=== PATIENT | female | born 1960 | race Caucasian/White ===

== ENCOUNTER → 2016-07-28 | Outpatient (CLI) | payer OTHER ==
--- NOTE | 2016-07-29 04:03 | REP ---
Clinical: Hypotensive symptoms. Technique: Childs scale and color Doppler evaluation using linear high frequency transducer Findings: Two-dimensional childs scale and color images demonstrate mural thickening to the common carotid arteries with moderate amount of mixed plaque material extending from the distal common carotid arteries through the carotid bulbs and proximal internal/external carotid arteries. Mild luminal narrowing is appreciated with normal laminar flow. Color Doppler interrogation demonstrates normal arterial wave patterns and velocities with mild/moderate spectral broadening. Normal flow direction is appreciated in the bilateral vertebral arteries. RIGHT (cm/s) LEFT (cm/s) ICA peak systolic velocity 91.8 165.3 ICA diastolic velocity 15.5 67.4 ECA peak systolic velocity 100.7 95.1 CCA peak systolic velocity 110.2 149.9 ICA/CCA ratio 0.8 1.1 Impression: No hemodynamically significant areas of narrowing or stenosis appreciated. Based on set standards narrowing falls within the 50-69% range on the left and less than 50% range on the right. Signed by Aj Kwan MD 07/29/2016 03:55 A
== END ==
LOC: M RAD 11:21
PROVIDERS: ATTEND Family Medicine
DX: R42 Dizziness and giddiness (principal)

== ENCOUNTER → 2016-10-06 | Outpatient (CLI) | payer OTHER ==
[~2016-10-06] MED LIST: ALBU17IN; ALBU17IN INH; AMIT100TA; AMIT100TA PO; AMIT50TA; AMIT50TA PO; ASPI1TAB15 PO; ATOR1TAB21; ATOR1TAB21 PO; BACL1TAB9; BACL1TAB9 PO; CRAN400T3 PO; GLUC1CAP9 PO; LORA10TA2; LORA10TA2 PO; LOSA100T36; LOSA100T36 PO; MELA1TAB15 PO; PANT40TA2; PANT40TA2 PO; QUET1TAB7; SERO1TAB3 PO; TIZA4CAP3 PO; TIZANIDINE; TRAM50TA2; TRAM50TA2 PO; TRAZ1TAB14; TRAZ1TAB14 PO; TYLE1TAB5 PO; VITA100066 PO; VITA500T88 PO
--- NOTE | 2016-10-06 11:46 | REP ---
LUMBAR SPINE, FIVE VIEWS: HISTORY: Spondylosis. COMPARISON: 03/11/2012. There is no acute fracture. The L2-3 through L5-S1 intervertebral discs are decreased in height consistent with disc degeneration. Osteophytes are present on L2-5. There is narrowing of the L4-5 and L5-S1 facet joints. There are 3 mm of grade 1 spondylolisthesis of L4 on 5. IMPRESSION: Degenerative change as described above. Signed by Pernell Hopson MD 10/06/2016 11:48 A
== END ==
LOC: M LRY 10:39
PROVIDERS: ATTEND Family Medicine
DX: M47.816 Spondylosis without myelopathy or radiculopathy, lumbar region (principal)

== ENCOUNTER 2016-12-31 16:35 | Inpatient (IN) | payer OTHER ==
[~2016-12-31] VITALS: Ht 167.6 cm; Wt 102.1 kg
[2016-12-31] MEDS ORDERED: ATOR1TAB21 (17:16)
[2016-12-31] MEDS ORDERED: AMIT100TA (17:16)
[2016-12-31] MEDS ORDERED: PANT40TA2 (17:16)
[2016-12-31] MEDS ORDERED: TRAM50TA2 (17:16)
[2016-12-31] MEDS ORDERED: QUET1TAB7 (17:16)
[2016-12-31] MEDS ORDERED: TIZANIDINE (17:16)
[2016-12-31] MEDS ORDERED: AMIT50TA (17:16)
[2016-12-31] MEDS ORDERED: ALBU17IN (17:16)
[2016-12-31] MEDS ORDERED: LOSA100T36 (17:16)
[2016-12-31] MEDS ORDERED: BACL1TAB9 (17:16)
[2016-12-31] MEDS ORDERED: LORA10TA2 (17:16)
[2016-12-31] MEDS ORDERED: TRAZ1TAB14 (17:16)
--- NOTE | 2016-12-31 17:18 | ECGEPIP ---
Stationary ECG Study [facility] - ED Test Date: 2016-12-31 Pat Name: LEWIS HUGHES Department: Room: - Gender: F Film Coater: JDennis : 1960 Requested By: THAO Lilly Order Number: [id number] Reading MD: Amaury Garcia Measurements Intervals Julian Rate: 87 P: 69 WY: 146 QRS: 19 QRSD: 88 T: 31 QT: 336 QTc: 406 Interpretive Statements SINUS RHYTHM PROBABLE INFERIOR MYOCARDIAL INFARCTION, PROBABLY OLD Electronically Signed On 12-31-2016 17:11:03 EDT by Amaury Garcia
--- NOTE | 2016-12-31 17:54 | REP ---
PA and lateral chest: A comparison is 12/07/2013. The lung garrison are clear. The cardiac size is normal The jenniffer, mediastinum, and bony thorax are unremarkable. Impression: Negative PA and lateral chest. There is no interval change. Signed by Ton Washington MD 12/31/2016 05:45 P
[2016-12-31] MEDS ORDERED: LOSARTAN 50 MG TAB PO ONE (18:30)
[2016-12-31 19:10] LABS: BASO % 0.3 % (0.0-1.0); EOS # 0.1 10^3/uL (0.0-0.50); EOS % 0.7 % (0.0-3.0); IMMATURE GRANULOCYTE % 0.2 % (0-0); LYMPH # 1.7 10^3/uL (1.5-4.5); LYMPH % 17.5 % (24.0-44.0); MEAN CORPUSCULAR HEMOGLOBIN 31.7 pg (27.0-33.0); MEAN CORPUSCULAR HGB CONC 33.9 g/dl (32.0-36.5); MEAN CORPUSCULAR VOLUME 93.5 fl (80.0-96.0); MONO # 0.5 10^3/uL (0.0-0.8); NEUTROPHILS # 7.5 10^3/uL (1.8-7.7); NEUTROPHILS % 76.3 % (36.0-66.0); PLATELET COUNT, AUTOMATED 276 10^3/uL (150-450); RED CELL DISTRIBUTION WIDTH 12.2 % (11.5-14.5); WHITE BLOOD COUNT 9.9 10^3/uL (4.0-10.0)
--- NOTE | 2016-12-31 19:20 | REPUSA ---
CLINICAL HISTORY: Headache. TECHNIQUE: Multiple axial CT images were obtained through brain without IV contrast material. COMMENTS: The study shows normal configuration of sella turcica. There are no intra or extra-axial collections. There is no mass effect or midline shift. There is no evidence of hematoma formation. No hydrocephalus is present. The ventricles are symmetrical. No abnormal calcifications are present. No significant focal abnormalities are seen either in the posterior fossa or supratentorial compartme nt. IMPRESSION: No acute intracranial pathology. Thank you for your kind referral of this patient.
[2016-12-31 19:30] LABS: ALBUMIN/GLOBULIN RATIO 1.18 (1.00-1.93); ALKALINE PHOSPHATASE 68 U/L (45-117); ALT/SGPT 36 U/L (12-78); ANION GAP 6 MEQ/L (8-16); AST/SGOT 17 U/L (15-37); BILIRUBIN,DIRECT < 0.1 MG/DL (0.0-0.2); BILIRUBIN,TOTAL 0.2 MG/DL (0.2-1.0); BLOOD UREA NITROGEN 12 MG/DL (7-18); CARBON DIOXIDE LEVEL 33 MEQ/L (21-32); CHLORIDE LEVEL 100 MEQ/L (98-107); CREATININE FOR GFR 0.68 MG/DL (0.55-1.02); GLOMERULAR FILTRATION RATE > 60.0 (>51); GLUCOSE, FASTING 99 MG/DL (70-105); POTASSIUM SERUM 3.9 MEQ/L (3.5-5.1); SODIUM LEVEL 139 MEQ/L (136-145); TOTAL PROTEIN 7.4 GM/DL (6.4-8.2)
[2016-12-31] MEDS ORDERED: ACETAMINOPHEN TAB 650MG DOSE (2X325MG) PO ONE (19:30)
[2016-12-31 19:51] LABS: CALCIUM LEVEL 10.8 MG/DL (8.5-10.1)
[2016-12-31] MEDS ORDERED: TIZA4CAP3 PO (20:09)
[2016-12-31] MEDS ORDERED: PANT40TA2 PO (20:09)
[2016-12-31] MEDS ORDERED: LOSA100T36 PO (20:09)
[2016-12-31] MEDS ORDERED: TYLE1TAB5 PO (20:09)
[2016-12-31] MEDS ORDERED: CRAN400T3 PO (20:09)
[2016-12-31] MEDS ORDERED: VITA100066 PO (20:09)
[2016-12-31] MEDS ORDERED: ALBU17IN INH (20:09)
[2016-12-31] MEDS ORDERED: ASPI1TAB15 PO (20:09)
[2016-12-31] MEDS ORDERED: TRAM50TA2 PO (20:09)
[2016-12-31] MEDS ORDERED: AMIT50TA PO (20:09)
[2016-12-31] MEDS ORDERED: LORA10TA2 PO (20:09)
[2016-12-31] MEDS ORDERED: SERO1TAB3 PO (20:09)
[2016-12-31] MEDS ORDERED: TRAZ1TAB14 PO (20:09)
[2016-12-31] MEDS ORDERED: ATOR1TAB21 PO (20:09)
[2016-12-31] MEDS ORDERED: MELA1TAB15 PO (20:09)
[2016-12-31] MEDS ORDERED: GLUC1CAP9 PO (20:09)
[2016-12-31] MEDS ORDERED: VITA500T88 PO (20:09)
[2016-12-31] MEDS ORDERED: BACL1TAB9 PO (20:09)
[2016-12-31] MEDS ORDERED: AMIT100TA PO (20:09)
[2016-12-31] MEDS ORDERED: LABETALOL HCL 100 MG/20 ML VIAL IV STA (20:29)
[2016-12-31] MEDS ORDERED: tiZANidine 4 MG TAB PO PRN (20:45)
[2016-12-31] MEDS ORDERED: ALBUTEROL 90 MCG/ACT 8GM HFA INHALER INH PRN (20:45)
[2016-12-31] MEDS: LOSARTAN 50 MG TAB PO SCH (21:00)
[2016-12-31] MEDS ORDERED: AMITRIPTYLINE 50 MG TAB PO SCH (21:00)
[2016-12-31 21:39] LABS: IONIZED CALCIUM 4.8 MG/DL (4.5-5.3)
[2016-12-31] MEDS: traZODone 50 MG TAB PO SCH (21:47)
[2016-12-31] MEDS: AMITRIPTYLINE 50 MG TAB PO SCH (21:48)
[2016-12-31] MEDS: QUEtiapine FUMARATE 25 MG TAB PO SCH (21:48)
[2016-12-31] MEDS: SENOKOT S TAB PO SCH (21:48)
[2016-12-31] MEDS: NS 1,000 ML IV SCH (21:48)
[2016-12-31] MEDS: HEPARIN SOD (PORCINE) 5000 UNITS/ML VIAL SC SCH (21:48)
[2016-12-31 21:51] LABS: OSMOLALITY URINE 379 MOSM/KG (500-800)
[2016-12-31] MEDS: BACLOFEN 10 MG TAB PO SCH (21:51)
[2016-12-31 21:53] LABS: METHADONE URINE NEGATIVE (NEGATIVE)
--- NOTE | 2016-12-31 22:06 | HPE ---
DATE OF ADMISSION: 12/31/2016 PRIMARY CARE PROVIDER: Elissa Brunson MD EDGE CUTTER: Юлия Kelley MD CHIEF COMPLAINT: Syncope HISTORY OF PRESENT ILLNESS: This is a 56-year-old female patient with underlying medical history of chronic tension type headache, cervical pain, chronic lower back pain with sciatica, history of smoking, quit smoking 2 years ago, essential hypertension, gastroesophageal reflux disease (GERD) with hiatal hernia, esophagitis, colonic polyps, allergic rhinitis, impaired fasting glucose, nephrolithiasis. 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 and 3 p.m. and was found on the ground by a coworker with some left hawk abrasion, does not remember what happened. Patient was brought to the emergency room. In the emergency room, patient continued to feel lightheaded with only minimal nausea and was found to be hypertensive. Patient also reported recent polyuria and reported history of constipation, also has a history of asthma. Denies any chest pain, pressure, or discomfort. Has been following up with Dr. Kelley for one episode of chest pain a couple of weeks ago. Patient also reported paraesthesia on different extremities. Upon questioning of oral supplementation and whether patient takes calcium, patient reported taking a lot of calcium, up to four tablets per day for the past couple of days. Other than that, patient reported also taking vitamin D. Reported history of multiple breast lesions. Denies any fevers or chills, coughing, abdominal pain. ALLERGIES: IODINE, but not to IV contrast, NONSTEROIDAL ANTI-INFLAMMATORY DRUGS (NSAIDs), PENICILLIN. PAST MEDICAL HISTORY: 1. Asthma. 2. GERD. 3. Esophagitis. 4. Chronic back pain. 5. Chronic neck pain. 6. Tension headache. 7. Hiatal hernia. 8. Colonic polyps. 9. Breast polyps. 10. Nephrolithiasis. PAST SURGICAL HISTORY: 1. Multiple back surgeries. 2. Tonsillectomy. 3. Adenoidectomy. 4. Hysterectomy. 5. Laminectomy. 6. Multiple breast tumor that were benign removal. SOCIAL HISTORY: Quit smoking 2 years ago, but one pack per day smoking for 40+ years. Drinking alcoholic beverages on occasion. Denies illicit drug use. REVIEW OF SYSTEMS: Reported constipation, occasional paresthesia, headache, lightheadedness, nausea, syncopal episode as reported above, reported polyuria. All other review of systems are negative. HOME MEDICATIONS: - Ventolin inhaler every 4 hours as needed - amitriptyline 150 mg by mouth nightly - vitamin C 500 mg by mouth daily - aspirin 81 mg by mouth daily - atorvastatin 20 mg by mouth daily - baclofen 20 mg by mouth twice a day - vitamin D 1000 units by mouth daily - cranberry extract 40 mg by mouth daily - glucosamine one capsule by mouth daily - loratadine 10 mg by mouth daily - losartan 100 mg by mouth nightly - melatonin 10 mg by mouth nightly - Protonix 40 mg by mouth daily - Seroquel 25 mg by mouth nightly - tizanidine 4 mg by mouth three times a day as needed - tramadol 50 mg by mouth four times a day as needed - trazodone 150 mg nightly - acetaminophen extra strength by mouth nightly PHYSICAL EXAMINATION: VITAL SIGNS: Temperature 98.9, pulse 89, respirations 18, blood pressure 180/99, pulse oximetry 95% on room air. Orthostatics negative. GENERAL: Patient obese, alert and oriented times three, in no acute distress. HEENT: Normocephalic, atraumatic. PULMONARY: Bilaterally clear to auscultation. CARDIAC: Regular rate and rhythm, normal S1, S2. ABDOMEN: Soft, nontender. Positive bowel sounds. EXTREMITIES: Left hawk with some abrasion. No edema bilateral lower extremities. NEUROLOGIC: Cranial nerves II-XII grossly intact. Bilateral upper and lower extremity strength 5/5. [id number] intact. EKG sinus rhythm at 87, T-wave inversion V1, QTc 336. CT head within normal limits. Chest x-ray within normal limits. LABORATORY DATA: WBC 9.9, hemoglobin and hematocrit 13.6/40.1, platelets 276. Chemistry: Sodium 139, potassium 3.9, chloride 100, bicarbonate 33, BUN 12, creatinine 0.68, calcium 10.8. Cardiac enzymes negative. TSH within normal limits. Lipase negative. ASSESSMENT AND PLAN: This is a 56-year-old female patient with underlying medical history of hypertension, asthma, chronic tension headache, neck and back pain, hypertension, breast polyps, colonic polyps, nephrolithiasis, admitted with syncope. 1. Syncope, unknown etiology. Telemetry monitoring. Neurologic checks. Orthostatics have been negative. Possible alternative etiology secondary to hypercalcemia. Followup echo. Trend cardiac enzymes. Physical therapy. Continue to monitor. 2. Hypertensive urgency. Labetalol given in the emergency room. Continue losartan, hydralazine, hold for systolic less than 140. Possible hypertension secondary to hypercalcemia. 3. Hypercalcemia, possibly secondary to patient taking a lot of Tums, but will workup alternative etiology. Will follow vitamin D 25-hydroxy and 1,25-dihydroxy, parathyroid hormone (PTH) and PTH related proteins, vitamin A, urine calcium studies. IV fluids. Followup ionized calcium as well. If workup is negative will consider serum protein electrophoresis (SPEP), urine protein electrophoresis (UPEP), and serum free kappa and lambda. Advised patient to stop Tums temporarily. Vitamin D has been on hold. 4. Gastroesophageal reflux disease (GERD). Continue proton pump inhibitor (PPI). 5. Chronic neck and back pain. Continue home medication. 6. Dyslipidemia. Continue statin. 7. Impaired fasting glucose. Will place the patient on consistent carbohydrate diet. Monitor glucose in morning labs. 8. Allergic rhinitis. Continue home medication. 9. Constipation. Bowel regimen as prescribed. 10. Asthma. Continue home medication. 11. Deep venous thrombosis (DVT) prophylaxis. Heparin subcutaneous. DISPOSITION PLANNING: Pending further workup, blood pressure controlled.
[2016-12-31 23:45] VITALS: BP_SYST 105; BP_SYST 119; BP_SYST 98; BP_DIAS 53; BP_DIAS 56; BP_DIAS 72
[2017-01-01 04:00] VITALS: BP 111/57
[2017-01-01] MEDS: **hydrALAZINE HCL** 25 MG TAB PO SCH ×2 (05:39)
[2017-01-01 06:01] LABS: MEAN CORPUSCULAR HEMOGLOBIN 31.3 pg (27.0-33.0); MEAN CORPUSCULAR HGB CONC 32.9 g/dl (32.0-36.5); MEAN CORPUSCULAR VOLUME 95.2 fl (80.0-96.0); RED CELL DISTRIBUTION WIDTH 12.6 % (11.5-14.5); WHITE BLOOD COUNT 6.1 10^3/uL (4.0-10.0)
[2017-01-01 06:28] LABS: ALBUMIN 3.4 GM/DL (3.2-5.2); ALBUMIN/GLOBULIN RATIO 1.13 (1.00-1.93); ALKALINE PHOSPHATASE 61 U/L (45-117); ALT/SGPT 31 U/L (12-78); ANION GAP 4 MEQ/L (8-16); AST/SGOT 14 U/L (15-37); BILIRUBIN,TOTAL 0.3 MG/DL (0.2-1.0); BLOOD UREA NITROGEN 14 MG/DL (7-18); CALCIUM LEVEL 9.4 MG/DL (8.5-10.1); CARBON DIOXIDE LEVEL 34 MEQ/L (21-32); CHLORIDE LEVEL 103 MEQ/L (98-107); CREATININE FOR GFR 0.82 MG/DL (0.55-1.02); GLOMERULAR FILTRATION RATE > 60.0 (>51); GLUCOSE, FASTING 99 MG/DL (70-105); MAGNESIUM LEVEL 1.8 MG/DL (1.8-2.4); POTASSIUM SERUM 4.4 MEQ/L (3.5-5.1); SODIUM LEVEL 141 MEQ/L (136-145); TOTAL PROTEIN 6.4 GM/DL (6.4-8.2)
[2017-01-01 08:00] VITALS: BP_SYST 110; BP_SYST 111; BP_SYST 122; BP_DIAS 64; BP_DIAS 69; BP_DIAS 70
[2017-01-01] MEDS: PANTOPRAZOLE 40MG TAB (PROTONIX) PO SCH (08:04)
[2017-01-01] MEDS: BACLOFEN 10 MG TAB PO SCH ×2 (08:04→21:11)
[2017-01-01] MEDS: ACETAMINOPHEN TAB 650MG DOSE (2X325MG) PO PRN ×2 (08:04→13:19)
[2017-01-01] MEDS: ASPIRIN 81 MG ENTERIC TAB PO SCH (08:04)
[2017-01-01] MEDS: ATORVASTATIN 20 MG TAB PO SCH (08:04)
[2017-01-01] MEDS: LORATADINE 10 MG TAB PO SCH (08:04)
[2017-01-01] MEDS: SENOKOT S TAB PO SCH ×2 (08:04→21:11)
[2017-01-01] MEDS: HEPARIN SOD (PORCINE) 5000 UNITS/ML VIAL SC SCH ×2 (08:05→21:11)
[2017-01-01] MEDS: traMADol 50 MG TAB PO PRN ×2 (09:47→16:40)
[2017-01-01] MEDS: NS 1,000 ML IV SCH ×2 (09:49→22:17)
[2017-01-01 12:00] VITALS: BP 139/75
--- NOTE | 2017-01-01 15:16 | REP ---
RIGHT HIP: Three views. HISTORY: Pain after a fall. FINDINGS: AP and frog-leg views right hip demonstrate osteoarthritic spurring. Femoral head is smooth and rounded. No fracture is seen. There is minimal greater trochanteric spurring. IMPRESSION: Osteoarthritic changes. No fracture seen. Signed by Evans Galloway MD 01/01/2017 05:12 P
[2017-01-01 16:00] VITALS: BP 132/80
--- NOTE | 2017-01-01 16:03 | IPNPDOC ---
Date Seen The patient was seen on 01/01/17. Progress Note Hospitalist Progress Note Subjective: Patient states that she is feeling better and is no longer nauseated or flushed Objective: Physical Exam: Vitals: Vital Sign - Last 24 Hours 12/31/16 12/31/16 12/31/16 12/31/16 17:00 17:03 17:05 17:08 Temp 98.9 Pulse 89 88 Resp 18 B/P (MAP) 180/99 (126) 180/99 (126) 162/97 (118) Pulse Ox 93 93 O2 Delivery Room Air 12/31/16 12/31/16 12/31/16 12/31/16 17:10 17:20 17:23 17:25 Pulse 86 B/P (MAP) 161/99 (119) 155/94 (114) Pulse Ox 90 12/31/16 12/31/16 12/31/16 12/31/16 17:35 17:40 17:45 17:47 Pulse 92 B/P (MAP) 149/92 (111) 169/85 (113) 168/97 (120) 12/31/16 12/31/16 12/31/16 12/31/16 17:48 17:50 17:50 17:52 Pulse 86 95 87 89 B/P (MAP) 190/104 (132) 169/85 (113) 175/109 (131) 168/97 (120) 190/104 (132) Pulse Ox 95 12/31/16 12/31/16 12/31/16 12/31/16 17:55 17:57 18:05 18:20 Pulse 82 82 Resp 18 B/P (MAP) 171/107 (128) 169/108 (128) Pulse Ox 96 95 O2 Delivery Room Air 12/31/16 12/31/16 12/31/16 12/31/16 18:25 18:35 18:40 18:48 Pulse 84 B/P (MAP) 164/94 (117) 167/106 (126) 167/106 Pulse Ox 95 12/31/16 12/31/16 12/31/16 12/31/16 18:50 19:05 19:10 19:20 Pulse 82 82 84 Resp 18 B/P (MAP) 167/108 (127) Pulse Ox 95 98 96 O2 Delivery Room Air 10/11/17 12/31/16 12/31/16 12/31/16 19:25 19:35 19:40 19:50 Pulse 84 86 B/P (MAP) 181/113 (135) 179/118 (138) Pulse Ox 93 94 12/31/16 12/31/16 12/31/16 12/31/16 19:55 20:05 20:10 20:25 Pulse 84 78 86 B/P (MAP) 182/116 (138) 172/118 (136) 158/107 (124) Pulse Ox 95 96 94 12/31/16 12/31/16 12/31/16 12/31/16 20:40 20:55 20:57 21:25 Pulse 82 84 70 B/P (MAP) 175/107 (129) 173/105 (127) 130/87 (101) 137/96 (110) Pulse Ox 92 93 97 12/31/16 12/31/16 12/31/16 12/31/16 21:40 21:55 22:10 22:25 Temp 98.6 Pulse 76 78 78 Resp 16 B/P (MAP) 156/110 (125) 133/94 (107) Pulse Ox 94 91 90 12/31/16 12/31/16 12/31/16 12/31/16 22:40 22:55 23:45 23:45 Temp 97.8 Pulse 80 80 79 79 66 Resp 18 18 B/P (MAP) 116/77 (90) 119/72 (88) 119/72 (88) 105/53 (70) 98/56 (70) Pulse Ox 92 89 92 O2 Delivery Room Air 01/01/17 01/01/17 01/01/17 01/01/17 00:00 03:47 04:00 05:39 Temp 97.9 Pulse 68 Resp 18 B/P (MAP) 113/62 111/57 (75) 99/64 Pulse Ox 93 O2 Delivery Room Air Room Air 01/01/17 01/01/17 01/01/17 01/01/17 08:00 08:00 08:00 09:47 Temp 98.2 Pulse 79 84 87 Resp 18 19 B/P (MAP) 122/70 (87) 110/64 (79) 111/69 (83) Pulse Ox 93 O2 Delivery Room Air Room Air 01/01/17 01/01/17 10:30 12:00 Temp 98.0 Pulse 80 Resp 18 18 B/P (MAP) 139/75 (96) Pulse Ox 91 O2 Delivery Room Air General: Awake, alert, no acute distress HEENT: Normocephalic, atraumatic, extraocular movements intact CV: Regular rate and rhythm Lungs: Clear to auscultation bilaterally Abd: Soft, nontender, nondistended Extremities: No edema Neuro: Alert And oriented 3, normal speech Psych: Normal mood and affect Labs and Imaging: Laboratory Tests 12/31/16 17:08 Red Blood Count 4.29, Mean Corpuscular Volume 93.5, Mean Corpuscular Hemoglobin 31.7, Mean Corpuscular Hemoglobin Concent 33.9, Red Cell Distribution Width 12.2 , Neutrophils (%) (Auto) 76.3 H, Lymphocytes (%) (Auto) 17.5 L, Monocytes (%) ( Auto) 5.0, Eosinophils (%) (Auto) 0.7, Basophils (%) (Auto) 0.3, Neutrophils # ( Auto) 7.5, Lymphocytes # (Auto) 1.7, Monocytes # (Auto) 0.5, Eosinophils # (Auto ) 0.1, Basophils # (Auto) 0.0 01/01/17 05:44 Red Blood Count 3.96 L, Mean Corpuscular Volume 95.2, Mean Corpuscular Hemoglobin 31.3, Mean Corpuscular Hemoglobin Concent 32.9, Red Cell Distribution Width 12.6, Calcium Level 9.4, Phosphorus Level 5.0 H, Aspartate Amino Transf (AST/SGOT) 14 L, Alanine Aminotransferase (ALT/SGPT) 31, Alkaline Phosphatase 61, Total Bilirubin 0.3, Total Protein 6.4, Albumin 3.4 Assessment and Plan: 56-year-old female with asthma, chronic tension-type headache, chronic lower back pain, hypertension, GERD, hiatal hernia, esophagitis, colonic polyps, allergic rhinitis, prediabetes who presented to the emergency department after what appears to be an episode of syncope. 1. Syncope: Patient states that prior to that she felt lightheaded and nauseated , and she reports to me that she had been seeing Dr. Kelley for the last several months for similar symptoms. CT of the head is unremarkable. We will continue to monitor her on telemetry and will follow-up an echocardiogram. She was mildly orthostatic on one check, the remainder of her orthostatic vital signs have been normal. Since the patient has been seeing Dr. Kelley, I will discuss the case with him. Continue hydration. 2. Hypercalcemia: The patient's calcium was mildly elevated upon admission at 10.8. She does report taking large amounts of Tums, which may be contributing. Repeat this morning is 9.4. Her ionized calcium was within normal limits. PTH is also normal. She has several other labs pending, but at this time, I am recommending that she cut down on her Tums intake and follow-up with her primary care physician for further monitoring and workup. 3. Allergic rhinitis: Continue home Claritin. 4. Hypertension: Continue home ARB. BP was very elevated on admission, but now has improved. Continue to monitor. 5. GERD, hiatal hernia, esophagitis: Continue home PPI. The patient has been advised that she should cut back on her Tums usage. 6. Chronic tension-type headaches: Continue home amitriptyline. 7. Chronic low back pain: Continue home tramadol, tizanidine, baclofen. 8. Asthma: Continue home albuterol. DVT prophylaxis: Heparin Dispo: pending remainder of syncope workup VS, I&O, 24H, Fishbone Vital Signs/I&O Vital Signs Date Time Temp Pulse Resp B/P (MAP) Pulse Ox O2 Delivery O2 Flow Rate FiO2 01/01/17 12:00 98.0 80 18 139/75 (96) 91 Room Air I&O- Last 24 Hours up to 6 AM 01/02/17 06:00 Intake Total 0 ml Output Total 300 ml Balance -300 ml Laboratory Data 24H LABS Laboratory Tests 2 12/31/16 17:08: Immature Granulocyte % (Auto) 0.2H, White Blood Count 9.9, Red Blood Count 4.29 , Hemoglobin 13.6, Hematocrit 40.1, Mean Corpuscular Volume 93.5, Mean Corpuscular Hemoglobin 31.7, Mean Corpuscular Hemoglobin Concent 33.9, Red Cell Distribution Width 12.2, Platelet Count 276, Neutrophils (%) (Auto) 76.3H, Lymphocytes (%) (Auto) 17.5L, Monocytes (%) (Auto) 5.0, Eosinophils (%) (Auto) 0.7, Basophils (%) (Auto) 0.3, Neutrophils # (Auto) 7.5, Lymphocytes # (Auto) 1.7, Monocytes # (Auto) 0.5, Eosinophils # (Auto) 0.1, Basophils # (Auto) 0.0, Immature Granulocyte # (Auto) 0.0, Nucleated Red Blood Cells % (auto) 0.0, Anion Gap 6L, Glomerular Filtration Rate > 60.0, Calcium Level 10.8#H, Aspartate Amino Transf (AST/SGOT) 17, Alanine Aminotransferase (ALT/SGPT) 36, Alkaline Phosphatase 68, Total Bilirubin 0.2, Direct Bilirubin < 0.1, Total Creatine Kinase 70, Creatine Kinase MB 1.2, Creatine Kinase MB Relative Index 1.71, Troponin I < 0.02, Total Protein 7.4, Albumin 4.0, Albumin/Globulin Ratio 1.18, Lipase 192, Thyroid Stimulating Hormone (TSH) 1.640 12/31/16 21:19: Urine Appearance CLEAR, Urine Color YELLOW, Urine pH 7.0, Urine Specific [place] 1.009, Urine Protein NEGATIVE, Urine Glucose (UA) NEGATIVE, Urine Ketones NEGATIVE, Urine Urobilinogen 0.2, Urine Bilirubin NEGATIVE, Urine Leukocyte Esterase 1+H, Urine Blood NEGATIVE, Urine Nitrite NEGATIVE, Urine WBC (Auto) 6H, Urine RBC (Auto) 2, Urine Hyaline Casts (Auto) 0, Urine Bacteria ( Auto) NEGATIVE, Urine Squamous Epithelial Cells 1, Urine Amorphous Sediment SMALLH, Urine Mucus (Auto) SMALL, Urine Sperm (Auto) , Urine Random Osmolality 379L, Urine Random Creatinine 37.8, Urine Random Total Protein 6.3, Urine Random Sodium 96, Urine Random Potassium 38.1, Urine Random Chloride 109, Urine Random Calcium 15.2, Urine Amphetamines Screen NEGATIVE, Urine Benzodiazepines Screen NEGATIVE, Urine Opiates Screen NEGATIVE, Urine Methadone Screen NEGATIVE , Urine Barbiturates Screen NEGATIVE, Urine Phencyclidine Screen NEGATIVE, Urine Cocaine Metabolite Screen NEGATIVE, Urine Cannabinoids Screen NEGATIVE 12/31/16 21:26: Total Creatine Kinase 75, Creatine Kinase MB 1.2, Creatine Kinase MB Relative Index 1.60, Troponin I < 0.02, Whole Blood Ionized Calcium 4.8, 25-Hydroxy Vitamin D Total 24.8L, Parathyroid Hormone (Intact) 43.5 01/01/17 05:44: Nucleated Red Blood Cells % (auto) 0.0, Anion Gap 4L, Glomerular Filtration Rate > 60.0, Calcium Level 9.4, Aspartate Amino Transf (AST/SGOT) 14L, Alanine Aminotransferase (ALT/SGPT) 31, Alkaline Phosphatase 61, Total Bilirubin 0.3, Total Protein 6.4, Albumin 3.4, Albumin/Globulin Ratio 1.13, Whole Blood Ionized Calcium 4.8, Blood Urea Nitrogen 14, Creatinine 0.82, Sodium Level 141, Potassium Level 4.4, Chloride Level 103, Carbon Dioxide Level 34H, Phosphorus Level 5.0H, Magnesium Level 1.8 CBC/BMP Laboratory Tests 12/31/16 17:08 Red Blood Count 4.29, Mean Corpuscular Volume 93.5, Mean Corpuscular Hemoglobin 31.7, Mean Corpuscular Hemoglobin Concent 33.9, Red Cell Distribution Width 12.2 , Neutrophils (%) (Auto) 76.3 H, Lymphocytes (%) (Auto) 17.5 L, Monocytes (%) ( Auto) 5.0, Eosinophils (%) (Auto) 0.7, Basophils (%) (Auto) 0.3, Neutrophils # ( Auto) 7.5, Lymphocytes # (Auto) 1.7, Monocytes # (Auto) 0.5, Eosinophils # (Auto ) 0.1, Basophils # (Auto) 0.0 01/01/17 05:44 Red Blood Count 3.96 L, Mean Corpuscular Volume 95.2, Mean Corpuscular Hemoglobin 31.3, Mean Corpuscular Hemoglobin Concent 32.9, Red Cell Distribution Width 12.6, Calcium Level 9.4, Phosphorus Level 5.0 H, Aspartate Amino Transf (AST/SGOT) 14 L, Alanine Aminotransferase (ALT/SGPT) 31, Alkaline Phosphatase 61, Total Bilirubin 0.3, Total Protein 6.4, Albumin 3.4 Microbiology Microbiology 12/31/16 Urine Culture - Final, Complete MELISA LALA Jan 01, 2017 16:03
--- NOTE | 2017-01-01 17:02 | REP ---
Right femur series: Three views. History: Pain after fall. Findings: AP and lateral views of the right mid and distal femur show no evidence of fracture or subluxation. Bones joints and soft tissues are unremarkable. Impression: No fracture noted. Signed by Evans Galloway MD 01/01/2017 05:14 P
[2017-01-01] MEDS ORDERED: NORCO, ANEXSIA 5/325MG TABLET (HYDROcodone/ACETAMINOPHEN) PO ONE (17:45)
[2017-01-01 20:00] VITALS: BP_SYST 119; BP_SYST 120; BP_SYST 124; BP_DIAS 61; BP_DIAS 66; BP_DIAS 74
[2017-01-01] MEDS: AMITRIPTYLINE 50 MG TAB PO SCH (21:11)
[2017-01-01] MEDS: QUEtiapine FUMARATE 25 MG TAB PO SCH (21:11)
[2017-01-01 21:12] VITALS: BP 124/61
[2017-01-01] MEDS: LOSARTAN 50 MG TAB PO SCH (21:12)
[2017-01-01] MEDS: traZODone 50 MG TAB PO SCH (21:12)
--- NOTE | 2017-01-01 22:51 | ECHO ---
DATE OF PROCEDURE: 01/01/2017 REFERRING PHYSICIAN: Agnieszka Morris MD and Almaz Jerry MD INDICATION: Syncope. HEIGHT: 168 cm WEIGHT: 89 kg DIMENSIONS: IVS: 0.9 LV: 4.6 LVPW: 0.9 LA: 2.9 Aorta: 3.2 IVC: 1.6 Mitral E velocity: 65 cm/s Mitral A velocity: 77 cm/s E prime velocity 9.2 cm/s E prime lateral: 12.6 cm/s FINDINGS: The study is of acceptable technical quality. Left ventricle is of normal size and systolic function with estimated left ventricular ejection fraction (LVEF) 60-65%. Right ventricle is also normal size and systolic function. Both atria appear normal. All four cardiac valves were reasonably well seen and appear normal. No pericardial effusion is noted. Inferior vena cava is normal size. Aortic root is normal. Aortic arch and abdominal aorta were poorly seen. Doppler interrogation reveals no aortic stenosis or insufficiency, there is also no mitral stenosis or insufficiency. Mild tricuspid insufficiency seen. Estimated pulmonary artery pressure is within normal limits. Mitral valve is functionally competent. Mitral inflow pattern and tissue Doppler imaging of mitral annulus reveal grade 1 diastolic dysfunction. CONCLUSIONS: 1. Study is of acceptable technical quality. 2. Normal LV size and systolic function, grade 1 diastolic dysfunction. 3. No significant valvular disease. 4. Normal central venous pressure and likely normal pulmonary artery pressure. COMMENT: SBE prophylaxis is not recommended. Study does not provide obvious explanation for syncopal event.
[2017-01-02] VITALS: BP 108/55
[2017-01-02 04:00] VITALS: BP 120/68
[2017-01-02 06:05] LABS: MEAN CORPUSCULAR HEMOGLOBIN 30.9 pg (27.0-33.0); MEAN CORPUSCULAR HGB CONC 31.8 g/dl (32.0-36.5); MEAN CORPUSCULAR VOLUME 97.1 fl (80.0-96.0); RED CELL DISTRIBUTION WIDTH 12.4 % (11.5-14.5); WHITE BLOOD COUNT 5.3 10^3/uL (4.0-10.0)
[2017-01-02 06:17] LABS: ANION GAP 3 MEQ/L (8-16); BLOOD UREA NITROGEN 16 MG/DL (7-18); CARBON DIOXIDE LEVEL 30 MEQ/L (21-32); CHLORIDE LEVEL 109 MEQ/L (98-107); CREATININE FOR GFR 0.57 MG/DL (0.55-1.02); GLOMERULAR FILTRATION RATE > 60.0 (>51); GLUCOSE, FASTING 94 MG/DL (70-105); MAGNESIUM LEVEL 1.8 MG/DL (1.8-2.4); POTASSIUM SERUM 4.1 MEQ/L (3.5-5.1); SODIUM LEVEL 142 MEQ/L (136-145)
[2017-01-02 08:00] VITALS: BP 142/87
[2017-01-02] MEDS: ATORVASTATIN 20 MG TAB PO SCH (09:50)
[2017-01-02] MEDS: HEPARIN SOD (PORCINE) 5000 UNITS/ML VIAL SC SCH (09:50)
[2017-01-02] MEDS: PANTOPRAZOLE 40MG TAB (PROTONIX) PO SCH (09:50)
[2017-01-02] MEDS: BACLOFEN 10 MG TAB PO SCH (09:51)
[2017-01-02] MEDS: SENOKOT S TAB PO SCH (09:51)
[2017-01-02] MEDS: LORATADINE 10 MG TAB PO SCH (09:51)
[2017-01-02] MEDS: ASPIRIN 81 MG ENTERIC TAB PO SCH (09:51)
[2017-01-02] MEDS: traMADol 50 MG TAB PO PRN (09:57)
[2017-01-02 12:00] VITALS: BP 140/84
--- NOTE | 2017-01-02 15:20 | DS.PDOC ---
Discharge Summary General Date of Admission Dec 31, 2016 at 21:03 Date of Discharge 01/02/2017 Discharge Summary DISCHARGE SUMMARY DATE OF ADMISSION: 12/31/2016 DATE OF DISCHARGE: 01/02/2017 PRIMARY CARE PHYSICIAN: Elissa Brunson MD DISCHARGE DIAGNOS(E)S: Syncope HPI & HOSPITAL COURSE: 56-year-old female with asthma, chronic tension-type headache, chronic lower back pain, hypertension, GERD, hiatal hernia, esophagitis, colonic polyps, allergic rhinitis, prediabetes who presented to the emergency department after what appears to be an episode of syncope. 1. Syncope: Patient states that prior to that she felt lightheaded and nauseated , and she reports to me that she had been seeing Dr. Kelley for the last several months for similar symptoms. CT of the head is unremarkable. Telemetry monitoring did not show any arrhythmias and echocardiogram was signifianct only for grade 1 diastolic dysfunction. She does not appear to be orthostatic. Since the patient has been seeing Dr. Kelley, I discussed the case with Dr. Grover, who was shader and toner for Dr. Kelley. He noted that a stress test done as an outpatient was unremarkable, and he recommended that she come to their office upon discharge for a loop recorder. 2. Hypercalcemia: The patient's calcium was mildly elevated upon admission at 10.8. She does report taking large amounts of Tums, which may be contributing. Repeat had normalized and her ionized calcium was within normal limits. PTH is also normal. Vit A, Vit D, and PTHrP are pending and will need to be followed up by PCP, but at this time, I am recommending that she cut down on her Tums intake and follow-up with her primary care physician for further monitoring and workup. 3. Allergic rhinitis: Continue home Claritin. 4. Hypertension: Continue home ARB. BP was very elevated on admission, but now has improved. Continue to monitor. 5. GERD, hiatal hernia, esophagitis: Continue home PPI. The patient has been advised that she should cut back on her Tums usage. 6. Chronic tension-type headaches: Continue home amitriptyline. 7. Chronic low back pain: Continue home tramadol, tizanidine, baclofen. 8. Asthma: Continue home albuterol. 9. Right hip pain: Per patient, this has been an issue for several months but was worse after her syncope. She thinks she may have fallen on that side. Right hip/pelvis, femur films are negative for acute findings and show only OA, for which she was advised to follow with her PCP. She worked with PT, who cleared her to go home. DVT prophylaxis: Heparin PHYSICAL EXAMINATION ON DISCHARGE: VITAL SIGNS: Vital Sign - Last 24 Hours 01/01/17 01/01/17 01/01/17 01/01/17 16:00 16:40 17:58 18:40 Temp 98.4 Pulse 85 Resp 18 18 19 20 B/P (MAP) 132/80 (97) Pulse Ox 92 O2 Delivery Room Air 01/01/17 01/01/17 01/01/17 01/01/17 20:00 20:00 20:00 21:12 Temp 97.7 Pulse 89 91 93 Resp 20 B/P (MAP) 124/61 (82) 124/61 120/66 (84) 119/74 (89) Pulse Ox 93 O2 Delivery Room Air Room Air 01/02/17 01/02/17 01/02/17 01/02/17 00:00 00:00 04:00 08:00 Temp 97.1 96.3 Pulse 57 80 Resp 18 20 B/P (MAP) 108/55 (72) 120/68 (85) Pulse Ox 93 91 O2 Delivery Room Air Room Air Room Air Room Air 01/02/17 01/02/17 01/02/17 01/02/17 08:00 09:57 10:27 12:00 Temp 98.4 98.5 Pulse 79 80 Resp 16 18 20 18 B/P (MAP) 142/87 (105) 140/84 (102) Pulse Ox 90 93 O2 Delivery Room Air Room Air General: Awake, alert, no acute distress HEENT: Normocephalic, atraumatic, extraocular movements intact CV: Regular rate and rhythm Lungs: Clear to auscultation bilaterally Abd: Soft, nontender, nondistended Extremities: No edema Neuro: Alert And oriented 3, normal speech Psych: Normal mood and affect DISPOSITION: Home DISCHARGE INSTRUCTIONS: Upon discharge, go directly to Dr. Dr. Kelley's office for loop recorder. Follow up PCP within one week. Follow up Dr. Kelley in 1-2 weeks. Stop taking Tums. If symptoms return, or if you experience worsening of your symptoms, please call your doctor or return to the emergency department. ITEMS THAT NEED OUTPATIENT FOLLOWUP: Vit A, Vit D, and PTHrP by PCP Loop recorder results by Dr. Kelley Patient was seen and examined by me on the day of discharge, and I spent a total time of greater than 30 minutes on this discharge. Vital Signs/I&Os Vital Signs Date Time Temp Pulse Resp B/P (MAP) Pulse Ox O2 Delivery O2 Flow Rate FiO2 01/02/17 12:00 98.5 80 18 140/84 (102) 93 Room Air I&O- Last 24 Hours up to 6 AM 01/03/17 06:00 Intake Total 840 ml Output Total 1400 ml Balance -560 ml Laboratory Data Labs 24H Laboratory Tests 2 01/02/17 05:36: Nucleated Red Blood Cells % (auto) 0.0, Anion Gap 3L, Glomerular Filtration Rate > 60.0, Blood Urea Nitrogen 16, Creatinine 0.57, Sodium Level 142, Potassium Level 4.1, Chloride Level 109H, Carbon Dioxide Level 30, Calcium Level 8.0L, Magnesium Level 1.8 CBC/BMP Laboratory Tests 01/02/17 05:36 Red Blood Count 3.76 L, Mean Corpuscular Volume 97.1 H, Mean Corpuscular Hemoglobin 30.9, Mean Corpuscular Hemoglobin Concent 31.8 L, Red Cell Distribution Width 12.4, Calcium Level 8.0 L Microbiology Microbiology 12/31/16 Urine Culture - Final, Complete Discharge Medications Scheduled (Glucosamine & Chondroitin 500-400 mg) 1 Cap Cap, 1 CAP PO DAILY, (Reported) (Tylenol Pm Extra Strength 500-25 mg) 1 Tab Tab, 2 TAB PO QHS, (Reported) Amitriptyline HCl (Amitriptyline HCl) 50 Mg Tab, 50 MG PO QHS, (Reported) 150MG TOTAL QHS Amitriptyline HCl (Amitriptyline HCl) 100 Mg Tab, 100 MG PO QHS, (Reported) 150MG TOTAL QHS Ascorbic Acid (Vitamin C) 500 Mg Tab, 500 MG PO DAILY, (Reported) Aspirin (Aspirin) 81 Mg Tab, 81 MG PO DAILY, (Reported) Atorvastatin Calcium (Atorvastatin Calcium) 20 Mg Tab, 20 MG PO DAILY, (Reported ) Baclofen (Baclofen) 20 Mg Tab, 20 MG PO BID, (Reported) Cholecalciferol (Vitamin D) 1,000 Unit Tab, 1,000 UNIT PO DAILY, (Reported) Cranberry (Cranberry) 400 Mg Tab, 400 MG PO DAILY, (Reported) Loratadine (Loratadine) 10 Mg Tab, 10 MG PO DAILY, (Reported) Losartan Potassium (Losartan Potassium) 100 Mg Tab, 100 MG PO QHS, (Reported) Melatonin (Melatonin) 10 Mg Tab, 10 MG PO QHS, (Reported) Pantoprazole Sodium (Pantoprazole Sodium) 40 Mg Tab, 40 MG PO DAILY, (Reported) Quetiapine Fumerate (Seroquel) 25 Mg Tab, 25 MG PO QHS, (Reported) Trazodone HCl (Trazodone HCl) 150 Mg Tab, 150 MG PO QHS, (Reported) Scheduled PRN Albuterol Sulfate (Ventolin Hfa) 200 Puff/8 Gm Aers, 2 PUFF INH Q4H PRN for SHORTNESS OF BREATH, (Reported) Tizanidine Hydrochloride (Tizanidine HCl) 4 Mg Cap, 4 MG PO TID PRN for SPASMS, (Reported) Tramadol HCl (Tramadol HCl) 50 Mg Tab, 50 MG PO QID PRN for PAIN, (Reported) Allergies Coded Allergies: Iodine (Verified Allergy, Unknown, 05/07/15) NSAIDs (Verified Allergy, Unknown, 05/07/15) Penicillins (Verified Allergy, Unknown, 05/07/15) MELISA LALA Jan 02, 2017 15:20
[2017-01-06 00:11] LABS: VITAMIN D 1,25 DIHYDROXY 16.7 pg/mL (19.9-79.3)
[2017-01-07 00:06] LABS: PTH RELATED PEPTIDE < 1.1 pmol/L (.); VITAMIN A, RETINOL LEVEL 61 ug/dL (20-65)
== END 2017-01-02 16:21 | disposition home or self-care (01) | DRG 204 ==
LOC: M ED 16:35 → EDBEDREQSVC 20:35 → EDBEDREQTM 20:35 → M ED INP 21:03 → M PCU 23:40
PROVIDERS: ADMIT Hospitalist; ATTEND Hospitalist
DX: R55 Syncope and collapse (principal); E83.52 Hypercalcemia; I10 Essential (primary) hypertension; K21.9 Gastro-esophageal reflux disease without esophagitis; M54.5 Low back pain; J45.909 Unspecified asthma, uncomplicated; K44.9 Diaphragmatic hernia without obstruction or gangrene; K29.70 Gastritis, unspecified, without bleeding; G44.209 Tension-type headache, unspecified, not intractable; M25.551 Pain in right hip; Z79.899 Other long term (current) drug therapy; Z79.82 Long term (current) use of aspirin; Z88.0 Allergy status to penicillin; Z88.8 Allergy status to other drugs, medicaments and biological substances; Z87.891 Personal history of nicotine dependence; M54.2 Cervicalgia; J30.9 Allergic rhinitis, unspecified; K59.00 Constipation, unspecified; R73.02 Impaired glucose tolerance (oral); I16.0 Hypertensive urgency

== ENCOUNTER → 2016-12-31 | Outpatient (CLI) | payer OTHER ==
[2016-12-31 12:39] LABS: MEAN CORPUSCULAR HEMOGLOBIN 31.6 pg (27.0-33.0); MEAN CORPUSCULAR VOLUME 95.6 fl (80.0-96.0); RED CELL DISTRIBUTION WIDTH 12.3 % (11.5-14.5); WHITE BLOOD COUNT 5.7 10^3/uL (4.0-10.0)
[2016-12-31 13:16] LABS: ANION GAP 5 MEQ/L (8-16); BLOOD UREA NITROGEN 14 MG/DL (7-18); CARBON DIOXIDE LEVEL 33 MEQ/L (21-32); CHLORIDE LEVEL 102 MEQ/L (98-107); CHOLESTEROL LEVEL 168 MG/DL (<200); GLOMERULAR FILTRATION RATE > 60.0 (>51); GLUCOSE, FASTING 85 MG/DL (70-105); POTASSIUM SERUM 4.3 MEQ/L (3.5-5.1); SODIUM LEVEL 140 MEQ/L (136-145); TRIGLYCERIDES LEVEL 108 MG/DL (<150)
== END ==
LOC: M LRY 09:23
PROVIDERS: ATTEND Internal Medicine Cardiovascular Disease
DX: I10 Essential (primary) hypertension (principal); R73.09 Other abnormal glucose

== ENCOUNTER → 2017-03-11 | Day surgery (SDC) | payer OTHER ==
[~2017-03-11] VITALS: Ht 167.6 cm; Wt 99.3 kg
[~2017-03-11] MED LIST changes: +ACETAMINOPHEN TAB 650MG DOSE (2X325MG) PO ONE; +ALBUTEROL 90 MCG/ACT 8GM HFA INHALER INH PRN; +ALBUTEROL SULFATE 2.5 MG/0.5 ML INH NEB SOLN INH ONE; +ALBUTEROL SULFATE 2.5 MG/0.5 ML INH NEB SOLN INH SCH; +CLINDAMYCIN 600 MG in APPROPRIATE DILUENT 1 EA IV ONE; +EPINEPHrine 1MG/ML INJ 30ML MD-VIAL As Ordered ONE; +EPINEPHrine INJ 1 MG/ML 1ML AMP ONE; +EPIP0.3I2 IJ; +GLYCOPYRROLATE INJ 0.2 MG/ML 2 ML VIAL As Ordered ONE; +LIDOCAINE 1% MDV 20ML VIAL As Ordered ONE; +LIDOCAINE 1% MDV 20ML VIAL SQ PRN; +LIDOCAINE 2% INJ 100 MG/5 ML SDV (FOR ANES.) As Ordered ONE; +LR 1,000 ML IV SCH; +METOCLOPRAMIDE INJ 10MG/2ML VIAL (J2765) IV PRN; +MIDAZOLAM INJ 2 MG/2 ML VIAL (J2250) As Ordered ONE; +MIDAZOLAM INJ 2 MG/2 ML VIAL (J2250) IV ONE; +NEOSTIGMINE 10 MG/10 ML VIAL (J2710) As Ordered ONE; +ONDANSETRON 4MG/2ML VIAL (J2405) As Ordered ONE; +ONDANSETRON 4MG/2ML VIAL (J2405) IV PRN; +PHENYLephrine HCL 500 MCG/5 ML (100MCG/ML) SYRINGE (J2370) As Ordered ONE; +PROPOFOL 200 MG/20 ML VIAL As Ordered ONE; +ROCURONIUM BROMIDE 50 MG/5 ML VIAL As Ordered ONE; +ROPIvacaine 0.5% 30 ML INJECTION (J2795 PER 1MG) ONE; +STOO100C PO; +SUCCINYLCHOLINE 100 MG/5 ML SYRINGE (J0330) As Ordered ONE; +dexameTHASONE 10 MG/1 ML VIAL PRES.FREE (J1100) ONE; +fentaNYL 100 MCG/2 ML INJECTION (J3010) As Ordered ONE; +fentaNYL 100 MCG/2 ML INJECTION (J3010) IV ONE; +fentaNYL 100 MCG/2 ML INJECTION (J3010) IV PRN
[2017-03-11 14:43] VITALS: O2SAT 98
[2017-03-11 19:15] VITALS: BP 152/89
--- NOTE | 2017-03-12 07:36 | REP ---
REASON FOR EXAM: Low oxygen saturation. COMPARISON: Multiple, latest 12/31/2016. There is mild elevation of the diaphragmatic surface of the right lung increased slightly from the prior exam. There is an implanted device in the anterior left soft tissues of the chest. This represents a change. The heart is not enlarged. There is minimal right CP angle blunting. No definite acute patchy parenchymal opacities have developed. There is no change in the osseous structures. IMPRESSION: Suspect right lower lobe minimal subsegmental atelectatic changes. This needs to be correlated clinically with appropriate followup. All other findings as described above. Signed by Paul Tolbert DO 03/13/2017 01:52 P
--- NOTE | 2017-03-17 18:10 | RO ---
DATE OF PROCEDURE: 03/11/2017 PREPROCEDURE DIAGNOSES: 1. Right shoulder rotator cuff tear. 2. Right shoulder acromioclavicular (AC) joint arthritis. 3. Right shoulder possible superior labral tear. POSTPROCEDURE DIAGNOSES: 1. Right shoulder full thickness rotator cuff tear. 2. Right shoulder acromioclavicular joint arthritis. 3. Right shoulder labral tear. PROCEDURE: 1. Right shoulder arthroscopic rotator cuff repair. 2. Right shoulder arthroscopic distal clavicle excision. 3. Right shoulder biceps tenotomy and superior labral debridement, as well as debridement of bursal tissue and chondroplasty of the glenoid. SURGEON: Dr. Krishna Ramos WRINGER MACHINE OPERATOR: SHERRIE Mercedes ANESTHESIA: Preoperative nerve block plus general. IV FLUIDS: Lactated Ringer's. ESTIMATED BLOOD LOSS: 25 mL. IMPLANTS: Arthrex 4.75 mm, PEEK SwiveLock anchor times one and 5.5 mm SwiveLock anchor times one. CLOSURE: Nylon. INDICATIONS: Nunu is a 57-year-old female with months of right shoulder pain, which had recently progressed. On exam, she had weakness in her supraspinatus and subscapularis, and tenderness at the AC joint. MRI showed a very high-grade partial thickness tear of the supraspinatus and tendinopathy of the subscapularis, as well as degenerative changes at the AC joint. After failing nonoperative treatment, the patient wished to pursue surgery. We discussed arthroscopic rotator cuff repair versus debridement, distal clavicle excision and all other indicated procedures as dictated by intraoperative findings. Written informed consent obtained. DESCRIPTION OF PROCEDURE: The patient was identified in the preoperative holding area, and the right shoulder signed by myself. She received a preoperative nerve block by anesthesia. She was brought to the operating room and placed supine on a well-padded operating room (OR) table. Exam under anesthesia revealed 170 degrees of passive forward flexion, 80 degrees of external rotation arm at her side. General anesthesia induced without complications. She was then placed into the left side down lateral decubitus position with an axillary roll and all bony prominences well padded with the beanbag. Venodyne boot bilateral lower extremities. Beanbag was deflated, and she was secured to the operating room (OR) table. The right arm was then prepped and draped in the normal sterile fashion with Chloraprep. She received appropriate intravenous (IV) antibiotics within one hour of incision. The right arm was sterilely placed into the Arthrex STaR Sleeve traction device with 10 pounds of traction. Prior to incision, a time-out was performed, which myself and all OR staff confirmed the patient's name, medical record number, date of and the correct side, site and procedure. The shoulder was insufflated with 30 mL of lactated Ringer's and a standard posterior viewing portal made with an #11 blade. 30-degree arthroscope introduced into the joint atraumatically. Diagnostic arthroscopy was carried out revealing an area of grade 2 chondromalacia of the glenoid inferiorly. Overall, the humeral head and glenoid were in excellent condition. There was degenerative tearing of the superior labrum. With the posterior leaver push maneuver, there was clear tearing of the upper one-third border of the subscapularis, which lifted off on the lesser tuberosity. There was actually a full thickness but nonretracted tear in the supraspinatus, approaching the infraspinatus as I was able to place the scope from the joint through the tear into the bursal compartment. The posterior rotator cuff was intact. No loose bodies. The standard anterior working portal was localized with a spinal needle and a purple Arthrex cannula brought into the rotator interval. On probing, the upper border of the subscapularis tendon was under poor tension. I determined this needed a rotator cuff repair, and in order to do this arthroscopically, performed a tenotomy of the long head of the biceps just off the superior labrum. Loose tendon fragments were removed with a shaver and then I debrided the tendon stump back to stable superior labrum. Some tearing of the leading edge of the superior labrum was also debrided with a shaver and a slight chondroplasty to the inferior glenoid. An accessory superolateral portal was localized with a spinal needle to give the appropriate trajectory for passing a suture through the subscapularis. An accessory portal was made and then the Scorpion FastPass was used to pass a limb of FiberTape through the healthy portion of the subscapularis tendon. The shaver was used on the bur setting to gently decorticate the lesser tuberosity to create a bony bleeding surface. Sutures were then retrieved out the anterior portal and loaded through a 4.75 mm PEEK SwiveLock anchor. The appropriate punch was used to create a socket in the lesser tuberosity, just off the articular surface. The SwiveLock anchor was docked, and the sutures tensioned by hand, which nicely reduced the subscapularis to the footprint. The anchor was then inserted by hand with excellent fixation. Eyelet suture was discarded and the excess sutures were trimmed and discarded with the arthroscopic outside cutter hand. On probing of the subscapularis repair, it was found to be secure. The arthroscope was then placed into the subacromial space where I made an accessory lateral portal. I performed a bursectomy with the radiofrequency wand and the shaver. There was a full thickness tear in the supraspinatus, right at the insertion, without any retraction. Cautery was used to remove extensive bursal tissue from the undersurface of the AC joint. There was a prominent spur on the inferior surface of the distal clavicle. I first proceeded with repair of the supraspinatus. The Scorpion was used to pass a FiberTape suture through the far anterior and posterior portions of the tear in a horizontal mattress fashion and retrieved out the anterior portal. An Arthrex FiberLink was then placed between the limbs of FiberTape and medial, creating a rip-stop repair. All three limbs of suture then retrieved out the lateral portal, and the cannula was used to tension the sutures to determine the appropriate place for the lateral anchor. Sutures were loaded through a 5.5 mm PEEK SwiveLock anchor. The shaver had been used to gently debride the leading edge of the torn tendon and to minimally decorticate the greater tuberosity to create a bony bleeding bed. The appropriate punch was used to create a socket in the lateral aspect of the greater tuberosity, the anchor was docked and the sutures were tensioned, which nicely reduced the supraspinatus to the footprint but not over tension. The anchor was malleted and then secured by hand with excellent fixation. Sutures were trimmed and discarded. The shoulder was gently rotated and the cuff moved nicely as a unit with no lift off. Probing confirmed a tight repair. This completed the SpeedFix configuration. I then proceeded with an arthroscopic distal clavicle excision. The cautery was placed through the anterior portal to remove remaining soft tissue at the AC joint. There was minimal space between the distal clavicle and acromion with a large inferior spur. I removed the inferior spur with a bur and then removed approximately 7-8 mm of the distal clavicle with the bur and 1-2 mm of bone from the acromion side. Intermittently, the arthroscope was placed through the anterior portal to give a direct visualization to ensure no bone had been left. I estimate that two widths of the bur could easily be placed through the distal clavicle excision area. Extra care was taken to make sure no posterior superior bone remained. I was able to preserve the posterior and superior AC joint ligaments. The shoulder was irrigated and drained. Incision was closed with #3-0 nylon suture. A bulky sterile bandage applied, and she was placed into an ARC 2 pillow. All counts correct times two. She was awoken from general anesthesia and transferred to the post-anesthesia care unit (PACU) in stable condition.
== END | disposition home or self-care (01) ==
LOC: M SDC 05:44
PROVIDERS: ATTEND Orthopaedic Surgery
DX: M75.121 Complete rotator cuff tear or rupture of right shoulder, not specified as traumatic (principal); M19.011 Primary osteoarthritis, right shoulder; S43.491A Other sprain of right shoulder joint, initial encounter; H40.9 Unspecified glaucoma; I10 Essential (primary) hypertension; J45.909 Unspecified asthma, uncomplicated; K21.9 Gastro-esophageal reflux disease without esophagitis; R55 Syncope and collapse; K57.32 Diverticulitis of large intestine without perforation or abscess without bleeding; K59.00 Constipation, unspecified; R06.02 Shortness of breath; M54.9 Dorsalgia, unspecified; G89.29 Other chronic pain; M81.0 Age-related osteoporosis without current pathological fracture; R51 Headache; J44.9 Chronic obstructive pulmonary disease, unspecified; R06.83 Snoring; G47.30 Sleep apnea, unspecified; Z88.0 Allergy status to penicillin; Z88.6 Allergy status to analgesic agent; Z91.09 Other allergy status, other than to drugs and biological substances; Z91.030 Bee allergy status; Z91.048 Other nonmedicinal substance allergy status; Z79.899 Other long term (current) drug therapy; Z79.82 Long term (current) use of aspirin; Z90.710 Acquired absence of both cervix and uterus; X58.XXXA Exposure to other specified factors, initial encounter; Y92.89 Other specified places as the place of occurrence of the external cause; Y93.89 Activity, other specified; Y99.8 Other external cause status
CPT/HCPCS: 29824; 29827; 29828; 71020; 94640; C1713; J0330; J1100; J2250; J2370; J2405; J2710; J2795; J3010

== ENCOUNTER 2017-05-14 13:00 | Day surgery (SDC) | payer OTHER ==
[~2017-05-14 13:00] MED LIST changes: -ACETAMINOPHEN TAB 650MG DOSE (2X325MG) PO ONE; -ALBU17IN; -ALBU17IN INH; -ALBUTEROL 90 MCG/ACT 8GM HFA INHALER INH PRN; -ALBUTEROL SULFATE 2.5 MG/0.5 ML INH NEB SOLN INH ONE; -ALBUTEROL SULFATE 2.5 MG/0.5 ML INH NEB SOLN INH SCH; -AMIT100TA; -AMIT100TA PO; -AMIT50TA; -AMIT50TA PO; +AMITRIPTYLINE 50 MG TAB PO; -ASPI1TAB15 PO; -ATOR1TAB21; -ATOR1TAB21 PO; -BACL1TAB9; -BACL1TAB9 PO; -CLINDAMYCIN 600 MG in APPROPRIATE DILUENT 1 EA IV ONE; -CRAN400T3 PO; -EPINEPHrine 1MG/ML INJ 30ML MD-VIAL As Ordered ONE; -EPINEPHrine INJ 1 MG/ML 1ML AMP ONE; -EPIP0.3I2 IJ; -GLUC1CAP9 PO; -GLYCOPYRROLATE INJ 0.2 MG/ML 2 ML VIAL As Ordered ONE; -LIDOCAINE 1% MDV 20ML VIAL As Ordered ONE; -LIDOCAINE 1% MDV 20ML VIAL SQ PRN; -LIDOCAINE 2% INJ 100 MG/5 ML SDV (FOR ANES.) As Ordered ONE; -LORA10TA2; -LORA10TA2 PO; -LOSA100T36; -LOSA100T36 PO; -LR 1,000 ML IV SCH; -MELA1TAB15 PO; -METOCLOPRAMIDE INJ 10MG/2ML VIAL (J2765) IV PRN; -MIDAZOLAM INJ 2 MG/2 ML VIAL (J2250) As Ordered ONE; -MIDAZOLAM INJ 2 MG/2 ML VIAL (J2250) IV ONE; -NEOSTIGMINE 10 MG/10 ML VIAL (J2710) As Ordered ONE; -ONDANSETRON 4MG/2ML VIAL (J2405) As Ordered ONE; -ONDANSETRON 4MG/2ML VIAL (J2405) IV PRN; -PANT40TA2; -PANT40TA2 PO; -PHENYLephrine HCL 500 MCG/5 ML (100MCG/ML) SYRINGE (J2370) As Ordered ONE; -PROPOFOL 200 MG/20 ML VIAL As Ordered ONE; -QUET1TAB7; -ROCURONIUM BROMIDE 50 MG/5 ML VIAL As Ordered ONE; -ROPIvacaine 0.5% 30 ML INJECTION (J2795 PER 1MG) ONE; -SERO1TAB3 PO; -STOO100C PO; -SUCCINYLCHOLINE 100 MG/5 ML SYRINGE (J0330) As Ordered ONE; -TIZA4CAP3 PO; -TIZANIDINE; -TRAM50TA2; -TRAM50TA2 PO; -TRAZ1TAB14; -TRAZ1TAB14 PO; -TYLE1TAB5 PO; -VITA100066 PO; -VITA500T88 PO; -dexameTHASONE 10 MG/1 ML VIAL PRES.FREE (J1100) ONE; -fentaNYL 100 MCG/2 ML INJECTION (J3010) As Ordered ONE; -fentaNYL 100 MCG/2 ML INJECTION (J3010) IV ONE; -fentaNYL 100 MCG/2 ML INJECTION (J3010) IV PRN
[2017-05-14] MEDS ORDERED: PROPOFOL 200 MG/20 ML VIAL As Ordered ×12 (14:02→17:41)
[2017-05-14] MEDS ORDERED: LIDOCAINE 2% INJ 100 MG/5 ML SDV (FOR ANES.) As Ordered (14:02)
[2017-05-14] MEDS: LR 1,000 ML IV ×2 (14:05→22:34)
[2017-05-14] MEDS: VANCOMYCIN HCL 1,000 MG, VIAL MATE ADAPTER 1 EACH in D5W 250 ML IV (14:34)
[2017-05-14] MEDS: ALBUTEROL SULFATE 2.5 MG/0.5 ML INH NEB SOLN INH (14:35)
[2017-05-14] MEDS ORDERED: fentaNYL 100 MCG/2 ML INJECTION (J3010) As Ordered (15:01)
[2017-05-14] MEDS ORDERED: MIDAZOLAM INJ 2 MG/2 ML VIAL (J2250) As Ordered (15:02)
[2017-05-14] MEDS: LIDOCAINE 1% SDV INJ 30 ML VIAL As Ordered (15:58)
[2017-05-14] MEDS: ISOVUE-300 61% 50ML VIAL (Q9967) As Ordered (15:59)
[2017-05-14] MEDS ORDERED: BACITRACIN OINT 30GM As Ordered (17:34)
[2017-05-14] MEDS ORDERED: ONDANSETRON 4MG/2ML VIAL (J2405) IV (18:45)
[2017-05-14] MEDS ORDERED: fentaNYL 100 MCG/2 ML INJECTION (J3010) IV (18:45)
[2017-05-14] MEDS: PERCOCET 5MG/325MG TAB PO ×2 (18:52→19:22)
[2017-05-14] MEDS ORDERED: ALBUTEROL 6.7GM INHALER **FOR ANES. CART/OMNICELL ONLY INH (19:15)
[2017-05-14] MEDS ORDERED: SLF 3 ML SYR IV (20:00)
[2017-05-14] MEDS: QUEtiapine FUMARATE 25 MG TAB PO (21:17)
[2017-05-14] MEDS: traZODone 50 MG TAB PO (21:17)
[2017-05-14] MEDS: SLF 3 ML SYR IV (21:18)
[2017-05-14] MEDS: AMITRIPTYLINE 50 MG TAB PO (21:18)
[2017-05-14] MEDS: BACLOFEN 10 MG TAB PO (21:18)
[2017-05-14] MEDS: ATORVASTATIN 20 MG TAB PO (21:18)
[2017-05-14] MEDS: LIDOCAINE 1% SDV 5 ML VIAL SQ (22:34)
[2017-05-14] MEDS: ONDANSETRON 4MG/2ML VIAL (J2405) IV (22:43)
[2017-05-15] MEDS: ACETAMINOPHEN TAB 650MG DOSE (2X325MG) PO ×2 (02:28→08:27)
[2017-05-15] MEDS: oxyCODONE 5MG TAB PO ×2 (03:23→14:44)
[2017-05-15] MEDS: SLF 3 ML SYR IV ×2 (03:24→14:44)
[2017-05-15] MEDS: ALBUTEROL 90 MCG/ACT 8GM HFA INHALER INH (07:13)
[2017-05-15] MEDS: LORATADINE 10 MG TAB PO (08:26)
[2017-05-15] MEDS: ASCORBIC ACID 500 MG TAB PO (08:27)
[2017-05-15] MEDS: BACLOFEN 10 MG TAB PO (08:27)
[2017-05-15] MEDS: PANTOPRAZOLE 40MG TAB (PROTONIX) PO (08:27)
[2017-05-15] MEDS ORDERED: ASCORBIC ACID 500 MG TAB PO (09:00)
[2017-05-15] MEDS ORDERED: VITAMIN D 1,000 INTERNATIONAL UNITS TABLET PO (09:00)
[2017-05-15] MEDS ORDERED: LOSARTAN 50 MG TAB PO (21:00)
[2017-05-16] MEDS ORDERED: ASPIRIN 81 MG ENTERIC TAB PO (09:00)
== END 2017-05-15 18:51 | disposition home or self-care (01) ==
LOC: M SDC 05-15 18:51 → M PCU 19:43
DX: I49.5 Sick sinus syndrome (principal); R55 Syncope and collapse; I10 Essential (primary) hypertension; K21.9 Gastro-esophageal reflux disease without esophagitis; E78.00 Pure hypercholesterolemia, unspecified; M15.0 Primary generalized (osteo)arthritis; E66.09 Other obesity due to excess calories; Z68.34 Body mass index [BMI] 34.0-34.9, adult; K57.32 Diverticulitis of large intestine without perforation or abscess without bleeding; R06.02 Shortness of breath; R51 Headache; T88.59XD Other complications of anesthesia, subsequent encounter; J45.909 Unspecified asthma, uncomplicated; Z88.0 Allergy status to penicillin; Z88.6 Allergy status to analgesic agent; Z91.018 Allergy to other foods; Z91.030 Bee allergy status; Z91.048 Other nonmedicinal substance allergy status; Z79.899 Other long term (current) drug therapy; Z79.82 Long term (current) use of aspirin; Z87.891 Personal history of nicotine dependence
CPT/HCPCS: 33208

== ENCOUNTER → 2017-07-22 | Outpatient (REF) | payer OTHER ==
[2017-07-22 11:38] LABS: ALBUMIN 3.8 GM/DL (3.2-5.2); ALBUMIN/GLOBULIN RATIO 1.23 (1.00-1.93); ALKALINE PHOSPHATASE 62 U/L (45-117); ALT/SGPT 32 U/L (12-78); ANION GAP 4 MEQ/L (8-16); AST/SGOT 14 U/L (7-37); BILIRUBIN,TOTAL 0.3 MG/DL (0.2-1.0); BLOOD UREA NITROGEN 14 MG/DL (7-18); CALCIUM LEVEL 8.7 MG/DL (8.5-10.1); CARBON DIOXIDE LEVEL 33 MEQ/L (21-32); CHLORIDE LEVEL 107 MEQ/L (98-107); CHOLESTEROL LEVEL 155 MG/DL (<200); CHOLESTEROL RISK RATIO 2.348 (<5); CREATININE FOR GFR 0.65 MG/DL (0.55-1.30); GLOMERULAR FILTRATION RATE > 60.0 (>51); GLUCOSE, FASTING 88 MG/DL (70-100); HDL CHOLESTEROL 66 MG/DL (>40); LDL CHOLESTEROL 70.6 MG/DL (<100); NON-HDL-C 89 MG/DL; POTASSIUM SERUM 4.6 MEQ/L (3.5-5.1); SODIUM LEVEL 144 MEQ/L (136-145); TOTAL PROTEIN 6.9 GM/DL (6.4-8.2); TRIGLYCERIDES LEVEL 92 MG/DL (<150)
[2017-07-22 11:41] LABS: ESTIMATED AVERAGE GLUCOSE 120 MG/DL (60-110); HEMOGLOBIN A1c 5.8 %
[2017-07-22 11:46] LABS: HEMATOCRIT 39.6 % (36.0-47.0); HEMOGLOBIN 13.1 g/dl (12.0-15.5); MEAN CORPUSCULAR HEMOGLOBIN 31.9 pg (27.0-33.0); MEAN CORPUSCULAR HGB CONC 33.1 g/dl (32.0-36.5); MEAN CORPUSCULAR VOLUME 96.4 fl (80.0-96.0); PLATELET COUNT, AUTOMATED 238 10^3/uL (150-450); RED BLOOD COUNT 4.11 10^6/uL (4.00-5.40); RED CELL DISTRIBUTION WIDTH 13.1 % (11.5-14.5); WHITE BLOOD COUNT 6.1 10^3/uL (4.0-10.0)
== END ==
LOC: M SFHCLERA 08:38
DX: G47.00 Insomnia, unspecified (principal)

== ENCOUNTER 2017-07-27 09:38 | Day surgery (SDC) | payer OTHER ==
[2017-07-27] MEDS ORDERED: dexameTHASONE 10 MG/1 ML VIAL PRES.FREE (J1100) (09:39)
[2017-07-27] MEDS ORDERED: ROPIvacaine 0.5% 30 ML INJECTION (J2795 PER 1MG) (09:39)
[2017-07-27] MEDS ORDERED: LIDOCAINE 1% MDV 20ML VIAL SQ (09:45)
[2017-07-27] MEDS: LR 1,000 ML IV ×3 (10:28→16:42)
[2017-07-27] MEDS: ALBUTEROL SULFATE 2.5 MG/0.5 ML INH NEB SOLN INH (10:46)
[2017-07-27] MEDS ORDERED: fentaNYL 100 MCG/2 ML INJECTION (J3010) As Ordered ×2 (11:02→11:33)
[2017-07-27] MEDS ORDERED: MIDAZOLAM INJ 2 MG/2 ML VIAL (J2250) As Ordered ×2 (11:02→11:33)
[2017-07-27] MEDS: fentaNYL 100 MCG/2 ML INJECTION (J3010) IV (11:29)
[2017-07-27] MEDS: MIDAZOLAM INJ 2 MG/2 ML VIAL (J2250) IV (11:30)
[2017-07-27] MEDS ORDERED: ROCURONIUM BROMIDE 50 MG/5 ML VIAL As Ordered (11:33)
[2017-07-27] MEDS ORDERED: ONDANSETRON 4MG/2ML VIAL (J2405) As Ordered (11:33)
[2017-07-27] MEDS ORDERED: METOCLOPRAMIDE INJ 10MG/2ML VIAL (J2765) As Ordered (11:33)
[2017-07-27] MEDS ORDERED: PROPOFOL 200 MG/20 ML VIAL As Ordered (11:33)
[2017-07-27] MEDS ORDERED: LIDOCAINE 2% INJ 100 MG/5 ML SDV (FOR ANES.) As Ordered (11:33)
[2017-07-27] MEDS: VANCOMYCIN HCL 1,000 MG, VIAL MATE ADAPTER 1 EACH in D5W 250 ML IV (12:10)
[2017-07-27] MEDS: EPINEPHrine 1MG/ML INJ 30ML MD-VIAL As Ordered (12:48)
[2017-07-27] MEDS: LIDOCAINE 1% SDV INJ 30 ML VIAL As Ordered (12:49)
[2017-07-27] MEDS: ACETAMINOPHEN 500 MG TAB PO ×2 (14:00→22:00)
[2017-07-27] MEDS ORDERED: ONDANSETRON 4MG/2ML VIAL (J2405) IV ×2 (14:45→15:00)
[2017-07-27] MEDS ORDERED: fentaNYL 100 MCG/2 ML INJECTION (J3010) IV (14:45)
[2017-07-27] MEDS ORDERED: PERCOCET 5MG/325MG TAB PO (14:45)
[2017-07-27] MEDS ORDERED: oxyCODONE 5MG TAB PO (15:00)
[2017-07-27] MEDS: MORPHINE 15 MG SA TAB PO (18:34)
[2017-07-27] MEDS: MIRALAX *UNIT DOSE* 17GM PACKET PO (21:59)
[2017-07-27] MEDS: AMITRIPTYLINE 50 MG TAB PO (22:27)
[2017-07-27] MEDS: traZODone 50 MG TAB PO (22:27)
[2017-07-27] MEDS: traZODone 25MG PER 1/2 TABLET PO (22:27)
[2017-07-27] MEDS: QUEtiapine FUMARATE 25 MG TAB PO (22:27)
[2017-07-28] MEDS: ACETAMINOPHEN 500 MG TAB PO (05:46)
[2017-07-28] MEDS: MORPHINE 15 MG SA TAB PO (05:47)
[2017-07-28] MEDS: BACLOFEN 10 MG TAB PO (09:37)
[2017-07-28] MEDS: oxyCODONE 5MG TAB PO (09:39)
== END 2017-07-28 10:13 | disposition home or self-care (01) ==
LOC: M SDC 09:38 → M PED 16:22
DX: M75.121 Complete rotator cuff tear or rupture of right shoulder, not specified as traumatic (principal); M94.211 Chondromalacia, right shoulder; J45.909 Unspecified asthma, uncomplicated; K21.9 Gastro-esophageal reflux disease without esophagitis; I10 Essential (primary) hypertension; R55 Syncope and collapse; Z95.0 Presence of cardiac pacemaker; R06.02 Shortness of breath; R07.9 Chest pain, unspecified; Z79.82 Long term (current) use of aspirin; Z79.51 Long term (current) use of inhaled steroids; Z79.899 Other long term (current) drug therapy; Z87.891 Personal history of nicotine dependence; Z91.030 Bee allergy status
CPT/HCPCS: 29827

== ENCOUNTER → 2017-09-03 | Outpatient (CLI) | payer OTHER ==
[~2017-09-03] MED LIST changes: -AMITRIPTYLINE 50 MG TAB PO; +ISOVUE-370 76% 100ML VIAL (Q9967) As Ordered
== END ==
LOC: M RAD 12:53
DX: I63.09 Cerebral infarction due to thrombosis of other precerebral artery (principal); G45.9 Transient cerebral ischemic attack, unspecified; R20.2 Paresthesia of skin; M54.2 Cervicalgia
CPT/HCPCS: Q9967

== ENCOUNTER → 2017-10-22 | Outpatient (CLI) | payer OTHER ==
[~2017-10-22] MED LIST changes: +CONRAY-43 43% 50ML VIAL (Q9960) As Ordered; -ISOVUE-370 76% 100ML VIAL (Q9967) As Ordered
== END ==
LOC: M RADPRO 08:40
DX: S46.011D Strain of muscle(s) and tendon(s) of the rotator cuff of right shoulder, subsequent encounter (principal); Z95.0 Presence of cardiac pacemaker; M75.91 Shoulder lesion, unspecified, right shoulder; M19.011 Primary osteoarthritis, right shoulder; R93.7 Abnormal findings on diagnostic imaging of other parts of musculoskeletal system
CPT/HCPCS: 23350

== ENCOUNTER → 2017-10-26 | Outpatient (CLI) | payer OTHER | LOC: M RADPRO 08:31 | DX: M75.52 Bursitis of left shoulder (principal); M25.512 Pain in left shoulder; Z95.0 Presence of cardiac pacemaker | CPT/HCPCS: 23350 ==

== ENCOUNTER → 2017-11-02 | Outpatient (REF) | payer OTHER ==
[2017-11-02 15:55] LABS: BASO % 0.7 % (0.0-1.0); EOS # 0.1 10^3/uL (0.0-0.50); EOS % 2.2 % (0.0-3.0); HEMATOCRIT 39.4 % (36.0-47.0); HEMOGLOBIN 13.1 g/dl (12.0-15.5); IMMATURE GRANULOCYTE % 0.2 % (0-3.0); LYMPH # 2.1 10^3/uL (1.5-4.5); LYMPH % 35.4 % (24.0-44.0); MEAN CORPUSCULAR HEMOGLOBIN 31.9 pg (27.0-33.0); MEAN CORPUSCULAR HGB CONC 33.2 g/dl (32.0-36.5); MEAN CORPUSCULAR VOLUME 95.9 fl (80.0-96.0); MONO # 0.4 10^3/uL (0.0-0.8); MONO % 6.7 % (0.0-5.0); NEUTROPHILS # 3.3 10^3/uL (1.8-7.7); NEUTROPHILS % 54.8 % (36.0-66.0); PLATELET COUNT, AUTOMATED 293 10^3/uL (150-450); RED BLOOD COUNT 4.11 10^6/uL (4.00-5.40); RED CELL DISTRIBUTION WIDTH 12.3 % (11.5-14.5)
[2017-11-02 16:23] LABS: ERYTHROCYTE SEDIMENTATION RATE 24 mm/hr (0-30)
[2017-11-02 16:55] LABS: C REACTIVE PROTEIN QUANTITATIV 0.43 MG/DL (0.00-0.30)
== END ==
LOC: M LABDRAW1 13:39
DX: S46.011D Strain of muscle(s) and tendon(s) of the rotator cuff of right shoulder, subsequent encounter (principal); W18.30XD Fall on same level, unspecified, subsequent encounter; Y92.009 Unspecified place in unspecified non-institutional (private) residence as the place of occurrence of the external cause

== ENCOUNTER 2017-12-14 09:42 | Day surgery (SDC) | payer OTHER ==
[2017-12-14] MEDS ORDERED: ROPIvacaine 0.5% 30 ML INJECTION (J2795 PER 1MG) (09:43)
[2017-12-14] MEDS ORDERED: dexameTHASONE 10 MG/1 ML VIAL PRES.FREE (J1100) (09:43)
[2017-12-14] MEDS: LR 1,000 ML IV (10:34)
[2017-12-14] MEDS ORDERED: MIDAZOLAM INJ 2 MG/2 ML VIAL (J2250) As Ordered ×2 (11:20→11:38)
[2017-12-14] MEDS ORDERED: fentaNYL 100 MCG/2 ML INJECTION (J3010) As Ordered ×3 (11:20→15:49)
[2017-12-14] MEDS: VANCOMYCIN HCL 1,000 MG, VIAL MATE ADAPTER 1 EACH in D5W 250 ML IV (11:25)
[2017-12-14] MEDS ORDERED: LIDOCAINE 2% INJ 100 MG/5 ML SDV (FOR ANES.) As Ordered (11:37)
[2017-12-14] MEDS ORDERED: METOCLOPRAMIDE INJ 10MG/2ML VIAL (J2765) As Ordered ×2 (11:37→15:45)
[2017-12-14] MEDS ORDERED: PROPOFOL 200 MG/20 ML VIAL As Ordered (11:37)
[2017-12-14] MEDS ORDERED: ONDANSETRON 4MG/2ML VIAL (J2405) As Ordered (11:37)
[2017-12-14] MEDS: fentaNYL 100 MCG/2 ML INJECTION (J3010) IV (11:38)
[2017-12-14] MEDS: MIDAZOLAM INJ 2 MG/2 ML VIAL (J2250) IV (11:38)
[2017-12-14] MEDS ORDERED: ROCURONIUM BROMIDE 50 MG/5 ML VIAL As Ordered ×2 (12:59→15:53)
[2017-12-14] MEDS ORDERED: EPINEPHrine 1MG/ML INJ 30ML MD-VIAL As Ordered (13:00)
[2017-12-14] MEDS ORDERED: LIDOCAINE 1% SDV INJ 30 ML VIAL As Ordered (13:00)
[2017-12-14] MEDS ORDERED: dexameTHASONE 4 MG/ML 1ML VIAL (J1100) As Ordered (15:45)
[2017-12-14] MEDS ORDERED: NEOSTIGMINE 10 MG/10 ML VIAL (J2710) As Ordered (15:53)
[2017-12-14] MEDS ORDERED: GLYCOPYRROLATE INJ 0.2 MG/ML 2 ML VIAL As Ordered ×2 (15:53)
[2017-12-14] MEDS ORDERED: LR 1,000 ML IV ×2 (17:30)
[2017-12-14] MEDS ORDERED: fentaNYL 100 MCG/2 ML INJECTION (J3010) IV (17:30)
[2017-12-14] MEDS ORDERED: ONDANSETRON 4MG/2ML VIAL (J2405) IV (17:30)
[2017-12-14] MEDS ORDERED: PERCOCET 5MG/325MG TAB PO (17:30)
== END 2017-12-14 18:55 | disposition home or self-care (01) ==
LOC: M SDC 09:42
DX: M75.101 Unspecified rotator cuff tear or rupture of right shoulder, not specified as traumatic (principal); M94.211 Chondromalacia, right shoulder; I10 Essential (primary) hypertension; J45.909 Unspecified asthma, uncomplicated; K21.9 Gastro-esophageal reflux disease without esophagitis; I49.9 Cardiac arrhythmia, unspecified; E78.00 Pure hypercholesterolemia, unspecified; M12.9 Arthropathy, unspecified; M54.9 Dorsalgia, unspecified; M81.0 Age-related osteoporosis without current pathological fracture; R51 Headache; J44.9 Chronic obstructive pulmonary disease, unspecified; Z88.0 Allergy status to penicillin; Z88.6 Allergy status to analgesic agent; Z91.018 Allergy to other foods; Z91.030 Bee allergy status; Z91.048 Other nonmedicinal substance allergy status; Z95.0 Presence of cardiac pacemaker; Z87.891 Personal history of nicotine dependence
CPT/HCPCS: 29827

== ENCOUNTER → 2018-03-08 | Outpatient (CLI) | payer OTHER ==
[~2018-03-08] MED LIST changes: +ALBU17IN; +ALBU17IN INH; +AMIT100TA; +AMIT100TA PO; +AMIT50TA; +AMIT50TA PO; +ASPI1TAB15 PO; +ATOR1TAB21; +ATOR1TAB21 PO; +BACL1TAB9; +BACL1TAB9 PO; +BENA25TA10 PO; +CINN500C9 PO; -CONRAY-43 43% 50ML VIAL (Q9960) As Ordered; +CRAN400T3 PO; +EPIP0.3I2 IJ; +GABA-1171 PO; +GLUC1CAP9 PO; +LIDO4CRE4 EX; +LORA-243; +LORA-243 PO; +LOSA100T50; +LOSA100T50 PO; +MELA1TAB15 PO; +OXYC-517 PO; +PANT40TA3; +PANT40TA3 PO; +PROAAER10 INH; +QUET1TAB7; +SERO1TAB3 PO; +STOO100C PO; +TIZA4CAP PO; +TIZANIDINE; +TRAM50TA2; +TRAM50TA2 PO; +TRAZ1TAB14; +TRAZ1TAB14 PO; +TYLE1TAB5 PO; +TYLE500T78 PO; +VITA100066 PO; +VITA500T88 PO
--- NOTE | 2018-03-09 03:28 | REP ---
Clinical: Right knee mass. Technique: AP, lateral, bilateral oblique and sunrise views of the right knee. Findings: Age-related changes are appreciated. Very subtle chondrocalcinosis suggested. No significant calcified loose body or mass lesion identified. The surrounding soft tissues are unremarkable. No acute fracture dislocation. No obvious effusion. Impression: Age-related changes. Electronically Signed by Aj Kwan MD 03/09/2018 03:19 A
--- NOTE | 2018-03-09 03:29 | REP ---
Clinical: Right knee mass. Technique: Single AP weightbearing view of the right and left knee. Findings: Age-related degenerative changes are identified and essentially symmetric. No obvious fracture, mass lesion or mass effect noted. Impression: Essentially symmetric age-related changes. Electronically Signed by Aj Kwan MD 03/09/2018 03:20 A
== END ==
LOC: M LRY 12:00
PROVIDERS: ATTEND Obstetrics & Gynecology Gynecologic Oncology
DX: M25.861 Other specified joint disorders, right knee (principal)

== ENCOUNTER → 2018-03-30 | Outpatient (CLI) | payer OTHER ==
--- NOTE | 2018-03-30 09:22 | REP ---
Right upper quadrant sonography: History: However quadrant pain Comparison study: No comparison study Findings: Scanning through the right upper quadrant of the abdomen demonstrates a normal sized, thin-walled gallbladder without evidence of stone or polyp. Common bile duct is normal measuring 0.4 cm in greatest diameter. No focal liver lesion is seen. Liver size is normal. No pancreatic abnormality is observed. No right renal abnormality is seen. There is no evidence of ascites. The right kidney measures 13.0 x 5.7 x 4.4 cm. Impression: Negative right upper quadrant sonography. Electronically Signed by Evans Galloway MD 03/30/2018 09:14 A
--- NOTE | 2018-03-30 09:51 | REP ---
Soft-tissue ultrasound: Right popliteal fossa. History: Right knee pain. Evaluate for Tamayo's cyst. Findings: Scanning of the right posterior popliteal fossa is performed. No abnormal fluid collection is seen. No evidence of aneurysm. No vascular abnormality. Impression: Negative soft-tissue ultrasound right posterior popliteal soft tissues. Electronically Signed by Evans Galloway MD 03/30/2018 01:28 P
== END ==
LOC: M RAD 07:27
PROVIDERS: ATTEND Family Medicine
DX: M25.861 Other specified joint disorders, right knee (principal); R10.13 Epigastric pain

== ENCOUNTER → 2018-04-27 | Outpatient (CLI) | payer OTHER | LOC: M RAD 10:53 | PROVIDERS: ATTEND Family Medicine | DX: N63.20 Unspecified lump in the left breast, unspecified quadrant (principal) | CPT/HCPCS: 76642; 77066; G0279 ==

== ENCOUNTER → 2018-07-12 | Outpatient (CLI) | payer OTHER ==
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
== END ==
LOC: M PAIN 14:15
PROVIDERS: ATTEND Anesthesiology
DX: M79.18 Myalgia, other site (principal); M47.812 Spondylosis without myelopathy or radiculopathy, cervical region; R51 Headache; I10 Essential (primary) hypertension; K21.9 Gastro-esophageal reflux disease without esophagitis; J30.9 Allergic rhinitis, unspecified; L43.9 Lichen planus, unspecified; Z79.82 Long term (current) use of aspirin; Z79.899 Other long term (current) drug therapy; Z88.3 Allergy status to other anti-infective agents; Z88.6 Allergy status to analgesic agent; Z88.8 Allergy status to other drugs, medicaments and biological substances; Z95.0 Presence of cardiac pacemaker; Z87.891 Personal history of nicotine dependence

== ENCOUNTER → 2018-07-13 | Outpatient (REF) | payer OTHER ==
[2018-07-13 18:02] LABS: ALT/SGPT 36 U/L (12-78); BILIRUBIN,TOTAL 0.2 MG/DL (0.2-1.0); BLOOD UREA NITROGEN 17 MG/DL (7-18); CALCIUM LEVEL 9.5 MG/DL (8.5-10.1); CARBON DIOXIDE LEVEL 35 MEQ/L (21-32); CHLORIDE LEVEL 101 MEQ/L (98-107); CHOLESTEROL LEVEL 195 MG/DL (<200); CHOLESTEROL RISK RATIO 2.532 (<5); CREATININE FOR GFR 0.86 MG/DL (0.55-1.30); GLOMERULAR FILTRATION RATE > 60.0 (>51); GLUCOSE, FASTING 112 MG/DL (70-100); HDL CHOLESTEROL 77 MG/DL (>40); LDL CHOLESTEROL 88 MG/DL (<100); NON-HDL-C 118 MG/DL; POTASSIUM SERUM 3.9 MEQ/L (3.5-5.1); SODIUM LEVEL 142 MEQ/L (136-145); TOTAL PROTEIN 7.1 GM/DL (6.4-8.2); TRIGLYCERIDES LEVEL 149 MG/DL (<150)
[2018-07-13 18:16] LABS: APPEARANCE, URINE HAZY (CLEAR); BACTERIA, URINE AUTO NEGATIVE (NEGATIVE); BILIRUBIN, URINE AUTO NEGATIVE (NEGATIVE); BLOOD, URINE BLOOD NEGATIVE (NEGATIVE); CALCIUM OXALATE CRYSTALS LARGE; COLOR, URINE AMBER (YELLOW); GLUCOSE, URINE (UA) AUTO NEGATIVE (NEGATIVE); KETONE, URINE AUTO TRACE mg/dL (NEGATIVE); LEUKOCYTE ESTERASE, URINE AUTO TRACE (NEGATIVE); MUCUS, URINE LARGE (NEGATIVE); NITRITE, URINE AUTO NEGATIVE (NEGATIVE); PROTEIN, URINE AUTO NEGATIVE (NEGATIVE); RBC, URINE AUTO 0 /HPF (0-3); SPECIFIC GRAVITY URINE AUTO 1.034 (1.002-1.035); SQUAMOUS EPITHELIAL CELL UR AU 3 /HPF (0-6); TRANSITIONAL EPITHELIAL AUTO <1 /HPF; WBC, URINE AUTO 3 /HPF (0-3)
[2018-07-13 19:02] LABS: HEMOGLOBIN A1c 6.2 %
== END ==
LOC: M SFHCLERA 12:44
PROVIDERS: ATTEND Family Medicine
DX: I10 Essential (primary) hypertension (principal); E66.9 Obesity, unspecified; R10.9 Unspecified abdominal pain

== ENCOUNTER → 2018-07-13 | Outpatient (REF) ==
[2018-07-14 10:26] LABS: HEPATITIS B SURFACE ANTIGEN NEGATIVE (NEGATIVE)
== END ==
LOC: M SFHCLERA 17:24
PROVIDERS: ATTEND Family Medicine
DX: Z77.21 Contact with and (suspected) exposure to potentially hazardous body fluids (principal)

== ENCOUNTER → 2018-07-15 | Outpatient (CLI) | payer OTHER ==
--- NOTE | 2018-07-15 15:52 | REP ---
Urinary tract sonogram: History: Right flank pain Comparison: No comparison study. Findings: Scanning at the level of the urinary bladder shows no abnormality. Renal cortical echogenicity pattern is normal bilaterally and contours are smooth. There is no evidence of hydronephrosis, cyst, mass, or calculus in either kidney. Incidental note is made of a 1.5 cm cyst in the liver. The right kidney measures 13.0 x 5.9 x 5.0 cm. Left renal dimensions are 12.2 x 7.7 x 5.5 cm. Impression: Normal urinary tract sonography. 1.5 cm right lobe liver cyst noted incidentally. Electronically Signed by Evans Galloway MD 07/15/2018 03:44 P
== END ==
LOC: M RAD 13:56
PROVIDERS: ATTEND Family Medicine
DX: K76.89 Other specified diseases of liver (principal)

== ENCOUNTER → 2018-09-20 | Outpatient (CLI) | payer OTHER ==
[~2018-09-20] MED LIST changes: +BUPIVACAINE HCL 0.25% 10 ML VIAL As Ordered ONE; +BUPIVACAINE HCL 0.25% 30 ML VIAL As Ordered ONE; +MM S100C PO; -STOO100C PO; +TRIAMCINOLONE ACETONIDE SUSP 40 MG/ML VIAL (J3301) As Ordered ONE; +diazePAM 5 MG TAB As Ordered ONE; +oxyCODONE 5MG TAB As Ordered ONE
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
== END ==
LOC: M PAIN 10:30
PROVIDERS: ATTEND Anesthesiology
DX: M79.18 Myalgia, other site (principal); G44.209 Tension-type headache, unspecified, not intractable; M54.2 Cervicalgia; I10 Essential (primary) hypertension; K44.9 Diaphragmatic hernia without obstruction or gangrene; K21.9 Gastro-esophageal reflux disease without esophagitis; Z86.010 Personal history of colon polyps; J30.9 Allergic rhinitis, unspecified; Z87.442 Personal history of urinary calculi; Z79.82 Long term (current) use of aspirin; Z79.891 Long term (current) use of opiate analgesic; Z79.899 Other long term (current) drug therapy; Z88.0 Allergy status to penicillin; Z88.6 Allergy status to analgesic agent; Z88.8 Allergy status to other drugs, medicaments and biological substances
CPT/HCPCS: 20552; J3301

== ENCOUNTER → 2018-10-12 | Outpatient (CLI) | payer OTHER ==
[~2018-10-12] MED LIST changes: -BUPIVACAINE HCL 0.25% 10 ML VIAL As Ordered ONE; -BUPIVACAINE HCL 0.25% 30 ML VIAL As Ordered ONE; -TRIAMCINOLONE ACETONIDE SUSP 40 MG/ML VIAL (J3301) As Ordered ONE; -diazePAM 5 MG TAB As Ordered ONE; -oxyCODONE 5MG TAB As Ordered ONE
--- NOTE | 2018-10-14 00:21 | ECWPNPC ---
PATIENT NAME: LEWIS HUGHES : 1960 GENDER: FEMALE VISIT DATE: 10/12/2018 DISCHARGE DATE: 10/12/18 0937 VISIT LOCKED DATE TIME: PHYSICIAN: COY SWEET RESOURCE: COY SWEET REASON FOR APPOINTMENT 1. NF POST PROC HISTORY OF PRESENT ILLNESS HISTORY OF PRESENT ILLNESS: 58 YEAR OLD FEMALE IN FOR TPI FOLLOW UP. SHE ADMITS THE PROCEDURE HELPED WITH THE PAIN IN HER THORACIC AREA BUT NOT WITH THE NECK. SHE CURRENTLY RATES HER PAIN AT A 6/10. SHE DESCRIBES THE PAIN ACHING, BURNING, SORE, AND STABBING. PAIN THE PATIENT DESCRIBES THE PAIN... FALL RISK SCREENING: SCREENING :NO FALLS REPORTED IN THE LAST YEAR CURRENT MEDICATIONS TAKING [id number] COMPLEX TABLET 1 TAB(S) ORALLY DAILY TAKING VITAMIN C 500 MG TABLET CHEWABLE 1 TABLET ORALLY ONCE A DAY TAKING ALBUTEROL SULFATE HFA 108 (90 BASE) MCG/ACT AEROSOL SOLUTION 1-2 PUFFS NEEDED INHALATION EVERY 4 HRS TAKING CRANBERRY 405 MG CAPSULE 1 CAP ORALLY DAILY TAKING MELATONIN 10 MG TABLET 1 TABLET UNDER THE TONGUE AND ALLOW TO DISSOLVE AT BEDTIME NEEDED WITH FOOD ORALLY BEFORE BEDTIME TAKING TYLENOL PM EXTRA STRENGTH 500-25 MG TABLET 1 TABLET AT BEDTIME NEEDED ORALLY ONCE A DAY TAKING VITAMIN D3 1000 UNIT CAPSULE 1 CAPSULE ORALLY ONCE A DAY TAKING CINNAMON 500 MG CAPSULE 4 CAP ORALLY DAILY TAKING TIZANIDINE HCL 4 MG TABLET 1 TABLET NEEDED EVERY 8 HRS ORALLY 90 DAY(S) ORALLY THREE TIMES DAILY TAKING ASPIRIN 1 TAB ORAL TAKING PANTOPRAZOLE SODIUM 40 MG TABLET DELAYED RELEASE 1 TABLET ORALLY ONCE A DAY TAKING ATORVASTATIN CALCIUM 20 MG TABLET 1 TABLET ORALLY ONCE A DAY TAKING LORATADINE 10 MG TABLET 1 TABLET ONCE A DAY/PRN ORALLY 90 DAY(S) ORALLY DAILY TAKING BACLOFEN 20 MG TABLET 1 TABLET WITH FOOD OR MILK BID PRN ORALLY TAKING SEROQUEL 25 MG TABLET 1 TABLET ONCE A DAY ORALLY 30 DAY(S) TAKING LIDOCAINE VISCOUS 2 % SOLUTION 15 ML TO AFFECTED AREA NEEDED MOUTH/THROAT, SWISH AND SPIT EVERY 3 HRS TAKING AMITRIPTYLINE HCL 50 MG TABLET 1 TABLET ONCE A DAY IN AM ORALLY 30 DAY(S) TAKING AMITRIPTYLINE HCL 100 MG TABLET 1 TABLET AT BEDTIME ONCE A DAY ORALLY 30 DAY(S) TAKING TRAMADOL HCL 50 MG TABLET 1 TAB ORALLY EVERY 6 HOURS NEEDED/MMD#4 TAKING LOSARTAN POTASSIUM 25 MG TABLET 1 TABLET ORALLY ONCE A DAY TAKING PANTOPRAZOLE SODIUM 40 TABLET DELAYED RELEASE 1 TABLET ORALLY ONCE A DAY TAKING CLOBETASOL PROPIONATE 0.05 % OINTMENT 1 APPLICATION TO AFFECTED AREA OF HANDS AND FEET EXTERNALLY TWICE A DAY TO AREAS ON BODY WITH RASH (NOT FOR FACE, GROIN, ARMPITS) TAKING TRAZODONE HCL 150 TABLET TAKE 1 TABLET BY MOUTH EVERY DAY NOT-TAKING EPIPEN 2-DARREN 0.3 MG/0.3ML SOLUTION AUTO-INJECTOR IM INJECTION DIRECTED INJECTION PRN NOT-TAKING ATORVASTATIN CALCIUM 20 TABLET 1 TABLET ORALLY ONCE A DAY NOT-TAKING BACLOFEN 20 TABLET 1 TABLET WITH FOOD OR MILK BID PRN ORALLY NOT-TAKING LOSARTAN POTASSIUM 25 TABLET 1 TABLET ORALLY ONCE A DAY NOT-TAKING SEROQUEL 25 TABLET 1 TABLET ONCE A DAY ORALLY 30 DAY(S) NOT-TAKING TRIAMCINOLONE ACETONIDE 0.1 % CREAM 1 APPLICATION TO AFFECTED AREA EXTERNALLY TWICE A DAY NOT-TAKING PREDNISONE 10 MG TABLET 4 TAB X 7 DAYS THEN 3 TABS X 7 DAYS THEN 2 TAB TIMES 7 DAYS THEN 1 TAB X 7 DAYS THEN 0.5 TAB X 7 DAYS THEN OFF ORALLY DIRECTED NOT-TAKING PREDNISONE 10 MG TABLET 4TAB X 3D, 3TAB X 3D, 2TAB X 3D, 1TAB X 3D ORALLY ONCE A DAY NOT-TAKING GABAPENTIN 100 MG CAPSULE 1 TAB ORALLY BID NOT-TAKING CHOLECALCIFEROL 20279 UNIT CAPSULE 1 CAPSULE ORALLY ONCE A WEEK NOT-TAKING VENTOLIN HFA 108 (90 BASE) MCG/ACT AEROSOL SOLUTION 2 PUFFS NEEDED INHALATION EVERY 4 HRS NOT-TAKING DEXAMETHASONE 0.5 MG/5ML SOLUTION 5 ML ORALLY TWICE A DAY BY SWISH AND SPIT, ALLOW TO SIT IN MOUTH AT LEAST 5 MINUTES PRIOR TO SPIT OUT MEDICATION LIST REVIEWED AND RECONCILED WITH THE PATIENT PAST MEDICAL HISTORY CHRONIC TENSION-TYPE HEADACHE, 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 WITHOUT SCIATICA HISTORY OF TOBACCO ABUSE ESSENTIAL (PRIMARY) HYPERTENSION HIATAL HERNIA WITH GERD WITHOUT ESOPHAGITIS COLON POLYPS OTHER ALLERGIC RHINITIS HISTORY OF NEPHROLITHIASIS LIKEN PLEXUS ALLERGIES IODINE: HIVES,SOB - ALLERGY NSAIDS: ANAPHYLAXIS - ALLERGY LISINOPRIL: COUGH - SIDE EFFECTS HYBICLENS: HIVES - SIDE EFFECTS PENICILLIN (FOR ALLERGIES USE ONLY): ANAPHYLAXIS - ALLERGY SURGICAL HISTORY BACK 1989 BACK 1999 SINUS 2009 ENDOSCOPE & COLONOSCOPY FOR COLON POLYPS AND HIATAL HERNIA LOOP PLACED - CARDIO 01/2017 ROTATOR CUFF REPAIR RIGHT 07/27/2017 PACEMAKER 04/2017 RIGHT SHOULDER REPAIR 12/14/17 FAMILY HISTORY FATHER: ALIVE, DIAGNOSED WITH DIABETES, HEART DISEASE, PSYCHIATRIC CONDITIONS MOTHER: , HYPERTENSION, STROKE PATERNAL GRAND FATHER: , HEART DISEASE PATERNAL GRAND MOTHER: ALIVE, HEART DISEASE MATERNAL GRAND FATHER: , CANCER MATERNAL GRAND MOTHER: , DIABETES 6 SISTER(S) - HEALTHY. 1 SON(S) , 1 DAUGHTER(S) - HEALTHY. 2 SISTERS PASSED FROM HEART ATTACKS, ALL HAVE HAD HEART ATTACKS, 2 SISTERS HAVE DMDENIES FAMILY HX OF PANCREATIC CANCER OR MELANOMA. SOCIAL HISTORY GENERAL: TOBACCO USE ARE YOU A:FORMER SMOKER HOW LONG HAS IT BEEN SINCE YOU LAST SMOKED?1-5 YEARS HIV / HEP-C SCREENING HIV TEST OFFERED TO PATIENT:YES DATE OFFERED:03/04/2018 TEST ACCEPTED:NO HEP-C TEST OFFERED TO PATIENT:YES DATE OFFERED:03/04/2018 REASON:PATIENT DECLINED TEST ACCEPTED:NO REASON:PATIENT DECLINED BROCHURE PROVIDED TO PATIENTYES OTHERS AT HOME: OTHER NON-RELATIVE. HOUSING: OWNS HOME. EDUCATION LEVEL OF EDUCATION:COLLEGE DIET: REGULAR. LANGUAGE LANGUAGES SPOKEN:YI DOMESTIC VIOLENCE DO YOU FEEL SAFE IN YOUR ENVIRONMENT?YES BMI CARE GOAL FOLLOW-UP ABOVE NORMAL BMI FOLLOW-UPDIETARY MANAGEMENT EDUCATION, GUIDANCE, AND COUNSELING RECREATIONAL DRUG USE DRUG USE?NO EXERCISE: NO REGULAR EXERCISE. LEARNING BARRIERS / SPECIAL NEEDS CHANGE FROM LAST VISIT?NO BARRIERS TO LEARNING?NO HEARING IMPAIRED?NO VISION IMPAIRED?YES COGNITIVELY IMPAIRED?NO :CORRECTIVE LENSES CONTACTS READINESS TO LEARN?YES LEARNING PREFERENCES?NO LEARNING CAPABILITIES PRESENT?YES EMOTIONAL BARRIERS?NO SPECIAL DEVICES?NO FACILITIES FLIGHT CHECK PILOT NEEDED?NO PAIN CLINIC PFS, CLERGY, PUBLIC HEALTH REFERRALS HAS THE PATIENT BEEN EDUCATED REGARDING HIS/HER PLAN OF CARE?YES HAS THE PATIENT BEEN EDUCATED REGARDING PAIN, THE RISK FOR PAIN, THE IMPORTANCE OF EFFECTIVE PAIN MANAGEMENT, AND THE PAIN ASSESSMENT PROCESS?YES LATEX QUESTIONNAIRE LATEX ALLERGY : HAVE YOU EVER DEVELOPED ANY TYPE OF REACTION AFTER HANDLING LATEX PRODUCTS SUCH RUBBER GLOVES, CONDOMS, DIAPHRAGMS, BALLOONS, SOCKS, OR UNDERWEAR?NO LATEX ALLERGY : HAVE YOU EVER DEVELOPED ANY TYPE OF REACTION DURING OR AFTER DENTAL APPOINTMENT, VAGINAL/RECTAL EXAMINATION, SURGICAL PROCEDURE, OR ANY OTHER EXPOSURE?NO DATE ASKED : 07/13/2018 LATEX RISK : HAVE YOU EVER HAD ANY DIFFICULTY BREATHING OR HIVES AFTER EATING OR HANDLING ANY FRUITS, OR VEGETABLES; SUCH KIWI, BANANAS, STONE FRUITS, OR CHESTNUTSNO LATEX RISK : DO YOU HAVE A PREVIOUS PERSONAL HISTORY OF MORE THAN NINE SURGERIES, SPINA BIFIDA, OR REPEATED CATHERIZATIONS? YES - PLEASE INDICATE : > 9 SURGERIES LATEX RISK : ARE YOU FREQUENTLY EXPOSED TO LATEX PRODUCTS IN YOUR OCCUPATION?NO CAFFEINE 1-2/DAY. ADVANCE DIRECTIVE ADVANCE DIRECTIVE DISCUSSED WITH PATIENT:YES DECLINED ANABAPTIST [id number] SYNAGOGUE MARITAL STATUS: .. 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 SEXUAL HX HAD SEX IN THE LAST 12 MONTHS (VAGINAL, ORAL, OR ANAL)?NO HAVE YOU EVER HAD AN STD?NO HOSPITALIZATION/MAJOR DIAGNOSTIC PROCEDURE [facility] - [facility] 2011 [facility] [place] [facility] [place] 12/2016 REVIEW OF SYSTEMS REVIEWED BY: PROVIDER: MARY SWEET GRAIN THRESHER-C . CONSTITUTIONAL: ANY CHANGE IN YOUR MEDICAL CONDITION? NO . CHILLS NO . FEVER NO . INFECTION: DO YOU HAVE NEW INFECTIONS? NO . DO YOU HAVE HISTORY OF MRSA? NO . MUSCULOSKELETAL: ANY NEW PATTERNS OF PAIN OR NUMBNESS? NO . GASTROENTEROLOGY: ANY NEW CHANGE IN BOWEL CONTROL? NO . GENITOURINARY: ANY NEW CHANGE IN BLADDER CONTROL? NO . IS THERE A CHANCE YOU COULD BE ? NO . HEMATOLOGY/LYMPH: DO YOU TAKE ANY BLOOD THINNERS? (FOR EXAMPLE- COUMADIN, PLAVIX, AGGRENOX, PLATEL, PRADAXA, OR XARELTO) NO . WHEN WAS YOUR LAST DOSE? DATE: TIME: . NEUROLOGY: HAVE YOU FALLEN IN THE PAST 12 MONTHS? NO . ANY NEW EXTREMITY NUMBNESS OR WEAKNESS? NO . CARDIOLOGY: DO YOU HAVE A PACEMAKER OR DEFIBRILLATOR? YES, PACEMAKER . RESPIRATORY: HAVE YOU BEEN SICK IN THE PAST WEEK? NO . FEVER NO . FLU LIKE SYMPTOMS? NO . COUGH NO . INTEGUMENTARY: DO YOU HAVE ANY RASHES OR OPEN SORES? NO . ALLERGIC/IMMUNO: ARE YOU ALLERGIC TO IV DYE? NO . ANY NEW ALLERGIES? NO . PSYCHIATRIC: DO YOU HAVE THOUGHTS OF HURTING YOURSELF OR SOMEONE ELSE? NO . ARE YOU ABUSED, NEGLECTED, OR IN AN UNSAFE ENVIRONMENT? NO . ENDOCRINOLOGY: ARE YOU DIABETIC? NO . OTHER: DO YOU NEED ANY PRESCRIPTIONS? YES, TRAMADOL . IF YES, PLEASE LIST: ____ . ANY NEW PROBLEMS WITH YOUR MEDICATIONS? NO . WHEN DID YOU LAST EAT? ____ . WHEN DID YOU LAST DRINK? ____ . WHAT DID YOU LAST DRINK? ____ . NAME OF PERSON DRIVING YOU HOME? ____ . DO YOU HAVE ANY OTHER QUESTIONS OR CONCERNS NO . VITAL SIGNS WT 226.4 LBS, HT 66 IN, BMI 36.54 INDEX, BP 141/84 MM HG, HR 83 /MIN, RR 18 /MIN, TEMP 97.0 F, OXYGEN SAT % 97%, NA INITIALS SC 09:05, REVIEWED BY: JULIANA. EXAMINATION GENERAL EXAMINATION: GENERALNO ACUTE DISTRESS, WELL NOURISHED AND HYDRATED. PSYCHAPPROPRIATE MOOD AND AFFECT . NECK:POINT TENDER BILATERAL TRAPEZIUS, SURROUNDING SKIN SHOWS NO ERYTHEMA, ECCHYMOSIS, INCREASED WARMTH, AND/OR SKIN ERUPTIONS. . LUNGS:CLEAR TO AUSCULTATION BILATERALLY, NO WHEEZES, RHONCHI, RALES. HEART:NO MURMURS, REGULAR RATE AND RHYTHM. ASSESSMENTS MYALGIA, OTHER SITE - M79.18 (PRIMARY) TREATMENT MYALGIA, OTHER SITE NOTES: BILATERAL TRAPEZIUS TPI . CLINICAL NOTES: 58 YEAR OLD FEMALE IN FOR POST TPI FOLLOW UP. GIVEN PRESENTING SYMPTOMS AND RESULTS OF PHYSICAL EXAMINATION RECOMMENDED TPI OF THE TRAPEZIUS BILATERALLY. PATIENT HAS EXPRESSED UNDERSTANDING OF AND WAS IN AGREEMENT WITH TX PLAN. GIVEN TIME TO ASK QUESTIONS AND EXPRESS CONCERNS. . PROCEDURE CODES FA211 ESTABILISHED PATIENT [facility] FACILITY CHARGE DISPOSITION & COMMUNICATION FOLLOW UP POST PROCEDURE (REASON: BILATERAL TRAPEZIUS TPI ) ELECTRONICALLY SIGNED BY MELANIE COOPER ON 10/13/2018 AT 12:45 PM EDT DISCLAIMER : THIS IS A VISIT SUMMARY EXTRACTED FROM THE [employer] CHART. IT IS NOT A COPY OF THE [employer] PROGRESS NOTE. KIRAN
== END ==
LOC: M PAIN 09:00
PROVIDERS: ATTEND Family Medicine
DX: M79.18 Myalgia, other site (principal); M54.2 Cervicalgia; I10 Essential (primary) hypertension; K44.9 Diaphragmatic hernia without obstruction or gangrene; K21.0 Gastro-esophageal reflux disease with esophagitis; J30.9 Allergic rhinitis, unspecified; L43.9 Lichen planus, unspecified; G44.209 Tension-type headache, unspecified, not intractable; Z87.442 Personal history of urinary calculi; Z87.891 Personal history of nicotine dependence; Z79.82 Long term (current) use of aspirin; Z79.891 Long term (current) use of opiate analgesic; Z79.899 Other long term (current) drug therapy; Z86.010 Personal history of colon polyps; Z88.0 Allergy status to penicillin; Z88.6 Allergy status to analgesic agent; Z88.8 Allergy status to other drugs, medicaments and biological substances

== ENCOUNTER → 2018-12-01 | Outpatient (CLI) | payer OTHER ==
[~2018-12-01] MED LIST changes: +BUPIVACAINE HCL 0.25% 10 ML VIAL As Ordered ONE; +BUPIVACAINE HCL 0.25% 30 ML VIAL As Ordered ONE; +TRIAMCINOLONE ACETONIDE SUSP 40 MG/ML VIAL (J3301) As Ordered ONE; +diazePAM 5 MG TAB As Ordered ONE; +oxyCODONE 5MG TAB As Ordered ONE
--- NOTE | 2018-12-11 01:24 | ECWPNPC ---
PATIENT NAME: LEWIS HUGHES : 1960 GENDER: FEMALE VISIT DATE: 12/01/2018 DISCHARGE DATE: 12/01/18 1051 VISIT LOCKED DATE TIME: PHYSICIAN: JAYME VALLES MD RESOURCE: JAYME VALLES MD REASON FOR APPOINTMENT 1. LEFT SHOULDER AND LEFT THORACIC TPI HISTORY OF PRESENT ILLNESS HISTORY OF PRESENT ILLNESS: PAIN THE PATIENT DESCRIBES THE PAIN... FALL RISK SCREENING: SCREENING :NO FALLS REPORTED IN THE LAST YEAR CURRENT MEDICATIONS TAKING ALBUTEROL SULFATE HFA 108 (90 BASE) MCG/ACT AEROSOL SOLUTION 1-2 PUFFS NEEDED INHALATION EVERY 4 HRS TAKING MELATONIN 10 MG TABLET 1 TABLET UNDER THE TONGUE AND ALLOW TO DISSOLVE AT BEDTIME NEEDED WITH FOOD ORALLY BEFORE BEDTIME TAKING TYLENOL PM EXTRA STRENGTH 500-25 MG TABLET 1 TABLET AT BEDTIME NEEDED ORALLY ONCE A DAY TAKING VITAMIN D3 1000 UNIT CAPSULE 1 CAPSULE ORALLY ONCE A DAY TAKING TIZANIDINE HCL 4 MG TABLET 1 TABLET ORALLY TWICE A DAY TAKING ATORVASTATIN CALCIUM 20 MG TABLET 1 TABLET ORALLY ONCE A DAY TAKING LIDOCAINE VISCOUS 2 % SOLUTION 15 ML TO AFFECTED AREA NEEDED MOUTH/THROAT, SWISH AND SPIT EVERY 3 HRS TAKING PANTOPRAZOLE SODIUM 40 TABLET DELAYED RELEASE 1 TABLET ORALLY ONCE A DAY TAKING CLOBETASOL PROPIONATE 0.05 % OINTMENT 1 APPLICATION TO AFFECTED AREA OF HANDS AND FEET EXTERNALLY TWICE A DAY TO AREAS ON BODY WITH RASH (NOT FOR FACE, GROIN, ARMPITS) TAKING LORATADINE 10 TABLET 1 TABLET ONCE A DAY/PRN ORALLY 90 DAY(S) ORALLY DAILY TAKING LOSARTAN POTASSIUM 50 MG TABLET 1 TABLET ORALLY ONCE A DAY TAKING TRAZODONE HCL 150 MG TABLET 1 TABLET AT BEDTIME ORALLY ONCE A DAY TAKING AMITRIPTYLINE HCL 50 TABLET 1 TABLET ONCE A DAY IN AM ORALLY 30 DAY(S) TAKING ASPIRIN 81 81 MG TABLET DELAYED RELEASE 1 TABLET ORALLY TWICE A DAY TAKING GLUCOSAMINE _ TABLET 1 TABLET ORALLY ONCE A DAY, NOTES: OTC NOT-TAKING TRAMADOL HCL 50 MG TABLET 1 TAB ORALLY EVERY 6 HOURS NEEDED/MMD#4 UNKNOWN ASPIRIN 1 TAB ORAL TWICE A DAY UNKNOWN PANTOPRAZOLE SODIUM 40 MG TABLET DELAYED RELEASE 1 TABLET ORALLY ONCE A DAY, NOTES: DUPLICATE UNKNOWN LORATADINE 10 MG TABLET 1 TABLET ONCE A DAY/PRN ORALLY 90 DAY(S) ORALLY DAILY, NOTES: DUPLICATE UNKNOWN AMITRIPTYLINE HCL 50 MG TABLET 1 TABLET ONCE A DAY IN AM ORALLY 30 DAY(S) , NOTES: DUPLICATE UNKNOWN AMITRIPTYLINE HCL 100 MG TABLET 1 TABLET AT BEDTIME ONCE A DAY ORALLY 30 DAY(S) , NOTES: DUPLICATE UNKNOWN AMITRIPTYLINE HCL 100 TABLET 1 TABLET AT BEDTIME ONCE A DAY ORALLY 30 DAY(S) , NOTES: DUPLICATE UNKNOWN EPIPEN 2-DARREN 0.3 MG/0.3ML SOLUTION AUTO-INJECTOR IM INJECTION DIRECTED INJECTION PRN MEDICATION LIST REVIEWED AND RECONCILED WITH THE PATIENT PAST MEDICAL HISTORY CHRONIC TENSION-TYPE HEADACHE, 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 WITHOUT SCIATICA HISTORY OF TOBACCO ABUSE ESSENTIAL (PRIMARY) HYPERTENSION HIATAL HERNIA WITH GERD WITHOUT ESOPHAGITIS COLON POLYPS OTHER ALLERGIC RHINITIS HISTORY OF NEPHROLITHIASIS LIKEN PLEXUS ALLERGIES IODINE: HIVES,SOB NSAIDS: ANAPHYLAXIS - ALLERGY LISINOPRIL: COUGH - SIDE EFFECTS HYBICLENS: HIVES - SIDE EFFECTS PENICILLIN (FOR ALLERGIES USE ONLY): ANAPHYLAXIS - ALLERGY SURGICAL HISTORY BACK 1989 BACK 1999 SINUS 2009 ENDOSCOPE & COLONOSCOPY FOR COLON POLYPS AND HIATAL HERNIA LOOP PLACED - CARDIO 01/2017 ROTATOR CUFF REPAIR RIGHT 07/27/2017 PACEMAKER 04/2017 RIGHT SHOULDER REPAIR 12/14/17 FAMILY HISTORY FATHER: ALIVE, DIAGNOSED WITH DIABETES, UNSPECIFIED HEART DISEASE, UNSPECIFIED NONPSYCHOTIC MENTAL DISORDER FOLLOWING ORGANIC BRAIN DAMAGE MOTHER: , HYPERTENSION, UNSPECIFIED CEREBRAL ARTERY OCCLUSION WITH CEREBRAL INFARCTION PATERNAL GRAND FATHER: , UNSPECIFIED HEART DISEASE PATERNAL GRAND MOTHER: ALIVE, UNSPECIFIED HEART DISEASE MATERNAL GRAND FATHER: , OTHER MALIGNANT NEOPLASM OF UNSPECIFIED SITE MATERNAL GRAND MOTHER: , DIABETES 6 SISTER(S) - HEALTHY. 1 SON(S) , 1 DAUGHTER(S) - HEALTHY. 2 SISTERS PASSED FROM HEART ATTACKS, ALL HAVE HAD HEART ATTACKS, 2 SISTERS HAVE DMDENIES FAMILY HX OF PANCREATIC CANCER OR MELANOMA. SOCIAL HISTORY GENERAL: TOBACCO USE ARE YOU A:FORMER SMOKER HOW LONG HAS IT BEEN SINCE YOU LAST SMOKED?1-5 YEARS HIV / HEP-C SCREENING HIV TEST OFFERED TO PATIENT:YES DATE OFFERED:03/04/2018 TEST ACCEPTED:NO HEP-C TEST OFFERED TO PATIENT:YES DATE OFFERED:03/04/2018 REASON:PATIENT DECLINED TEST ACCEPTED:NO REASON:PATIENT DECLINED BROCHURE PROVIDED TO PATIENTYES OTHERS AT HOME: OTHER NON-RELATIVE. HOUSING: OWNS HOME. EDUCATION LEVEL OF EDUCATION:COLLEGE DIET: REGULAR. LANGUAGE LANGUAGES SPOKEN:TURKISH DOMESTIC VIOLENCE DO YOU FEEL SAFE IN YOUR ENVIRONMENT?YES BMI CARE GOAL FOLLOW-UP ABOVE NORMAL BMI FOLLOW-UPDIETARY MANAGEMENT EDUCATION, GUIDANCE, AND COUNSELING RECREATIONAL DRUG USE DRUG USE?NO EXERCISE: NO REGULAR EXERCISE. LEARNING BARRIERS / SPECIAL NEEDS CHANGE FROM LAST VISIT?NO BARRIERS TO LEARNING?NO HEARING IMPAIRED?NO VISION IMPAIRED?YES COGNITIVELY IMPAIRED?NO :CORRECTIVE LENSES CONTACTS READINESS TO LEARN?YES LEARNING PREFERENCES?NO LEARNING CAPABILITIES PRESENT?YES EMOTIONAL BARRIERS?NO SPECIAL DEVICES?NO SUPERIOR COURT JUSTICE NEEDED?NO PAIN CLINIC PFS, CLERGY, PUBLIC HEALTH REFERRALS HAS THE PATIENT BEEN EDUCATED REGARDING HIS/HER PLAN OF CARE?YES HAS THE PATIENT BEEN EDUCATED REGARDING PAIN, THE RISK FOR PAIN, THE IMPORTANCE OF EFFECTIVE PAIN MANAGEMENT, AND THE PAIN ASSESSMENT PROCESS?YES LATEX QUESTIONNAIRE LATEX ALLERGY : HAVE YOU EVER DEVELOPED ANY TYPE OF REACTION AFTER HANDLING LATEX PRODUCTS SUCH RUBBER GLOVES, CONDOMS, DIAPHRAGMS, BALLOONS, SOCKS, OR UNDERWEAR?NO LATEX ALLERGY : HAVE YOU EVER DEVELOPED ANY TYPE OF REACTION DURING OR AFTER DENTAL APPOINTMENT, VAGINAL/RECTAL EXAMINATION, SURGICAL PROCEDURE, OR ANY OTHER EXPOSURE?NO DATE ASKED : 07/13/2018 LATEX RISK : HAVE YOU EVER HAD ANY DIFFICULTY BREATHING OR HIVES AFTER EATING OR HANDLING ANY FRUITS, OR VEGETABLES; SUCH KIWI, BANANAS, STONE FRUITS, OR CHESTNUTSNO LATEX RISK : DO YOU HAVE A PREVIOUS PERSONAL HISTORY OF MORE THAN NINE SURGERIES, SPINA BIFIDA, OR REPEATED CATHERIZATIONS? YES - PLEASE INDICATE : > 9 SURGERIES LATEX RISK : ARE YOU FREQUENTLY EXPOSED TO LATEX PRODUCTS IN YOUR OCCUPATION?NO CAFFEINE 1-2/DAY. ADVANCE DIRECTIVE ADVANCE DIRECTIVE DISCUSSED WITH PATIENT:YES DECLINED RELIGIOUS [id number] FAITH MARITAL STATUS: .. 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 SEXUAL HX HAD SEX IN THE LAST 12 MONTHS (VAGINAL, ORAL, OR ANAL)?NO HAVE YOU EVER HAD AN STD?NO HOSPITALIZATION/MAJOR DIAGNOSTIC PROCEDURE [facility] - [facility] 2012 [facility] - [place] 12/2016 REVIEW OF SYSTEMS REVIEWED BY: PROVIDER: . CONSTITUTIONAL: ANY CHANGE IN YOUR MEDICAL CONDITION? NO . CHILLS NO . FEVER NO . INFECTION: DO YOU HAVE NEW INFECTIONS? NO . DO YOU HAVE HISTORY OF MRSA? NO . MUSCULOSKELETAL: ANY NEW PATTERNS OF PAIN OR NUMBNESS? NO . GASTROENTEROLOGY: ANY NEW CHANGE IN BOWEL CONTROL? NO . GENITOURINARY: ANY NEW CHANGE IN BLADDER CONTROL? NO . IS THERE A CHANCE YOU COULD BE ? NO . HEMATOLOGY/LYMPH: DO YOU TAKE ANY BLOOD THINNERS? (FOR EXAMPLE- COUMADIN, PLAVIX, AGGRENOX, PLATEL, PRADAXA, OR XARELTO) NO . WHEN WAS YOUR LAST DOSE? DATE: TIME: . NEUROLOGY: HAVE YOU FALLEN IN THE PAST 12 MONTHS? NO . ANY NEW EXTREMITY NUMBNESS OR WEAKNESS? NO . CARDIOLOGY: DO YOU HAVE A PACEMAKER OR DEFIBRILLATOR? YES PACEMAKER . RESPIRATORY: HAVE YOU BEEN SICK IN THE PAST WEEK? NO . FEVER NO . FLU LIKE SYMPTOMS? NO . COUGH NO . INTEGUMENTARY: DO YOU HAVE ANY RASHES OR OPEN SORES? NOT CURRENTLY . ALLERGIC/IMMUNO: ARE YOU ALLERGIC TO IV DYE? NO . ANY NEW ALLERGIES? NO . PSYCHIATRIC: DO YOU HAVE THOUGHTS OF HURTING YOURSELF OR SOMEONE ELSE? NO . ARE YOU ABUSED, NEGLECTED, OR IN AN UNSAFE ENVIRONMENT? NO . ENDOCRINOLOGY: ARE YOU DIABETIC? NO . OTHER: DO YOU NEED ANY PRESCRIPTIONS? NO . IF YES, PLEASE LIST: ____ . ANY NEW PROBLEMS WITH YOUR MEDICATIONS? NO . WHEN DID YOU LAST EAT? ____LAST NIGHT 5 PM . WHEN DID YOU LAST DRINK? ____ . WHAT DID YOU LAST DRINK? ____10 PM LAST NIGHT WATER . NAME OF PERSON DRIVING YOU HOME? ____PROMISEANA M DAINEL . DO YOU HAVE ANY OTHER QUESTIONS OR CONCERNS NO . VITAL SIGNS WT 221.8 LBS, HT 66 IN, BMI 35.80 INDEX, BP 130/87 MM HG, HR 84 /MIN, RR 18 /MIN, TEMP 98.3 F, OXYGEN SAT % 98%, NA INITIALS SC 09:41, REVIEWED BY: KG. ASSESSMENTS MYALGIA, OTHER SITE - M79.18 (PRIMARY) PROCEDURES PN TRIGGER POINT INJECTION WITH STEROIDS PRE PROCEDURE DIAGNOSIS 1. MYALGIA 2. PAIN AT LEFT SHOULDER AREA AND LEFT THORACIC AREA POST PROCEDURE DIAGNOSIS 1. MYALGIA 2. PAIN AT LEFT SHOULDER AREA AND LEFT THORACIC AREA PROCEDURE TRIGGER POINT INJECTION AT LEFT SHOULDER AREA AND LEFT THORACIC AREA SURGEON DR. JAYME VALLES FIREMAN NONE ANESTHESIA LOCAL PRE PROCEDURE NOTE THE PATIENT HAS A HISTORY OF CHRONIC PAIN AT THE LEFT SHOULDER AND LEFT THORACIC AREA. I EVALUATED THE PATIENT AND REVIEWED THE CHART. THERE IS EVIDENCE OF BANDS OF TISSUE WITH RESTRICTION OF MOVEMENT AND PRESENCE OF TRIGGER POINT AT THE AFFECTED AREA. I WENT OVER THE RISKS, ALTERNATIVES, AND BENEFITS ASSOCIATED WITH THIS PROCEDURE. THE PATIENT WOULD LIKE TO PROCEED AND GIVE CONSENT TO PERFORMED THE PROCEDURE. THE PATIENT DENIES UNEXPLAINABLE WEIGHT LOSS, FEVER, CHILLS, OR NEW CHANGES IN URINARY OR BOWEL CONTROL DESCRIPTION OF PROCEDURE THE PATIENT WAS BROUGHT TO THE PROCEDURE ROOM AND PLACED IN THE SITTING, POSITION. THE AREA WAS CLEANED WITH ALCOHOL. THE PROCEDURE WAS DONE USING ASEPTIC STERILE TECHNIQUE. I CHECKED LATERALITY AND THE LEVEL WHERE THE PROCEDURE WAS GOING TO BE PERFORMED WITH THE PATIENT AND THE SUPPORTING STAFF AT THE MOMENT OF THE TIME OUT IN THE PROCEDURE ROOM. USING A 25-GAUGE NEEDLE, TRIGGER POINTS WERE INJECTED AT THE LEFT SHOULDER AND LEFT THORACIC AREA WITH A TOTAL OF 40 ML OF BUPIVACAINE 0.25% AND KENALOG 40 MG. THERE WAS NO EVIDENCE OF BLOOD, PARESTHESIA OR CEREBROSPINAL FLUID DURING THE PROCEDURE. THE PATIENT WAS SENT TO THE RECOVERY ROOM. THE PATIENT WAS MOVING THE EXTREMITIES AND DOING WELL. THERE WAS NO COMPLICATION DURING THE PROCEDURE POST PROCEDURE NOTE THE PATIENT WILL BE SEEN IN A FOLLOW UP IN THE NEXT FEW WEEKS. INSTRUCTIONS WERE GIVEN, QUESTIONS WERE ANSWERED, AND THE PATIENT EXPRESSED UNDERSTANDING AND AGREES WITH THE PLAN. I, SHANTEL IRBY, DOCUMENTED THE ABOVE INFORMATION ACTING A SCRIBE FOR DR. VALLES. I HAVE REVIEWED THE ABOVE DOCUMENT, WRITTEN BY SHANTEL WILSON AND I VERIFY THAT IT IS ACCURATE. PROCEDURE CODES 77777 INJ TRIGGER POINT / [facility] [place] DISPOSITION & COMMUNICATION FOLLOW UP 3 WEEKS ELECTRONICALLY SIGNED BY JAYME VALLES MD, MD ON 12/10/2018 AT 11:57 AM EDT DISCLAIMER : THIS IS A VISIT SUMMARY EXTRACTED FROM THE [employer] CHART. IT IS NOT A COPY OF THE [employer] PROGRESS NOTE. [facility]
== END ==
LOC: M PAIN 09:45
PROVIDERS: ATTEND Anesthesiology
DX: M79.18 Myalgia, other site (principal); M54.2 Cervicalgia; I10 Essential (primary) hypertension; K44.9 Diaphragmatic hernia without obstruction or gangrene; K21.9 Gastro-esophageal reflux disease without esophagitis; J30.9 Allergic rhinitis, unspecified; Z86.010 Personal history of colon polyps; Z87.442 Personal history of urinary calculi; L28.0 Lichen simplex chronicus; Z87.891 Personal history of nicotine dependence; Z79.82 Long term (current) use of aspirin; Z79.899 Other long term (current) drug therapy; G44.209 Tension-type headache, unspecified, not intractable; Z95.0 Presence of cardiac pacemaker; Z88.0 Allergy status to penicillin; Z88.6 Allergy status to analgesic agent; Z88.8 Allergy status to other drugs, medicaments and biological substances
CPT/HCPCS: 20552; J3301

== ENCOUNTER → 2018-12-14 | Outpatient (CLI) | payer OTHER ==
[~2018-12-14] MED LIST changes: -BUPIVACAINE HCL 0.25% 10 ML VIAL As Ordered ONE; -BUPIVACAINE HCL 0.25% 30 ML VIAL As Ordered ONE; -TRIAMCINOLONE ACETONIDE SUSP 40 MG/ML VIAL (J3301) As Ordered ONE; -diazePAM 5 MG TAB As Ordered ONE; -oxyCODONE 5MG TAB As Ordered ONE
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
== END ==
LOC: M PAIN 09:15
PROVIDERS: ATTEND Family Medicine
DX: M79.18 Myalgia, other site (principal); I10 Essential (primary) hypertension; K21.9 Gastro-esophageal reflux disease without esophagitis; Z95.0 Presence of cardiac pacemaker; Z87.891 Personal history of nicotine dependence; Z88.0 Allergy status to penicillin; Z88.3 Allergy status to other anti-infective agents; Z88.6 Allergy status to analgesic agent; Z88.8 Allergy status to other drugs, medicaments and biological substances; Z79.82 Long term (current) use of aspirin; Z79.899 Other long term (current) drug therapy

== ENCOUNTER → 2019-01-03 | Outpatient (REF) | payer OTHER ==
[2019-01-03 21:13] LABS: AMPHETAMINES URINE REFLEX NEGATIVE (NEGATIVE); BARBITURATES URINE REFLEX NEGATIVE (NEGATIVE); BENZODIAZEPINES URINE REFLEX NEGATIVE (NEGATIVE); CANNABINOIDS URINE REFLEX NEGATIVE (NEGATIVE); COCAINE METABOLITE URINE REFLE NEGATIVE (NEGATIVE); METHADONE URINE REFLEX NEGATIVE (NEGATIVE); OPIATES URINE REFLEX NEGATIVE (NEGATIVE); PHENCYCLIDINE URINE REFLEX NEGATIVE (NEGATIVE)
== END ==
LOC: M SFHCLERA 16:08
PROVIDERS: ATTEND Family Medicine
DX: G89.4 Chronic pain syndrome (principal)

== ENCOUNTER → 2019-01-17 | Outpatient (CLI) | payer OTHER ==
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
== END ==
LOC: M PAIN 10:30
PROVIDERS: ATTEND Family Medicine
DX: M47.812 Spondylosis without myelopathy or radiculopathy, cervical region (principal); G44.229 Chronic tension-type headache, not intractable; M54.5 Low back pain; I10 Essential (primary) hypertension; K44.9 Diaphragmatic hernia without obstruction or gangrene; J30.9 Allergic rhinitis, unspecified; Z87.891 Personal history of nicotine dependence; L43.9 Lichen planus, unspecified; Z87.442 Personal history of urinary calculi; Z86.010 Personal history of colon polyps; Z79.82 Long term (current) use of aspirin; Z79.899 Other long term (current) drug therapy; Z88.0 Allergy status to penicillin; Z88.6 Allergy status to analgesic agent; Z88.8 Allergy status to other drugs, medicaments and biological substances

== ENCOUNTER → 2019-01-18 | Outpatient (REF) | payer OTHER, MEDICAID ==
[2019-01-18 14:12] LABS: HEMATOCRIT 40.1 % (36.0-47.0); HEMOGLOBIN 12.7 g/dl (12.0-15.5); MEAN CORPUSCULAR HEMOGLOBIN 31.2 pg (27.0-33.0); MEAN CORPUSCULAR HGB CONC 31.7 g/dl (32.0-36.5); MEAN CORPUSCULAR VOLUME 98.5 fl (80.0-96.0); PLATELET COUNT, AUTOMATED 273 10^3/uL (150-450); RED BLOOD COUNT 4.07 10^6/uL (4.00-5.40); WHITE BLOOD COUNT 6.2 10^3/uL (4.0-10.0)
[2019-01-18 14:15] LABS: ALBUMIN 3.6 GM/DL (3.2-5.2); ALT/SGPT 30 U/L (12-78); BILIRUBIN,TOTAL 0.4 MG/DL (0.2-1.0); BLOOD UREA NITROGEN 11 MG/DL (7-18); CARBON DIOXIDE LEVEL 31 MEQ/L (21-32); CHLORIDE LEVEL 104 MEQ/L (98-107); GLOMERULAR FILTRATION RATE > 60.0 (>51); GLUCOSE, FASTING 86 MG/DL (70-100); POTASSIUM SERUM 4.4 MEQ/L (3.5-5.1); SODIUM LEVEL 140 MEQ/L (136-145); TOTAL PROTEIN 6.9 GM/DL (6.4-8.2); TRIGLYCERIDES LEVEL 93 MG/DL (<150)
== END ==
LOC: M LABDRAWP 10:28
PROVIDERS: ATTEND Dermatology
DX: L43.9 Lichen planus, unspecified (principal)

== ENCOUNTER → 2019-02-10 | Outpatient (CLI) | payer OTHER, MEDICAID ==
[~2019-02-10] MED LIST changes: +BUPIVACAINE HCL 0.25% 30 ML VIAL As Ordered ONE; +ISOVUE-M 300 61% 15ML VIAL (Q9967) As Ordered ONE; +LIDOCAINE 1% SDV INJ 30 ML VIAL As Ordered ONE; +TRIAMCINOLONE ACETONIDE SUSP 40 MG/ML VIAL (J3301) As Ordered ONE; +diazePAM 5 MG TAB As Ordered ONE; +diphenhydrAMINE 25 MG CAP As Ordered ONE; +diphenhydrAMINE INJ 50MG/ML VIAL (J1200) As Ordered ONE; +oxyCODONE 5MG TAB As Ordered ONE
--- NOTE | 2019-02-10 12:08 | REP ---
Two spot fluoroscopic images: 02/10/2019. Indication: Operative/procedural assistance. Findings: Two spot fluoroscopic images of the cervical thoracic spine were obtained for operative/procedural guidance. Please see operative/procedural report for details. Impression: Fluoroscopy provided for operative/procedural assistance. 8 seconds of fluoroscopy time was utilized. Electronically Signed by Alex Burrows DO 02/10/2019 12:00 P
--- NOTE | 2019-02-10 12:56 | REP ---
CHEST, TWO VIEWS: COMPARISON: 05/15/2017. There is no evidence of pneumothorax or acute infiltrate. Heart is normal in size. There is mild tortuosity of the thoracic aorta. The mediastinal silhouette is unchanged. There is mild elevation of the right hemidiaphragm unchanged. Left dual lead pacemaker is again noted. IMPRESSION: No evidence of pneumothorax or acute infiltrate. Electronically Signed by Ton Childs MD 02/10/2019 01:10 P
--- NOTE | 2019-03-02 03:35 | ECWPNPC ---
PATIENT NAME: LEWIS HUGHES : 1960 GENDER: FEMALE VISIT DATE: 02/10/2019 DISCHARGE DATE: 02/10/19 1227 VISIT LOCKED DATE TIME: PHYSICIAN: JAYME VALLES MD RESOURCE: JAYME VALLES MD REASON FOR APPOINTMENT 1. LEFT CERVICAL FACET C6-C7, C7-T1 HISTORY OF PRESENT ILLNESS HISTORY OF PRESENT ILLNESS: PAIN THE PATIENT DESCRIBES THE PAIN... FALL RISK SCREENING: SCREENING :NO FALLS REPORTED IN THE LAST YEAR CURRENT MEDICATIONS TAKING CLOBETASOL PROPIONATE 0.05 % OINTMENT 1 APPLICATION TO AFFECTED AREA OF HANDS AND FEET EXTERNALLY TWICE A DAY TO AREAS ON BODY WITH RASH (NOT FOR FACE, GROIN, ARMPITS), NOTES: 02/09/19 TAKING DEXAMETHASONE 0.5 MG/5ML SOLUTION 5 ML ORALLY TWICE A DAY SWISH AND SPIT, NOTES: 2 WEEKS AGO TAKING ALBUTEROL SULFATE HFA 108 (90 BASE) MCG/ACT AEROSOL SOLUTION 1-2 PUFFS NEEDED INHALATION EVERY 4 HRS, NOTES: NONE RECENT TAKING MELATONIN 10 MG TABLET 1 TABLET UNDER THE TONGUE AND ALLOW TO DISSOLVE AT BEDTIME NEEDED WITH FOOD ORALLY BEFORE BEDTIME, NOTES: 02/09/19 TAKING TYLENOL PM EXTRA STRENGTH 500-25 MG TABLET 1 TABLET AT BEDTIME NEEDED ORALLY ONCE A DAY, NOTES: 02/09/19 TAKING VITAMIN D3 1000 UNIT CAPSULE 1 CAPSULE ORALLY ONCE A DAY, NOTES: 02/10/19 0800 TAKING LIDOCAINE VISCOUS 2 % SOLUTION 15 ML TO AFFECTED AREA NEEDED MOUTH/THROAT, SWISH AND SPIT EVERY 3 HRS, NOTES: NONE RECENT TAKING LORATADINE 10 TABLET 1 TABLET ONCE A DAY/PRN ORALLY 90 DAY(S) ORALLY DAILY, NOTES: 02/10/19 08 TAKING ASPIRIN 81 81 MG TABLET DELAYED RELEASE 1 TABLET ORALLY TWICE A DAY, NOTES: 02/10/19 08 TAKING GLUCOSAMINE _ TABLET 1 TABLET ORALLY ONCE A DAY, NOTES: 02/10/19 0800 TAKING AMITRIPTYLINE HCL 50 TABLET 1 TABLET ONCE A DAY IN AM ORALLY 30 DAY(S) , NOTES: 02/09/19 TAKING TIZANIDINE HCL 4 MG TABLET 1 TABLET ORALLY TWICE A DAY, NOTES: 02/09/19 TAKING ATORVASTATIN CALCIUM 20 MG TABLET 1 TABLET ORALLY ONCE A DAY, NOTES: 02/10/19 0800 TAKING TRAMADOL HCL 50 MG TABLET 1 TAB ORALLY EVERY 6 HOURS NEEDED/MMD#4, NOTES: 02/09/19 TAKING BACLOFEN 10 MG TABLET 1 TABLET WITH FOOD OR MILK ORALLY BID, NOTES: 02/10/19 0800 TAKING EPIPEN 2-DARREN 0.3 MG/0.3ML SOLUTION AUTO-INJECTOR IM INJECTION DIRECTED INJECTION PRN, NOTES: NONE RECENT TAKING TRAZODONE HCL 150 MG TABLET 1 TABLET AT BEDTIME ORALLY ONCE A DAY, NOTES: 02/09/19 TAKING METFORMIN HCL ER 500 MG TABLET EXTENDED RELEASE 24 HOUR 1 TABLET WITH EVENING MEAL ORALLY ONCE A DAY, NOTES: 02/09/19 TAKING LOSARTAN POTASSIUM 50 MG TABLET 1 TABLET ORALLY ONCE A DAY, NOTES: 02/09/19 NOT-TAKING LORATADINE 10 MG TABLET 1 TABLET ONCE A DAY/PRN ORALLY 90 DAY(S) ORALLY DAILY, NOTES: DUPLICATE NOT-TAKING PREDNISONE 20 MG TABLET 1 TABLET ORALLY THEE TIMES A DAY FOR A WEEK, THEN TWICE A DAY FOR 1 WEEK, AND THEN ONCE A DAY FOR 1 WEEK NOT-TAKING LOSARTAN POTASSIUM 25 TABLET 1 TABLET ORALLY ONCE A DAY NOT-TAKING PANTOPRAZOLE SODIUM 40 TABLET DELAYED RELEASE 1 TABLET ORALLY ONCE A DAY NOT-TAKING ASPIRIN 1 TAB ORAL TWICE A DAY NOT-TAKING PANTOPRAZOLE SODIUM 40 MG TABLET DELAYED RELEASE 1 TABLET ORALLY ONCE A DAY, NOTES: DUPLICATE NOT-TAKING AMITRIPTYLINE HCL 50 MG TABLET 1 TABLET ONCE A DAY IN AM ORALLY 30 DAY(S) , NOTES: DUPLICATE NOT-TAKING AMITRIPTYLINE HCL 100 MG TABLET 1 TABLET AT BEDTIME ONCE A DAY ORALLY 30 DAY(S) , NOTES: DUPLICATE NOT-TAKING AMITRIPTYLINE HCL 100 TABLET 1 TABLET AT BEDTIME ONCE A DAY ORALLY 30 DAY(S) , NOTES: DUPLICATE MEDICATION LIST REVIEWED AND RECONCILED WITH THE PATIENT PAST MEDICAL HISTORY CHRONIC TENSION-TYPE HEADACHE, 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 WITHOUT SCIATICA HISTORY OF TOBACCO ABUSE ESSENTIAL (PRIMARY) HYPERTENSION HIATAL HERNIA WITH GERD WITHOUT ESOPHAGITIS COLON POLYPS OTHER ALLERGIC RHINITIS HISTORY OF NEPHROLITHIASIS LIKEN PLEXUS ALLERGIES IODINE: HIVES,SOB NSAIDS: ANAPHYLAXIS - ALLERGY LISINOPRIL: COUGH - SIDE EFFECTS HYBICLENS: HIVES - SIDE EFFECTS PENICILLIN (FOR ALLERGIES USE ONLY): ANAPHYLAXIS - ALLERGY SURGICAL HISTORY BACK 1989 BACK 1999 SINUS 2009 ENDOSCOPE & COLONOSCOPY FOR COLON POLYPS AND HIATAL HERNIA LOOP PLACED - CARDIO 01/2017 ROTATOR CUFF REPAIR RIGHT 07/27/2017 PACEMAKER 04/2017 RIGHT SHOULDER REPAIR 12/14/17 FAMILY HISTORY FATHER: ALIVE, DIAGNOSED WITH DIABETES, UNSPECIFIED HEART DISEASE, UNSPECIFIED NONPSYCHOTIC MENTAL DISORDER FOLLOWING ORGANIC BRAIN DAMAGE MOTHER: , HYPERTENSION, UNSPECIFIED CEREBRAL ARTERY OCCLUSION WITH CEREBRAL INFARCTION PATERNAL GRAND FATHER: , UNSPECIFIED HEART DISEASE PATERNAL GRAND MOTHER: ALIVE, UNSPECIFIED HEART DISEASE MATERNAL GRAND FATHER: , OTHER MALIGNANT NEOPLASM OF UNSPECIFIED SITE MATERNAL GRAND MOTHER: , DIABETES 6 SISTER(S) - HEALTHY. 1 SON(S) , 1 DAUGHTER(S) - HEALTHY. 2 SISTERS PASSED FROM HEART ATTACKS, ALL HAVE HAD HEART ATTACKS, 2 SISTERS HAVE DMDENIES FAMILY HX OF PANCREATIC CANCER OR MELANOMA. SOCIAL HISTORY GENERAL: TOBACCO USE ARE YOU A:FORMER SMOKER HOW LONG HAS IT BEEN SINCE YOU LAST SMOKED?1-5 YEARS HIV / HEP-C SCREENING HIV TEST OFFERED TO PATIENT:YES DATE OFFERED:03/04/2018 TEST ACCEPTED:NO HEP-C TEST OFFERED TO PATIENT:YES DATE OFFERED:03/04/2018 REASON:PATIENT DECLINED TEST ACCEPTED:NO REASON:PATIENT DECLINED BROCHURE PROVIDED TO PATIENTYES OTHERS AT HOME: OTHER NON-RELATIVE. HOUSING: OWNS HOME. EDUCATION LEVEL OF EDUCATION:COLLEGE DIET: REGULAR. LANGUAGE LANGUAGES SPOKEN:AMHARIC DOMESTIC VIOLENCE DO YOU FEEL SAFE IN YOUR ENVIRONMENT?YES BMI CARE GOAL FOLLOW-UP ABOVE NORMAL BMI FOLLOW-UPDIETARY MANAGEMENT EDUCATION, GUIDANCE, AND COUNSELING RECREATIONAL DRUG USE DRUG USE?NO EXERCISE: NO REGULAR EXERCISE. LEARNING BARRIERS / SPECIAL NEEDS CHANGE FROM LAST VISIT?NO 01/03/19 BARRIERS TO LEARNING?NO HEARING IMPAIRED?NO VISION IMPAIRED?YES COGNITIVELY IMPAIRED?NO :CORRECTIVE LENSES CONTACTS READINESS TO LEARN?YES LEARNING PREFERENCES?NO LEARNING CAPABILITIES PRESENT?YES EMOTIONAL BARRIERS?NO SPECIAL DEVICES?NO TREE GIRDLER NEEDED?NO PAIN CLINIC PFS, CLERGY, PUBLIC HEALTH REFERRALS WAS THE PROVIDER NOTIFIED OF ANY PERTINENT INFO?YES HAS THE PATIENT BEEN EDUCATED REGARDING HIS/HER PLAN OF CARE?YES HAS THE PATIENT BEEN EDUCATED REGARDING PAIN, THE RISK FOR PAIN, THE IMPORTANCE OF EFFECTIVE PAIN MANAGEMENT, AND THE PAIN ASSESSMENT PROCESS?YES LATEX QUESTIONNAIRE LATEX ALLERGY : HAVE YOU EVER DEVELOPED ANY TYPE OF REACTION AFTER HANDLING LATEX PRODUCTS SUCH RUBBER GLOVES, CONDOMS, DIAPHRAGMS, BALLOONS, SOCKS, OR UNDERWEAR?NO LATEX ALLERGY : HAVE YOU EVER DEVELOPED ANY TYPE OF REACTION DURING OR AFTER DENTAL APPOINTMENT, VAGINAL/RECTAL EXAMINATION, SURGICAL PROCEDURE, OR ANY OTHER EXPOSURE?NO DATE ASKED : 01/03/2019 LATEX RISK : HAVE YOU EVER HAD ANY DIFFICULTY BREATHING OR HIVES AFTER EATING OR HANDLING ANY FRUITS, OR VEGETABLES; SUCH KIWI, BANANAS, STONE FRUITS, OR CHESTNUTSNO LATEX RISK : DO YOU HAVE A PREVIOUS PERSONAL HISTORY OF MORE THAN NINE SURGERIES, SPINA BIFIDA, OR REPEATED CATHERIZATIONS? YES - PLEASE INDICATE : > 9 SURGERIES LATEX RISK : ARE YOU FREQUENTLY EXPOSED TO LATEX PRODUCTS IN YOUR OCCUPATION?NO CAFFEINE 1-2/DAY. ADVANCE DIRECTIVE ADVANCE DIRECTIVE DISCUSSED WITH PATIENT:YES DECLINED INFORMATION OR ASSISTANCE AT THIS TIME 02/10/19 [facility] [id number] TAOISM MARITAL STATUS: .. 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 SEXUAL HX HAD SEX IN THE LAST 12 MONTHS (VAGINAL, ORAL, OR ANAL)?NO HAVE YOU EVER HAD AN STD?NO REVIEWED WITH PATIENT 02/10/19 1030 LEESA RN. HOSPITALIZATION/MAJOR DIAGNOSTIC PROCEDURE [facility] 2011 [facility] [place] 12/2016 REVIEW OF SYSTEMS REVIEWED BY: PROVIDER: . CONSTITUTIONAL: ANY CHANGE IN YOUR MEDICAL CONDITION? YES, PT HAD A CORTISONE INJECTION IN RIGHT SHOULDER YESTERDAY. . CHILLS NO . FEVER NO . INFECTION: DO YOU HAVE NEW INFECTIONS? NO . DO YOU HAVE HISTORY OF MRSA? NO . MUSCULOSKELETAL: ANY NEW PATTERNS OF PAIN OR NUMBNESS? NO . GASTROENTEROLOGY: ANY NEW CHANGE IN BOWEL CONTROL? NO . GENITOURINARY: ANY NEW CHANGE IN BLADDER CONTROL? NO . IS THERE A CHANCE YOU COULD BE ? NO . HEMATOLOGY/LYMPH: DO YOU TAKE ANY BLOOD THINNERS? (FOR EXAMPLE- COUMADIN, PLAVIX, AGGRENOX, PLATEL, PRADAXA, OR XARELTO) NO . WHEN WAS YOUR LAST DOSE? DATE: TIME: . NEUROLOGY: HAVE YOU FALLEN IN THE PAST 12 MONTHS? NO . ANY NEW EXTREMITY NUMBNESS OR WEAKNESS? NO . CARDIOLOGY: DO YOU HAVE A PACEMAKER OR DEFIBRILLATOR? YES, PACEMAKER . RESPIRATORY: HAVE YOU BEEN SICK IN THE PAST WEEK? NO . FEVER NO . FLU LIKE SYMPTOMS? NO . COUGH NO . INTEGUMENTARY: DO YOU HAVE ANY RASHES OR OPEN SORES? YES, PT IS DIAGNOSED WITH LIKEN PLEXUS . ALLERGIC/IMMUNO: ARE YOU ALLERGIC TO IV DYE? PT STATES SHE IS ALLERGIC TO IV DYE AND SOMETIMES GETS SEVERE HIVES . ANY NEW ALLERGIES? NO . PSYCHIATRIC: DO YOU HAVE THOUGHTS OF HURTING YOURSELF OR SOMEONE ELSE? NO . ARE YOU ABUSED, NEGLECTED, OR IN AN UNSAFE ENVIRONMENT? NO . OTHER: DO YOU NEED ANY PRESCRIPTIONS? NO . IF YES, PLEASE LIST: ____ . ANY NEW PROBLEMS WITH YOUR MEDICATIONS? NO . WHEN DID YOU LAST EAT? 02/09/19 1800 . WHEN DID YOU LAST DRINK? 02/10/19 0800 . WHAT DID YOU LAST DRINK? WATER . NAME OF PERSON DRIVING YOU HOME? COY TRUONG . DO YOU HAVE ANY OTHER QUESTIONS OR CONCERNS NO . VITAL SIGNS WT 220.4 LBS, HT 66 IN, BMI 35.57 INDEX, BP 132/88 MM HG, HR 94 /MIN, RR 18 /MIN, TEMP 97.7 F, OXYGEN SAT % 95%, NA INITIALS AW 1002, REVIEWED BY: BV. ASSESSMENTS SPONDYLOSIS OF CERVICAL REGION WITHOUT MYELOPATHY OR RADICULOPATHY - M47.812 (PRIMARY) SPONDYLOSIS WITHOUT MYELOPATHY OR RADICULOPATHY, CERVICOTHORACIC REGION - M47.813 TREATMENT SPONDYLOSIS OF CERVICAL REGION WITHOUT MYELOPATHY OR RADICULOPATHY SMC FACET BLOCK (PAIN)[id number] PROCEDURES PN CERVICAL FACET BLOCK LOW BILATERAL CERVICAL PRE PROCEDURE DIAGNOSIS CERVICAL SPONDYLOSIS, CERVICOTHORACIC SPONDYLOSIS POST PROCEDURE DIAGNOSIS CERVICAL SPONDYLOSIS, CERVICOTHORACIC SPONDYLOSIS PROCEDURE LEFT C6-C7 AND LEFT C7-T1 CERVICAL FACET BLOCK SURGEON DR. JAYME VALLES ROUGH ROUNDER NONE ANESTHESIA LOCAL PRE PROCEDURE NOTE THE PATIENT HAS HISTORY OF CHRONIC CERVICAL PAIN. I EVALUATED THE PATIENT AND REVIEWED THE CHART. I WENT OVER THE RISKS, ALTERNATIVES, AND BENEFITS ASSOCIATED WITH THIS PROCEDURE. THE PATIENT WOULD LIKE TO PROCEED AND GIVES CONSENT TO PERFORM THE PROCEDURE. THE PATIENT DENIES UNEXPLAINABLE WEIGHT LOSS, FEVER, CHILLS, OR NEW CHANGES IN URINARY OR BOWEL CONTROL. DESCRIPTION OF PROCEDURE THE PATIENT WAS BROUGHT TO THE PROCEDURE ROOM AND PLACED IN THE PRONE POSITION. THE CERVICOTHORACIC AREA WAS CLEANED WITH CHLORAPREP SOLUTION AND DRAPED ASEPTICALLY. THE PROCEDURE WAS DONE UNDER STERILE CONDITIONS. I CHECKED LATERALITY AND THE LEVEL WHERE THE PROCEDURE WAS GOING TO BE PERFORMED WITH THE PATIENT AND THE SUPPORTING STAFF AT THE MOMENT OF THE TIME OUT IN THE PROCEDURE ROOM. UNDER FLUOROSCOPIC GUIDANCE, TARGET POINT WAS SELECTED AT THE LEFT C6-C7 AND LEFT C7-T1 CERVICAL FACET JOINTS. TARGET POINTS WERE SELECTED AFTER LATERAL ROTATION AND TILT OF THE MAGNIFIER OF THE C-ARM. LIDOCAINE 0.5% WAS USED TO NUMB THE SKIN AND THE SUBCUTANEOUS TISSUE BELOW IT. SPINAL NEEDLES, 22-GAUGE, WERE ADVANCED UNDER FLUOROSCOPIC GUIDANCE AND FOLLOWING PATIENT FEEDBACK UNTIL THE TARGETS WERE TOUCHED. THE POSITION OF THE NEEDLES WAS VERIFIED WITH AP AND LATERAL VIEWS. AFTER PROPER POSITION OF THE NEEDLES WAS ACHIEVED, ISOVUE M DYE 30, 0.1 ML WAS INJECTED SHOWING SPREAD OF THE DYE. THEN A SOLUTION OF 0.9 ML OF BUPIVACAINE 0.125% AND KENALOG 10 MG WAS INJECTED AT EACH SITE. THERE WAS NO EVIDENCE OF BLOOD, PARESTHESIA OR CEREBROSPINAL FLUID DURING THE PROCEDURE. THE PATIENT WAS SENT TO THE RECOVERY ROOM. THE PATIENT WAS MOVING THE EXTREMITIES AND DOING WELL. THERE WAS NO COMPLICATION DURING THE PROCEDURE. FLUOROSCOPY TIME WAS 8 SECONDS POST PROCEDURE NOTE THE PATIENT WILL BE SEEN IN A FOLLOW UP IN THE NEXT FEW WEEKS. I AM LOOKING FOR LONG LASTING PAIN RELIEF FOR THE PATIENT WITH THIS PROCEDURE. INSTRUCTIONS WERE GIVEN, QUESTIONS WERE ANSWERED, AND THE PATIENT EXPRESSED UNDERSTANDING AND AGREES WITH THE PLAN. I, THANH SMITH, DOCUMENTED THE ABOVE INFORMATION ACTING A SCRIBE FOR DR. VALLES. I HAVE REVIEWED THE ABOVE DOCUMENT, WRITTEN BY THANH SMITH SCRIBLucille AND I VERIFY THAT IT IS ACCURATE. PROCEDURE CODES 49895 INJ PARAVERT F JNT C/T 1 LEV, [place]: [place] [id number] INJ PARAVERT F JNT C/T 2 LEV, MODIFIERS: LT 6045F RADXPS IN END [id number] PXD DISPOSITION & COMMUNICATION FOLLOW UP 3 WEEKS ELECTRONICALLY SIGNED BY JAYME VALLES MD, MD ON 03/01/2019 AT 04:45 PM EST DISCLAIMER : THIS IS A VISIT SUMMARY EXTRACTED FROM THE [employer] CHART. IT IS NOT A COPY OF THE [employer] PROGRESS NOTE. MTDD
== END ==
LOC: M PAIN 10:00
PROVIDERS: ATTEND Anesthesiology
DX: M47.812 Spondylosis without myelopathy or radiculopathy, cervical region (principal); M47.813 Spondylosis without myelopathy or radiculopathy, cervicothoracic region; I10 Essential (primary) hypertension; Z95.0 Presence of cardiac pacemaker; Z87.891 Personal history of nicotine dependence; Z88.0 Allergy status to penicillin; Z88.3 Allergy status to other anti-infective agents; Z88.6 Allergy status to analgesic agent; Z88.8 Allergy status to other drugs, medicaments and biological substances; Z79.82 Long term (current) use of aspirin; Z79.899 Other long term (current) drug therapy
CPT/HCPCS: 64490; 64491; 71046; J3301; Q9967

== ENCOUNTER → 2019-03-29 | Outpatient (CLI) | payer OTHER, MEDICAID ==
[~2019-03-29] MED LIST changes: -BUPIVACAINE HCL 0.25% 30 ML VIAL As Ordered ONE; -ISOVUE-M 300 61% 15ML VIAL (Q9967) As Ordered ONE; -LIDOCAINE 1% SDV INJ 30 ML VIAL As Ordered ONE; -TRIAMCINOLONE ACETONIDE SUSP 40 MG/ML VIAL (J3301) As Ordered ONE; -diazePAM 5 MG TAB As Ordered ONE; -diphenhydrAMINE 25 MG CAP As Ordered ONE; -diphenhydrAMINE INJ 50MG/ML VIAL (J1200) As Ordered ONE; -oxyCODONE 5MG TAB As Ordered ONE
--- NOTE | 2019-03-31 01:39 | ECWPNPC ---
PATIENT NAME: LEWIS HUGHES : 1960 GENDER: FEMALE VISIT DATE: 03/29/2019 DISCHARGE DATE: 03/29/19 1331 VISIT LOCKED DATE TIME: PHYSICIAN: COY SWEET RESOURCE: COY SWEET REASON FOR APPOINTMENT 1. POST BILAT CERVICAL FACET HISTORY OF PRESENT ILLNESS HISTORY OF PRESENT ILLNESS: PAIN THE PATIENT DESCRIBES THE PAIN... 59-YEAR-OLD FEMALE IN FOR POST CERVICAL FACET BLOCK FOLLOW-UP. SHE FEELS THE PROCEDURE HELPED ALTHOUGH DID NOT HELP MUCH PREVIOUS PROCEDURES THE DOCTOR HAD TO USE HALF OF THE USUAL DOSE OF STEROID PATIENT WAS ON PREDNISONE DURING PRIOR PROCEDURE. SHE RATES HER PAIN CURRENTLY AT 5-6 OUT OF 10 AND DESCRIBES IT ACHING, BURNING, AND SORE. SHE RATES HER PAIN PREPROCEDURE AT A 6 OUT OF 10 AND POSTPROCEDURE AT A 4 OUT OF 10 FURTHER STATING THAT THIS LASTED FOR APPROXIMATELY 3 WEEKS. FALL RISK SCREENING: SCREENING :NO FALLS REPORTED IN THE LAST YEAR CURRENT MEDICATIONS TAKING CLOBETASOL PROPIONATE 0.05 % OINTMENT 1 APPLICATION TO AFFECTED AREA OF HANDS AND FEET EXTERNALLY TWICE A DAY TO AREAS ON BODY WITH RASH (NOT FOR FACE, GROIN, ARMPITS) TAKING DEXAMETHASONE 0.5 MG/5ML SOLUTION 5 ML ORALLY TWICE A DAY SWISH AND SPIT TAKING ALBUTEROL SULFATE HFA 108 (90 BASE) MCG/ACT AEROSOL SOLUTION 1-2 PUFFS NEEDED INHALATION EVERY 4 HRS TAKING MELATONIN 10 MG TABLET 1 TABLET UNDER THE TONGUE AND ALLOW TO DISSOLVE AT BEDTIME NEEDED WITH FOOD ORALLY BEFORE BEDTIME TAKING TYLENOL PM EXTRA STRENGTH 500-25 MG TABLET 1 TABLET AT BEDTIME NEEDED ORALLY ONCE A DAY TAKING VITAMIN D3 1000 UNIT CAPSULE 1 CAPSULE ORALLY ONCE A DAY TAKING LIDOCAINE VISCOUS 2 % SOLUTION 15 ML TO AFFECTED AREA NEEDED MOUTH/THROAT, SWISH AND SPIT EVERY 3 HRS TAKING LORATADINE 10 TABLET 1 TABLET ONCE A DAY/PRN ORALLY 90 DAY(S) ORALLY DAILY TAKING ASPIRIN 81 81 MG TABLET DELAYED RELEASE 1 TABLET ORALLY TWICE A DAY TAKING GLUCOSAMINE _ TABLET 1 TABLET ORALLY ONCE A DAY TAKING AMITRIPTYLINE HCL 50 TABLET 1 TABLET ONCE A DAY IN AM ORALLY 30 DAY(S) TAKING TIZANIDINE HCL 4 MG TABLET 1 TABLET ORALLY TWICE A DAY TAKING ATORVASTATIN CALCIUM 20 MG TABLET 1 TABLET ORALLY ONCE A DAY TAKING BACLOFEN 10 MG TABLET 1 TABLET WITH FOOD OR MILK ORALLY BID TAKING EPIPEN 2-DARREN 0.3 MG/0.3ML SOLUTION AUTO-INJECTOR IM INJECTION DIRECTED INJECTION PRN TAKING TRAZODONE HCL 150 MG TABLET 1 TABLET AT BEDTIME ORALLY ONCE A DAY TAKING METFORMIN HCL ER 500 MG TABLET EXTENDED RELEASE 24 HOUR 1 TABLET WITH EVENING MEAL ORALLY ONCE A DAY TAKING LOSARTAN POTASSIUM 50 MG TABLET 1 TABLET ORALLY ONCE A DAY TAKING TRAMADOL HCL 50 MG TABLET 1 TAB ORALLY EVERY 6 HOURS NEEDED/MMD#4 NOT-TAKING LORATADINE 10 MG TABLET 1 TABLET ONCE A DAY/PRN ORALLY 90 DAY(S) ORALLY DAILY, NOTES: DUPLICATE NOT-TAKING PREDNISONE 20 MG TABLET 1 TABLET ORALLY THEE TIMES A DAY FOR A WEEK, THEN TWICE A DAY FOR 1 WEEK, AND THEN ONCE A DAY FOR 1 WEEK NOT-TAKING LOSARTAN POTASSIUM 25 TABLET 1 TABLET ORALLY ONCE A DAY NOT-TAKING PANTOPRAZOLE SODIUM 40 TABLET DELAYED RELEASE 1 TABLET ORALLY ONCE A DAY NOT-TAKING ASPIRIN 1 TAB ORAL TWICE A DAY NOT-TAKING PANTOPRAZOLE SODIUM 40 MG TABLET DELAYED RELEASE 1 TABLET ORALLY ONCE A DAY, NOTES: DUPLICATE NOT-TAKING AMITRIPTYLINE HCL 100 MG TABLET 1 TABLET AT BEDTIME ONCE A DAY ORALLY 30 DAY(S) , NOTES: DUPLICATE NOT-TAKING AMITRIPTYLINE HCL 100 TABLET 1 TABLET AT BEDTIME ONCE A DAY ORALLY 30 DAY(S) , NOTES: DUPLICATE DISCONTINUED AMITRIPTYLINE HCL 50 MG TABLET TAKE 1 TABLET BY MOUTH EVERY MORNING MEDICATION LIST REVIEWED AND RECONCILED WITH THE PATIENT PAST MEDICAL HISTORY CHRONIC TENSION-TYPE HEADACHE, 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 WITHOUT SCIATICA HISTORY OF TOBACCO ABUSE ESSENTIAL (PRIMARY) HYPERTENSION HIATAL HERNIA WITH GERD WITHOUT ESOPHAGITIS COLON POLYPS OTHER ALLERGIC RHINITIS HISTORY OF NEPHROLITHIASIS LIKEN PLEXUS ALLERGIES IODINE: HIVES,SOB NSAIDS: ANAPHYLAXIS - ALLERGY LISINOPRIL: COUGH - SIDE EFFECTS HYBICLENS: HIVES - SIDE EFFECTS PENICILLIN (FOR ALLERGIES USE ONLY): ANAPHYLAXIS - ALLERGY SURGICAL HISTORY BACK 1989 BACK 1999 SINUS 2009 ENDOSCOPE & COLONOSCOPY FOR COLON POLYPS AND HIATAL HERNIA LOOP PLACED - CARDIO 01/2017 ROTATOR CUFF REPAIR RIGHT 07/27/2017 PACEMAKER 04/2017 RIGHT SHOULDER REPAIR 12/14/17 FAMILY HISTORY FATHER: ALIVE, DIAGNOSED WITH DIABETES, UNSPECIFIED HEART DISEASE, UNSPECIFIED NONPSYCHOTIC MENTAL DISORDER FOLLOWING ORGANIC BRAIN DAMAGE MOTHER: , HYPERTENSION, UNSPECIFIED CEREBRAL ARTERY OCCLUSION WITH CEREBRAL INFARCTION PATERNAL GRAND FATHER: , UNSPECIFIED HEART DISEASE PATERNAL GRAND MOTHER: ALIVE, UNSPECIFIED HEART DISEASE MATERNAL GRAND FATHER: , OTHER MALIGNANT NEOPLASM OF UNSPECIFIED SITE MATERNAL GRAND MOTHER: , DIABETES 6 SISTER(S) - HEALTHY. 1 SON(S) , 1 DAUGHTER(S) - HEALTHY. 2 SISTERS PASSED FROM HEART ATTACKS, ALL HAVE HAD HEART ATTACKS, 2 SISTERS HAVE DMDENIES FAMILY HX OF PANCREATIC CANCER OR MELANOMA. SOCIAL HISTORY GENERAL: TOBACCO USE ARE YOU A:FORMER SMOKER HOW LONG HAS IT BEEN SINCE YOU LAST SMOKED?1-5 YEARS HIV / HEP-C SCREENING HIV TEST OFFERED TO PATIENT:YES DATE OFFERED:03/04/2018 TEST ACCEPTED:NO HEP-C TEST OFFERED TO PATIENT:YES DATE OFFERED:03/04/2018 REASON:PATIENT DECLINED TEST ACCEPTED:NO REASON:PATIENT DECLINED BROCHURE PROVIDED TO PATIENTYES OTHERS AT HOME: OTHER NON-RELATIVE. HOUSING: OWNS HOME. EDUCATION LEVEL OF EDUCATION:COLLEGE DIET: REGULAR. LANGUAGE LANGUAGES SPOKEN:NIGERIEN DOMESTIC VIOLENCE DO YOU FEEL SAFE IN YOUR ENVIRONMENT?YES BMI CARE GOAL FOLLOW-UP ABOVE NORMAL BMI FOLLOW-UPDIETARY MANAGEMENT EDUCATION, GUIDANCE, AND COUNSELING RECREATIONAL DRUG USE DRUG USE?NO EXERCISE: NO REGULAR EXERCISE. LEARNING BARRIERS / SPECIAL NEEDS CHANGE FROM LAST VISIT?NO 01/03/19 BARRIERS TO LEARNING?NO HEARING IMPAIRED?NO VISION IMPAIRED?YES COGNITIVELY IMPAIRED?NO :CORRECTIVE LENSES CONTACTS READINESS TO LEARN?YES LEARNING PREFERENCES?NO LEARNING CAPABILITIES PRESENT?YES EMOTIONAL BARRIERS?NO SPECIAL DEVICES?NO CLOTH PRINTING INSPECTOR NEEDED?NO PAIN CLINIC PFS, CLERGY, PUBLIC HEALTH REFERRALS WAS THE PROVIDER NOTIFIED OF ANY PERTINENT INFO?YES HAS THE PATIENT BEEN EDUCATED REGARDING HIS/HER PLAN OF CARE?YES HAS THE PATIENT BEEN EDUCATED REGARDING PAIN, THE RISK FOR PAIN, THE IMPORTANCE OF EFFECTIVE PAIN MANAGEMENT, AND THE PAIN ASSESSMENT PROCESS?YES LATEX QUESTIONNAIRE LATEX ALLERGY : HAVE YOU EVER DEVELOPED ANY TYPE OF REACTION AFTER HANDLING LATEX PRODUCTS SUCH RUBBER GLOVES, CONDOMS, DIAPHRAGMS, BALLOONS, SOCKS, OR UNDERWEAR?NO LATEX ALLERGY : HAVE YOU EVER DEVELOPED ANY TYPE OF REACTION DURING OR AFTER DENTAL APPOINTMENT, VAGINAL/RECTAL EXAMINATION, SURGICAL PROCEDURE, OR ANY OTHER EXPOSURE?NO DATE ASKED : 01/03/2019 LATEX RISK : HAVE YOU EVER HAD ANY DIFFICULTY BREATHING OR HIVES AFTER EATING OR HANDLING ANY FRUITS, OR VEGETABLES; SUCH KIWI, BANANAS, STONE FRUITS, OR CHESTNUTSNO LATEX RISK : DO YOU HAVE A PREVIOUS PERSONAL HISTORY OF MORE THAN NINE SURGERIES, SPINA BIFIDA, OR REPEATED CATHERIZATIONS? YES - PLEASE INDICATE : > 9 SURGERIES LATEX RISK : ARE YOU FREQUENTLY EXPOSED TO LATEX PRODUCTS IN YOUR OCCUPATION?NO CAFFEINE 1-2/DAY. ADVANCE DIRECTIVE ADVANCE DIRECTIVE DISCUSSED WITH PATIENT:YES DECLINED INFORMATION OR ASSISTANCE AT THIS TIME HINDUISM [id number] BAPTIST MARITAL STATUS: .. 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 SEXUAL HX HAD SEX IN THE LAST 12 MONTHS (VAGINAL, ORAL, OR ANAL)?NO HAVE YOU EVER HAD AN STD?NO REVIEWED WITH PATIENT 02/10/19 1030 RAYO LANDERS. HOSPITALIZATION/MAJOR DIAGNOSTIC PROCEDURE [facility] [place] 12/2016 REVIEW OF SYSTEMS REVIEWED BY: PROVIDER: MARY NAVARRO-C . CONSTITUTIONAL: ANY CHANGE IN YOUR MEDICAL CONDITION? NO . CHILLS NO . FEVER NO . INFECTION: DO YOU HAVE NEW INFECTIONS? NO . DO YOU HAVE HISTORY OF MRSA? NO . MUSCULOSKELETAL: ANY NEW PATTERNS OF PAIN OR NUMBNESS? YES, BILAT ARM NUMBNESS AND BILAT LEG PAIN . GASTROENTEROLOGY: ANY NEW CHANGE IN BOWEL CONTROL? NO . GENITOURINARY: ANY NEW CHANGE IN BLADDER CONTROL? NO . IS THERE A CHANCE YOU COULD BE ? NO . HEMATOLOGY/LYMPH: DO YOU TAKE ANY BLOOD THINNERS? (FOR EXAMPLE- COUMADIN, PLAVIX, AGGRENOX, PLATEL, PRADAXA, OR XARELTO) NO . WHEN WAS YOUR LAST DOSE? DATE: TIME: . NEUROLOGY: HAVE YOU FALLEN IN THE PAST 12 MONTHS? NO . ANY NEW EXTREMITY NUMBNESS OR WEAKNESS? YES, BILAT ARM NUMBNESS . CARDIOLOGY: DO YOU HAVE A PACEMAKER OR DEFIBRILLATOR? YES . RESPIRATORY: HAVE YOU BEEN SICK IN THE PAST WEEK? NO . FEVER NO . FLU LIKE SYMPTOMS? NO . COUGH NO . INTEGUMENTARY: DO YOU HAVE ANY RASHES OR OPEN SORES? NO . ALLERGIC/IMMUNO: ARE YOU ALLERGIC TO IV DYE? YES . ANY NEW ALLERGIES? NO . PSYCHIATRIC: DO YOU HAVE THOUGHTS OF HURTING YOURSELF OR SOMEONE ELSE? NO . ARE YOU ABUSED, NEGLECTED, OR IN AN UNSAFE ENVIRONMENT? NO . ENDOCRINOLOGY: ARE YOU DIABETIC? PRE-DIABETIC . OTHER: DO YOU NEED ANY PRESCRIPTIONS? NO . IF YES, PLEASE LIST: ____ . ANY NEW PROBLEMS WITH YOUR MEDICATIONS? NO . WHEN DID YOU LAST EAT? ____ . WHEN DID YOU LAST DRINK? ____ . WHAT DID YOU LAST DRINK? ____ . NAME OF PERSON DRIVING YOU HOME? ____ . DO YOU HAVE ANY OTHER QUESTIONS OR CONCERNS NO . VITAL SIGNS WT 217 LBS, HT 66 IN, BMI 35.02 INDEX, BP 126/95 MM HG, HR 91 /MIN, RR 16 /MIN, TEMP 97.0 F, OXYGEN SAT % 98, REVIEWED BY: JULIANA. EXAMINATION GENERAL EXAMINATION: GENERALNO ACUTE DISTRESS, WELL NOURISHED AND HYDRATED. PSYCHAPPROPRIATE MOOD AND AFFECT . NECK:POINT TENDER ALONG CERVICAL SPINE, SURROUNDING SKIN SHOWS NO ERYTHEMA, ECCHYMOSIS, INCREASED WARMTH, AND/OR SKIN ERUPTIONS NOTED. PATIENT DOES ENDORSE INCREASED PAIN WITH LIFTING ARMS AGAINST RESISTANCE . LUNGS:CLEAR TO AUSCULTATION BILATERALLY, NO WHEEZES, RHONCHI, RALES. HEART:NO MURMURS, REGULAR RATE AND RHYTHM. ASSESSMENTS SPONDYLOSIS OF CERVICAL REGION WITHOUT MYELOPATHY OR RADICULOPATHY - M47.812 (PRIMARY) TREATMENT SPONDYLOSIS OF CERVICAL REGION WITHOUT MYELOPATHY OR RADICULOPATHY NOTES: LEFT CERVICAL FACET BLOCK C6-C7 C7-T1. CLINICAL NOTES: 59-YEAR-OLD FEMALE IN FOR POST CERVICAL FACET BLOCK FOLLOW-UP. GIVEN PRESENTING SYMPTOMS AND RESULTS OF PHYSICAL EXAMINATION RECOMMENDED REPEAT CERVICAL FACET BLOCK WITH POSTPROCEDURAL FOLLOW-UP. PATIENT HAS EXPRESSED UNDERSTANDING OF AND WAS IN AGREEMENT WITH TREATMENT PLAN. GIVEN TIME TO ASK QUESTIONS AND EXPRESS CONCERNS. PROCEDURE CODES FA211 ESTABILISHED PATIENT [facility] CHARGE DISPOSITION & COMMUNICATION FOLLOW UP POSTPROCEDURE (REASON: LEFT CERVICAL FACET BLOCK C6-C7 C7-T1) ELECTRONICALLY SIGNED BY MELANIE COOPER ON 03/30/2019 AT 08:21 AM EST DISCLAIMER : THIS IS A VISIT SUMMARY EXTRACTED FROM THE [employer] CHART. IT IS NOT A COPY OF THE [employer] PROGRESS NOTE. KIRAN
== END ==
LOC: M PAIN 13:00
PROVIDERS: ATTEND Family Medicine
DX: M47.812 Spondylosis without myelopathy or radiculopathy, cervical region (principal); Z79.82 Long term (current) use of aspirin; Z79.84 Long term (current) use of oral hypoglycemic drugs; Z79.891 Long term (current) use of opiate analgesic; Z79.899 Other long term (current) drug therapy; Z87.891 Personal history of nicotine dependence; Z88.0 Allergy status to penicillin; Z88.4 Allergy status to anesthetic agent; Z88.8 Allergy status to other drugs, medicaments and biological substances

== ENCOUNTER → 2019-04-06 | Outpatient (REF) | payer MEDICAID, OTHER ==
[2019-04-06 17:51] LABS: BLOOD UREA NITROGEN 12 MG/DL (7-18); CALCIUM LEVEL 9.3 MG/DL (8.5-10.1); CARBON DIOXIDE LEVEL 28 MEQ/L (21-32); CHLORIDE LEVEL 104 MEQ/L (98-107); CREATININE FOR GFR 0.77 MG/DL (0.55-1.30); GLOMERULAR FILTRATION RATE > 60.0 (>51); GLUCOSE, FASTING 98 MG/DL (70-100); POTASSIUM SERUM 4.3 MEQ/L (3.5-5.1); SODIUM LEVEL 140 MEQ/L (136-145)
== END ==
LOC: M SFHCLERA 14:32
PROVIDERS: ATTEND Family Medicine
DX: R30.0 Dysuria (principal); R73.02 Impaired glucose tolerance (oral)

== ENCOUNTER → 2019-04-26 | Outpatient (CLI) | payer MEDICAID ==
[~2019-04-26] MED LIST changes: +BUPIVACAINE HCL 0.25% 30 ML VIAL As Ordered ONE; +ISOVUE-M 300 61% 15ML VIAL (Q9967) As Ordered ONE; +LIDOCAINE 1% SDV INJ 30 ML VIAL As Ordered ONE; +TRIAMCINOLONE ACETONIDE SUSP 40 MG/ML VIAL (J3301) As Ordered ONE; +diazePAM 5 MG TAB As Ordered ONE; +diphenhydrAMINE 25 MG CAP As Ordered ONE; +oxyCODONE 5MG TAB As Ordered ONE
--- NOTE | 2019-05-06 04:10 | ECWPNPC ---
PATIENT NAME: LEWIS HUGHES : 1960 GENDER: FEMALE VISIT DATE: 04/26/2019 DISCHARGE DATE: 04/26/19 1609 VISIT LOCKED DATE TIME: PHYSICIAN: JAYME VALLES MD RESOURCE: JAYME VALLES MD REASON FOR APPOINTMENT 1. TPI HISTORY OF PRESENT ILLNESS HISTORY OF PRESENT ILLNESS: PAIN THE PATIENT DESCRIBES THE PAIN... 59 YEAR OLD FEMALE PATIENT WITH A HISTORY OF CHRONIC LEFT NECK AND SHOULDER PAIN. THE PATIENT DESCRIBES THE PAIN ACHING, TENDER, SHARP, STABBING, AND DAILY WITH A PAIN SCORE OF 6-9/10 DEPENDING ON PHYSICAL ACTIVITY. THE PATIENT SAYS HER PAIN IS AFFECTING HER ABILITY TO PERFORM HER DAILY ACTIVITIES SUCH MOVING HER NECK, USING HER SHOULDER, AND LIFTING OBJECTS. FALL RISK SCREENING: SCREENING :NO FALLS REPORTED IN THE LAST YEAR CURRENT MEDICATIONS TAKING CLOBETASOL PROPIONATE 0.05 % OINTMENT 1 APPLICATION TO AFFECTED AREA OF HANDS AND FEET EXTERNALLY TWICE A DAY TO AREAS ON BODY WITH RASH (NOT FOR FACE, GROIN, ARMPITS), NOTES: 2/3 TAKING DEXAMETHASONE 0.5 MG/5ML SOLUTION 5 ML ORALLY TWICE A DAY SWISH AND SPIT, NOTES: NEEDED NONE RECENT TAKING ALBUTEROL SULFATE HFA 108 (90 BASE) MCG/ACT AEROSOL SOLUTION 1-2 PUFFS NEEDED INHALATION EVERY 4 HRS, NOTES: NONE RECENT TAKING MELATONIN 10 MG TABLET 1 TABLET UNDER THE TONGUE AND ALLOW TO DISSOLVE AT BEDTIME NEEDED WITH FOOD ORALLY BEFORE BEDTIME, NOTES: 23/PM TAKING TYLENOL PM EXTRA STRENGTH 500-25 MG TABLET 1 TABLET AT BEDTIME NEEDED ORALLY ONCE A DAY, NOTES: 04/25 PM TAKING VITAMIN D3 1000 UNIT CAPSULE 1 CAPSULE ORALLY ONCE A DAY, NOTES: 2/3 TAKING LIDOCAINE VISCOUS 2 % SOLUTION 15 ML TO AFFECTED AREA NEEDED MOUTH/THROAT, SWISH AND SPIT EVERY 3 HRS, NOTES: NONE RECENT TAKING LORATADINE 10 TABLET 1 TABLET ONCE A DAY/PRN ORALLY 90 DAY(S) ORALLY DAILY, NOTES: 04/26 0800 TAKING ASPIRIN 81 81 MG TABLET DELAYED RELEASE 1 TABLET ORALLY TWICE A DAY, NOTES: 04/26 08 TAKING GLUCOSAMINE _ TABLET 1 TABLET ORALLY ONCE A DAY, NOTES: 04/26 08 TAKING AMITRIPTYLINE HCL 50 TABLET 1 TABLET ONCE A DAY IN AM ORALLY 30 DAY(S) , NOTES: 2 PM TAKING TIZANIDINE HCL 4 MG TABLET 1 TABLET ORALLY TWICE A DAY, NOTES: 04/26 0800 TAKING ATORVASTATIN CALCIUM 20 MG TABLET 1 TABLET ORALLY ONCE A DAY, NOTES: 2 PM TAKING BACLOFEN 10 MG TABLET 1 TABLET WITH FOOD OR MILK ORALLY BEFORE BEDTIME, NOTES: 2 PM TAKING EPIPEN 2-DARREN 0.3 MG/0.3ML SOLUTION AUTO-INJECTOR IM INJECTION DIRECTED INJECTION PRN, NOTES: NONE RECENT TAKING TRAZODONE HCL 150 MG TABLET 1 TABLET AT BEDTIME ORALLY ONCE A DAY, NOTES: 2 PM TAKING METFORMIN HCL ER 500 MG TABLET EXTENDED RELEASE 24 HOUR 1 TABLET WITH EVENING MEAL ORALLY ONCE A DAY, NOTES: 04/25 PM TAKING LOSARTAN POTASSIUM 50 MG TABLET 1 TABLET ORALLY ONCE A DAY, NOTES: 04/25 PM TAKING TRAMADOL HCL 50 MG TABLET 1 TAB ORALLY EVERY 6 HOURS NEEDED/MMD#4, NOTES: 04/25 PM TAKING HALOBETASOL PROPIONATE 0.05 % OINTMENT 1 APPLICATION EXTERNALLY BID TO AREAS ON BODY WITH RASH INCLUDING HANDS AND FEET (NOT FOR FACE, GROIN, ARMPITS) NOT-TAKING LORATADINE 10 MG TABLET 1 TABLET ONCE A DAY/PRN ORALLY 90 DAY(S) ORALLY DAILY, NOTES: DUPLICATE NOT-TAKING PREDNISONE 20 MG TABLET 1 TABLET ORALLY THEE TIMES A DAY FOR A WEEK, THEN TWICE A DAY FOR 1 WEEK, AND THEN ONCE A DAY FOR 1 WEEK NOT-TAKING LOSARTAN POTASSIUM 25 TABLET 1 TABLET ORALLY ONCE A DAY NOT-TAKING PANTOPRAZOLE SODIUM 40 TABLET DELAYED RELEASE 1 TABLET ORALLY ONCE A DAY NOT-TAKING ASPIRIN 1 TAB ORAL TWICE A DAY NOT-TAKING PANTOPRAZOLE SODIUM 40 MG TABLET DELAYED RELEASE 1 TABLET ORALLY ONCE A DAY, NOTES: DUPLICATE NOT-TAKING AMITRIPTYLINE HCL 100 MG TABLET 1 TABLET AT BEDTIME ONCE A DAY ORALLY 30 DAY(S) , NOTES: DUPLICATE NOT-TAKING AMITRIPTYLINE HCL 100 TABLET 1 TABLET AT BEDTIME ONCE A DAY ORALLY 30 DAY(S) , NOTES: DUPLICATE MEDICATION LIST REVIEWED AND RECONCILED WITH THE PATIENT PAST MEDICAL HISTORY CHRONIC TENSION-TYPE HEADACHE, 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 WITHOUT SCIATICA HISTORY OF TOBACCO ABUSE ESSENTIAL (PRIMARY) HYPERTENSION HIATAL HERNIA WITH GERD WITHOUT ESOPHAGITIS COLON POLYPS OTHER ALLERGIC RHINITIS HISTORY OF NEPHROLITHIASIS LIKEN PLEXUS ALLERGIES IODINE: HIVES,SOB NSAIDS: ANAPHYLAXIS - ALLERGY LISINOPRIL: COUGH - SIDE EFFECTS HYBICLENS: HIVES - SIDE EFFECTS PENICILLIN (FOR ALLERGIES USE ONLY): ANAPHYLAXIS - ALLERGY SURGICAL HISTORY BACK 1989 BACK 1999 SINUS 2009 ENDOSCOPE & COLONOSCOPY FOR COLON POLYPS AND HIATAL HERNIA LOOP PLACED - CARDIO 01/2017 ROTATOR CUFF REPAIR RIGHT 07/27/2017 PACEMAKER 04/2017 RIGHT SHOULDER REPAIR 12/14/17 FAMILY HISTORY FATHER: ALIVE, DIAGNOSED WITH DIABETES, UNSPECIFIED HEART DISEASE, UNSPECIFIED NONPSYCHOTIC MENTAL DISORDER FOLLOWING ORGANIC BRAIN DAMAGE MOTHER: , HYPERTENSION, UNSPECIFIED CEREBRAL ARTERY OCCLUSION WITH CEREBRAL INFARCTION PATERNAL GRAND FATHER: , UNSPECIFIED HEART DISEASE PATERNAL GRAND MOTHER: ALIVE, UNSPECIFIED HEART DISEASE MATERNAL GRAND FATHER: , OTHER MALIGNANT NEOPLASM OF UNSPECIFIED SITE MATERNAL GRAND MOTHER: , DIABETES 6 SISTER(S) - HEALTHY. 1 SON(S) , 1 DAUGHTER(S) - HEALTHY. 2 SISTERS PASSED FROM HEART ATTACKS, ALL HAVE HAD HEART ATTACKS, 2 SISTERS HAVE DMDENIES FAMILY HX OF PANCREATIC CANCER OR MELANOMA. SOCIAL HISTORY GENERAL: TOBACCO USE ARE YOU A:FORMER SMOKER HOW LONG HAS IT BEEN SINCE YOU LAST SMOKED?1-5 YEARS HIV / HEP-C SCREENING HIV TEST OFFERED TO PATIENT:YES DATE OFFERED:03/04/2018 TEST ACCEPTED:NO HEP-C TEST OFFERED TO PATIENT:YES DATE OFFERED:03/04/2018 REASON:PATIENT DECLINED TEST ACCEPTED:NO REASON:PATIENT DECLINED BROCHURE PROVIDED TO PATIENTYES OTHERS AT HOME: OTHER NON-RELATIVE. HOUSING: OWNS HOME. EDUCATION LEVEL OF EDUCATION:COLLEGE DIET: REGULAR. LANGUAGE LANGUAGES SPOKEN:TANZANIAN DOMESTIC VIOLENCE DO YOU FEEL SAFE IN YOUR ENVIRONMENT?YES BMI CARE GOAL FOLLOW-UP ABOVE NORMAL BMI FOLLOW-UPDIETARY MANAGEMENT EDUCATION, GUIDANCE, AND COUNSELING RECREATIONAL DRUG USE DRUG USE?NO EXERCISE: NO REGULAR EXERCISE. LEARNING BARRIERS / SPECIAL NEEDS CHANGE FROM LAST VISIT?NO 01/03/19 BARRIERS TO LEARNING?NO HEARING IMPAIRED?NO VISION IMPAIRED?YES COGNITIVELY IMPAIRED?NO :CORRECTIVE LENSES CONTACTS READINESS TO LEARN?YES LEARNING PREFERENCES?NO LEARNING CAPABILITIES PRESENT?YES EMOTIONAL BARRIERS?NO SPECIAL DEVICES?NO SUPERVISOR FERTILIZER NEEDED?NO PAIN CLINIC PFS, CLERGY, PUBLIC HEALTH REFERRALS WAS THE PROVIDER NOTIFIED OF ANY PERTINENT INFO?YES HAS THE PATIENT BEEN EDUCATED REGARDING HIS/HER PLAN OF CARE?YES HAS THE PATIENT BEEN EDUCATED REGARDING PAIN, THE RISK FOR PAIN, THE IMPORTANCE OF EFFECTIVE PAIN MANAGEMENT, AND THE PAIN ASSESSMENT PROCESS?YES LATEX QUESTIONNAIRE LATEX ALLERGY : HAVE YOU EVER DEVELOPED ANY TYPE OF REACTION AFTER HANDLING LATEX PRODUCTS SUCH RUBBER GLOVES, CONDOMS, DIAPHRAGMS, BALLOONS, SOCKS, OR UNDERWEAR?NO LATEX ALLERGY : HAVE YOU EVER DEVELOPED ANY TYPE OF REACTION DURING OR AFTER DENTAL APPOINTMENT, VAGINAL/RECTAL EXAMINATION, SURGICAL PROCEDURE, OR ANY OTHER EXPOSURE?NO DATE ASKED : 01/03/2019 LATEX RISK : HAVE YOU EVER HAD ANY DIFFICULTY BREATHING OR HIVES AFTER EATING OR HANDLING ANY FRUITS, OR VEGETABLES; SUCH KIWI, BANANAS, STONE FRUITS, OR CHESTNUTSNO LATEX RISK : DO YOU HAVE A PREVIOUS PERSONAL HISTORY OF MORE THAN NINE SURGERIES, SPINA BIFIDA, OR REPEATED CATHERIZATIONS? YES - PLEASE INDICATE : > 9 SURGERIES LATEX RISK : ARE YOU FREQUENTLY EXPOSED TO LATEX PRODUCTS IN YOUR OCCUPATION?NO CAFFEINE 1-2/DAY. 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 SEXUAL HX HAD SEX IN THE LAST 12 MONTHS (VAGINAL, ORAL, OR ANAL)?NO HAVE YOU EVER HAD AN STD?NO REVIEWED WITH PATIENT 02/10/19 1030 LEESA RN. HOSPITALIZATION/MAJOR DIAGNOSTIC PROCEDURE [facility] [place] 12/2016 REVIEW OF SYSTEMS REVIEWED BY: PROVIDER: JAYME VALLES MD . CONSTITUTIONAL: ANY CHANGE IN YOUR MEDICAL CONDITION? NO . CHILLS NO . FEVER NO . INFECTION: DO YOU HAVE NEW INFECTIONS? NO . DO YOU HAVE HISTORY OF MRSA? NO . MUSCULOSKELETAL: ANY NEW PATTERNS OF PAIN OR NUMBNESS? INCREASING PAIN OVER THE PAST COUPLE WEEKS . GASTROENTEROLOGY: ANY NEW CHANGE IN BOWEL CONTROL? YES, PT STATES SHE HAS ISSUES WITH CONSTIPATION. STATES SHE IS SCHEDULED TO SEE PRIMARY DOCTOR REGARDING THIS. . GENITOURINARY: ANY NEW CHANGE IN BLADDER CONTROL? NO . IS THERE A CHANCE YOU COULD BE ? NO . HEMATOLOGY/LYMPH: DO YOU TAKE ANY BLOOD THINNERS? (FOR EXAMPLE- COUMADIN, PLAVIX, AGGRENOX, PLATEL, PRADAXA, OR XARELTO) NO . WHEN WAS YOUR LAST DOSE? DATE: TIME: . NEUROLOGY: HAVE YOU FALLEN IN THE PAST 12 MONTHS? NO . ANY NEW EXTREMITY NUMBNESS OR WEAKNESS? INCREASING NUMBNESS AND WEAKNESS OVER THE PAST COUPLE WEEKS . CARDIOLOGY: DO YOU HAVE A PACEMAKER OR DEFIBRILLATOR? YES, PACEMAKER . RESPIRATORY: HAVE YOU BEEN SICK IN THE PAST WEEK? NO . FEVER NO . FLU LIKE SYMPTOMS? NO . COUGH NO . INTEGUMENTARY: DO YOU HAVE ANY RASHES OR OPEN SORES? NO . ALLERGIC/IMMUNO: ARE YOU ALLERGIC TO IV DYE? NO . ANY NEW ALLERGIES? NO . PSYCHIATRIC: DO YOU HAVE THOUGHTS OF HURTING YOURSELF OR SOMEONE ELSE? NO . ARE YOU ABUSED, NEGLECTED, OR IN AN UNSAFE ENVIRONMENT? NO . ENDOCRINOLOGY: ARE YOU DIABETIC? BORDERLINE, ON METFORMIN, DOES NOT CHECK FINGERSTICK BLOOD GLUCOSE . OTHER: DO YOU NEED ANY PRESCRIPTIONS? NO . IF YES, PLEASE LIST: ____ . ANY NEW PROBLEMS WITH YOUR MEDICATIONS? NO . WHEN DID YOU LAST EAT? 04/25/19 1600 . WHEN DID YOU LAST DRINK? 04/26/19 0800 . WHAT DID YOU LAST DRINK? WATER . NAME OF PERSON DRIVING YOU HOME? COY-BOYFRIEND . DO YOU HAVE ANY OTHER QUESTIONS OR CONCERNS NO . VITAL SIGNS WT 216.0 LBS, HT 66 IN, BMI 34.86 INDEX, BP 135/85 MM HG, HR 87 /MIN, RR 18 /MIN, TEMP 96.6 F, OXYGEN SAT % 98%, NA INITIALS AW 1159, REVIEWED BY: BV. EXAMINATION GENERAL EXAMINATION: PATIENT IS ALERT O X 3 AND COOPERATIVE. TENDERNESS OVER THE LEFT NECK AND LEFT SHOULDER AREAS. PRESENCE OF BANDS OF TISSUE AND TRIGGER POINTS WITH RESTRICTION OF MOVEMENT OF THE LEFT NECK AND LEFT SHOULDER AREAS. ASSESSMENTS MYALGIA, OTHER SITE - M79.18 (PRIMARY) CERVICALGIA - M54.2 TREATMENT MYALGIA, OTHER SITE CLINICAL NOTES: WE DISCUSSED SEVERAL ISSUES WITH MS. HUGHES'S PAIN MANAGEMENT CASE. DUE TO THE TRIGGER POINTS, BANDS OF TISSUE, AND RESTRICTION OF MOVEMENT, I WOULD LIKE TO MOVE FORWARD WITH A LEFT NECK AND LEFT SHOULDER TRIGGER POINT INJECTION AT THIS TIME. WE DISCUSSED THE BENEFITS, RISKS, AND ALTERNATIVES OF THE INJECTION AND THE PATIENT WOULD LIKE TO PROCEED. I AM LOOKING FOR LONG LASTING PAIN RELIEF FROM THIS INJECTION FOR THE PATIENT. THE PATIENT WILL FOLLOW UP IN SEVERAL WEEKS TO SEE HOW THE INJECTIONS ARE HELPING WITH HER PAIN. INSTRUCTIONS WERE GIVEN, QUESTIONS WERE ANSWERED, PATIENT REPORTS UNDERSTANDING AND AGREES WITH THE PLAN. I, THANH SMITH, DOCUMENTED THE ABOVE INFORMATION ACTING A SCRIBE FOR DR. VALLES. I HAVE REVIEWED THE ABOVE DOCUMENT, WRITTEN BY THANH WILSON AND I VERIFY THAT IT IS ACCURATE. . PROCEDURES PN TRIGGER POINT INJECTION WITH STEROIDS PRE PROCEDURE DIAGNOSIS 1. MYALGIA 2. PAIN AT LEFT NECK AREA AND LEFT SHOULDER AREA. POST PROCEDURE DIAGNOSIS 1. MYALGIA 2. PAIN AT LEFT NECK AREA AND LEFT SHOULDER AREA. PROCEDURE TRIGGER POINT INJECTION AT LEFT NECK AREA AND LEFT SHOULDER AREA. SURGEON DR. JAYME VALLES BANDSAW OPERATOR NONE ANESTHESIA LOCAL PRE PROCEDURE NOTE THE PATIENT HAS A HISTORY OF CHRONIC PAIN AT THE LEFT NECK AREA AND LEFT SHOULDER AREA. I EVALUATED THE PATIENT AND REVIEWED THE CHART. THERE IS EVIDENCE OF BANDS OF TISSUE WITH RESTRICTION OF MOVEMENT AND PRESENCE OF TRIGGER POINT AT THE AFFECTED AREA. I WENT OVER THE RISKS, ALTERNATIVES, AND BENEFITS ASSOCIATED WITH THIS PROCEDURE. THE PATIENT WOULD LIKE TO PROCEED AND GIVES CONSENT TO PERFORM THE PROCEDURE. THE PATIENT DENIES UNEXPLAINABLE WEIGHT LOSS, FEVER, CHILLS, OR NEW CHANGES IN URINARY OR BOWEL CONTROL DESCRIPTION OF PROCEDURE THE PATIENT WAS BROUGHT TO THE PROCEDURE ROOM AND PLACED IN THE SITTING POSITION. THE AREA WAS CLEANED WITH ALCOHOL. THE PROCEDURE WAS DONE USING ASEPTIC STERILE TECHNIQUE. I CHECKED LATERALITY AND THE LEVEL WHERE THE PROCEDURE WAS GOING TO BE PERFORMED WITH THE PATIENT AND THE SUPPORTING STAFF AT THE MOMENT OF THE TIME OUT IN THE PROCEDURE ROOM. USING A 25-GAUGE NEEDLE, TRIGGER POINTS WERE INJECTED AT THE LEFT NECK AREA AND LEFT SHOULDER AREA WITH A TOTAL OF 40 ML OF BUPIVACAINE 0.25% AND KENALOG 40 MG. THERE WAS NO EVIDENCE OF BLOOD, PARESTHESIA OR CEREBROSPINAL FLUID DURING THE PROCEDURE. THE PATIENT WAS SENT TO THE RECOVERY ROOM. THE PATIENT WAS MOVING THE EXTREMITIES AND DOING WELL. THERE WAS NO COMPLICATION DURING THE PROCEDURE POST PROCEDURE NOTE THE PATIENT WILL BE SEEN IN A FOLLOW UP IN THE NEXT FEW WEEKS. I AM LOOKING FOR LONG LASTING PAIN RELIEF WITH THIS INJECTION. INSTRUCTIONS WERE GIVEN, QUESTIONS WERE ANSWERED, AND THE PATIENT EXPRESSED UNDERSTANDING AND AGREES WITH THE PLAN. I, THANH SMITH, DOCUMENTED THE ABOVE INFORMATION ACTING A SCRIBE FOR DR. VALLES. I HAVE REVIEWED THE ABOVE DOCUMENT, WRITTEN BY THANH WILSON AND I VERIFY THAT IT IS ACCURATE. PROCEDURE CODES 21227 INJ TRIGGER POINT / MUSCL DISPOSITION & COMMUNICATION FOLLOW UP 3 WEEKS ELECTRONICALLY SIGNED BY JAYME VALLES MD, MD ON 05/05/2019 AT 12:07 PM EST DISCLAIMER : THIS IS A VISIT SUMMARY EXTRACTED FROM THE [employer] CHART. IT IS NOT A COPY OF THE [employer] PROGRESS NOTE. KIRAN
== END ==
LOC: M PAIN 11:45
PROVIDERS: ATTEND Anesthesiology
DX: M79.18 Myalgia, other site (principal); M54.2 Cervicalgia; I10 Essential (primary) hypertension; Z87.891 Personal history of nicotine dependence; Z88.0 Allergy status to penicillin; Z88.3 Allergy status to other anti-infective agents; Z88.6 Allergy status to analgesic agent; Z88.8 Allergy status to other drugs, medicaments and biological substances; Z95.0 Presence of cardiac pacemaker; Z79.82 Long term (current) use of aspirin; Z79.84 Long term (current) use of oral hypoglycemic drugs; Z79.899 Other long term (current) drug therapy
CPT/HCPCS: 20552; J3301; Q9967

== ENCOUNTER → 2019-05-24 | Outpatient (CLI) | payer MEDICARE, MEDICAID ==
[~2019-05-24] MED LIST changes: -BUPIVACAINE HCL 0.25% 30 ML VIAL As Ordered ONE; -ISOVUE-M 300 61% 15ML VIAL (Q9967) As Ordered ONE; -LIDOCAINE 1% SDV INJ 30 ML VIAL As Ordered ONE; -TRIAMCINOLONE ACETONIDE SUSP 40 MG/ML VIAL (J3301) As Ordered ONE; -diazePAM 5 MG TAB As Ordered ONE; -diphenhydrAMINE 25 MG CAP As Ordered ONE; -oxyCODONE 5MG TAB As Ordered ONE
--- NOTE | 2019-05-26 02:44 | ECWPNPC ---
PATIENT NAME: LEWIS HUGHES : 1960 GENDER: FEMALE VISIT DATE: 05/24/2019 DISCHARGE DATE: 05/24/19 0950 VISIT LOCKED DATE TIME: PHYSICIAN: COY SWEET RESOURCE: COY SWEET REASON FOR APPOINTMENT 1. FOLLOW UP TPI HISTORY OF PRESENT ILLNESS HISTORY OF PRESENT ILLNESS: PAIN THE PATIENT DESCRIBES THE PAIN... 59-YEAR-OLD FEMALE IN FOR POST TPI FOLLOW-UP. SHE FEELS THE PROCEDURE WAS INEFFECTIVE. SHE RATES HER PAIN CURRENTLY AT A 5 OUT OF 10 AND DESCRIBES IT ACHING, BURNING, AND NUMBNESS. SHE DOES ADMIT TO RADICULAR SYMPTOMS DOWN HER LEFT ARM. FALL RISK SCREENING: SCREENING :NO FALLS REPORTED IN THE LAST YEAR CURRENT MEDICATIONS TAKING DEXAMETHASONE 0.5 MG/5ML SOLUTION 5 ML ORALLY TWICE A DAY SWISH AND SPIT TAKING ALBUTEROL SULFATE HFA 108 (90 BASE) MCG/ACT AEROSOL SOLUTION 1-2 PUFFS NEEDED INHALATION EVERY 4 HRS TAKING MELATONIN 10 MG TABLET 1 TABLET UNDER THE TONGUE AND ALLOW TO DISSOLVE AT BEDTIME NEEDED WITH FOOD ORALLY BEFORE BEDTIME TAKING TYLENOL PM EXTRA STRENGTH 500-25 MG TABLET 1 TABLET AT BEDTIME NEEDED ORALLY ONCE A DAY TAKING VITAMIN D3 1000 UNIT CAPSULE 1 CAPSULE ORALLY ONCE A DAY TAKING LIDOCAINE VISCOUS 2 % SOLUTION 15 ML TO AFFECTED AREA NEEDED MOUTH/THROAT, SWISH AND SPIT EVERY 3 HRS TAKING LORATADINE 10 TABLET 1 TABLET ONCE A DAY/PRN ORALLY 90 DAY(S) ORALLY DAILY TAKING ASPIRIN 81 81 MG TABLET DELAYED RELEASE 1 TABLET ORALLY TWICE A DAY TAKING GLUCOSAMINE _ TABLET 1 TABLET ORALLY ONCE A DAY TAKING AMITRIPTYLINE HCL 50 TABLET 1 TABLET AT BEDTIME TAKING TIZANIDINE HCL 4 MG TABLET 1 TABLET ORALLY TWICE A DAY TAKING ATORVASTATIN CALCIUM 20 MG TABLET 1 TABLET ORALLY ONCE A DAY TAKING BACLOFEN 10 MG TABLET 1 TABLET WITH FOOD OR MILK ORALLY BEFORE BEDTIME TAKING EPIPEN 2-DARREN 0.3 MG/0.3ML SOLUTION AUTO-INJECTOR IM INJECTION DIRECTED INJECTION PRN TAKING TRAZODONE HCL 150 MG TABLET 1 TABLET AT BEDTIME ORALLY ONCE A DAY TAKING METFORMIN HCL ER 500 MG TABLET EXTENDED RELEASE 24 HOUR 1 TABLET WITH EVENING MEAL ORALLY ONCE A DAY TAKING LOSARTAN POTASSIUM 50 MG TABLET 1 TABLET ORALLY ONCE A DAY TAKING TRAMADOL HCL 50 MG TABLET 1 TAB ORALLY EVERY 6 HOURS NEEDED/MMD#4 TAKING HALOBETASOL PROPIONATE 0.05 % OINTMENT 1 APPLICATION EXTERNALLY BID TO AREAS ON BODY WITH RASH INCLUDING HANDS AND FEET (NOT FOR FACE, GROIN, ARMPITS) NOT-TAKING CLOBETASOL PROPIONATE 0.05 % OINTMENT 1 APPLICATION TO AFFECTED AREA OF HANDS AND FEET EXTERNALLY TWICE A DAY TO AREAS ON BODY WITH RASH (NOT FOR FACE, GROIN, ARMPITS) NOT-TAKING LORATADINE 10 MG TABLET 1 TABLET ONCE A DAY/PRN ORALLY 90 DAY(S) ORALLY DAILY, NOTES: DUPLICATE NOT-TAKING PREDNISONE 20 MG TABLET 1 TABLET ORALLY THEE TIMES A DAY FOR A WEEK, THEN TWICE A DAY FOR 1 WEEK, AND THEN ONCE A DAY FOR 1 WEEK NOT-TAKING LOSARTAN POTASSIUM 25 TABLET 1 TABLET ORALLY ONCE A DAY NOT-TAKING PANTOPRAZOLE SODIUM 40 TABLET DELAYED RELEASE 1 TABLET ORALLY ONCE A DAY NOT-TAKING ASPIRIN 1 TAB ORAL TWICE A DAY NOT-TAKING PANTOPRAZOLE SODIUM 40 MG TABLET DELAYED RELEASE 1 TABLET ORALLY ONCE A DAY, NOTES: DUPLICATE NOT-TAKING AMITRIPTYLINE HCL 100 MG TABLET 1 TABLET AT BEDTIME ONCE A DAY ORALLY 30 DAY(S) , NOTES: DUPLICATE NOT-TAKING AMITRIPTYLINE HCL 100 TABLET 1 TABLET AT BEDTIME ONCE A DAY ORALLY 30 DAY(S) , NOTES: DUPLICATE MEDICATION LIST REVIEWED AND RECONCILED WITH THE PATIENT PAST MEDICAL HISTORY CHRONIC TENSION-TYPE HEADACHE, 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 WITHOUT SCIATICA HISTORY OF TOBACCO ABUSE ESSENTIAL (PRIMARY) HYPERTENSION HIATAL HERNIA WITH GERD WITHOUT ESOPHAGITIS COLON POLYPS OTHER ALLERGIC RHINITIS HISTORY OF NEPHROLITHIASIS LIKEN PLEXUS PREDIABETES ALLERGIES IODINE: HIVES,SOB NSAIDS: ANAPHYLAXIS - ALLERGY LISINOPRIL: COUGH - SIDE EFFECTS HYBICLENS: HIVES - SIDE EFFECTS PENICILLIN (FOR ALLERGIES USE ONLY): ANAPHYLAXIS - ALLERGY SURGICAL HISTORY BACK 1989 BACK 1999 SINUS 2009 ENDOSCOPE & COLONOSCOPY FOR COLON POLYPS AND HIATAL HERNIA LOOP PLACED - CARDIO 01/2017 ROTATOR CUFF REPAIR RIGHT 07/27/2017 PACEMAKER 04/2017 RIGHT SHOULDER REPAIR 12/14/17 FAMILY HISTORY FATHER: ALIVE, DIAGNOSED WITH DIABETES, UNSPECIFIED HEART DISEASE, UNSPECIFIED NONPSYCHOTIC MENTAL DISORDER FOLLOWING ORGANIC BRAIN DAMAGE MOTHER: , UNSPECIFIED CEREBRAL ARTERY OCCLUSION WITH CEREBRAL INFARCTION, HYPERTENSION PATERNAL GRAND FATHER: , UNSPECIFIED HEART DISEASE PATERNAL GRAND MOTHER: ALIVE, UNSPECIFIED HEART DISEASE MATERNAL GRAND FATHER: , OTHER MALIGNANT NEOPLASM OF UNSPECIFIED SITE MATERNAL GRAND MOTHER: , DIABETES 6 SISTER(S) - HEALTHY. 1 SON(S) , 1 DAUGHTER(S) - HEALTHY. 2 SISTERS PASSED FROM HEART ATTACKS, ALL HAVE HAD HEART ATTACKS, 2 SISTERS HAVE DMDENIES FAMILY HX OF PANCREATIC CANCER OR MELANOMA. SOCIAL HISTORY GENERAL: TOBACCO USE ARE YOU A:FORMER SMOKER HOW LONG HAS IT BEEN SINCE YOU LAST SMOKED?1-5 YEARS HIV / HEP-C SCREENING HIV TEST OFFERED TO PATIENT:YES DATE OFFERED:03/04/2018 TEST ACCEPTED:NO HEP-C TEST OFFERED TO PATIENT:YES DATE OFFERED:03/04/2018 REASON:PATIENT DECLINED TEST ACCEPTED:NO REASON:PATIENT DECLINED BROCHURE PROVIDED TO PATIENTYES OTHERS AT HOME: OTHER NON-RELATIVE. HOUSING: OWNS HOME. EDUCATION LEVEL OF EDUCATION:COLLEGE DIET: REGULAR. LANGUAGE LANGUAGES SPOKEN:[place] DOMESTIC VIOLENCE DO YOU FEEL SAFE IN YOUR ENVIRONMENT?YES BMI CARE GOAL FOLLOW-UP ABOVE NORMAL BMI FOLLOW-UPDIETARY MANAGEMENT EDUCATION, GUIDANCE, AND COUNSELING RECREATIONAL DRUG USE DRUG USE?NO EXERCISE: NO REGULAR EXERCISE. LEARNING BARRIERS / SPECIAL NEEDS CHANGE FROM LAST VISIT?NO 01/03/19 BARRIERS TO LEARNING?NO HEARING IMPAIRED?NO VISION IMPAIRED?YES COGNITIVELY IMPAIRED?NO :CORRECTIVE LENSES CONTACTS READINESS TO LEARN?YES LEARNING PREFERENCES?NO LEARNING CAPABILITIES PRESENT?YES EMOTIONAL BARRIERS?NO SPECIAL DEVICES?NO SQUARING SHEAR OPERATOR NEEDED?NO PAIN CLINIC PFS, CLERGY, PUBLIC HEALTH REFERRALS WAS THE PROVIDER NOTIFIED OF ANY PERTINENT INFO?YES HAS THE PATIENT BEEN EDUCATED REGARDING HIS/HER PLAN OF CARE?YES HAS THE PATIENT BEEN EDUCATED REGARDING PAIN, THE RISK FOR PAIN, THE IMPORTANCE OF EFFECTIVE PAIN MANAGEMENT, AND THE PAIN ASSESSMENT PROCESS?YES LATEX QUESTIONNAIRE LATEX ALLERGY : HAVE YOU EVER DEVELOPED ANY TYPE OF REACTION AFTER HANDLING LATEX PRODUCTS SUCH RUBBER GLOVES, CONDOMS, DIAPHRAGMS, BALLOONS, SOCKS, OR UNDERWEAR?NO LATEX ALLERGY : HAVE YOU EVER DEVELOPED ANY TYPE OF REACTION DURING OR AFTER DENTAL APPOINTMENT, VAGINAL/RECTAL EXAMINATION, SURGICAL PROCEDURE, OR ANY OTHER EXPOSURE?NO DATE ASKED : 01/03/2019 LATEX RISK : HAVE YOU EVER HAD ANY DIFFICULTY BREATHING OR HIVES AFTER EATING OR HANDLING ANY FRUITS, OR VEGETABLES; SUCH KIWI, BANANAS, STONE FRUITS, OR CHESTNUTSNO LATEX RISK : DO YOU HAVE A PREVIOUS PERSONAL HISTORY OF MORE THAN NINE SURGERIES, SPINA BIFIDA, OR REPEATED CATHERIZATIONS? YES - PLEASE INDICATE : > 9 SURGERIES LATEX RISK : ARE YOU FREQUENTLY EXPOSED TO LATEX PRODUCTS IN YOUR OCCUPATION?NO CAFFEINE 1-2/DAY. ADVANCE DIRECTIVE ADVANCE DIRECTIVE DISCUSSED WITH PATIENT:YES DECLINED INFORMATION OR ASSISTANCE AT THIS TIME 04/26/19 LEESA ALEVISM [id number] [facility] STATUS: .. 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 SEXUAL HX HAD SEX IN THE LAST 12 MONTHS (VAGINAL, ORAL, OR ANAL)?NO HAVE YOU EVER HAD AN STD?NO REVIEWED WITH PATIENT 02/10/19 1030 RAYO LANDERS. HOSPITALIZATION/MAJOR DIAGNOSTIC PROCEDURE [facility] 2011 [facility] [place] 12/2016 REVIEW OF SYSTEMS REVIEWED BY: PROVIDER: MARY VIDAL . CONSTITUTIONAL: ANY CHANGE IN YOUR MEDICAL CONDITION? YES - PREDIABETIC . CHILLS NO . FEVER NO . INFECTION: DO YOU HAVE NEW INFECTIONS? NO . DO YOU HAVE HISTORY OF MRSA? NO . MUSCULOSKELETAL: ANY NEW PATTERNS OF PAIN OR NUMBNESS? YES . GASTROENTEROLOGY: ANY NEW CHANGE IN BOWEL CONTROL? NO . GENITOURINARY: ANY NEW CHANGE IN BLADDER CONTROL? NO . IS THERE A CHANCE YOU COULD BE ? NO . HEMATOLOGY/LYMPH: DO YOU TAKE ANY BLOOD THINNERS? (FOR EXAMPLE- COUMADIN, PLAVIX, AGGRENOX, PLATEL, PRADAXA, OR XARELTO) NO . WHEN WAS YOUR LAST DOSE? DATE: TIME: . NEUROLOGY: HAVE YOU FALLEN IN THE PAST 12 MONTHS? NO . ANY NEW EXTREMITY NUMBNESS OR WEAKNESS? YES . CARDIOLOGY: DO YOU HAVE A PACEMAKER OR DEFIBRILLATOR? YES . RESPIRATORY: HAVE YOU BEEN SICK IN THE PAST WEEK? NO . FEVER NO . FLU LIKE SYMPTOMS? NO . COUGH NO . INTEGUMENTARY: DO YOU HAVE ANY RASHES OR OPEN SORES? YES . ALLERGIC/IMMUNO: ARE YOU ALLERGIC TO IV DYE? YES . ANY NEW ALLERGIES? YES . PSYCHIATRIC: DO YOU HAVE THOUGHTS OF HURTING YOURSELF OR SOMEONE ELSE? NO . ARE YOU ABUSED, NEGLECTED, OR IN AN UNSAFE ENVIRONMENT? NO . ENDOCRINOLOGY: ARE YOU DIABETIC? NO . OTHER: DO YOU NEED ANY PRESCRIPTIONS? NO . IF YES, PLEASE LIST: ____ . ANY NEW PROBLEMS WITH YOUR MEDICATIONS? NO . WHEN DID YOU LAST EAT? ____ . WHEN DID YOU LAST DRINK? ____ . WHAT DID YOU LAST DRINK? ____ . NAME OF PERSON DRIVING YOU HOME? ____ . DO YOU HAVE ANY OTHER QUESTIONS OR CONCERNS NO . VITAL SIGNS WT 215.6 LBS, HT 66 IN, BMI 34.79 INDEX, BP 123/83 MM HG, HR 85 /MIN, RR 16 /MIN, TEMP 98 F, OXYGEN SAT % 99, REVIEWED BY: FORREST. EXAMINATION GENERAL EXAMINATION: GENERALNO ACUTE DISTRESS, WELL NOURISHED AND HYDRATED. PSYCHAPPROPRIATE MOOD AND AFFECT . NECK:POINT TENDER ALONG CERVICAL SPINE, SURROUNDING SKIN SHOWS NO ERYTHEMA, ECCHYMOSIS, INCREASED WARMTH, AND/OR SKIN ERUPTIONS NOTED. PATIENT DOES ENDORSE INCREASED PAIN WHEN ASKED TO LIFT ARMS AGAINST RESISTANCE. . LUNGS:CLEAR TO AUSCULTATION BILATERALLY, NO WHEEZES, RHONCHI, RALES. HEART:NO MURMURS, REGULAR RATE AND RHYTHM. 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 CLINICAL NOTES: 59-YEAR-OLD FEMALE IN FOR POST TPI FOLLOW-UP. GIVEN PRESENTING SYMPTOMS AND RESULTS OF PHYSICAL EXAMINATION RECOMMENDED NINA C5-C6 C6-C7 WITH POST PROCEDURAL FOLLOW-UP. PATIENT HAS EXPRESSED UNDERSTANDING OF AND WAS IN AGREEMENT WITH TREATMENT PLAN. GIVEN TIME TO ASK QUESTIONS AND EXPRESS CONCERNS. PREVENTIVE MEDICINE PAIN CLINIC TEACHING: PROCEDURE TEACHING PRE PROCEDURE INSTRUCTIONS REVIEWED WITH PT. VERBALIZED UNDERSTANDING.. PROCEDURE CODES FA211 ESTABILISHED PATIENT [facility] CHARGE DISPOSITION & COMMUNICATION FOLLOW UP POSTPROCEDURE (REASON: NINA C5-C6 C6-C7) ELECTRONICALLY SIGNED BY MELANIE COOPER ON 05/25/2019 AT 01:43 PM EST DISCLAIMER : THIS IS A VISIT SUMMARY EXTRACTED FROM THE [employer] CHART. IT IS NOT A COPY OF THE [facility] PROGRESS NOTE. KIRAN
== END ==
LOC: M PAIN 08:45
PROVIDERS: ATTEND Family Medicine
DX: M50.10 Cervical disc disorder with radiculopathy, unspecified cervical region (principal); G44.229 Chronic tension-type headache, not intractable; M54.5 Low back pain; I10 Essential (primary) hypertension; K44.9 Diaphragmatic hernia without obstruction or gangrene; K21.9 Gastro-esophageal reflux disease without esophagitis; J30.9 Allergic rhinitis, unspecified; R73.03 Prediabetes; Z86.010 Personal history of colon polyps; Z87.891 Personal history of nicotine dependence; Z79.82 Long term (current) use of aspirin; Z79.84 Long term (current) use of oral hypoglycemic drugs; Z79.891 Long term (current) use of opiate analgesic; Z79.899 Other long term (current) drug therapy; Z88.6 Allergy status to analgesic agent; Z88.0 Allergy status to penicillin; Z88.8 Allergy status to other drugs, medicaments and biological substances

== ENCOUNTER 2019-07-11 15:50 | Emergency (ER) | payer MEDICAID, MEDICARE, OTHER ==
[~2019-07-11] VITALS: Ht 167.6 cm; Wt 94.9 kg
[2019-07-11] MEDS ORDERED: MOXI0.5S (16:06)
[2019-07-11] MEDS ORDERED: NS 1,000 ML IV ONE (16:45)
[2019-07-11] MEDS ORDERED: PANTOPRAZOLE 40MG VIAL (C9113 PER 1) IV ONE (16:45)
[2019-07-11 17:13] LABS: BASO % 0.5 % (0.0-1.0); EOS # 0.1 10^3/uL (0.0-0.5); EOS % 0.8 % (0.0-3.0); HEMATOCRIT 39.5 % (36.0-47.0); LYMPH # 1.9 10^3/uL (1.5-5.0); LYMPH % 22.9 % (24.0-44.0); MEAN CORPUSCULAR HGB CONC 32.9 g/dl (32.0-36.5); MONO # 0.5 10^3/uL (0.0-0.8); NEUTROPHILS # 5.8 10^3/uL (1.5-8.5); NEUTROPHILS % 69.6 % (36.0-66.0); PLATELET COUNT, AUTOMATED 272 10^3/uL (150-450); WHITE BLOOD COUNT 8.4 10^3/uL (4.0-10.0)
[2019-07-11 17:25] LABS: INR 1.01
[2019-07-11 17:26] LABS: PARTIAL THROMBOPLASTIN TIME 27.6 SECONDS (25.0-38.4)
[2019-07-11 17:34] LABS: ALBUMIN 3.8 GM/DL (3.2-5.2); ALT/SGPT 32 U/L (12-78); BILIRUBIN,DIRECT < 0.1 MG/DL (0.0-0.2); BILIRUBIN,TOTAL 0.2 MG/DL (0.2-1.0); LIPASE 151 U/L (73-393); TOTAL PROTEIN 7.3 GM/DL (6.4-8.2)
[2019-07-11] MEDS ORDERED: ISOVUE-370 76% 100ML VIAL As Ordered ONE (18:02)
--- NOTE | 2019-07-11 18:29 | REPVR ---
PROCEDURE INFORMATION: Exam: CT Abdomen And Pelvis With Contrast Exam date and time: 07/11/2019 6:16 PM Age: 59 years old Clinical indication: Abdominal pain; Additional info: Left abd pain, black stool-- HX diverticulitis TECHNIQUE: Imaging protocol: Computed tomography of the abdomen and pelvis with intravenous contrast. Axial, coronal and sagittal reformatted images were created and reviewed. Radiation optimization: All CT scans at this facility use at least one of these dose optimization techniques: automated exposure control; mA and/or kV adjustment per patient size (includes targeted exams where dose is matched to clinical indication); or iterative reconstruction. Contrast material: ISO 370; Contrast volume: 100 ml; Contrast route: IV; COMPARISON: CR Hip,AP,LAT to include Pelvis 01/01/2017 2:15 PM FINDINGS: Lungs: Mild linear stranding and groundglass at the lung bases, likely due to atelectasis and/or scarring. Heart: Cardiac pacer wires partially visualized. Mediastinum: Small to moderate hiatal hernia. Liver: 1.1 cm simple cyst in the right hepatic lobe. Gallbladder and bile ducts: No radiodense gallstones. No biliary ductal dilatation. Pancreas: Unremarkable. Spleen: Unremarkable. Adrenals: 1.3 x 0.8 cm low-density right adrenal nodule, likely a benign adenoma (no follow-up is indicated based on the imaging findings).. Kidneys and ureters: No mass. No radiodense calculi. No hydronephrosis. Stomach and bowel: Focal area of mild wall thickening and subtle associated pericolonic stranding in the sigmoid colon in a region containing multiple diverticula. No obstruction. No pneumatosis. Appendix: Normal. Intraperitoneal space: No free fluid. No organized fluid collection. No free air. Vasculature: Mild atherosclerotic disease. No aneurysm. Lymph nodes: No pathologically enlarged lymph nodes. Bladder: Unremarkable. Reproductive: Status post hysterectomy. Bones/joints: No acute osseous abnormality. Osteopenia. Mild degenerative changes. Soft tissues: Small, fat containing umbilical hernia. IMPRESSION: 1. Findings concerning for acute sigmoid diverticulitis, as described above. No abscess, obstruction or free air. Follow-up to resolution is recommended. 2. Additional findings, as above. Electronically signed by: Jose Dumont On 07/11/2019 18:29:09 PM
[2019-07-11] MEDS ORDERED: ONDA4TAB6 PO (18:39)
[2019-07-11] MEDS ORDERED: FLAG500T PO (18:39)
[2019-07-11] MEDS ORDERED: CIPR-249 PO (18:39)
[2019-07-11 18:41] VITALS: BP 166/96
--- NOTE | 2019-07-13 09:44 | ED PDOC ---
Post-Departure Follow-Up please review formal report of ct abd/p and radiology recommendations. no pcp li sted. please obtain pcp name and relay report to pt and fax report to pcp. if no pcp refer to [facility] for [facility] and fax report there. Ashok Pelayo MD Jul 13, 2019 09:44
== END 2019-07-11 18:51 | disposition home or self-care (01) ==
LOC: M ED 15:50
DX: K57.32 Diverticulitis of large intestine without perforation or abscess without bleeding (principal); K76.89 Other specified diseases of liver; Z88.0 Allergy status to penicillin; Z88.6 Allergy status to analgesic agent; Z91.041 Radiographic dye allergy status; Z91.030 Bee allergy status; Z79.899 Other long term (current) drug therapy; Z79.51 Long term (current) use of inhaled steroids
CPT/HCPCS: 74177; 80047; 80076; 81001; 83605; 83690; 85025; 85610; 85730; 86850; 86900; 86901; 87086; 96361; 96374; 99284; C9113; Q9967

== ENCOUNTER → 2019-07-25 | Outpatient (CLI) | payer OTHER ==
[~2019-07-25] MED LIST changes: +CIPR-249 PO; +FLAG500T PO; +MOXI0.5S; +ONDA4TAB6 PO
== END ==
LOC: M LABSMTC 11:24
PROVIDERS: ATTEND Anesthesiology
DX: Z11.59 Encounter for screening for other viral diseases (principal)

== ENCOUNTER → 2019-07-28 | Outpatient (CLI) | payer OTHER, MEDICARE ==
[~2019-07-28] MED LIST changes: +ISOVUE-M 300 61% 15ML VIAL As Ordered ONE; +LIDOCAINE 1% SDV 30ML VIAL As Ordered ONE; +dexameTHASONE 10MG/1ML VIAL PRES.FREE (J1100 PER 1MG) As Ordered ONE; +diazePAM 5 MG TAB As Ordered ONE; +diphenhydrAMINE 25MG CAP As Ordered ONE; +oxyCODONE 5MG TAB As Ordered ONE
--- NOTE | 2019-07-28 15:58 | REP ---
C-ARM VIEWS CERVICAL SPINE: CLINICAL HISTORY: Pain. Two C-arm views of the cervical spine performed during injection by Dr. De Luna. A needle is seen at the cervicothoracic junction. 15 seconds of fluoroscopy time utilized. Electronically Signed by Ton Childs MD 07/28/2019 04:20 P
--- NOTE | 2019-07-30 02:09 | ECWPNPC ---
PATIENT NAME: LEWIS HUGHES : 1960 GENDER: FEMALE VISIT DATE: 07/28/2019 DISCHARGE DATE: 07/28/19 1522 VISIT LOCKED DATE TIME: PHYSICIAN: JAYME VALLES MD RESOURCE: JAYME VALLES MD REASON FOR APPOINTMENT 1. NINA C7-T1 HISTORY OF PRESENT ILLNESS HISTORY OF PRESENT ILLNESS: PAIN THE PATIENT DESCRIBES THE PAIN... FALL RISK SCREENING: SCREENING :NO FALLS REPORTED IN THE LAST YEAR CURRENT MEDICATIONS TAKING DEXAMETHASONE 0.5 MG/5ML SOLUTION 5 ML ORALLY SWISH AND SPIT TWICE A DAY NEEDED, NOTES: NONE LATELY TAKING MELATONIN 10 MG TABLET 1 TABLET UNDER THE TONGUE AND ALLOW TO DISSOLVE AT BEDTIME NEEDED WITH FOOD ORALLY BEFORE BEDTIME, NOTES: 07/27/19 TAKING TYLENOL PM EXTRA STRENGTH 500-25 MG TABLET 1 TABLET AT BEDTIME NEEDED ORALLY ONCE A DAY, NOTES: 07/27/19 TAKING VITAMIN D3 1000 UNIT CAPSULE 1 CAPSULE ORALLY ONCE A DAY, NOTES: 07/28/19 AM TAKING LIDOCAINE VISCOUS 2 % SOLUTION 15 ML TO AFFECTED AREA NEEDED MOUTH/THROAT, SWISH AND SPIT EVERY 3 HRS, NOTES: NONE LATELY TAKING LORATADINE 10 TABLET 1 TABLET ONCE A DAY/PRN ORALLY 90 DAY(S) ORALLY DAILY, NOTES: 07/28/19 AM TAKING ASPIRIN 81 81 MG TABLET DELAYED RELEASE 1 TABLET ORALLY TWICE A DAY, NOTES: 07/28/19 AM TAKING AMITRIPTYLINE HCL 50 TABLET 1 TABLET AT BEDTIME , NOTES: 07/27/19 TAKING TIZANIDINE HCL 4 MG TABLET 1 TABLET ORALLY TWICE A DAY, NOTES: 07/28/19 AM TAKING ATORVASTATIN CALCIUM 20 MG TABLET 1 TABLET ORALLY ONCE A DAY, NOTES: 07/27/19 TAKING EPIPEN 2-DARREN 0.3 MG/0.3ML SOLUTION AUTO-INJECTOR IM INJECTION DIRECTED INJECTION PRN, NOTES: NONE LATELY TAKING TRAZODONE HCL 150 MG TABLET 1 TABLET AT BEDTIME ORALLY ONCE A DAY, NOTES: 07/27/19 TAKING METFORMIN HCL ER 500 MG TABLET EXTENDED RELEASE 24 HOUR 1 TABLET WITH EVENING MEAL ORALLY ONCE A DAY, NOTES: 07/27/19 TAKING LOSARTAN POTASSIUM 50 MG TABLET 1 TABLET ORALLY ONCE A DAY, NOTES: 07/28/19 AM TAKING HALOBETASOL PROPIONATE 0.05 % OINTMENT 1 APPLICATION EXTERNALLY BID TO AREAS ON BODY WITH RASH INCLUDING HANDS AND FEET (NOT FOR FACE, GROIN, ARMPITS), NOTES: 07/26/19 TAKING BACLOFEN 10 MG TABLET 1 TABLET WITH FOOD OR MILK ORALLY BEFORE BEDTIME, NOTES: 07/27/19 TAKING PANTOPRAZOLE SODIUM 40 TABLET DELAYED RELEASE 1 TABLET ORALLY ONCE A DAY, NOTES: 07/28/19 AM TAKING TRAMADOL HCL 50 MG TABLET 1 TAB ORALLY EVERY 6 HOURS NEEDED/MMD#4, NOTES: 07/24/19 TAKING ALBUTEROL SULFATE HFA 108 (90 BASE) MCG/ACT AEROSOL SOLUTION 1-2 PUFFS NEEDED INHALATION EVERY 4 HRS, NOTES: NONE LATELY NOT-TAKING GLUCOSAMINE _ TABLET 1 TABLET ORALLY ONCE A DAY NOT-TAKING PREDNISONE 20 MG TABLET 1 TABLET ORALLY THEE TIMES A DAY FOR A WEEK, THEN TWICE A DAY FOR 1 WEEK, AND THEN ONCE A DAY FOR 1 WEEK MEDICATION LIST REVIEWED AND RECONCILED WITH THE PATIENT PAST MEDICAL HISTORY CHRONIC TENSION-TYPE HEADACHE, 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 WITHOUT SCIATICA HISTORY OF TOBACCO ABUSE ESSENTIAL (PRIMARY) HYPERTENSION HIATAL HERNIA WITH GERD WITHOUT ESOPHAGITIS COLON POLYPS OTHER ALLERGIC RHINITIS HISTORY OF NEPHROLITHIASIS LIKEN PLEXUS PREDIABETES DDD OSTEOARTHRITIS ALLERGIES IODINE: HIVES,SOB NSAIDS: ANAPHYLAXIS - ALLERGY LISINOPRIL: COUGH - SIDE EFFECTS HYBICLENS: HIVES - SIDE EFFECTS PENICILLIN (FOR ALLERGIES USE ONLY): ANAPHYLAXIS - ALLERGY SURGICAL HISTORY BACK 1989 BACK 1999 SINUS 2009 ENDOSCOPE & COLONOSCOPY FOR COLON POLYPS AND HIATAL HERNIA LOOP PLACED - CARDIO-REMOVED WHEN PACEMAKER INSERTED 01/2017 ROTATOR CUFF REPAIR RIGHT X 3 02/2017,07/27/2017/12/14/17 PACEMAKER 04/2017 TOTAL HYSTERCTOMY 1990 BILATERAL BREAST REDUCTIONS TONSILLECTOMY APPENDECTOMY CYSTECTOMIES FOR BREASTS MULTIPLE TIME FAMILY HISTORY FATHER: ALIVE, DIAGNOSED WITH DIABETES, UNSPECIFIED HEART DISEASE, UNSPECIFIED NONPSYCHOTIC MENTAL DISORDER FOLLOWING ORGANIC BRAIN DAMAGE MOTHER: , HYPERTENSION, UNSPECIFIED CEREBRAL ARTERY OCCLUSION WITH CEREBRAL INFARCTION PATERNAL GRAND FATHER: , UNSPECIFIED HEART DISEASE PATERNAL GRAND MOTHER: ALIVE, UNSPECIFIED HEART DISEASE MATERNAL GRAND FATHER: , OTHER MALIGNANT NEOPLASM OF UNSPECIFIED SITE MATERNAL GRAND MOTHER: , DIABETES 6 SISTER(S) - HEALTHY. 1 SON(S) , 1 DAUGHTER(S) - HEALTHY. 2 SISTERS PASSED FROM HEART ATTACKS, ALL HAVE HAD HEART ATTACKS, 2 SISTERS HAVE DMDENIES FAMILY HX OF PANCREATIC CANCER OR MELANOMA. SOCIAL HISTORY GENERAL: TOBACCO USE ARE YOU A:FORMER SMOKER HOW LONG HAS IT BEEN SINCE YOU LAST SMOKED?1-5 YEARS LATEX QUESTIONNAIRE LATEX ALLERGY : HAVE YOU EVER DEVELOPED ANY TYPE OF REACTION AFTER HANDLING LATEX PRODUCTS SUCH RUBBER GLOVES, CONDOMS, DIAPHRAGMS, BALLOONS, SOCKS, OR UNDERWEAR?NO HAS PROBLEMS WITH ADHESIVES ON TAPE LATEX ALLERGY : HAVE YOU EVER DEVELOPED ANY TYPE OF REACTION DURING OR AFTER DENTAL APPOINTMENT, VAGINAL/RECTAL EXAMINATION, SURGICAL PROCEDURE, OR ANY OTHER EXPOSURE?NO LATEX RISK : HAVE YOU EVER HAD ANY DIFFICULTY BREATHING OR HIVES AFTER EATING OR HANDLING ANY FRUITS, OR VEGETABLES; SUCH KIWI, BANANAS, STONE FRUITS, OR CHESTNUTSNO LATEX RISK : DO YOU HAVE A PREVIOUS PERSONAL HISTORY OF MORE THAN NINE SURGERIES, SPINA BIFIDA, OR REPEATED CATHERIZATIONS? YES - PLEASE INDICATE : > 9 SURGERIES LATEX RISK : ARE YOU FREQUENTLY EXPOSED TO LATEX PRODUCTS IN YOUR OCCUPATION?NO DATE ASKED : 07/27/2019 BMI CARE GOAL FOLLOW-UP ABOVE NORMAL BMI FOLLOW-UPDIETARY MANAGEMENT EDUCATION, GUIDANCE, AND COUNSELING ALCOHOL SCREENING DID YOU HAVE A DRINK CONTAINING ALCOHOL IN THE PAST YEAR?YES HOW OFTEN DID YOU HAVE SIX OR MORE DRINKS ON ONE OCCASION IN THE PAST YEAR?NEVER (0 POINTS) HOW MANY DRINKS DID YOU HAVE ON A TYPICAL DAY WHEN YOU WERE DRINKING IN THE PAST YEAR?1 OR 2 (0 POINTS) HOW OFTEN DID YOU HAVE A DRINK CONTAINING ALCOHOL IN THE PAST YEAR?NEVER (0 POINTS) POINTS0 INTERPRETATIONNEGATIVE RECREATIONAL DRUG USE DRUG USE?NO CAFFEINE 1-2/DAY. SEXUAL HX HAD SEX IN THE LAST 12 MONTHS (VAGINAL, ORAL, OR ANAL)?NO HAVE YOU EVER HAD AN STD?NO HIV / HEP-C SCREENING HIV TEST OFFERED TO PATIENT:YES DATE OFFERED:03/04/2018 TEST ACCEPTED:NO HEP-C TEST OFFERED TO PATIENT:YES DATE OFFERED:03/04/2018 REASON:PATIENT DECLINED TEST ACCEPTED:NO REASON:PATIENT DECLINED BROCHURE PROVIDED TO PATIENTYES SHINTO [id number] ZOROASTRIANISM LANGUAGE LANGUAGES SPOKEN:CZECH EDUCATION LEVEL OF EDUCATION:COLLEGE LEARNING BARRIERS / SPECIAL NEEDS CHANGE FROM LAST VISIT?NO BARRIERS TO LEARNING?NO HEARING IMPAIRED?NO VISION IMPAIRED?YES :CORRECTIVE LENSES CONTACTS COGNITIVELY IMPAIRED?NO READINESS TO LEARN?YES LEARNING PREFERENCES?NO LEARNING CAPABILITIES PRESENT?YES EMOTIONAL BARRIERS?NO SPECIAL DEVICES?NO BELT MAKER NEEDED?NO DOMESTIC VIOLENCE DO YOU FEEL SAFE IN YOUR ENVIRONMENT?YES 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 EXERCISE: NO REGULAR EXERCISE. MARITAL STATUS: .. OTHERS AT HOME: OTHER NON-RELATIVE. NEW PATIENT PAIN DIARY TODAY'S VISIT 07/27/2019 PATIENT DESCRIBES PAIN :ACHING, BURNING, IT COMES AND GOES, SHARP, TENDER, THROBBING, SORE, SHOOTING LEFT ARM NUMB FROM 0-10, WHAT LEVEL IS YOUR PAIN TODAY?6 PRECIPITATING FACTORS WEATHER,ACTIVITY ALLEVIATING FACTORS ICE, HEAT, MEDS, REST IMPACT ON FUNCTION LIMITS HER ON WHAT SHE IS ABLE TO DO PAIN CLINIC PFS, CLERGY, PUBLIC HEALTH REFERRALS HAS THE PATIENT BEEN EDUCATED REGARDING HIS/HER PLAN OF CARE?YES HAS THE PATIENT BEEN EDUCATED REGARDING PAIN, THE RISK FOR PAIN, THE IMPORTANCE OF EFFECTIVE PAIN MANAGEMENT, AND THE PAIN ASSESSMENT PROCESS?YES HOUSING: OWNS HOME. ADVANCE DIRECTIVE ADVANCE DIRECTIVE DISCUSSED WITH PATIENT:YES 07/27/2019 PT DOES NOT HAVE ANY ADVANCED DIRECTIVES ANS SHE DELCINES INFORMATION ON HCP AT THIS TIME HOSPITALIZATION/MAJOR DIAGNOSTIC PROCEDURE [facility] - [facility] 2011 [facility] [place] 12/2016 SURGERIES REVIEW OF SYSTEMS REVIEWED BY: PROVIDER: JAYME VALLES MD . CONSTITUTIONAL: ANY CHANGE IN YOUR MEDICAL CONDITION? NO . CHILLS NO . FEVER NO . INFECTION: DO YOU HAVE NEW INFECTIONS? NO . DO YOU HAVE HISTORY OF MRSA? NO . MUSCULOSKELETAL: ANY NEW PATTERNS OF PAIN OR NUMBNESS? YES, NUMBNESS LEFT ARMS INTERMITTENTLY FOR 2+ MONTHS . GASTROENTEROLOGY: ANY NEW CHANGE IN BOWEL CONTROL? NO . GENITOURINARY: ANY NEW CHANGE IN BLADDER CONTROL? NO . IS THERE A CHANCE YOU COULD BE ? NO . HEMATOLOGY/LYMPH: DO YOU TAKE ANY BLOOD THINNERS? (FOR EXAMPLE- COUMADIN, PLAVIX, AGGRENOX, PLATEL, PRADAXA, OR XARELTO) NO . WHEN WAS YOUR LAST DOSE? DATE: TIME: . NEUROLOGY: HAVE YOU FALLEN IN THE PAST 12 MONTHS? NO . ANY NEW EXTREMITY NUMBNESS OR WEAKNESS? YES LEFT ARM NUMBNESS . CARDIOLOGY: DO YOU HAVE A PACEMAKER OR DEFIBRILLATOR? YES. PACEMAKER . RESPIRATORY: HAVE YOU BEEN SICK IN THE PAST WEEK? NO . FEVER NO . FLU LIKE SYMPTOMS? NO . COUGH NO . INTEGUMENTARY: DO YOU HAVE ANY RASHES OR OPEN SORES? NO . ALLERGIC/IMMUNO: ARE YOU ALLERGIC TO IV DYE? NO TOPICAL IODINE . ANY NEW ALLERGIES? NO . PSYCHIATRIC: DO YOU HAVE THOUGHTS OF HURTING YOURSELF OR SOMEONE ELSE? NO . ARE YOU ABUSED, NEGLECTED, OR IN AN UNSAFE ENVIRONMENT? NO . ENDOCRINOLOGY: ARE YOU DIABETIC? PRE-DIABETIC . OTHER: DO YOU NEED ANY PRESCRIPTIONS? NO . IF YES, PLEASE LIST: ____ . ANY NEW PROBLEMS WITH YOUR MEDICATIONS? NO . WHEN DID YOU LAST EAT? 07/27/19 1730 . WHEN DID YOU LAST DRINK? BLACK COFFEE . WHAT DID YOU LAST DRINK? 07/28/19 0815 . NAME OF PERSON DRIVING YOU HOME? COY TRUONG . DO YOU HAVE ANY OTHER QUESTIONS OR CONCERNS NO PT HAS NOT HAD ANY VACCINES IN THE PAST 30 DAYS . VITAL SIGNS WT 201.8 LBS, HT 66 IN, BMI 32.57 INDEX, BP 123/71 MM HG, HR 96 /MIN, RR 17 /MIN, TEMP 98.3 F, OXYGEN SAT % 95%, SAFE IN ENV? (Y/N) Y, NA INITIALS SC 13:00, REVIEWED BY: EM. ASSESSMENTS CERVICAL DISC DISORDER WITH RADICULOPATHY, UNSPECIFIED CERVICAL REGION - M50.10 (PRIMARY) TREATMENT CERVICAL DISC DISORDER WITH RADICULOPATHY, UNSPECIFIED CERVICAL REGION [facility] FLUORO GUIDE SPINE INJECTION (PAIN)[id number] PROCEDURES PN CERVICAL EPIDURAL PRE PROCEDURE DIAGNOSIS CERVICAL DISC DISORDER WITH RADICULOPATHY POST PROCEDURE DIAGNOSIS CERVICAL DISC DISORDER WITH RADICULOPATHY PROCEDURE CERVICAL EPIDURAL STEROID INJECTION UNDER FLUOROSCOPIC GUIDANCE SURGEON DR. JAYME VALLES CRANE HOOKER NONE ANESTHESIA LOCAL PRE PROCEDURE NOTE THE PATIENT HAS A HISTORY OF CHRONIC CERVICAL PAIN. I EVALUATED THE PATIENT AND REVIEWED THE CHART. I WENT OVER THE RISKS, ALTERNATIVES, AND BENEFITS ASSOCIATED WITH THIS PROCEDURE. I DISCUSSED WITH THE PATIENT THAT THE USE OF STEROIDS MAY CONTRIBUTE TO IMMUNOSUPPRESSION OF HER BODY AGAINST INFECTIONS SUCH THE VALENZUELA VIRUS, COVID-19. SHE IS AWARE OF THE POTENTIAL COMPLICATIONS ASSOCIATED WITH AN INFECTION OF THIS VIRUS INCLUDING . THE PATIENT WOULD LIKE TO PROCEED AND GIVE CONSENT TO PERFORMED THE PROCEDURE. THE PATIENT DENIES UNEXPLAINABLE WEIGHT LOSS, FEVER, CHILLS, OR NEW CHANGES IN URINARY OR BOWEL CONTROL. THE PATIENT IS COVID-19 NEGATIVE DESCRIPTION OF PROCEDURE THE PATIENT WAS BROUGHT TO THE PROCEDURE ROOM AND PLACED IN THE PRONE POSITION. THE CERVICOTHORACIC AREA WAS CLEANED WITH CHLORAPREP SOLUTION AND DRAPED ASEPTICALLY. THE PROCEDURE WAS DONE UNDER STERILE CONDITIONS. I CHECKED LATERALITY AND THE LEVEL WHERE THE PROCEDURE WAS GOING TO BE PERFORMED WITH THE PATIENT AND THE SUPPORTING STAFF AT THE MOMENT OF THE TIME OUT IN THE PROCEDURE ROOM. UNDER FLUOROSCOPIC GUIDANCE, THE TARGET WAS SELECTED AT THE INTERLAMINAR LEVEL OF C7-T1. LIDOCAINE WAS USED TO NUMB THE SKIN AND THE SUBCUTANEOUS TISSUE BELOW IT. EPIDURAL TUOHY NEEDLE, 17-GAUGE, WAS ADVANCED UNDER FLUOROSCOPIC GUIDANCE AND FOLLOWING PATIENT FEEDBACK UNTIL THE EPIDURAL SPACE WAS REACHED 7 CM DEEP INTO THE SKIN BY THE LOSS OF RESISTANCE TECHNIQUE. ISOVUE M DYE 30%, 0.25 ML, WAS INJECTED SHOWING ADEQUATE SPREAD OF THE DYE. THEN, A SOLUTION OF 3 ML OF NORMAL SALINE WITH DEXAMETHASONE 10 MG WAS INJECTED SLOWLY FOLLOWING PATIENT FEEDBACK. THERE WAS NO EVIDENCE OF BLOOD, PARESTHESIA OR CEREBROSPINAL FLUID DURING THE PROCEDURE. THE PATIENT WAS SENT TO THE RECOVERY ROOM. THE PATIENT WAS MOVING THE EXTREMITIES AND DOING WELL. THERE WAS NO COMPLICATION DURING THE PROCEDURE. FLUOROSCOPY TIME WAS 15 SECONDS POST PROCEDURE NOTE THE PATIENT WILL BE SEEN IN A FOLLOW UP IN THE NEXT FEW WEEKS. I AM LOOKING FOR LONG LASTING PAIN RELIEF FOR THE PATIENT WITH THIS INJECTION. INSTRUCTIONS WERE GIVEN, QUESTIONS WERE ANSWERED, AND THE PATIENT EXPRESSED UNDERSTANDING AND AGREES WITH THE PLAN. I INSTRUCTED THE PATIENT TO STAY HOME, IF POSSIBLE, FOR A WEEK DUE TO COVID-19. I, LEON LOCKETT, DOCUMENTED THE ABOVE INFORMATION ACTING A SCRIBE FOR DR. VALLES. I HAVE REVIEWED THE ABOVE DOCUMENT, WRITTEN BY LEON LOCKETT, SCRIBE, AND I VERIFY THAT IT IS ACCURATE PROCEDURE CODES 6045F RADXPS IN END [id number] PXD [id number] CERVICAL/THORACIC W/ IMAGING DISPOSITION & COMMUNICATION FOLLOW UP F/UP WITH [employer] ROLLER PERSON (REASON: POST-PROCEDURE F/UP-NECK PAIN) ELECTRONICALLY SIGNED BY JAYME VALLES MD, MD ON 07/29/2019 AT 09:10 AM EDT DISCLAIMER : THIS IS A VISIT SUMMARY EXTRACTED FROM THE [employer] CHART. IT IS NOT A COPY OF THE [employer] PROGRESS NOTE. KIRAN
== END ==
LOC: M PAIN 13:15
PROVIDERS: ATTEND Anesthesiology
DX: M50.10 Cervical disc disorder with radiculopathy, unspecified cervical region (principal); I10 Essential (primary) hypertension; K21.9 Gastro-esophageal reflux disease without esophagitis; R73.03 Prediabetes; Z95.0 Presence of cardiac pacemaker; Z87.891 Personal history of nicotine dependence; Z88.0 Allergy status to penicillin; Z88.3 Allergy status to other anti-infective agents; Z88.6 Allergy status to analgesic agent; Z88.8 Allergy status to other drugs, medicaments and biological substances; Z79.82 Long term (current) use of aspirin; Z79.84 Long term (current) use of oral hypoglycemic drugs; Z79.899 Other long term (current) drug therapy
CPT/HCPCS: 62321; J1100; Q9967

== ENCOUNTER → 2019-08-12 | Outpatient (CLI) | payer OTHER, MEDICARE ==
[~2019-08-12] MED LIST changes: -ISOVUE-M 300 61% 15ML VIAL As Ordered ONE; -LIDOCAINE 1% SDV 30ML VIAL As Ordered ONE; -dexameTHASONE 10MG/1ML VIAL PRES.FREE (J1100 PER 1MG) As Ordered ONE; -diazePAM 5 MG TAB As Ordered ONE; -diphenhydrAMINE 25MG CAP As Ordered ONE; -oxyCODONE 5MG TAB As Ordered ONE
--- NOTE | 2019-08-19 02:25 | ECWPNPC ---
PATIENT NAME: LEWIS HUGHES : 1960 GENDER: FEMALE VISIT DATE: 08/12/2019 DISCHARGE DATE: 08/12/19 1318 VISIT LOCKED DATE TIME: PHYSICIAN: COY SWEET RESOURCE: COY SWEET REASON FOR APPOINTMENT 1. POST PROC PAT DONE HISTORY OF PRESENT ILLNESS HISTORY OF PRESENT ILLNESS: PAIN THE PATIENT DESCRIBES THE PAINAFTER THE PROCEDURE PRE-PROCEDURE PAIN-6-7/10, POST-PROCEDURE PAIN-2 TO 3/10 SEVERITY - PAIN SCORE OF2/10, 3/10 LOCATIONSNECK QUALITY DULL PAIN DURATIONCONTINUOUS, CONSTANT, ALL DAY PAIN IS INCREASED BY:ACTIVITIES PAIN IS DECREASED BY:USE OF PAIN MEDICATIONS BIOFREEZE, HEAT/ICE 59-YEAR-OLD FEMALE IN FOR POST NINA FOLLOW-UP. PATIENT FEELS THE PROCEDURE WAS EFFECTIVE OVERALL RATING HER PAIN PREPROCEDURE AT A 6-7 OUT OF 10 AND POSTPROCEDURE AT A 2-3 OUT OF 10. SHE FURTHER STATES THE PROCEDURE CONTINUES TO HELP HER TODAY. FALL RISK SCREENING: SCREENING :NO FALLS REPORTED IN THE LAST YEAR CURRENT MEDICATIONS TAKING DEXAMETHASONE 0.5 MG/5ML SOLUTION 5 ML ORALLY SWISH AND SPIT TWICE A DAY NEEDED TAKING MELATONIN 10 MG TABLET 1 TABLET UNDER THE TONGUE AND ALLOW TO DISSOLVE AT BEDTIME NEEDED WITH FOOD ORALLY BEFORE BEDTIME TAKING TYLENOL PM EXTRA STRENGTH 500-25 MG TABLET 1 TABLET AT BEDTIME NEEDED ORALLY ONCE A DAY TAKING VITAMIN D3 1000 UNIT CAPSULE 1 CAPSULE ORALLY ONCE A DAY TAKING LIDOCAINE VISCOUS 2 % SOLUTION 15 ML TO AFFECTED AREA NEEDED MOUTH/THROAT, SWISH AND SPIT EVERY 3 HRS TAKING LORATADINE 10 TABLET 1 TABLET ONCE A DAY/PRN ORALLY 90 DAY(S) ORALLY DAILY TAKING ASPIRIN 81 81 MG TABLET DELAYED RELEASE 1 TABLET ORALLY TWICE A DAY TAKING AMITRIPTYLINE HCL 50 TABLET 1 TABLET AT BEDTIME TAKING TIZANIDINE HCL 4 MG TABLET 1 TABLET ORALLY TWICE A DAY TAKING ATORVASTATIN CALCIUM 20 MG TABLET 1 TABLET ORALLY ONCE A DAY TAKING EPIPEN 2-DARREN 0.3 MG/0.3ML SOLUTION AUTO-INJECTOR IM INJECTION DIRECTED INJECTION PRN TAKING TRAZODONE HCL 150 MG TABLET 1 TABLET AT BEDTIME ORALLY ONCE A DAY, NOTES: 07/27/19 TAKING METFORMIN HCL ER 500 MG TABLET EXTENDED RELEASE 24 HOUR 1 TABLET WITH EVENING MEAL ORALLY ONCE A DAY TAKING LOSARTAN POTASSIUM 50 MG TABLET 1 TABLET ORALLY ONCE A DAY TAKING HALOBETASOL PROPIONATE 0.05 % OINTMENT 1 APPLICATION EXTERNALLY BID TO AREAS ON BODY WITH RASH INCLUDING HANDS AND FEET (NOT FOR FACE, GROIN, ARMPITS) TAKING BACLOFEN 10 MG TABLET 1 TABLET WITH FOOD OR MILK ORALLY BEFORE BEDTIME TAKING PANTOPRAZOLE SODIUM 40 TABLET DELAYED RELEASE 1 TABLET ORALLY ONCE A DAY TAKING TRAMADOL HCL 50 MG TABLET 1 TAB ORALLY EVERY 6 HOURS NEEDED/MMD#4 TAKING METRONIDAZOLE 500 MG TABLET 1 TABLET ORALLY THREE TIMES A DAY TAKING CIPROFLOXACIN HCL 500 MG TABLET 1 TABLET ORALLY EVERY 12 HRS TAKING FLUTICASONE PROPIONATE 50 MCG/ACT SUSPENSION 1 SPRAY IN EACH NOSTRIL NASALLY ONCE A DAY TAKING ALBUTEROL SULFATE HFA 108 (90 BASE) MCG/ACT AEROSOL SOLUTION 1-2 PUFFS NEEDED INHALATION EVERY 4 HRS NOT-TAKING GLUCOSAMINE _ TABLET 1 TABLET ORALLY ONCE A DAY NOT-TAKING PREDNISONE 20 MG TABLET 1 TABLET ORALLY THEE TIMES A DAY FOR A WEEK, THEN TWICE A DAY FOR 1 WEEK, AND THEN ONCE A DAY FOR 1 WEEK MEDICATION LIST REVIEWED AND RECONCILED WITH THE PATIENT PAST MEDICAL HISTORY CHRONIC TENSION-TYPE HEADACHE, 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 WITHOUT SCIATICA HISTORY OF TOBACCO ABUSE ESSENTIAL (PRIMARY) HYPERTENSION HIATAL HERNIA WITH GERD WITHOUT ESOPHAGITIS COLON POLYPS OTHER ALLERGIC RHINITIS HISTORY OF NEPHROLITHIASIS LIKEN PLEXUS PREDIABETES DDD OSTEOARTHRITIS DIVERTICULITIS ALLERGIES IODINE: HIVES,SOB NSAIDS: ANAPHYLAXIS - ALLERGY LISINOPRIL: COUGH - SIDE EFFECTS HYBICLENS: HIVES - SIDE EFFECTS PENICILLIN (FOR ALLERGIES USE ONLY): ANAPHYLAXIS - ALLERGY SURGICAL HISTORY BACK 1989 BACK 1999 SINUS 2009 ENDOSCOPE & COLONOSCOPY FOR COLON POLYPS AND HIATAL HERNIA LOOP PLACED - CARDIO-REMOVED WHEN PACEMAKER INSERTED 01/2017 ROTATOR CUFF REPAIR RIGHT X 3 02/2017,07/27/2017/12/14/17 PACEMAKER 04/2017 TOTAL HYSTERCTOMY 1990 BILATERAL BREAST REDUCTIONS TONSILLECTOMY APPENDECTOMY CYSTECTOMIES FOR BREASTS MULTIPLE TIME FAMILY HISTORY FATHER: ALIVE, DIAGNOSED WITH DIABETES, UNSPECIFIED HEART DISEASE, UNSPECIFIED NONPSYCHOTIC MENTAL DISORDER FOLLOWING ORGANIC BRAIN DAMAGE MOTHER: , HYPERTENSION, UNSPECIFIED CEREBRAL ARTERY OCCLUSION WITH CEREBRAL INFARCTION PATERNAL GRAND FATHER: , UNSPECIFIED HEART DISEASE PATERNAL GRAND MOTHER: ALIVE, UNSPECIFIED HEART DISEASE MATERNAL GRAND FATHER: , OTHER MALIGNANT NEOPLASM OF UNSPECIFIED SITE MATERNAL GRAND MOTHER: , DIABETES 6 SISTER(S) - HEALTHY. 1 SON(S) , 1 DAUGHTER(S) - HEALTHY. 2 SISTERS PASSED FROM HEART ATTACKS, ALL HAVE HAD HEART ATTACKS, 2 SISTERS HAVE DMDENIES FAMILY HX OF PANCREATIC CANCER OR MELANOMA. SOCIAL HISTORY GENERAL: TOBACCO USE ARE YOU A:FORMER SMOKER HOW LONG HAS IT BEEN SINCE YOU LAST SMOKED?1-5 YEARS LATEX QUESTIONNAIRE LATEX ALLERGY : HAVE YOU EVER DEVELOPED ANY TYPE OF REACTION AFTER HANDLING LATEX PRODUCTS SUCH RUBBER GLOVES, CONDOMS, DIAPHRAGMS, BALLOONS, SOCKS, OR UNDERWEAR?NO HAS PROBLEMS WITH ADHESIVES ON TAPE LATEX ALLERGY : HAVE YOU EVER DEVELOPED ANY TYPE OF REACTION DURING OR AFTER DENTAL APPOINTMENT, VAGINAL/RECTAL EXAMINATION, SURGICAL PROCEDURE, OR ANY OTHER EXPOSURE?NO LATEX RISK : HAVE YOU EVER HAD ANY DIFFICULTY BREATHING OR HIVES AFTER EATING OR HANDLING ANY FRUITS, OR VEGETABLES; SUCH KIWI, BANANAS, STONE FRUITS, OR CHESTNUTSNO LATEX RISK : DO YOU HAVE A PREVIOUS PERSONAL HISTORY OF MORE THAN NINE SURGERIES, SPINA BIFIDA, OR REPEATED CATHERIZATIONS? YES - PLEASE INDICATE : > 9 SURGERIES LATEX RISK : ARE YOU FREQUENTLY EXPOSED TO LATEX PRODUCTS IN YOUR OCCUPATION?NO DATE ASKED : 08/11/2019 BMI CARE GOAL FOLLOW-UP ABOVE NORMAL BMI FOLLOW-UPDIETARY MANAGEMENT EDUCATION, GUIDANCE, AND COUNSELING ALCOHOL SCREENING DID YOU HAVE A DRINK CONTAINING ALCOHOL IN THE PAST YEAR?YES HOW OFTEN DID YOU HAVE SIX OR MORE DRINKS ON ONE OCCASION IN THE PAST YEAR?NEVER (0 POINTS) HOW MANY DRINKS DID YOU HAVE ON A TYPICAL DAY WHEN YOU WERE DRINKING IN THE PAST YEAR?1 OR 2 (0 POINTS) HOW OFTEN DID YOU HAVE A DRINK CONTAINING ALCOHOL IN THE PAST YEAR?NEVER (0 POINTS) POINTS0 INTERPRETATIONNEGATIVE RECREATIONAL DRUG USE DRUG USE?NO CAFFEINE 1-2/DAY. SEXUAL HX HAD SEX IN THE LAST 12 MONTHS (VAGINAL, ORAL, OR ANAL)?NO HAVE YOU EVER HAD AN STD?NO HIV / HEP-C SCREENING HIV TEST OFFERED TO PATIENT:YES DATE OFFERED:03/04/2018 TEST ACCEPTED:NO HEP-C TEST OFFERED TO PATIENT:YES DATE OFFERED:03/04/2018 REASON:PATIENT DECLINED TEST ACCEPTED:NO REASON:PATIENT DECLINED BROCHURE PROVIDED TO PATIENTYES JEW [id number] SPIRITISM LANGUAGE LANGUAGES SPOKEN:TAIWANESE EDUCATION LEVEL OF EDUCATION:COLLEGE LEARNING BARRIERS / SPECIAL NEEDS CHANGE FROM LAST VISIT?NO BARRIERS TO LEARNING?NO HEARING IMPAIRED?NO VISION IMPAIRED?YES COGNITIVELY IMPAIRED?NO :CORRECTIVE LENSES CONTACTS READINESS TO LEARN?YES LEARNING PREFERENCES?NO LEARNING CAPABILITIES PRESENT?YES EMOTIONAL BARRIERS?NO SPECIAL DEVICES?NO PROFESSOR OF SPORT MANAGEMENT NEEDED?NO DOMESTIC VIOLENCE DO YOU FEEL SAFE IN YOUR ENVIRONMENT?YES 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 EXERCISE: NO REGULAR EXERCISE. MARITAL STATUS: .. OTHERS AT HOME: OTHER NON-RELATIVE. NEW PATIENT PAIN DIARY TODAY'S VISIT 08/11/2019 PATIENT DESCRIBES PAIN :ACHING, BURNING, IT COMES AND GOES, SHARP, TENDER, THROBBING, SORE, SHOOTING LEFT ARM NUMB FROM 0-10, WHAT LEVEL IS YOUR PAIN TODAY?4 PRECIPITATING FACTORS WEATHER,ACTIVITY ALLEVIATING FACTORS ICE, HEAT, MEDS, REST IMPACT ON FUNCTION LIMITS HER ON WHAT SHE IS ABLE TO DO PAIN CLINIC PFS, CLERGY, PUBLIC HEALTH REFERRALS HAS THE PATIENT BEEN EDUCATED REGARDING HIS/HER PLAN OF CARE?YES HAS THE PATIENT BEEN EDUCATED REGARDING PAIN, THE RISK FOR PAIN, THE IMPORTANCE OF EFFECTIVE PAIN MANAGEMENT, AND THE PAIN ASSESSMENT PROCESS?YES HOUSING: OWNS HOME. ADVANCE DIRECTIVE ADVANCE DIRECTIVE DISCUSSED WITH PATIENT:YES PT DOES NOT HAVE ANY ADVANCED DIRECTIVES ANS SHE DELCINES INFORMATION ON HCP AT THIS TIME HOSPITALIZATION/MAJOR DIAGNOSTIC PROCEDURE [facility] - [facility] 2012 [facility] [place] 12/2016 SURGERIES REVIEW OF SYSTEMS REVIEWED BY: PROVIDER: MARY NAVARRO-Samantha . CONSTITUTIONAL: ANY CHANGE IN YOUR MEDICAL CONDITION? PT STATES THAT SHE IS EXPERIENCING A FLARE FROM DIVERTICULITIS, JUST FINISHED TWO TEN DAY COURSES OF ANTIBIOTICS . CHILLS NO . FEVER NO . INFECTION: DO YOU HAVE NEW INFECTIONS? NO . DO YOU HAVE HISTORY OF MRSA? NO . MUSCULOSKELETAL: ANY NEW PATTERNS OF PAIN OR NUMBNESS? NO . GASTROENTEROLOGY: ANY NEW CHANGE IN BOWEL CONTROL? NO . GENITOURINARY: ANY NEW CHANGE IN BLADDER CONTROL? NO . IS THERE A CHANCE YOU COULD BE ? NO . HEMATOLOGY/LYMPH: DO YOU TAKE ANY BLOOD THINNERS? (FOR EXAMPLE- COUMADIN, PLAVIX, AGGRENOX, PLATEL, PRADAXA, OR XARELTO) NO . WHEN WAS YOUR LAST DOSE? DATE: TIME: . NEUROLOGY: HAVE YOU FALLEN IN THE PAST 12 MONTHS? NO . ANY NEW EXTREMITY NUMBNESS OR WEAKNESS? NO . CARDIOLOGY: DO YOU HAVE A PACEMAKER OR DEFIBRILLATOR? PACEMAKER . RESPIRATORY: HAVE YOU BEEN SICK IN THE PAST WEEK? NO . FEVER NO . FLU LIKE SYMPTOMS? NO . COUGH NO . INTEGUMENTARY: DO YOU HAVE ANY RASHES OR OPEN SORES? PT STATES THAT SHE EXPERIENCING RESIDUAL RASH LIKENPLANUS, PT STATES THAT IT IS A SKIN CONDITION THAT CAUSES HEAT RASH . ALLERGIC/IMMUNO: ARE YOU ALLERGIC TO IV DYE? NO . ANY NEW ALLERGIES? NO . PSYCHIATRIC: DO YOU HAVE THOUGHTS OF HURTING YOURSELF OR SOMEONE ELSE? NO . ARE YOU ABUSED, NEGLECTED, OR IN AN UNSAFE ENVIRONMENT? NO . ENDOCRINOLOGY: ARE YOU DIABETIC? NO . OTHER: DO YOU NEED ANY PRESCRIPTIONS? NO . IF YES, PLEASE LIST: ____ . ANY NEW PROBLEMS WITH YOUR MEDICATIONS? NO . WHEN DID YOU LAST EAT? ____ . WHEN DID YOU LAST DRINK? ____ . WHAT DID YOU LAST DRINK? ____ . NAME OF PERSON DRIVING YOU HOME? ____ . DO YOU HAVE ANY OTHER QUESTIONS OR CONCERNS PT STATES THAT SHE HAD A GOOD RESULT FROM CERVICAL FACET INJECTION, STILL EXPERIENCING PAIN RELIEF . VITAL SIGNS WT 211.2 LBS, HT 66 IN, BMI 34.08 INDEX, BP 126/77 MM HG, HR 84 /MIN, RR 18 /MIN, TEMP 97.6 F, OXYGEN SAT % 94%, SAFE IN ENV? 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 EXAMINATION GENERAL EXAMINATION: GENERALNO ACUTE DISTRESS, WELL NOURISHED AND HYDRATED. PSYCHAPPROPRIATE MOOD AND AFFECT . LUNGS:CLEAR TO AUSCULTATION BILATERALLY, NO WHEEZES, RHONCHI, RALES. HEART:NO MURMURS, REGULAR RATE AND RHYTHM. ASSESSMENTS CERVICAL RADICULOPATHY DUE TO INTERVERTEBRAL DISC DISORDER - M50.10 (PRIMARY) TREATMENT CERVICAL RADICULOPATHY DUE TO INTERVERTEBRAL DISC DISORDER CLINICAL NOTES: 59-YEAR-OLD FEMALE IN FOR POST [facility] FOLLOW-UP. GIVEN PRESENTING SYMPTOMS RECOMMEND FOLLOW-UP IN 2 MONTHS. PATIENT HAS EXPRESSED UNDERSTANDING OF AND WAS IN AGREEMENT WITH TREATMENT PLAN. GIVEN TIME TO ASK QUESTIONS AND EXPRESS CONCERNS. PROCEDURE CODES FA211 ESTABILISHED PATIENT [facility] FACILITY CHARGE DISPOSITION & COMMUNICATION FOLLOW UP 2 MONTHS (REASON: NECK PAIN) ELECTRONICALLY SIGNED BY MELANIE COOPER ON 08/18/2019 AT 10:48 AM EDT DISCLAIMER : THIS IS A VISIT SUMMARY EXTRACTED FROM THE [employer] CHART. IT IS NOT A COPY OF THE [employer] PROGRESS NOTE. JOOD
== END ==
LOC: M PAIN 13:00
PROVIDERS: ATTEND Family Medicine
DX: M50.10 Cervical disc disorder with radiculopathy, unspecified cervical region (principal)

== ENCOUNTER → 2019-11-08 | Outpatient (POV) | payer MEDICARE, OTHER ==
[~2019-11-08] MED LIST changes: +ASPI-546 PO; -ASPI1TAB15 PO; +ISOVUE-M 300 61% 15ML VIAL As Ordered ONE; +LIDOCAINE 1% SDV 30ML VIAL As Ordered ONE; +PANT40TA29; +PANT40TA29 PO; -PANT40TA3; -PANT40TA3 PO; +diazePAM 5 MG TAB As Ordered ONE; +diphenhydrAMINE 25MG CAP As Ordered ONE; +methylPREDNISolone SUSP 40MG/ML 1ML VIAL (DEPO MEDROL) As Ordered ONE; +oxyCODONE 5MG TAB As Ordered ONE
== END ==
LOC: M PAIN 11:30
PROVIDERS: ATTEND Anesthesiology
DX: M50.10 Cervical disc disorder with radiculopathy, unspecified cervical region (principal)
CPT/HCPCS: J1030; Q9967

== ENCOUNTER → 2019-11-08 | Outpatient (POV) | payer MEDICARE, OTHER ==
[~2019-11-08] MED LIST changes: -ISOVUE-M 300 61% 15ML VIAL As Ordered ONE; +ISOVUE-M 300 61% 15ML VIAL ONE; -LIDOCAINE 1% SDV 30ML VIAL As Ordered ONE; +LIDOCAINE 1% SDV 30ML VIAL ONE; -diazePAM 5 MG TAB As Ordered ONE; +diazePAM 5 MG TAB ONE; -diphenhydrAMINE 25MG CAP As Ordered ONE; +diphenhydrAMINE 25MG CAP ONE; -methylPREDNISolone SUSP 40MG/ML 1ML VIAL (DEPO MEDROL) As Ordered ONE; +methylPREDNISolone SUSP 40MG/ML 1ML VIAL (DEPO MEDROL) ONE; -oxyCODONE 5MG TAB As Ordered ONE
--- NOTE | 2019-12-16 10:31 | REP ---
CERVICOTHORACIC SPINE: LIMITED STUDY TWO-VIEWS HISTORY: Injection procedure for pain. 13 seconds of fluoroscopy time is reported. FINDINGS: A sequence of two last image hold fluoroscopically obtained spot radiographs of the cervicothoracic junction document needle position and contrast injection associated with injection procedure. MTDD
== END ==
LOC: M PAIN 10:00
PROVIDERS: ATTEND Anesthesiology
DX: M50.10 Cervical disc disorder with radiculopathy, unspecified cervical region (principal)
CPT/HCPCS: 77002; J1030; Q9967

== ENCOUNTER → 2019-11-23 | Outpatient (CLI) | payer MEDICARE, OTHER ==
[~2019-11-23] MED LIST changes: -ISOVUE-M 300 61% 15ML VIAL ONE; -LIDOCAINE 1% SDV 30ML VIAL ONE; -diazePAM 5 MG TAB ONE; -diphenhydrAMINE 25MG CAP ONE; -methylPREDNISolone SUSP 40MG/ML 1ML VIAL (DEPO MEDROL) ONE
== END ==
LOC: M PAIN 11:10
PROVIDERS: ATTEND Family Medicine
DX: M51.17 Intervertebral disc disorders with radiculopathy, lumbosacral region (principal)

== ENCOUNTER → 2019-12-23 | Outpatient (CLI) | payer MEDICARE, OTHER ==
--- NOTE | 2019-12-26 09:31 | ECWPNPC ---
PATIENT NAME: LEWIS HUGHES : 1960 GENDER: FEMALE VISIT DATE: 12/23/2019 DISCHARGE DATE: 12/23/19 1157 VISIT LOCKED DATE TIME: PHYSICIAN: COY SWEET PHYSICIAN PAGER NO: ACTIVE RESOURCE: COY SWEET REASON FOR APPOINTMENT 1. POST NINA HISTORY OF PRESENT ILLNESS DEPRESSION SCREENING: PHQ-2 (2015 EDITION) LITTLE INTEREST OR PLEASURE IN DOING THINGS?NOT AT ALL FEELING DOWN, DEPRESSED, OR HOPELESS?NOT AT ALL TOTAL SCORE0 59-YEAR-OLD FEMALE IN FOR POST NINA FOLLOW-UP. SHE FEELS THE PROCEDURE WAS SUCCESSFUL OVERALL RATING HER PAIN PREPROCEDURE AT A 3-4 OUT OF 10 AND POSTPROCEDURE AT A 3-4 OUT OF 10. WHEN ASKED PATIENT STATES THAT SHE FEELS THE PROCEDURE SUCCESSFUL BECAUSE IT PREVENT HER PAIN FROM SPIKING. GENERAL: -. FALL RISK SCREENING: SCREENING :NO FALLS REPORTED IN THE LAST YEAR PAIN SCREENING: PATIENT HAS A COMPLAINT OF ACUTE OR CHRONIC PAIN :YES LOCATION OF PAIN:NECK, UPPER BACK INTENSITY OF PAIN (SCALE OF 1 TO 10):5 WHAT DOES YOUR PAIN FEEL LIKE:BURNING, CONTINOUS DURATION:CONTINOUS, AWAKENS FROM SLEEP PAIN IS INCREASED BY:ACTIVITIES PAIN IS DECREASED BY:USE OF PAIN MEDICATIONS, OTHERS HEAT HELPS TO REDUCE PAIN. NURSING NOTE: -. PAIN CENTER INTAKE QUESTIONS: DO YOU HAVE A HISTORY OF MRSA? :NO DO YOU TAKE A BLOOD THINNERS? :NO DO YOU HAVE ANY BLEEDING DISORDERS? :NO ANY NEW NUMBNESS OR WEAKNESS IN YOUR LEGS OR ARMS? :YES TINGLING IN LEFT HAND ANY PACEMAKER,DEFIBRILLATOR, OR DORSAL COLUMN STIMULATOR? :YES PACEMAKER DO YOU HAVE ANY RASHES OR OPEN SORES? :NO ARE YOU ALLERGIC TO IV DYE? :NO ARE YOU DIABETIC? :NO ANY NEW PROBLEMS WITH YOUR MEDICATIONS? :NO HAVE YOU RECEIVED A VACCINE IN THE PAST 30 DAYS? :YES PT STATES SHE HAD A FLU SHOT LAST THURSDAY. DO YOU PLAN TO RECEIVE A VACCINE IN THE NEXT 21 DAYS? :NO DO YOU NEED ANY PRESCRIPTION? :NO DO YOU TAKE ANY IMMUNOSUPPRESSIVE MEDICATIONS? :NO IS THERE A CHANCE YOU COULD BE ? :NO ARE YOU BREAST FEEDING? :NO CURRENT MEDICATIONS TAKING DEXAMETHASONE 0.5 MG/5ML SOLUTION 5 ML ORALLY SWISH AND SPIT TWICE A DAY NEEDED TAKING MELATONIN 10 MG TABLET 1 TABLET UNDER THE TONGUE AND ALLOW TO DISSOLVE AT BEDTIME NEEDED WITH FOOD ORALLY BEFORE BEDTIME TAKING TYLENOL PM EXTRA STRENGTH 500-25 MG TABLET 1 TABLET AT BEDTIME NEEDED ORALLY ONCE A DAY TAKING VITAMIN D3 1000 UNIT CAPSULE 1 CAPSULE ORALLY ONCE A DAY TAKING LIDOCAINE VISCOUS 2 % SOLUTION 15 ML TO AFFECTED AREA NEEDED MOUTH/THROAT, SWISH AND SPIT EVERY 3 HRS TAKING ASPIRIN 81 81 MG TABLET DELAYED RELEASE 1 TABLET ORALLY TWICE A DAY TAKING TIZANIDINE HCL 4 MG TABLET 1 TABLET ORALLY TWICE A DAY TAKING ATORVASTATIN CALCIUM 20 MG TABLET 1 TABLET ORALLY ONCE A DAY TAKING EPIPEN 2-DARREN 0.3 MG/0.3ML SOLUTION AUTO-INJECTOR IM INJECTION DIRECTED INJECTION PRN TAKING TRAZODONE HCL 150 MG TABLET 1 TABLET AT BEDTIME ORALLY ONCE A DAY, NOTES: 07/27/19 TAKING METFORMIN HCL ER 500 MG TABLET EXTENDED RELEASE 24 HOUR 1 TABLET WITH EVENING MEAL ORALLY ONCE A DAY TAKING LOSARTAN POTASSIUM 50 MG TABLET 1 TABLET ORALLY ONCE A DAY TAKING PANTOPRAZOLE SODIUM 40 TABLET DELAYED RELEASE 1 TABLET ORALLY ONCE A DAY TAKING AMITRIPTYLINE HCL 50 TABLET 1 TAB ORALLY DAILY TAKING ALBUTEROL SULFATE HFA 108 (90 BASE) MCG/ACT AEROSOL SOLUTION 1-2 PUFFS NEEDED INHALATION EVERY 4 HRS TAKING FLUTICASONE PROPIONATE 50 MCG/ACT SUSPENSION 1 SPRAY IN EACH NOSTRIL NASALLY ONCE A DAY TAKING AZELASTINE HCL 137 MCG/SPRAY SOLUTION 1 PUFF IN EACH NOSTRIL NASALLY TWICE A DAY TAKING TRAMADOL HCL 50 MG TABLET 1 TAB ORALLY EVERY 6 HOURS NEEDED/MMD#4 TAKING BACLOFEN 10 MG TABLET 1 TABLET WITH FOOD OR MILK ORALLY BEFORE BEDTIME TAKING LORATADINE 10 TABLET 1 TABLET ONCE A DAY/PRN ORALLY 90 DAY(S) ORALLY DAILY TAKING HALOBETASOL PROPIONATE 0.05 % OINTMENT 1 APPLICATION EXTERNALLY BID TO AREAS ON BODY WITH RASH INCLUDING HANDS AND FEET (NOT FOR FACE, GROIN, ARMPITS) TAKING GLUCOSAMINE _ TABLET 1 TABLET ORALLY ONCE A DAY NOT-TAKING METRONIDAZOLE 500 MG TABLET 1 TABLET ORALLY THREE TIMES A DAY NOT-TAKING CIPROFLOXACIN HCL 500 MG TABLET 1 TABLET ORALLY EVERY 12 HRS NOT-TAKING PREDNISONE 20 MG TABLET 1 TABLET ORALLY THEE TIMES A DAY FOR A WEEK, THEN TWICE A DAY FOR 1 WEEK, AND THEN ONCE A DAY FOR 1 WEEK MEDICATION LIST REVIEWED AND RECONCILED WITH THE PATIENT PAST MEDICAL HISTORY CHRONIC TENSION-TYPE HEADACHE, 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 WITHOUT SCIATICA HISTORY OF TOBACCO ABUSE ESSENTIAL (PRIMARY) HYPERTENSION HIATAL HERNIA WITH GERD WITHOUT ESOPHAGITIS COLON POLYPS OTHER ALLERGIC RHINITIS HISTORY OF NEPHROLITHIASIS LIKEN PLEXUS PREDIABETES DDD OSTEOARTHRITIS DIVERTICULITIS PREDIABETES ALLERGIES IODINE: HIVES,SOB NSAIDS: ANAPHYLAXIS - ALLERGY LISINOPRIL: COUGH - SIDE EFFECTS HYBICLENS: HIVES - SIDE EFFECTS PENICILLIN (FOR ALLERGIES USE ONLY): ANAPHYLAXIS - ALLERGY SURGICAL HISTORY BACK 1989 BACK 1999 SINUS 2009 ENDOSCOPE & COLONOSCOPY FOR COLON POLYPS AND HIATAL HERNIA LOOP PLACED - CARDIO-REMOVED WHEN PACEMAKER INSERTED 01/2017 ROTATOR CUFF REPAIR RIGHT X 3 02/2017,07/27/2017/12/14/17 PACEMAKER 04/2017 TOTAL HYSTERCTOMY 1990 BILATERAL BREAST REDUCTIONS TONSILLECTOMY APPENDECTOMY CYSTECTOMIES FOR BREASTS MULTIPLE TIME FAMILY HISTORY FATHER: ALIVE, DIAGNOSED WITH UNSPECIFIED HEART DISEASE, DIABETES, UNSPECIFIED NONPSYCHOTIC MENTAL DISORDER FOLLOWING ORGANIC BRAIN DAMAGE MOTHER: , HYPERTENSION, UNSPECIFIED CEREBRAL ARTERY OCCLUSION WITH CEREBRAL INFARCTION PATERNAL GRAND FATHER: , UNSPECIFIED HEART DISEASE PATERNAL GRAND MOTHER: ALIVE, UNSPECIFIED HEART DISEASE MATERNAL GRAND FATHER: , OTHER MALIGNANT NEOPLASM OF UNSPECIFIED SITE MATERNAL GRAND MOTHER: , DIABETES 6 SISTER(S) - HEALTHY. 1 SON(S) , 1 DAUGHTER(S) - HEALTHY. 2 SISTERS PASSED FROM HEART ATTACKS, ALL HAVE HAD HEART ATTACKS, 2 SISTERS HAVE DMDENIES FAMILY HX OF PANCREATIC CANCER OR MELANOMA. SOCIAL HISTORY GENERAL: TOBACCO USE ARE YOU A:FORMER SMOKER HOW LONG HAS IT BEEN SINCE YOU LAST SMOKED?1-5 YEARS LATEX QUESTIONNAIRE LATEX ALLERGY : HAVE YOU EVER DEVELOPED ANY TYPE OF REACTION AFTER HANDLING LATEX PRODUCTS SUCH RUBBER GLOVES, CONDOMS, DIAPHRAGMS, BALLOONS, SOCKS, OR UNDERWEAR?NO HAS PROBLEMS WITH ADHESIVES ON TAPE LATEX ALLERGY : HAVE YOU EVER DEVELOPED ANY TYPE OF REACTION DURING OR AFTER DENTAL APPOINTMENT, VAGINAL/RECTAL EXAMINATION, SURGICAL PROCEDURE, OR ANY OTHER EXPOSURE?NO LATEX RISK : HAVE YOU EVER HAD ANY DIFFICULTY BREATHING OR HIVES AFTER EATING OR HANDLING ANY FRUITS, OR VEGETABLES; SUCH KIWI, BANANAS, STONE FRUITS, OR CHESTNUTSNO LATEX RISK : DO YOU HAVE A PREVIOUS PERSONAL HISTORY OF MORE THAN NINE SURGERIES, SPINA BIFIDA, OR REPEATED CATHERIZATIONS? YES - PLEASE INDICATE : > 9 SURGERIES LATEX RISK : ARE YOU FREQUENTLY EXPOSED TO LATEX PRODUCTS IN YOUR OCCUPATION?NO DATE ASKED : 12/23/2019 BMI CARE GOAL FOLLOW-UP ABOVE NORMAL BMI FOLLOW-UPDIETARY MANAGEMENT EDUCATION, GUIDANCE, AND COUNSELING ALCOHOL SCREENING DID YOU HAVE A DRINK CONTAINING ALCOHOL IN THE PAST YEAR?YES HOW OFTEN DID YOU HAVE SIX OR MORE DRINKS ON ONE OCCASION IN THE PAST YEAR?NEVER (0 POINTS) HOW MANY DRINKS DID YOU HAVE ON A TYPICAL DAY WHEN YOU WERE DRINKING IN THE PAST YEAR?1 OR 2 (0 POINTS) HOW OFTEN DID YOU HAVE A DRINK CONTAINING ALCOHOL IN THE PAST YEAR?NEVER (0 POINTS) POINTS0 INTERPRETATIONNEGATIVE RECREATIONAL DRUG USE DRUG USE?NO CAFFEINE 1-2/DAY. SEXUAL HX HAD SEX IN THE LAST 12 MONTHS (VAGINAL, ORAL, OR ANAL)?NO HAVE YOU EVER HAD AN STD?NO HIV / HEP-C SCREENING HIV TEST OFFERED TO PATIENT:YES DATE OFFERED:03/04/2018 TEST ACCEPTED:NO HEP-C TEST OFFERED TO PATIENT:YES DATE OFFERED:03/04/2018 REASON:PATIENT DECLINED TEST ACCEPTED:NO REASON:PATIENT DECLINED BROCHURE PROVIDED TO PATIENTYES [employer] [id number] DRUZE LANGUAGE LANGUAGES SPOKEN:CROATIAN EDUCATION LEVEL OF EDUCATION:COLLEGE LEARNING BARRIERS / SPECIAL NEEDS CHANGE FROM LAST VISIT?NO BARRIERS TO LEARNING?NO HEARING IMPAIRED?NO VISION IMPAIRED?YES COGNITIVELY IMPAIRED?NO :CORRECTIVE LENSES CONTACTS READINESS TO LEARN?YES LEARNING PREFERENCES?NO LEARNING CAPABILITIES PRESENT?YES EMOTIONAL BARRIERS?NO SPECIAL DEVICES?NO ELECTRONIC COMMERCE SPECIALIST NEEDED?NO DOMESTIC VIOLENCE DO YOU FEEL SAFE IN YOUR ENVIRONMENT?YES 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 EXERCISE: NO REGULAR EXERCISE. MARITAL STATUS: .. OTHERS AT HOME: OTHER NON-RELATIVE. NEW PATIENT PAIN DIARY TODAY'S VISIT 08/11/2019 PATIENT DESCRIBES PAIN :ACHING, BURNING, IT COMES AND GOES, SHARP, TENDER, THROBBING, SORE, SHOOTING LEFT ARM NUMB FROM 0-10, WHAT LEVEL IS YOUR PAIN TODAY?4 PRECIPITATING FACTORS WEATHER,ACTIVITY ALLEVIATING FACTORS ICE, HEAT, MEDS, REST IMPACT ON FUNCTION LIMITS HER ON WHAT SHE IS ABLE TO DO PAIN CLINIC PFS, CLERGY, PUBLIC HEALTH REFERRALS HAS THE PATIENT BEEN EDUCATED REGARDING HIS/HER PLAN OF CARE?YES HAS THE PATIENT BEEN EDUCATED REGARDING PAIN, THE RISK FOR PAIN, THE IMPORTANCE OF EFFECTIVE PAIN MANAGEMENT, AND THE PAIN ASSESSMENT PROCESS?YES HOUSING: OWNS HOME. ADVANCE DIRECTIVE ADVANCE DIRECTIVE DISCUSSED WITH PATIENT:YES PT DOES NOT HAVE ANY ADVANCED DIRECTIVES ANS SHE DELCINES INFORMATION ON HCP AT THIS TIME HOSPITALIZATION/MAJOR DIAGNOSTIC PROCEDURE [facility] 2012 [facility] 12/2016 SURGERIES REVIEW OF SYSTEMS CONSTITUTIONAL: ANY RECENT FEVER NO . CHILLS NO . WEIGHT CHANGE OF UNKNOWN REASONS NO . GASTROENTEROLOGY: NEW UNEXPLAINABLE CHANGES IN BOWEL CONTROL NO . CONSTIPATION NO . GENITOURINARY: ANY NEW CHANGE IN BLADDER CONTROL? NO . NEUROLOGY: NEW ONSET DIZZINESS OR NEUROLOGICAL CHANGES NOT MENTIONED NO . NEW NUMBNESS OR PAIN PATTERNS NOT MENTIONED AND PERTINENT TO TODAY'S VISIT NO . CARDIOLOGY: NEW CHEST PRESSURE NO . NEW CHEST PAIN NO . RESPIRATORY: UNEXPLAINABLE COUGH NO . NEW SHORTNESS OF BREATH NO . VITAL SIGNS WT 213.0 LBS, HT 66 IN, BMI 34.38 INDEX, BP 132/84 MM HG, HR 108 /MIN, RR 18 /MIN, TEMP 97.2 F, OXYGEN SAT % 96%, NA INITIALS AW 1110, REVIEWED BY: SAM NORIEGA CMA. EXAMINATION GENERAL EXAMINATION: GENERALNO ACUTE DISTRESS, WELL NOURISHED AND HYDRATED. PSYCHAPPROPRIATE MOOD AND AFFECT . NECK:POINT TENDER ALONG CERVICAL SPINE, SURROUNDING SKIN SHOWS NO ERYTHEMA, ECCHYMOSIS, INCREASED WARMTH, AND/OR SKIN ERUPTIONS NOTED. POSITIVE SPURLING'S TEST . LUNGS:CLEAR TO AUSCULTATION BILATERALLY, NO WHEEZES, RHONCHI, RALES. HEART:NO MURMURS, REGULAR RATE AND RHYTHM. ASSESSMENTS CERVICAL DISC DISORDER WITH RADICULOPATHY, UNSPECIFIED CERVICAL REGION - M50.10 (PRIMARY) TREATMENT CERVICAL DISC DISORDER WITH RADICULOPATHY, UNSPECIFIED CERVICAL REGION NOTES: NINA C7-T1. CLINICAL NOTES: 59-YEAR-OLD FEMALE IN FOR POST NINA FOLLOW-UP. GIVEN PRESENTING SYMPTOMS AND RESULTS OF PHYSICAL EXAMINATION RECOMMENDED NINA C7-T1 WITH POST PROCEDURAL FOLLOW-UP. PATIENT HAS EXPRESSED UNDERSTANDING OF AND WAS IN AGREEMENT WITH TREATMENT PLAN. GIVEN TIME TO ASK QUESTIONS AND EXPRESS CONCERNS. PREVENTIVE MEDICINE PAIN CLINIC TEACHING: THE PATIENT HAS BEEN EDUCATED REGARDING PAIN, THE RISK FOR PAIN, THE IMPORTANCE OF EFFECTIVE PAIN MANAGEMENT, AND THE PAIN ASSESSMENT PROCESS. : PRE- PROCEDURE INSTRUCTIONS AND TEACHING ON A CERVICAL EPIDURAL STEROID INJECTION ON C7-T1 WAS GIVEN TO THE PATIENT. THE PATIENT ACKNOWLEDGES UNDERSTANDING FOR HER PLAN OF CARE - SAM NORIEGA CMA PROCEDURE CODES FA211 ESTABILISHED PATIENT [facility] CHARGE DISPOSITION & COMMUNICATION FOLLOW UP POSTPROCEDURE (REASON: NINA C7-T1) ELECTRONICALLY SIGNED BY MELANIE COOPER ON 12/26/2019 AT 09:13 AM EDT DISCLAIMER : THIS IS A VISIT SUMMARY EXTRACTED FROM THE [employer] CHART. IT IS NOT A COPY OF THE [employer] PROGRESS NOTE. KIRAN
== END ==
LOC: M PAIN 11:00
PROVIDERS: ATTEND Family Medicine
DX: M50.10 Cervical disc disorder with radiculopathy, unspecified cervical region (principal); I10 Essential (primary) hypertension; K21.9 Gastro-esophageal reflux disease without esophagitis; R73.03 Prediabetes; Z95.0 Presence of cardiac pacemaker; Z87.891 Personal history of nicotine dependence; Z88.0 Allergy status to penicillin; Z88.3 Allergy status to other anti-infective agents; Z88.6 Allergy status to analgesic agent; Z88.8 Allergy status to other drugs, medicaments and biological substances; Z79.82 Long term (current) use of aspirin; Z79.84 Long term (current) use of oral hypoglycemic drugs; Z79.899 Other long term (current) drug therapy

== ENCOUNTER → 2019-12-29 | Outpatient (CLI) | payer MEDICARE, OTHER ==
[2019-12-29 11:59] LABS: HEMATOCRIT 37.7 % (36.0-47.0); HEMOGLOBIN 12.6 g/dl (12.0-15.5); MEAN CORPUSCULAR HEMOGLOBIN 31.7 pg (27.0-33.0); MEAN CORPUSCULAR HGB CONC 33.4 g/dl (32.0-36.5); MEAN CORPUSCULAR VOLUME 94.7 fl (80.0-96.0); PLATELET COUNT, AUTOMATED 246 10^3/uL (150-450); RED BLOOD COUNT 3.98 10^6/uL (4.00-5.40); WHITE BLOOD COUNT 3.9 10^3/uL (4.0-10.0)
[2019-12-29 12:22] LABS: ALBUMIN 3.6 GM/DL (3.2-5.2); ALT/SGPT 57 U/L (12-78); BILIRUBIN,TOTAL 0.3 MG/DL (0.2-1.0); BLOOD UREA NITROGEN 10 MG/DL (7-18); CALCIUM LEVEL 8.8 MG/DL (8.5-10.1); CARBON DIOXIDE LEVEL 29 MEQ/L (21-32); CHLORIDE LEVEL 107 MEQ/L (98-107); CHOLESTEROL LEVEL 155 MG/DL (<200); CHOLESTEROL RISK RATIO 1.937 (<5); CREATININE FOR GFR 0.68 MG/DL (0.55-1.30); GLOMERULAR FILTRATION RATE > 60.0 (>51); GLUCOSE, FASTING 90 MG/DL (70-100); HDL CHOLESTEROL 80 MG/DL (>40); LDL CHOLESTEROL 60 MG/DL (<100); NON-HDL-C 75 MG/DL; POTASSIUM SERUM 4.3 MEQ/L (3.5-5.1); SODIUM LEVEL 140 MEQ/L (136-145); TOTAL PROTEIN 6.7 GM/DL (6.4-8.2); TRIGLYCERIDES LEVEL 76 MG/DL (<150)
[2019-12-29 13:00] LABS: HEMOGLOBIN A1c 5.5 %
== END ==
LOC: M LAB 10:46
PROVIDERS: ATTEND Physician Assistant
DX: E78.2 Mixed hyperlipidemia (principal); I10 Essential (primary) hypertension; R06.02 Shortness of breath; Z79.899 Other long term (current) drug therapy

== ENCOUNTER → 2020-01-04 | Outpatient (CLI) | payer MEDICARE, OTHER | LOC: M LABSMTC 10:58 | PROVIDERS: ATTEND Anesthesiology | DX: Z11.59 Encounter for screening for other viral diseases (principal) | CPT/HCPCS: C9803; U0003 ==

== ENCOUNTER → 2020-01-09 | Outpatient (CLI) | payer MEDICARE, OTHER ==
[~2020-01-09] MED LIST changes: +ISOVUE-M 300 61% 15ML VIAL As Ordered ONE; +LIDOCAINE 1% SDV 30ML VIAL As Ordered ONE; +diazePAM 5 MG TAB As Ordered ONE; +diphenhydrAMINE 25MG CAP As Ordered ONE; +methylPREDNISolone SUSP 40MG/ML 1ML VIAL (DEPO MEDROL) As Ordered ONE; +oxyCODONE 5MG TAB As Ordered ONE
--- NOTE | 2020-01-09 11:42 | REP ---
INDICATION: CERVICAL EPIDURAL. COMPARISON: None. TECHNIQUE: Intraoperative fluoroscopic imaging using portable C-arm technique. FINDINGS: Epidural catheter and contrast overlies the lower cervical spine. Total fluoroscopic time 8.5 seconds. IMPRESSION: Epidural catheter overlying the lower cervical spine <Electronically signed by Aj Kwan > 01/09/20 0020
--- NOTE | 2020-01-16 16:19 | ECWPNPC ---
PATIENT NAME: LEWIS HUGHES : 1960 GENDER: FEMALE VISIT DATE: 01/09/2020 DISCHARGE DATE: 01/09/20 1147 VISIT LOCKED DATE TIME: PHYSICIAN: JAYME VALLES MD PHYSICIAN PAGER NO: ACTIVE RESOURCE: JAYME VALLES MD REASON FOR APPOINTMENT 1. NINA C7-T1 2. COVID BOOKED 01/03 @ 11:00 HISTORY OF PRESENT ILLNESS PAIN CENTER INTAKE QUESTIONS: DO YOU HAVE A HISTORY OF MRSA? :NO DO YOU TAKE A BLOOD THINNERS? :NO DO YOU HAVE ANY BLEEDING DISORDERS? :NO ANY NEW NUMBNESS OR WEAKNESS IN YOUR LEGS OR ARMS? :NO ANY PACEMAKER,DEFIBRILLATOR, OR DORSAL COLUMN STIMULATOR? :YES PACEMAKER DO YOU HAVE ANY RASHES OR OPEN SORES? :NO ARE YOU ALLERGIC TO IV DYE? :NO ARE YOU DIABETIC? :NO ANY NEW PROBLEMS WITH YOUR MEDICATIONS? :NO HAVE YOU RECEIVED A VACCINE IN THE PAST 30 DAYS? :YES LAST WEEK OF IF SO WHAT VACCINE AND WHEN? FLU [facility] DO YOU PLAN TO RECEIVE A VACCINE IN THE NEXT 21 DAYS? :NO DO YOU TAKE ANY IMMUNOSUPPRESSIVE MEDICATIONS? :NO ANY HISTORY OF SEIZURES? :NO ANY HISTORY OF CARDIAC ISSUES OR EVENTS? :YES PACEMAKER DUE TO SICK SINUS SYNDROME DO YOU HAVE SLEEP APNEA? :NO ANY RECENT HEAD INJURY? :NO DO YOU HAVE ANY NEW INFECTIONS? :NO IS THERE A CHANCE YOU COULD BE ? :NO ARE YOU BREAST FEEDING? :NO WHEN DID YOU LAST EAT? : -[id number] WHEN DID YOU LAST DRINK? : 0600 01-09-20 WHAT DID YOU LAST DRINK? : -WATER NAME OF PERSON DRIVING YOU HOME? : NICOLE (SISTER) DO YOU HAVE ANY OTHER QUESTIONS OR CONCERNS? : - GENERAL: -. FALL RISK SCREENING: SCREENING :NO FALLS REPORTED IN THE LAST YEAR PAIN SCREENING: PATIENT HAS A COMPLAINT OF ACUTE OR CHRONIC PAIN :YES LOCATION OF PAIN: NECK, UPPER BACK, RIGHT LEG INTENSITY OF PAIN (SCALE OF 1 TO 10):7 WHAT DOES YOUR PAIN FEEL LIKE:BURNING, STABBING, THROBBING DURATION:CONTINOUS, INTERMITTENT, AWAKENS FROM SLEEP PAIN IS INCREASED BY:ACTIVITIES, PROLONGED STANDING PLAN/GOALS/TREATMENT/INTERVENTION/FOLLOW UP:SEE PLAN NURSING NOTE: -. CURRENT MEDICATIONS TAKING MELATONIN 10 MG TABLET 1 TABLET UNDER THE TONGUE AND ALLOW TO DISSOLVE AT BEDTIME NEEDED WITH FOOD ORALLY BEFORE BEDTIME, NOTES: 01-08-202099 TAKING TYLENOL PM EXTRA STRENGTH 500-25 MG TABLET 1 TABLET AT BEDTIME NEEDED ORALLY ONCE A DAY, NOTES: 01-08-202099 TAKING VITAMIN D3 1000 UNIT CAPSULE 1 CAPSULE ORALLY ONCE A DAY, NOTES: 01-09-20699 TAKING LIDOCAINE VISCOUS 2 % SOLUTION 15 ML TO AFFECTED AREA NEEDED MOUTH/THROAT, SWISH AND SPIT EVERY 3 HRS, NOTES: NEEDED TAKING ASPIRIN 81 81 MG TABLET DELAYED RELEASE 1 TABLET ORALLY TWICE A DAY, NOTES: 01-08-20799 TAKING TIZANIDINE HCL 4 MG TABLET 1 TABLET ORALLY TWICE A DAY, NOTES: 01-08-20 TAKING ATORVASTATIN CALCIUM 20 MG TABLET 1 TABLET ORALLY ONCE A DAY, NOTES: 01-08-202099 TAKING EPIPEN 2-DARREN 0.3 MG/0.3ML SOLUTION AUTO-INJECTOR IM INJECTION DIRECTED INJECTION PRN TAKING LOSARTAN POTASSIUM 50 MG TABLET 1 TABLET ORALLY ONCE A DAY, NOTES: 01-08-20899 TAKING AMITRIPTYLINE HCL 50 TABLET 1 TAB ORALLY DAILY, NOTES: 01-08-20899 TAKING FLUTICASONE PROPIONATE 50 MCG/ACT SUSPENSION 1 SPRAY IN EACH NOSTRIL NASALLY ONCE A DAY, NOTES: 01-08-20899 TAKING AZELASTINE HCL 137 MCG/SPRAY SOLUTION 1 PUFF IN EACH NOSTRIL NASALLY TWICE A DAY, NOTES: 01-08-20799 TAKING TRAMADOL HCL 50 MG TABLET 1 TAB ORALLY EVERY 6 HOURS NEEDED/MMD#4, NOTES: 01-08-202099 TAKING BACLOFEN 10 MG TABLET 1 TABLET WITH FOOD OR MILK ORALLY BEFORE BEDTIME, NOTES: 01-08-201799 TAKING LORATADINE 10 TABLET 1 TABLET ONCE A DAY/PRN ORALLY 90 DAY(S) ORALLY DAILY, NOTES: 01-08-20899 TAKING HALOBETASOL PROPIONATE 0.05 % OINTMENT 1 APPLICATION EXTERNALLY BID TO AREAS ON BODY WITH RASH INCLUDING HANDS AND FEET (NOT FOR FACE, GROIN, ARMPITS), NOTES: NOT LATELY TAKING PANTOPRAZOLE SODIUM 40 TABLET DELAYED RELEASE 1 TABLET ORALLY ONCE A DAY, NOTES: 01-08-20899 TAKING ALBUTEROL SULFATE HFA 108 (90 BASE) MCG/ACT AEROSOL SOLUTION 1-2 PUFFS NEEDED INHALATION EVERY 4 HRS, NOTES: 01-06-20899 TAKING METFORMIN HCL ER 500 MG TABLET EXTENDED RELEASE 24 HOUR 1 TABLET WITH EVENING MEAL ORALLY ONCE A DAY, NOTES: 01-08-20 0900 TAKING TRAZODONE HCL 150 MG TABLET 1 TABLET AT BEDTIME ORALLY ONCE A DAY, NOTES: 01-08-20 2100 NOT-TAKING DEXAMETHASONE 0.5 MG/5ML SOLUTION 5 ML ORALLY SWISH AND SPIT TWICE A DAY NEEDED NOT-TAKING GLUCOSAMINE _ TABLET 1 TABLET ORALLY ONCE A DAY NOT-TAKING METRONIDAZOLE 500 MG TABLET 1 TABLET ORALLY THREE TIMES A DAY NOT-TAKING CIPROFLOXACIN HCL 500 MG TABLET 1 TABLET ORALLY EVERY 12 HRS NOT-TAKING PREDNISONE 20 MG TABLET 1 TABLET ORALLY THEE TIMES A DAY FOR A WEEK, THEN TWICE A DAY FOR 1 WEEK, AND THEN ONCE A DAY FOR 1 WEEK MEDICATION LIST REVIEWED AND RECONCILED WITH THE PATIENT PAST MEDICAL HISTORY CHRONIC TENSION-TYPE HEADACHE, 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 WITHOUT SCIATICA HISTORY OF TOBACCO ABUSE ESSENTIAL (PRIMARY) HYPERTENSION HIATAL HERNIA WITH GERD WITHOUT ESOPHAGITIS COLON POLYPS OTHER ALLERGIC RHINITIS HISTORY OF NEPHROLITHIASIS LIKEN PLEXUS PREDIABETES DDD OSTEOARTHRITIS DIVERTICULITIS PREDIABETES ALLERGIES IODINE: HIVES,SOB NSAIDS: ANAPHYLAXIS - ALLERGY LISINOPRIL: COUGH - SIDE EFFECTS HYBICLENS: HIVES - SIDE EFFECTS PENICILLIN (FOR ALLERGIES USE ONLY): ANAPHYLAXIS - ALLERGY SURGICAL HISTORY BACK 1989 BACK 1999 SINUS 2009 ENDOSCOPE & COLONOSCOPY FOR COLON POLYPS AND HIATAL HERNIA LOOP PLACED - CARDIO-REMOVED WHEN PACEMAKER INSERTED 01/2017 ROTATOR CUFF REPAIR RIGHT X 3 02/2017,07/27/2017/12/14/17 PACEMAKER 04/2017 TOTAL HYSTERCTOMY 1990 BILATERAL BREAST REDUCTIONS TONSILLECTOMY APPENDECTOMY CYSTECTOMIES FOR BREASTS MULTIPLE TIME FAMILY HISTORY FATHER: ALIVE, DIAGNOSED WITH DIABETES, UNSPECIFIED NONPSYCHOTIC MENTAL DISORDER FOLLOWING ORGANIC BRAIN DAMAGE, UNSPECIFIED HEART DISEASE MOTHER: , HYPERTENSION, UNSPECIFIED CEREBRAL ARTERY OCCLUSION WITH CEREBRAL INFARCTION PATERNAL GRAND FATHER: , UNSPECIFIED HEART DISEASE PATERNAL GRAND MOTHER: ALIVE, UNSPECIFIED HEART DISEASE MATERNAL GRAND FATHER: , OTHER MALIGNANT NEOPLASM OF UNSPECIFIED SITE MATERNAL GRAND MOTHER: , DIABETES 6 SISTER(S) - HEALTHY. 1 SON(S) , 1 DAUGHTER(S) - HEALTHY. 2 SISTERS PASSED FROM HEART ATTACKS, ALL HAVE HAD HEART ATTACKS, 2 SISTERS HAVE DMDENIES FAMILY HX OF PANCREATIC CANCER OR MELANOMA. SOCIAL HISTORY GENERAL: TOBACCO USE ARE YOU A:FORMER SMOKER HOW LONG HAS IT BEEN SINCE YOU LAST SMOKED?1-5 YEARS LATEX QUESTIONNAIRE LATEX ALLERGY : HAVE YOU EVER DEVELOPED ANY TYPE OF REACTION AFTER HANDLING LATEX PRODUCTS SUCH RUBBER GLOVES, CONDOMS, DIAPHRAGMS, BALLOONS, SOCKS, OR UNDERWEAR?NO HAS PROBLEMS WITH ADHESIVES ON TAPE LATEX ALLERGY : HAVE YOU EVER DEVELOPED ANY TYPE OF REACTION DURING OR AFTER DENTAL APPOINTMENT, VAGINAL/RECTAL EXAMINATION, SURGICAL PROCEDURE, OR ANY OTHER EXPOSURE?NO DATE ASKED : 12/23/2019 LATEX RISK : HAVE YOU EVER HAD ANY DIFFICULTY BREATHING OR HIVES AFTER EATING OR HANDLING ANY FRUITS, OR VEGETABLES; SUCH KIWI, BANANAS, STONE FRUITS, OR CHESTNUTSNO LATEX RISK : DO YOU HAVE A PREVIOUS PERSONAL HISTORY OF MORE THAN NINE SURGERIES, SPINA BIFIDA, OR REPEATED CATHERIZATIONS? YES - PLEASE INDICATE : > 9 SURGERIES LATEX RISK : ARE YOU FREQUENTLY EXPOSED TO LATEX PRODUCTS IN YOUR OCCUPATION?NO BMI CARE GOAL FOLLOW-UP ABOVE NORMAL BMI FOLLOW-UPDIETARY MANAGEMENT EDUCATION, GUIDANCE, AND COUNSELING ALCOHOL SCREENING DID YOU HAVE A DRINK CONTAINING ALCOHOL IN THE PAST YEAR?YES HOW OFTEN DID YOU HAVE SIX OR MORE DRINKS ON ONE OCCASION IN THE PAST YEAR?NEVER (0 POINTS) HOW MANY DRINKS DID YOU HAVE ON A TYPICAL DAY WHEN YOU WERE DRINKING IN THE PAST YEAR?1 OR 2 (0 POINTS) HOW OFTEN DID YOU HAVE A DRINK CONTAINING ALCOHOL IN THE PAST YEAR?NEVER (0 POINTS) POINTS0 INTERPRETATIONNEGATIVE RECREATIONAL DRUG USE DRUG USE?NO CAFFEINE 1-2/DAY. SEXUAL HX HAD SEX IN THE LAST 12 MONTHS (VAGINAL, ORAL, OR ANAL)?NO HAVE YOU EVER HAD AN STD?NO HIV / HEP-C SCREENING HIV TEST OFFERED TO PATIENT:YES DATE OFFERED:03/04/2018 TEST ACCEPTED:NO HEP-C TEST OFFERED TO PATIENT:YES DATE OFFERED:03/04/2018 REASON:PATIENT DECLINED TEST ACCEPTED:NO REASON:PATIENT DECLINED BROCHURE PROVIDED TO PATIENTYES JAIN [id number] EPISCOPALIAN LANGUAGE LANGUAGES SPOKEN:ICELANDIC EDUCATION LEVEL OF EDUCATION:COLLEGE LEARNING BARRIERS / SPECIAL NEEDS CHANGE FROM LAST VISIT?NO BARRIERS TO LEARNING?NO HEARING IMPAIRED?NO VISION IMPAIRED?YES COGNITIVELY IMPAIRED?NO :CORRECTIVE LENSES CONTACTS READINESS TO LEARN?YES LEARNING PREFERENCES?NO LEARNING CAPABILITIES PRESENT?YES EMOTIONAL BARRIERS?NO SPECIAL DEVICES?NO 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 EXERCISE: NO REGULAR EXERCISE. MARITAL STATUS: .. OTHERS AT HOME: OTHER NON-RELATIVE. NEW PATIENT PAIN DIARY TODAY'S VISIT 08/11/2019, PATIENT DESCRIBES PAIN : ACHING, BURNING, IT COMES AND GOES, SHARP, TENDER, THROBBING, SORE, SHOOTING LEFT ARM NUMB, FROM 0-10, WHAT LEVEL IS YOUR PAIN TODAY? 4, PRECIPITATING FACTORS WEATHER,ACTIVITY, ALLEVIATING FACTORS ICE, HEAT, MEDS, REST, IMPACT ON FUNCTION LIMITS HER ON WHAT SHE IS ABLE TO DO. PAIN CLINIC PFS, CLERGY, PUBLIC HEALTH REFERRALS HAS THE PATIENT BEEN EDUCATED REGARDING HIS/HER PLAN OF CARE?YES HAS THE PATIENT BEEN EDUCATED REGARDING PAIN, THE RISK FOR PAIN, THE IMPORTANCE OF EFFECTIVE PAIN MANAGEMENT, AND THE PAIN ASSESSMENT PROCESS?YES HOUSING: OWNS HOME. ADVANCE DIRECTIVE ADVANCE DIRECTIVE DISCUSSED WITH PATIENT:YES PT DOES NOT HAVE ANY ADVANCED DIRECTIVES ANS SHE DELCINES INFORMATION ON HCP AT THIS TIME HOSPITALIZATION/MAJOR DIAGNOSTIC PROCEDURE [facility] 2011 [facility] 12/2016 SURGERIES VITAL SIGNS WT 215.8 LBS, HT 66 IN, BMI 34.83 INDEX, BP 131/83 MM HG, HR 92 /MIN, RR 18 /MIN, TEMP 98.2 F, OXYGEN SAT % 92%, SAFE IN ENV? (Y/N) Y, NA INITIALS SC 09:34, REVIEWED BY: KG. EXAMINATION GENERAL EXAMINATION: THE PATIENT IS ALERT, ORIENTED TIMES THREE AND COOPERATIVE. HEART SHOWS REGULAR RHYTHM, NO MURMURS AND NO GALLOPS. LUNGS ARE CLEAR TO AUSCULTATION. ASSESSMENTS CERVICAL DISC DISORDER WITH RADICULOPATHY, UNSPECIFIED CERVICAL REGION - M50.10 (PRIMARY) TREATMENT CERVICAL DISC DISORDER WITH RADICULOPATHY, UNSPECIFIED CERVICAL REGION [facility] FLUORO GUIDE SPINE INJECTION (PAIN)[id number] MEDICATION: BENADRYL TAB 25MG ORALLY (DIPHENHYDRAMINE)[id number] 01/09/2020 10:29:59 AM > VERIFIED. BETH LINDO 01/09/2020 10:33:13 AM > GIVEN LOT #[id number] MEDICATION: VALIUM TAB 5MG ORALLY (DIAZEPAM)SUZY FRYE 01/09/2020 10:30:17 AM > VERIFIED. BETH LINDO 01/09/2020 10:33:50 AM > GIVEN LOT [id number] EXP 05/2020 MEDICATION: OXYCODONE HCL TAB 5MG ORALLY SUZY FRYE 01/09/2020 10:30:34 AM > VERIFIED. BETH LINDO 01/09/2020 10:34:42 AM > GIVEN LOT #[id number] SALINE BETH AVILA 01/09/2020 11:49:48 AM > DONE PER ORDER OTHERS CLINICAL NOTES: PAT COMPLETED 01/06/20 1430. PROCEDURES PAIN NURSING RECORD PRE-PROCEDURE IV SITE RIGHT ANTECUBITAL, IV STARTED # 22, IV STARTED BY: Vazquez LINDO RN, IV ATTEMPTS 2 N VIRIDIANA CADE, PRE-PROCEDURE ORAL MEDICATIONS 25 MG BENADRYL 5 MG VALIUM AND 5MG OXYCODONE GIVEN PROCEDURE IN ROOM 1105, PHYSICIAN IN ROOM 1115, START 1118, FINISH 1124, PHYSICIAN OUT OF ROOM 1126, OUT OF ROOM 1132, STEROID DEXAMETHASONE, O2 RA, ECG OTHER PACED, PATIENT SHIELDED YES, SAFETY STRAP YES, PREP CHLOROPREP ALYCE CADE, IV INFUSED N/A, DRESSING TEGADERM PLACED BY DR VALLES LOC: 1. ALERT, ORIENTED, BETH LINDO 01/09/2020 1105 AM > RESP: 1. REGULAR, NO DYSPNEA, BETH LINDO 01/09/2020 11:05 COLOR: 1. PINKGUICHO KAREN 01/09/2020 11:05 SKIN: 1. WARM, DRY, BETH LINDO 12/26/19 POSITION: 1. PRONEGUICHO KAREN 01/09/2020 11:05 VITALS: 1105... 128/89 80 9% 18 1120 126/65 81 94% 18 1123 154/92 83 95% PT EXPERIENCING INCREASED PAIN DISCHARGE: POST PAIN 4, DRESSING SITE DRY AND INTACT, IV DISCONTINUED, SITE CLEAR, CATHETER INTACT, GAIT STEADY, TEACHING COMPLETED, PATIENT ACKNOWLEDGES UNDERSTANDING YES, PATIENT DISCHARGED AT 1144 PN CERVICAL EPIDURAL PRE PROCEDURE DIAGNOSIS CERVICAL DISC DISORDER WITH RADICULOPATHY POST PROCEDURE DIAGNOSIS CERVICAL DISC DISORDER WITH RADICULOPATHY PROCEDURE CERVICAL EPIDURAL STEROID INJECTION UNDER FLUOROSCOPIC GUIDANCE SURGEON DR. JAYME VALLES AUTOMOBILE DAMAGE APPRAISER NONE ANESTHESIA LOCAL PRE PROCEDURE NOTE THE PATIENT HAS A HISTORY OF CHRONIC CERVICAL PAIN. I EVALUATED THE PATIENT AND REVIEWED THE CHART. I WENT OVER THE RISKS, ALTERNATIVES, AND BENEFITS ASSOCIATED WITH THIS PROCEDURE. I DISCUSSED THAT THE USE OF STEROIDS MAY CONTRIBUTE TO IMMUNOSUPPRESSION OF THE PATIENT'S BODY AGAINST INFECTIONS SUCH COVID-19. THE PATIENT IS AWARE OF THE POTENTIAL COMPLICATIONS ASSOCIATED WITH THIS VIRUS, INCLUDING, BUT NOT LIMITED TO, . THE PATIENT WOULD LIKE TO PROCEED AND GIVE CONSENT TO PERFORMED THE PROCEDURE. THE PATIENT DENIES UNEXPLAINABLE WEIGHT LOSS, FEVER, CHILLS, OR NEW CHANGES IN URINARY OR BOWEL CONTROL. THE PATIENT IS COVID-19 NEGATIVE DESCRIPTION OF PROCEDURE THE PATIENT WAS BROUGHT TO THE PROCEDURE ROOM AND PLACED IN THE PRONE POSITION. THE CERVICOTHORACIC AREA WAS CLEANED WITH CHLORAPREP SOLUTION AND DRAPED ASEPTICALLY. THE PATIENT IS ALLERGIC TO BETADINE. THE PROCEDURE WAS DONE UNDER STERILE CONDITIONS. A TIMEOUT WAS PERFORMED WHERE LATERALITY AND THE SITE OF THE PROCEDURE WERE CHECKED AND CONFIRMED WITH EVERYONE IN THE ROOM. UNDER FLUOROSCOPIC GUIDANCE, THE TARGET WAS SELECTED AT THE INTERLAMINAR LEVEL OF C7-T1. I CONFIRMED AGAIN WITH EVERYONE IN THE ROOM THE LATERALITY OF THE TARGET AT 1119. LIDOCAINE WAS USED TO NUMB THE SKIN AND THE SUBCUTANEOUS TISSUE BELOW IT. EPIDURAL TUOHY NEEDLE, 17-GAUGE, WAS ADVANCED UNDER FLUOROSCOPIC GUIDANCE AND FOLLOWING PATIENT FEEDBACK UNTIL THE EPIDURAL SPACE WAS REACHED 6 CM DEEP INTO THE SKIN BY THE LOSS OF RESISTANCE TECHNIQUE. ISOVUE-M DYE 30%, 0.25 ML, WAS INJECTED SHOWING ADEQUATE SPREAD OF THE DYE. THEN, A SOLUTION OF 3 ML OF NORMAL SALINE WITH DEPO-MEDROL 80 MG WAS INJECTED SLOWLY FOLLOWING PATIENT FEEDBACK. THE MEDICATIONS WERE VERIFIED WITH THE NURSE. THERE WAS NO EVIDENCE OF BLOOD, PARESTHESIA OR CEREBROSPINAL FLUID DURING THE PROCEDURE. ESTIMATED BLOOD LOSS WAS LESS THAN 5 ML. THE PATIENT WAS SENT TO THE RECOVERY ROOM. THE PATIENT WAS MOVING THE EXTREMITIES AND DOING WELL. THERE WERE NO COMPLICATIONS DURING THE PROCEDURE. FLUOROSCOPY TIME WAS 8 SECONDS POST PROCEDURE NOTE THE PATIENT WILL BE SEEN IN A FOLLOW UP IN THE NEXT FEW WEEKS. I AM LOOKING FOR LONG LASTING RELIEF FOR THE PATIENT WITH THIS INTERVENTION. INSTRUCTIONS WERE GIVEN, QUESTIONS WERE ANSWERED, AND THE PATIENT EXPRESSED UNDERSTANDING AND AGREES WITH THE PLAN. I, LEON LOCKETT, DOCUMENTED THE ABOVE INFORMATION ACTING A SCRIBE FOR DR. VALLES. I HAVE REVIEWED THE ABOVE DOCUMENT, WRITTEN BY LEON LOCKETT, PHOTOGRAPHY MANAGER, AND I VERIFY THAT IT IS ACCURATE PROCEDURE CODES 45853 CERVICAL/THORACIC W/ IMAGING DISPOSITION & COMMUNICATION FOLLOW UP FOLLOW UP WITH NAPPER FIXER (REASON: POST NINA) ELECTRONICALLY SIGNED BY JAYME VALLES MD, MD ON 01/16/2020 AT 01:13 PM EDT DISCLAIMER : THIS IS A VISIT SUMMARY EXTRACTED FROM THE [employer] CHART. IT IS NOT A COPY OF THE [employer] PROGRESS NOTE. KIRAN
== END ==
LOC: M PAIN 09:30
PROVIDERS: ATTEND Anesthesiology
DX: M50.10 Cervical disc disorder with radiculopathy, unspecified cervical region (principal); G44.229 Chronic tension-type headache, not intractable; M54.5 Low back pain; I10 Essential (primary) hypertension; K44.9 Diaphragmatic hernia without obstruction or gangrene; K21.9 Gastro-esophageal reflux disease without esophagitis; R73.03 Prediabetes; J30.9 Allergic rhinitis, unspecified; Z87.891 Personal history of nicotine dependence; Z79.82 Long term (current) use of aspirin; Z79.891 Long term (current) use of opiate analgesic; Z79.899 Other long term (current) drug therapy; Z88.6 Allergy status to analgesic agent; Z88.0 Allergy status to penicillin; Z88.8 Allergy status to other drugs, medicaments and biological substances
CPT/HCPCS: 62321; J1030; Q9967

== ENCOUNTER → 2020-01-30 | Outpatient (CLI) | payer MEDICARE, OTHER ==
[~2020-01-30] MED LIST changes: -ISOVUE-M 300 61% 15ML VIAL As Ordered ONE; -LIDOCAINE 1% SDV 30ML VIAL As Ordered ONE; -diazePAM 5 MG TAB As Ordered ONE; -diphenhydrAMINE 25MG CAP As Ordered ONE; -methylPREDNISolone SUSP 40MG/ML 1ML VIAL (DEPO MEDROL) As Ordered ONE; -oxyCODONE 5MG TAB As Ordered ONE
--- NOTE | 2020-02-01 02:34 | ECWPNPC ---
PATIENT NAME: LWEIS HUGHES : 1960 GENDER: FEMALE VISIT DATE: 01/30/2020 DISCHARGE DATE: 01/30/20 1039 VISIT LOCKED DATE TIME: PHYSICIAN: COY SWEET PHYSICIAN PAGER NO: ACTIVE RESOURCE: COY SWEET REASON FOR APPOINTMENT 1. POST NINA HISTORY OF PRESENT ILLNESS GENERAL: 60-YEAR-OLD FEMALE IN FOR POST NINA FOLLOW-UP. SHE RATES HER PAIN PREPROCEDURE AT A 4-5 OUT OF 10 AND POSTPROCEDURE AT A 3-4 OUT OF 10. SHE RATES HER PAIN CURRENTLY AT A 3 OUT OF 10 AND DESCRIBES IT ACHING AND NAGGING. FALL RISK SCREENING: SCREENING :NO FALLS REPORTED IN THE LAST YEAR PAIN SCREENING: PATIENT HAS A COMPLAINT OF ACUTE OR CHRONIC PAIN :YES LOCATION OF PAIN:NECK, OTHER: LEFT ARM INTENSITY OF PAIN (SCALE OF 1 TO 10):3 WHAT DOES YOUR PAIN FEEL LIKE:ACHING, OTHER NAGGING ACHE DURATION:CONTINOUS, AWAKENS FROM SLEEP WORSE IN THE EVENING PAIN IS INCREASED BY:ACTIVITIES PAIN IS DECREASED BY:USE OF PAIN MEDICATIONS, OTHERS HEAT, ICE NURSING NOTE: - -. PAIN CENTER INTAKE QUESTIONS: DO YOU HAVE A HISTORY OF MRSA? :NO DO YOU TAKE A BLOOD THINNERS? :NO DO YOU HAVE ANY BLEEDING DISORDERS? :NO ANY NEW NUMBNESS OR WEAKNESS IN YOUR LEGS OR ARMS? :NO ANY PACEMAKER,DEFIBRILLATOR, OR DORSAL COLUMN STIMULATOR? :YES PACER DO YOU HAVE ANY RASHES OR OPEN SORES? :NO ARE YOU ALLERGIC TO IV DYE? :NO ARE YOU DIABETIC? :NO ANY NEW PROBLEMS WITH YOUR MEDICATIONS? :NO HAVE YOU RECEIVED A VACCINE IN THE PAST 30 DAYS? :NO DO YOU PLAN TO RECEIVE A VACCINE IN THE NEXT 21 DAYS? :NO DO YOU NEED ANY PRESCRIPTION? :NO DO YOU TAKE ANY IMMUNOSUPPRESSIVE MEDICATIONS? :NO ANY HISTORY OF SEIZURES? :NO ANY HISTORY OF CARDIAC ISSUES OR EVENTS? :YES PACEMAKER DUE TO SICK SINUS SYNDROME DO YOU HAVE SLEEP APNEA? :NO ANY RECENT HEAD INJURY? :NO DO YOU HAVE ANY NEW INFECTIONS? :NO IS THERE A CHANCE YOU COULD BE ? :NO ARE YOU BREAST FEEDING? :NO DO YOU HAVE ANY OTHER QUESTIONS OR CONCERNS? : - CURRENT MEDICATIONS TAKING MELATONIN 10 MG TABLET 1 TABLET UNDER THE TONGUE AND ALLOW TO DISSOLVE AT BEDTIME NEEDED WITH FOOD ORALLY BEFORE BEDTIME TAKING TYLENOL PM EXTRA STRENGTH 500-25 MG TABLET 1 TABLET AT BEDTIME NEEDED ORALLY ONCE A DAY TAKING VITAMIN D3 1000 UNIT CAPSULE 1 CAPSULE ORALLY ONCE A DAY TAKING LIDOCAINE VISCOUS 2 % SOLUTION 15 ML TO AFFECTED AREA NEEDED MOUTH/THROAT, SWISH AND SPIT EVERY 3 HRS, NOTES: NEEDED TAKING ASPIRIN 81 81 MG TABLET DELAYED RELEASE 1 TABLET ORALLY TWICE A DAY TAKING TIZANIDINE HCL 4 MG TABLET 1 TABLET ORALLY TWICE A DAY TAKING ATORVASTATIN CALCIUM 20 MG TABLET 1 TABLET ORALLY ONCE A DAY TAKING EPIPEN 2-DARREN 0.3 MG/0.3ML SOLUTION AUTO-INJECTOR IM INJECTION DIRECTED INJECTION PRN TAKING LOSARTAN POTASSIUM 50 MG TABLET 1 TABLET ORALLY ONCE A DAY TAKING AMITRIPTYLINE HCL 50 TABLET 1 TAB ORALLY DAILY TAKING AZELASTINE HCL 137 MCG/SPRAY SOLUTION 1 PUFF IN EACH NOSTRIL NASALLY TWICE A DAY TAKING TRAMADOL HCL 50 MG TABLET 1 TAB ORALLY EVERY 6 HOURS NEEDED/MMD#4 TAKING LORATADINE 10 TABLET 1 TABLET ONCE A DAY/PRN ORALLY 90 DAY(S) ORALLY DAILY TAKING HALOBETASOL PROPIONATE 0.05 % OINTMENT 1 APPLICATION EXTERNALLY BID TO AREAS ON BODY WITH RASH INCLUDING HANDS AND FEET (NOT FOR FACE, GROIN, ARMPITS) TAKING PANTOPRAZOLE SODIUM 40 TABLET DELAYED RELEASE 1 TABLET ORALLY ONCE A DAY TAKING ALBUTEROL SULFATE HFA 108 (90 BASE) MCG/ACT AEROSOL SOLUTION 1-2 PUFFS NEEDED INHALATION EVERY 4 HRS TAKING METFORMIN HCL ER 500 MG TABLET EXTENDED RELEASE 24 HOUR 1 TABLET WITH EVENING MEAL ORALLY ONCE A DAY TAKING TRAZODONE HCL 150 MG TABLET 1 TABLET AT BEDTIME ORALLY ONCE A DAY TAKING BACLOFEN 10 MG TABLET 1 TABLET WITH FOOD OR MILK ORALLY BEFORE BEDTIME TAKING FLUTICASONE PROPIONATE 50 MCG/ACT SUSPENSION 1 SPRAY IN EACH NOSTRIL NASALLY ONCE A DAY NOT-TAKING DEXAMETHASONE 0.5 MG/5ML SOLUTION 5 ML ORALLY SWISH AND SPIT TWICE A DAY NEEDED NOT-TAKING GLUCOSAMINE _ TABLET 1 TABLET ORALLY ONCE A DAY NOT-TAKING METRONIDAZOLE 500 MG TABLET 1 TABLET ORALLY THREE TIMES A DAY NOT-TAKING CIPROFLOXACIN HCL 500 MG TABLET 1 TABLET ORALLY EVERY 12 HRS NOT-TAKING PREDNISONE 20 MG TABLET 1 TABLET ORALLY THEE TIMES A DAY FOR A WEEK, THEN TWICE A DAY FOR 1 WEEK, AND THEN ONCE A DAY FOR 1 WEEK MEDICATION LIST REVIEWED AND RECONCILED WITH THE PATIENT PAST MEDICAL HISTORY CHRONIC TENSION-TYPE HEADACHE, 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 WITHOUT SCIATICA HISTORY OF TOBACCO ABUSE ESSENTIAL (PRIMARY) HYPERTENSION HIATAL HERNIA WITH GERD WITHOUT ESOPHAGITIS COLON POLYPS OTHER ALLERGIC RHINITIS HISTORY OF NEPHROLITHIASIS LIKEN PLEXUS PREDIABETES DDD OSTEOARTHRITIS DIVERTICULITIS PREDIABETES ALLERGIES IODINE: HIVES,SOB NSAIDS: ANAPHYLAXIS - ALLERGY LISINOPRIL: COUGH - SIDE EFFECTS HYBICLENS: HIVES - SIDE EFFECTS PENICILLIN (FOR ALLERGIES USE ONLY): ANAPHYLAXIS - ALLERGY SURGICAL HISTORY BACK 1989 BACK 1999 SINUS 2009 ENDOSCOPE & COLONOSCOPY FOR COLON POLYPS AND HIATAL HERNIA LOOP PLACED - CARDIO-REMOVED WHEN PACEMAKER INSERTED 01/2017 ROTATOR CUFF REPAIR RIGHT X 3 02/2017,07/27/2017/12/14/17 PACEMAKER 04/2017 TOTAL HYSTERCTOMY 1990 BILATERAL BREAST REDUCTIONS TONSILLECTOMY APPENDECTOMY CYSTECTOMIES FOR BREASTS MULTIPLE TIME FAMILY HISTORY FATHER: ALIVE, DIAGNOSED WITH UNSPECIFIED HEART DISEASE, DIABETES, UNSPECIFIED NONPSYCHOTIC MENTAL DISORDER FOLLOWING ORGANIC BRAIN DAMAGE MOTHER: , HYPERTENSION, UNSPECIFIED CEREBRAL ARTERY OCCLUSION WITH CEREBRAL INFARCTION PATERNAL GRAND FATHER: , UNSPECIFIED HEART DISEASE PATERNAL GRAND MOTHER: ALIVE, UNSPECIFIED HEART DISEASE MATERNAL GRAND FATHER: , OTHER MALIGNANT NEOPLASM OF UNSPECIFIED SITE MATERNAL GRAND MOTHER: , DIABETES 6 SISTER(S) - HEALTHY. 1 SON(S) , 1 DAUGHTER(S) - HEALTHY. 2 SISTERS PASSED FROM HEART ATTACKS, ALL HAVE HAD HEART ATTACKS, 2 SISTERS HAVE DMDENIES FAMILY HX OF PANCREATIC CANCER OR MELANOMA. SOCIAL HISTORY GENERAL: TOBACCO USE ARE YOU A:FORMER SMOKER HOW LONG HAS IT BEEN SINCE YOU LAST SMOKED?1-5 YEARS LATEX QUESTIONNAIRE LATEX ALLERGY : HAVE YOU EVER DEVELOPED ANY TYPE OF REACTION AFTER HANDLING LATEX PRODUCTS SUCH RUBBER GLOVES, CONDOMS, DIAPHRAGMS, BALLOONS, SOCKS, OR UNDERWEAR?NO HAS PROBLEMS WITH ADHESIVES ON TAPE LATEX ALLERGY : HAVE YOU EVER DEVELOPED ANY TYPE OF REACTION DURING OR AFTER DENTAL APPOINTMENT, VAGINAL/RECTAL EXAMINATION, SURGICAL PROCEDURE, OR ANY OTHER EXPOSURE?NO LATEX RISK : HAVE YOU EVER HAD ANY DIFFICULTY BREATHING OR HIVES AFTER EATING OR HANDLING ANY FRUITS, OR VEGETABLES; SUCH KIWI, BANANAS, STONE FRUITS, OR CHESTNUTSNO LATEX RISK : DO YOU HAVE A PREVIOUS PERSONAL HISTORY OF MORE THAN NINE SURGERIES, SPINA BIFIDA, OR REPEATED CATHERIZATIONS? YES - PLEASE INDICATE : > 9 SURGERIES LATEX RISK : ARE YOU FREQUENTLY EXPOSED TO LATEX PRODUCTS IN YOUR OCCUPATION?NO DATE ASKED : 12/23/2019 BMI CARE GOAL FOLLOW-UP ABOVE NORMAL BMI FOLLOW-UPDIETARY MANAGEMENT EDUCATION, GUIDANCE, AND COUNSELING ALCOHOL SCREENING DID YOU HAVE A DRINK CONTAINING ALCOHOL IN THE PAST YEAR?YES HOW OFTEN DID YOU HAVE SIX OR MORE DRINKS ON ONE OCCASION IN THE PAST YEAR?NEVER (0 POINTS) HOW MANY DRINKS DID YOU HAVE ON A TYPICAL DAY WHEN YOU WERE DRINKING IN THE PAST YEAR?1 OR 2 (0 POINTS) HOW OFTEN DID YOU HAVE A DRINK CONTAINING ALCOHOL IN THE PAST YEAR?NEVER (0 POINTS) POINTS0 INTERPRETATIONNEGATIVE RECREATIONAL DRUG USE DRUG USE?NO CAFFEINE 1-2/DAY. SEXUAL HX HAD SEX IN THE LAST 12 MONTHS (VAGINAL, ORAL, OR ANAL)?NO HAVE YOU EVER HAD AN STD?NO HIV / HEP-C SCREENING HIV TEST OFFERED TO PATIENT:YES DATE OFFERED:03/04/2018 TEST ACCEPTED:NO HEP-C TEST OFFERED TO PATIENT:YES DATE OFFERED:03/04/2018 REASON:PATIENT DECLINED TEST ACCEPTED:NO REASON:PATIENT DECLINED BROCHURE PROVIDED TO PATIENTYES EPISCOPALIAN [id number] BUDDHIST LANGUAGE LANGUAGES SPOKEN:TAMAZIGHT EDUCATION LEVEL OF EDUCATION:COLLEGE LEARNING BARRIERS / SPECIAL NEEDS CHANGE FROM LAST VISIT?NO BARRIERS TO LEARNING?NO HEARING IMPAIRED?NO VISION IMPAIRED?YES :CORRECTIVE LENSES CONTACTS COGNITIVELY IMPAIRED?NO READINESS TO LEARN?YES LEARNING PREFERENCES?NO LEARNING CAPABILITIES PRESENT?YES EMOTIONAL BARRIERS?NO SPECIAL DEVICES?NO UTILITY ARBORIST NEEDED?NO DOMESTIC VIOLENCE DO YOU FEEL SAFE IN YOUR ENVIRONMENT?YES 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 EXERCISE: NO REGULAR EXERCISE. MARITAL STATUS: .. OTHERS AT HOME: OTHER NON-RELATIVE. PAIN CLINIC PFS, CLERGY, PUBLIC HEALTH REFERRALS HAS THE PATIENT BEEN EDUCATED REGARDING HIS/HER PLAN OF CARE?YES HAS THE PATIENT BEEN EDUCATED REGARDING PAIN, THE RISK FOR PAIN, THE IMPORTANCE OF EFFECTIVE PAIN MANAGEMENT, AND THE PAIN ASSESSMENT PROCESS?YES HOUSING: OWNS HOME. ADVANCE DIRECTIVE ADVANCE DIRECTIVE DISCUSSED WITH PATIENT:YES PT DOES NOT HAVE ANY ADVANCED DIRECTIVES ANS SHE DELCINES INFORMATION ON HCP AT THIS TIME HOSPITALIZATION/MAJOR DIAGNOSTIC PROCEDURE [facility] 2012 [facility] 12/2016 SURGERIES REVIEW OF SYSTEMS CONSTITUTIONAL: ANY RECENT FEVER NO . CHILLS NO . WEIGHT CHANGE OF UNKNOWN REASONS NO . GASTROENTEROLOGY: NEW UNEXPLAINABLE CHANGES IN BOWEL CONTROL NO . CONSTIPATION NO . GENITOURINARY: ANY NEW CHANGE IN BLADDER CONTROL? NO . NEUROLOGY: NEW ONSET DIZZINESS OR NEUROLOGICAL CHANGES NOT MENTIONED NO . NEW NUMBNESS OR PAIN PATTERNS NOT MENTIONED AND PERTINENT TO TODAY'S VISIT NO . CARDIOLOGY: NEW CHEST PRESSURE NO . NEW CHEST PAIN NO . RESPIRATORY: UNEXPLAINABLE COUGH NO . NEW SHORTNESS OF BREATH NO . VITAL SIGNS WT 216.8 LBS, HT 66 IN, BMI 34.99 INDEX, BP 128/84 MM HG, HR 93 /MIN, RR 18 /MIN, TEMP 96.3 F, OXYGEN SAT % 95%, SAFE IN ENV? (Y/N) Y, NA INITIALS SC 10:10, REVIEWED BY: JSJ. EVELYN RN. EXAMINATION GENERAL EXAMINATION: GENERALNO ACUTE DISTRESS, WELL NOURISHED AND HYDRATED. PSYCHAPPROPRIATE MOOD AND AFFECT . NECK:POINT TENDERNESS ALONG CERVICAL SPINE, SURROUNDING SKIN SHOWS NO ERYTHEMA, ECCHYMOSIS, INCREASED WARMTH, AND/OR SKIN ERUPTIONS NOTED. PATIENT DOES ENDORSE INCREASED PAIN WITH FACET LOADING. . LUNGS:CLEAR TO AUSCULTATION BILATERALLY, NO WHEEZES, RHONCHI, RALES. HEART:NO MURMURS, REGULAR RATE AND RHYTHM. ASSESSMENTS OTHER CHRONIC PAIN - G89.29 (PRIMARY) SPONDYLOSIS OF CERVICAL REGION WITHOUT MYELOPATHY OR RADICULOPATHY - M47.812 TREATMENT OTHER CHRONIC PAIN PAIN PROCEDURE LOGDATE OF QDVKGMMKL35/19/2020PROCEDURE:CERVICAL EPIDURAL STEROID INJECTIONAMOUNT OF PRE SEDATEOXYCODONE 5 MG, VALIUM 5 MG, BENADRYL 25 MGRESULT:PRE 4-07/30 POST 3-06/30 NOTES: -YEAR-OLD FEMALE IN FOR POST NINA FOLLOW-UP. GIVEN PRESENTING SYMPTOMS AND RESULTS OF PHYSICAL EXAMINATION RECOMMENDED CERVICAL FACET BLOCK LEFT SIDE C5-C6 C6-C7 WITH POST PROCEDURAL FOLLOW-UP. PATIENT HAS EXPRESSED UNDERSTANDING OF AND WAS IN AGREEMENT WITH TREATMENT PLAN. GIVEN TIME TO ASK QUESTIONS AND EXPRESS CONCERNS. 1036 PATIENT GIVEN INFORMATION ON CERVICAL FACET BLOCK PROCEDURE. REVIEWED PRE-PROCEDURE INSTRUCTIONS WITH PATIENT. PATIENT VERBALIZED AN UNDERSTANDING. Ada RIVAS RN. CLINICAL NOTES: CERVICAL FACET BLOCK C5-C6 C6-C7 LEFT SIDE. PROCEDURE CODES FA211 ESTABILISHED PATIENT [facility] CHARGE DISPOSITION & COMMUNICATION FOLLOW UP POSTPROCEDURE (REASON: LEFT CERVICAL FACET BLOCK C5-C6 C6-C7) ELECTRONICALLY SIGNED BY MELANIE COOPER ON 01/31/2020 AT 08:43 AM EST DISCLAIMER : THIS IS A VISIT SUMMARY EXTRACTED FROM THE [employer] CHART. IT IS NOT A COPY OF THE [employer] PROGRESS NOTE. MTDD
== END ==
LOC: M PAIN 10:00
PROVIDERS: ATTEND Family Medicine
DX: G89.29 Other chronic pain (principal); M47.812 Spondylosis without myelopathy or radiculopathy, cervical region; G44.229 Chronic tension-type headache, not intractable; I10 Essential (primary) hypertension; K44.9 Diaphragmatic hernia without obstruction or gangrene; K21.9 Gastro-esophageal reflux disease without esophagitis; R73.03 Prediabetes; Z87.891 Personal history of nicotine dependence; Z79.82 Long term (current) use of aspirin; Z79.891 Long term (current) use of opiate analgesic; Z79.899 Other long term (current) drug therapy; Z88.6 Allergy status to analgesic agent; Z88.0 Allergy status to penicillin; Z88.8 Allergy status to other drugs, medicaments and biological substances

== ENCOUNTER → 2020-02-10 | Outpatient (CLI) | payer MEDICARE, OTHER | LOC: M LABSMTC 12:59 | PROVIDERS: ATTEND Anesthesiology | DX: Z20.828 Contact with and (suspected) exposure to other viral communicable diseases (principal) ==

== ENCOUNTER → 2020-02-15 | Outpatient (CLI) | payer MEDICARE, OTHER | LOC: M LABSMTC 11:28 | PROVIDERS: ATTEND Anesthesiology | DX: Z20.828 Contact with and (suspected) exposure to other viral communicable diseases (principal) ==

== ENCOUNTER → 2020-02-21 | Outpatient (CLI) | payer MEDICARE, OTHER ==
[~2020-02-21] MED LIST changes: +BUPIVACAINE HCL 0.25% 30ML VIAL As Ordered ONE; +ISOVUE-M 300 61% 15ML VIAL As Ordered ONE; +LIDOCAINE 1% SDV 30ML VIAL As Ordered ONE; +METF-838; +TRIAMCINOLONE ACETONIDE SUSP 40 MG/ML VIAL (J3301) As Ordered ONE; +diazePAM 5MG TABLET As Ordered ONE; +diphenhydrAMINE 25MG CAP As Ordered ONE; +oxyCODONE 5MG TAB As Ordered ONE
--- NOTE | 2020-02-21 10:44 | REP ---
INDICATION: LEFT SIDED CERVICAL FACET BLOCK THERAPEUTIC C5/C6; C6/C7. COMPARISON: None. TECHNIQUE: Two views. 17.2 seconds of fluoroscopy time is reported. FINDINGS: The sequence of 2 last image hold fluoroscopically obtained spot radiographs of the cervical spine document various needle positions and contrast injections associated with injection procedure. IMPRESSION: Procedural imaging. <Electronically signed by Juan Alberto Galloway > 02/21/20 [id number]
--- NOTE | 2020-02-29 04:54 | ECWPNPC ---
PATIENT NAME: LEWIS HUGHES : 1960 GENDER: FEMALE VISIT DATE: 02/21/2020 DISCHARGE DATE: 02/21/20 1039 VISIT LOCKED DATE TIME: PHYSICIAN: JAYME VALLES MD PHYSICIAN PAGER NO: ACTIVE RESOURCE: JAYME VALLES MD REASON FOR APPOINTMENT 1. LEFT CERVICAL FACET BLOCK C5-C6 C6-C7 THERAPEUTIC HISTORY OF PRESENT ILLNESS GENERAL: -. FALL RISK SCREENING: SCREENING :NO FALLS REPORTED IN THE LAST YEAR PAIN SCREENING: PATIENT HAS A COMPLAINT OF ACUTE OR CHRONIC PAIN :YES LOCATION OF PAIN:NECK, OTHER: LEFT ARM INTENSITY OF PAIN (SCALE OF 1 TO 10):5 WHAT DOES YOUR PAIN FEEL LIKE:ACHING, BURNING, CONTINOUS, THROBBING ALSO NOTES DISCOMFORT THRU THORACIC AREA DESCRIBED ICY DURATION:CONTINOUS PAIN IS INCREASED BY:ACTIVITIES PAIN IS DECREASED BY:USE OF PAIN MEDICATIONS, OTHERS HEAT PLAN/GOALS/TREATMENT/INTERVENTION/FOLLOW UP:SEE PLAN NURSING NOTE: -. PAIN CENTER INTAKE QUESTIONS: DO YOU HAVE A HISTORY OF MRSA? :NO DO YOU TAKE A BLOOD THINNERS? :NO DO YOU HAVE ANY BLEEDING DISORDERS? :NO ANY NEW NUMBNESS OR WEAKNESS IN YOUR LEGS OR ARMS? :NO ANY PACEMAKER,DEFIBRILLATOR, OR DORSAL COLUMN STIMULATOR? :YES PACER DO YOU HAVE ANY RASHES OR OPEN SORES? :YES LICHEN PLAYNUS AREAS-HX X 1 YEAR. ARE YOU ALLERGIC TO IV DYE? :YES PATIENT NOTES HISTORY OF IODINE ALLERGY WITH CHEST TIGHTENING/HIVES YEARS AGO. HAS BEEN PREMEDICATED WITH BENADRYL/RESPIRATORY TREATMENT WITHOUT REACTION. PATIENT STATES NO HISTORY OF REACTION AT PAIN MANAGEMENT WITH PROCEDURES. ARE YOU DIABETIC? :NO ANY NEW PROBLEMS WITH YOUR MEDICATIONS? :NO HAVE YOU RECEIVED A VACCINE IN THE PAST 30 DAYS? :NO DO YOU PLAN TO RECEIVE A VACCINE IN THE NEXT 21 DAYS? :NO DO YOU TAKE ANY IMMUNOSUPPRESSIVE MEDICATIONS? :NO ANY HISTORY OF SEIZURES? :NO ANY HISTORY OF CARDIAC ISSUES OR EVENTS? :YES HISTORY OF PACER FOR SICK SINUS SYNDROME. DO YOU HAVE SLEEP APNEA? :NO ANY RECENT HEAD INJURY? :NO DO YOU HAVE ANY NEW INFECTIONS? :NO IS THERE A CHANCE YOU COULD BE ? :NO ARE YOU BREAST FEEDING? :NO WHEN DID YOU LAST EAT? : 02/20/201629 WHEN DID YOU LAST DRINK? : 11/30/20 1630 WHAT DID YOU LAST DRINK? : WATER NAME OF PERSON DRIVING YOU HOME? : -KENTRELL DO YOU HAVE ANY OTHER QUESTIONS OR CONCERNS? : NO CURRENT MEDICATIONS TAKING DEXAMETHASONE 0.5 MG/5ML SOLUTION 5 ML ORALLY SWISH AND SPIT TWICE A DAY NEEDED, NOTES: 02/20/20 AM FOR CHEST TAKING MELATONIN 10 MG TABLET 1 TABLET UNDER THE TONGUE AND ALLOW TO DISSOLVE AT BEDTIME NEEDED WITH FOOD ORALLY BEFORE BEDTIME, NOTES: 02/20/201829 TAKING TYLENOL PM EXTRA STRENGTH 500-25 MG TABLET 1 TABLET AT BEDTIME NEEDED ORALLY ONCE A DAY, NOTES: 02/20/202329 TAKING VITAMIN D3 1000 UNIT CAPSULE 1 CAPSULE ORALLY ONCE A DAY, NOTES: 02/20/20899 TAKING LIDOCAINE VISCOUS 2 % SOLUTION 15 ML TO AFFECTED AREA NEEDED MOUTH/THROAT, SWISH AND SPIT EVERY 3 HRS, NOTES: NEEDED TAKING ASPIRIN 81 81 MG TABLET DELAYED RELEASE 1 TABLET ORALLY TWICE A DAY, NOTES: 02/20/201829 TAKING TIZANIDINE HCL 4 MG TABLET 1 TABLET ORALLY TWICE A DAY, NOTES: 02/20/201829 TAKING ATORVASTATIN CALCIUM 20 MG TABLET 1 TABLET ORALLY ONCE A DAY, NOTES: 02/20/201829 TAKING EPIPEN 2-DARREN 0.3 MG/0.3ML SOLUTION AUTO-INJECTOR IM INJECTION DIRECTED INJECTION PRN, NOTES: NOT RECENTLY TAKING LOSARTAN POTASSIUM 50 MG TABLET 1 TABLET ORALLY ONCE A DAY, NOTES: 02/20/201829 TAKING AMITRIPTYLINE HCL 50 TABLET 1 TAB ORALLY DAILY, NOTES: 02/20/201829 TAKING AZELASTINE HCL 137 MCG/SPRAY SOLUTION 1 PUFF IN EACH NOSTRIL NASALLY TWICE A DAY, NOTES: 02/20/201829 TAKING TRAMADOL HCL 50 MG TABLET 1 TAB ORALLY EVERY 6 HOURS NEEDED/MMD#4, NOTES: 02/19/20 TAKING LORATADINE 10 TABLET 1 TABLET ONCE A DAY/PRN ORALLY 90 DAY(S) ORALLY DAILY, NOTES: 02/20/20899 TAKING HALOBETASOL PROPIONATE 0.05 % OINTMENT 1 APPLICATION EXTERNALLY BID PRN TO AREAS ON BODY WITH RASH INCLUDING HANDS AND FEET (NOT FOR FACE, GROIN, ARMPITS), NOTES: NOT RECENTLY TAKING PANTOPRAZOLE SODIUM 40 TABLET DELAYED RELEASE 1 TABLET ORALLY ONCE A DAY, NOTES: 02/20/20899 TAKING ALBUTEROL SULFATE HFA 108 (90 BASE) MCG/ACT AEROSOL SOLUTION 1-2 PUFFS NEEDED INHALATION EVERY 4 HRS, NOTES: 02/19/20 TAKING METFORMIN HCL ER 500 MG TABLET EXTENDED RELEASE 24 HOUR 1 TABLET WITH EVENING MEAL ORALLY ONCE A DAY, NOTES: 02/20/20 1630 TAKING TRAZODONE HCL 150 MG TABLET 1 TABLET AT BEDTIME ORALLY ONCE A DAY, NOTES: 02/20/20 183 TAKING BACLOFEN 10 MG TABLET 1 TABLET WITH FOOD OR MILK ORALLY BEFORE BEDTIME, NOTES: 02/20/201829 TAKING FLUTICASONE PROPIONATE 50 MCG/ACT SUSPENSION 1 SPRAY IN EACH NOSTRIL NASALLY ONCE A DAY, NOTES: 02/20/20 1200 NOT-TAKING GLUCOSAMINE _ TABLET 1 TABLET ORALLY ONCE A DAY NOT-TAKING METRONIDAZOLE 500 MG TABLET 1 TABLET ORALLY THREE TIMES A DAY NOT-TAKING CIPROFLOXACIN HCL 500 MG TABLET 1 TABLET ORALLY EVERY 12 HRS NOT-TAKING PREDNISONE 20 MG TABLET 1 TABLET ORALLY THEE TIMES A DAY FOR A WEEK, THEN TWICE A DAY FOR 1 WEEK, AND THEN ONCE A DAY FOR 1 WEEK MEDICATION LIST REVIEWED AND RECONCILED WITH THE PATIENT PAST MEDICAL HISTORY CHRONIC TENSION-TYPE HEADACHE, 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 WITHOUT SCIATICA HISTORY OF TOBACCO ABUSE ESSENTIAL (PRIMARY) HYPERTENSION HIATAL HERNIA WITH GERD WITHOUT ESOPHAGITIS COLON POLYPS OTHER ALLERGIC RHINITIS HISTORY OF NEPHROLITHIASIS LIKEN PLEXUS PREDIABETES DDD OSTEOARTHRITIS DIVERTICULITIS PREDIABETES ALLERGIES IODINE: HIVES,SOB NSAIDS: ANAPHYLAXIS - ALLERGY LISINOPRIL: COUGH - SIDE EFFECTS HYBICLENS: HIVES - SIDE EFFECTS PENICILLIN (FOR ALLERGIES USE ONLY): ANAPHYLAXIS - ALLERGY SURGICAL HISTORY BACK 1989 BACK 1999 SINUS 2009 ENDOSCOPE & COLONOSCOPY FOR COLON POLYPS AND HIATAL HERNIA LOOP PLACED - CARDIO-REMOVED WHEN PACEMAKER INSERTED 01/2017 ROTATOR CUFF REPAIR RIGHT X 3 02/2017,07/27/2017/12/14/17 PACEMAKER 04/2017 TOTAL HYSTERCTOMY 1990 BILATERAL BREAST REDUCTIONS TONSILLECTOMY APPENDECTOMY CYSTECTOMIES FOR BREASTS MULTIPLE TIME FAMILY HISTORY FATHER: ALIVE, DIAGNOSED WITH UNSPECIFIED HEART DISEASE, DIABETES, UNSPECIFIED NONPSYCHOTIC MENTAL DISORDER FOLLOWING ORGANIC BRAIN DAMAGE MOTHER: , HYPERTENSION, UNSPECIFIED CEREBRAL ARTERY OCCLUSION WITH CEREBRAL INFARCTION PATERNAL GRAND FATHER: , UNSPECIFIED HEART DISEASE PATERNAL GRAND MOTHER: ALIVE, UNSPECIFIED HEART DISEASE MATERNAL GRAND FATHER: , OTHER MALIGNANT NEOPLASM OF UNSPECIFIED SITE MATERNAL GRAND MOTHER: , DIABETES 6 SISTER(S) - HEALTHY. 1 SON(S) , 1 DAUGHTER(S) - HEALTHY. 2 SISTERS PASSED FROM HEART ATTACKS, ALL HAVE HAD HEART ATTACKS, 2 SISTERS HAVE DMDENIES FAMILY HX OF PANCREATIC CANCER OR MELANOMA. SOCIAL HISTORY GENERAL: TOBACCO USE ARE YOU A:FORMER SMOKER HOW LONG HAS IT BEEN SINCE YOU LAST SMOKED?1-5 YEARS LATEX QUESTIONNAIRE LATEX ALLERGY : HAVE YOU EVER DEVELOPED ANY TYPE OF REACTION AFTER HANDLING LATEX PRODUCTS SUCH RUBBER GLOVES, CONDOMS, DIAPHRAGMS, BALLOONS, SOCKS, OR UNDERWEAR?NO HAS PROBLEMS WITH ADHESIVES ON TAPE LATEX ALLERGY : HAVE YOU EVER DEVELOPED ANY TYPE OF REACTION DURING OR AFTER DENTAL APPOINTMENT, VAGINAL/RECTAL EXAMINATION, SURGICAL PROCEDURE, OR ANY OTHER EXPOSURE?NO LATEX RISK : HAVE YOU EVER HAD ANY DIFFICULTY BREATHING OR HIVES AFTER EATING OR HANDLING ANY FRUITS, OR VEGETABLES; SUCH KIWI, BANANAS, STONE FRUITS, OR CHESTNUTSNO LATEX RISK : DO YOU HAVE A PREVIOUS PERSONAL HISTORY OF MORE THAN NINE SURGERIES, SPINA BIFIDA, OR REPEATED CATHERIZATIONS? YES - PLEASE INDICATE : > 9 SURGERIES LATEX RISK : ARE YOU FREQUENTLY EXPOSED TO LATEX PRODUCTS IN YOUR OCCUPATION?NO DATE ASKED : 02/20/2020 BMI CARE GOAL FOLLOW-UP ABOVE NORMAL BMI FOLLOW-UPDIETARY MANAGEMENT EDUCATION, GUIDANCE, AND COUNSELING ALCOHOL SCREENING DID YOU HAVE A DRINK CONTAINING ALCOHOL IN THE PAST YEAR?YES HOW OFTEN DID YOU HAVE SIX OR MORE DRINKS ON ONE OCCASION IN THE PAST YEAR?NEVER (0 POINTS) HOW MANY DRINKS DID YOU HAVE ON A TYPICAL DAY WHEN YOU WERE DRINKING IN THE PAST YEAR?1 OR 2 (0 POINTS) HOW OFTEN DID YOU HAVE A DRINK CONTAINING ALCOHOL IN THE PAST YEAR?NEVER (0 POINTS) POINTS0 INTERPRETATIONNEGATIVE RECREATIONAL DRUG USE DRUG USE?NO CAFFEINE 1-2/DAY. SEXUAL HX HAD SEX IN THE LAST 12 MONTHS (VAGINAL, ORAL, OR ANAL)?NO HAVE YOU EVER HAD AN STD?NO HIV / HEP-C SCREENING HIV TEST OFFERED TO PATIENT:YES DATE OFFERED:03/04/2018 TEST ACCEPTED:NO HEP-C TEST OFFERED TO PATIENT:YES DATE OFFERED:03/04/2018 REASON:PATIENT DECLINED TEST ACCEPTED:NO REASON:PATIENT DECLINED BROCHURE PROVIDED TO PATIENTYES EVANGELICAL [id number] FAITH LANGUAGE LANGUAGES SPOKEN:CAMEROONIAN EDUCATION LEVEL OF EDUCATION:COLLEGE LEARNING BARRIERS / SPECIAL NEEDS CHANGE FROM LAST VISIT?NO BARRIERS TO LEARNING?NO HEARING IMPAIRED?NO VISION IMPAIRED?YES :CORRECTIVE LENSES CONTACTS COGNITIVELY IMPAIRED?NO READINESS TO LEARN?YES LEARNING PREFERENCES?NO LEARNING CAPABILITIES PRESENT?YES EMOTIONAL BARRIERS?NO SPECIAL DEVICES?NO CONSTRUCTION ENGINEERING MANAGER NEEDED?NO DOMESTIC VIOLENCE DO YOU FEEL SAFE IN YOUR ENVIRONMENT?YES 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 EXERCISE: NO REGULAR EXERCISE. MARITAL STATUS: .. OTHERS AT HOME: OTHER NON-RELATIVE. PAIN CLINIC PFS, CLERGY, PUBLIC HEALTH REFERRALS HAS THE PATIENT BEEN EDUCATED REGARDING HIS/HER PLAN OF CARE?YES HAS THE PATIENT BEEN EDUCATED REGARDING PAIN, THE RISK FOR PAIN, THE IMPORTANCE OF EFFECTIVE PAIN MANAGEMENT, AND THE PAIN ASSESSMENT PROCESS?YES HOUSING: OWNS HOME. ADVANCE DIRECTIVE ADVANCE DIRECTIVE DISCUSSED WITH PATIENT:YES PT DOES NOT HAVE ANY ADVANCED DIRECTIVES ANS SHE DELCINES INFORMATION ON HCP AT THIS TIME HOSPITALIZATION/MAJOR DIAGNOSTIC PROCEDURE [facility] 12/2016 SURGERIES VITAL SIGNS WT 213.6 LBS, HT 66 IN, BMI 34.47 INDEX, BP 124/84 MM HG, HR 89 /MIN, RR 18 /MIN, TEMP 97.8 F, OXYGEN SAT % 94%, SAFE IN ENV? (Y/N) YES, NA INITIALS SC 08:51, REVIEWED BY: MT, LMP: HYSTERECTOMYSUZY FRYE RESEARCH ASSOCIATE QUALITY CONTROL QC. EXAMINATION GENERAL EXAMINATION: THE PATIENT IS ALERT, ORIENTED TIMES THREE AND COOPERATIVE. HEART SHOWS REGULAR RHYTHM, NO MURMURS AND NO GALLOPS. LUNGS ARE CLEAR TO AUSCULTATION. ASSESSMENTS SPONDYLOSIS OF CERVICAL REGION WITHOUT MYELOPATHY OR RADICULOPATHY - M47.812 (PRIMARY), RISK: (NULL) TREATMENT SPONDYLOSIS OF CERVICAL REGION WITHOUT MYELOPATHY OR RADICULOPATHY [facility] FACET BLOCK (PAIN)[id number] MEDICATION: BENADRYL TAB 25MG ORALLY (DIPHENHYDRAMINE)SUZY FRYE 02/21/2020 9:28:13 AM > LOT# [id number] EXP: 03/2022. BRADY SEN RN 02/21/2020 9:35:01 AM > VERIFIED. SUZY FRYE 02/21/2020 9:40:52 AM > ADMINISTERED. SALINE SUZY KEANE 02/21/2020 9:42:19 AM > SEE PROCEDURE SECTION, OBTAINED PER P ORDER. MEDICATION: VALIUM TAB 10MG ORALLY (DIAZEPAM)SUZY FRYE 02/21/2020 9:28:43 AM > LOT # [id number] EXP: 10/10. BRADY SEN RN 02/21/2020 9:34:35 AM > VERIFIED. SUZY FRYE 02/21/2020 9:41:22 AM > ADMINISTERED. MEDICATION: OXYCODONE HCL TAB 10MG ORALLYSUZY FRYE 02/21/2020 9:29:18 AM > LOT # [id number] EXP: 04/2021. BRADY SEN RN 02/21/2020 9:34:10 AM > VERIFIED. SUZY FRYE 02/21/2020 9:41:40 AM > ADMINISTERED. PROCEDURES PAIN NURSING RECORD PRE-PROCEDURE IV SITE RIGHT ANTECUBITAL, IV STARTED # 22, IV STARTED BY: Julia SEN RN, IV ATTEMPTS 2 FIRST SITE NO REDNESS, SWELLING, COVERED WITH DSD., PRE-PROCEDURE ORAL MEDICATIONS YES PER MD ORDERS. PROCEDURE IN ROOM 0950, PHYSICIAN IN ROOM 1001, START 1007, FINISH 1010, PHYSICIAN OUT OF ROOM 1011, OUT OF ROOM 1018, STEROID KENALOG UNIFOCAL PVCS NOTED DURING PROCEDURE., O2 RA, ECG NORMAL SINUS, PATIENT SHIELDED YES, SAFETY STRAP YES, PREP CHLOROPREP Julia SEN RN, IV INFUSED N/A, DRESSING TEGADERM DR. VALLES LOC: SUZY FRYE 02/21/2020 09:50:39 AM > 1. ALERT, ORIENTED RESP: SUZY FRYE 02/21/2020 09:50:39 AM > 1. REGULAR, NO DYSPNEA COLOR: SUZY FRYE 02/21/2020 09:50:39 AM > 1. PINK SKIN: SUZY FRYE 02/21/2020 09:50:39 AM > 1. WARM, DRY POSITION: SUZY FRYE 02/21/2020 09:50:39 AM > 1. PRONE VITALS: SUZY FRYE 02/21/2020 09:55:05 AM > 146/93, 79, 94% RA, 18. SUZY FRYE 02/21/2020 10:11:17 AM > 140/92, 83, 94% RA, 18. SUZY FRYE 02/21/2020 10:20:14 AM > POST PROCEDURE 159/84, 82, 94% RA, 18. NOTES STERILE TRAY PREPARED BY Julia SEN RN DISCHARGE: POST PAIN 04/01, DRESSING SITE DRY AND INTACT, IV DISCONTINUED, SITE CLEAR, CATHETER INTACT, GAIT STEADY, TEACHING COMPLETED, PATIENT ACKNOWLEDGES UNDERSTANDING YES, PATIENT DISCHARGED AT 1030 PN CERVICAL FACET BLOCK LOW BILATERAL CERVICAL PRE PROCEDURE DIAGNOSIS CERVICAL SPONDYLOSIS POST PROCEDURE DIAGNOSIS CERVICAL SPONDYLOSIS PROCEDURE LEFT C5-C6 AND LEFT C6-C7 THERAPEUTIC CERVICAL FACET BLOCK SURGEON DR. JAYME VALLES MATH AND SCIENCE INSTRUCTOR NONE ANESTHESIA LOCAL PRE PROCEDURE NOTE THE PATIENT HAS HISTORY OF CHRONIC CERVICAL PAIN. I EVALUATED THE PATIENT AND REVIEWED THE CHART. I WENT OVER THE RISKS, ALTERNATIVES, AND BENEFITS ASSOCIATED WITH THIS PROCEDURE. I DISCUSSED THAT THE USE OF STEROIDS MAY CONTRIBUTE TO IMMUNOSUPPRESSION OF THE PATIENT'S BODY AGAINST INFECTIONS SUCH COVID-19. THE PATIENT IS AWARE OF THE POTENTIAL COMPLICATIONS ASSOCIATED WITH THIS VIRUS, INCLUDING, BUT NOT LIMITED TO, . THE PATIENT WOULD LIKE TO PROCEED AND GIVE CONSENT TO PERFORMED THE PROCEDURE. THE PATIENT DENIES UNEXPLAINABLE WEIGHT LOSS, FEVER, CHILLS, OR NEW CHANGES IN URINARY OR BOWEL CONTROL. THE PATIENT IS COVID-19 NEGATIVE DESCRIPTION OF PROCEDURE THE PATIENT WAS BROUGHT TO THE PROCEDURE ROOM AND PLACED IN THE PRONE POSITION. THE CERVICOTHORACIC AREA WAS CLEANED WITH CHLORAPREP SOLUTION AND DRAPED ASEPTICALLY. THE PROCEDURE WAS DONE UNDER STERILE CONDITIONS. A TIMEOUT WAS PERFORMED WHERE LATERALITY AND THE SITE OF THE PROCEDURE WERE CHECKED AND CONFIRMED WITH EVERYONE IN THE ROOM. UNDER FLUOROSCOPIC GUIDANCE, TARGET POINT WAS SELECTED AT THE LEFT C5-C6 AND LEFT C6-C7 CERVICAL FACET JOINT. TARGET POINTS WERE SELECTED AFTER LATERAL ROTATION AND TILT OF THE MAGNIFIER OF THE C-ARM. I CONFIRMED AGAIN WITH EVERYONE IN THE ROOM THE SITE AND LATERALITY OF THE TARGET AT 1005. LIDOCAINE 0.5% WAS USED TO NUMB THE SKIN AND THE SUBCUTANEOUS TISSUE BELOW IT. SPINAL NEEDLES, 22-GAUGE, WERE ADVANCED UNDER FLUOROSCOPIC GUIDANCE AND FOLLOWING PATIENT FEEDBACK UNTIL THE TARGETS WERE TOUCHED. THE POSITION OF THE NEEDLES WAS VERIFIED WITH AP AND LATERAL VIEWS. AFTER PROPER POSITION OF THE NEEDLES WAS ACHIEVED, ISOVUE-M DYE 30%, 0.1 ML, WAS INJECTED SHOWING SPREAD OF THE DYE. KENALOG 20 MG WAS INJECTED AT EACH SITE. THEN A SOLUTION OF 6 ML OF BUPIVACAINE 0.125% WAS USED TO FLUSH EACH SITE. THE MEDICATIONS WERE VERIFIED WITH THE NURSE. THERE WAS NO EVIDENCE OF BLOOD, PARESTHESIA OR CEREBROSPINAL FLUID DURING THE PROCEDURE. THE PATIENT WAS SENT TO THE RECOVERY ROOM. THE PATIENT WAS MOVING THE EXTREMITIES AND DOING WELL. THERE WERE NO COMPLICATIONS DURING THE PROCEDURE. ESTIMATED BLOOD LOSS WAS LESS THAN 5 ML. FLUOROSCOPY TIME WAS 17 SECONDS. POST PROCEDURE NOTE DEPEND ON THE RESULT, CONSIDER DOING DIAGNOSTIC FACET BLOCKS TO CONSIDER RADIOFREQUENCY. THE PATIENT WILL BE SEEN IN A FOLLOW UP IN THE NEXT FEW WEEKS. I AM LOOKING FOR LONG LASTING RELIEF FOR THE PATIENT WITH THIS INTERVENTION. INSTRUCTIONS WERE GIVEN, QUESTIONS WERE ANSWERED, AND THE PATIENT EXPRESSED UNDERSTANDING AND AGREES WITH THE PLAN. I, LEON LOCKETT, DOCUMENTED THE ABOVE INFORMATION ACTING A SCRIBE FOR DR. VALLES. I HAVE REVIEWED THE ABOVE DOCUMENT, WRITTEN BY LEON LOCKETT, LATIN DANCE INSTRUCTOR, AND I VERIFY THAT IT IS ACCURATE PROCEDURE CODES 10299 INJ PARAVERT F JNT C/T 1 LEV, [place]IFI[place]: [place] [address] INJ PARAVERT F JNT C/T 2 LEV, MODIFIERS: LT DISPOSITION & COMMUNICATION FOLLOW UP FOLLOW UP WITH TOWER EQUIPMENT INSTALLER (REASON: POST LEFT CERVICAL FACET BLOCK C5-C6, C6-C7) ELECTRONICALLY SIGNED BY JAYME VALLES MD, MD ON 02/28/2020 AT 12:09 PM EST DISCLAIMER : THIS IS A VISIT SUMMARY EXTRACTED FROM THE [employer] CHART. IT IS NOT A COPY OF THE [employer] PROGRESS NOTE. MTDD
== END ==
LOC: M PAIN 08:30
PROVIDERS: ATTEND Anesthesiology
DX: M47.812 Spondylosis without myelopathy or radiculopathy, cervical region (principal); G44.229 Chronic tension-type headache, not intractable; K44.9 Diaphragmatic hernia without obstruction or gangrene; K21.9 Gastro-esophageal reflux disease without esophagitis; R73.03 Prediabetes; Z87.891 Personal history of nicotine dependence; Z79.82 Long term (current) use of aspirin; Z79.84 Long term (current) use of oral hypoglycemic drugs; Z79.899 Other long term (current) drug therapy; Z88.0 Allergy status to penicillin; Z88.6 Allergy status to analgesic agent; Z88.8 Allergy status to other drugs, medicaments and biological substances
CPT/HCPCS: 64490; 64491; J3301; Q9967

== ENCOUNTER → 2020-02-23 | Outpatient (CLI) | payer MEDICARE, OTHER ==
[~2020-02-23] MED LIST changes: -BUPIVACAINE HCL 0.25% 30ML VIAL As Ordered ONE; -ISOVUE-M 300 61% 15ML VIAL As Ordered ONE; -LIDOCAINE 1% SDV 30ML VIAL As Ordered ONE; -TRIAMCINOLONE ACETONIDE SUSP 40 MG/ML VIAL (J3301) As Ordered ONE; -diazePAM 5MG TABLET As Ordered ONE; -diphenhydrAMINE 25MG CAP As Ordered ONE; -oxyCODONE 5MG TAB As Ordered ONE
== END ==
LOC: M LABSMTC 09:32
PROVIDERS: ATTEND Anesthesiology
DX: Z01.812 Encounter for preprocedural laboratory examination (principal); Z20.828 Contact with and (suspected) exposure to other viral communicable diseases

== ENCOUNTER 2020-02-28 06:52 | Day surgery (SDC) | payer MEDICARE, OTHER ==
[~2020-02-28] VITALS: Ht 165.1 cm; Wt 93.4 kg
[~2020-02-28 06:52] MED LIST changes: +NS 1,000 ML IV ONE
[2020-02-28] MEDS ORDERED: propofoL 200 MG/20 ML VIAL As Ordered ONE ×2 (07:19→08:05)
[2020-02-28] MEDS ORDERED: LIDOCAINE 2% 100MG/5ML SDV (FOR ANES.) As Ordered ONE (07:19)
--- NOTE | 2020-02-28 08:13 | ROOR ---
Patient Name: Nunu Edwards Procedure Date: 02/28/2020 7:34 AM Date of : 1960 Age: 60 Room: [facility] Gender: Female Note Status: Finalized Procedure: Colonoscopy Indications: Abnormal CT of the GI tract, Follow-up of diverticulitis Providers: Rasheed LAWRENCE MD Referring MD: Pernell Garcia DO Requesting Provider: Medicines: Monitored Anesthesia Care Complications: No immediate complications. Procedure: Pre-Anesthesia Assessment: - The heart rate, respiratory rate, oxygen saturations, blood pressure, adequacy of pulmonary ventilation, and response to care were monitored throughout the procedure. The Colonoscope was introduced through the anus and advanced to the cecum, identified by appendiceal orifice and ileocecal valve. The colonoscopy was somewhat difficult due to multiple diverticula in the colon. The patient tolerated the procedure well. The quality of the bowel preparation was fair. Findings: The perianal and digital rectal examinations were normal. Multiple small and large-mouthed diverticula were found in the sigmoid colon. There was narrowing of the colon in association with the diverticular opening. A 4 mm polyp was found in the anus. The polyp was semi-sessile. The polyp was removed with a cold snare. Resection and retrieval were complete. A 4 mm polyp was found in the cecum. The polyp was sessile. The polyp was removed with a cold snare. Resection and retrieval were complete. Internal hemorrhoids were found during retroflexion. The hemorrhoids were moderate. Impression: - Preparation of the colon was fair. - Moderate to severe diverticulosis/diverticular spasm and myomatous hypertrophy in the sigmoid colon. - One 4 mm polyp at the anus, removed with a cold snare. Resected and retrieved. - One 4 mm polyp in the cecum, removed with a cold snare. Resected and retrieved. - Internal hemorrhoids. Recommendation: - Repeat colonoscopy in 3 years because the bowel preparation was suboptimal. - For multiple episodes of diverticulitis, surgical referral may be considered. - Use Lactulose at 2 tbsp PO BID. Procedure Code(s): --- Professional --- 81949, Colonoscopy, flexible; with removal of tumor(s), polyp(s), or other lesion(s) by snare technique Diagnosis Code(s): --- Professional --- R93.3, Abnormal findings on diagnostic imaging of other parts of digestive tract K57.30, Diverticulosis of large intestine without perforation or abscess without bleeding K63.5, Polyp of colon K62.0, Anal polyp K57.32, Diverticulitis of large intestine without perforation or abscess without bleeding K64.8, Other hemorrhoids CPT copyright 2019 [employer]. All rights reserved. The codes documented in this report are preliminary and upon salesperson stereo equipment review may be revised to meet current compliance requirements. Rasheed Lawrence MD Rasheed LAWRENCE MD 02/28/2020 8:13:19 AM Electronically signed by Rasheed LAWRENEC MD Number of Addenda: 0 Note Initiated On: 02/28/2020 7:34 AM Estimated Blood Loss: Estimated blood loss: none.
[2020-02-28 08:30] VITALS: BP 135/79
== END 2020-02-28 08:40 | disposition home or self-care (01) ==
LOC: M OPP 06:52
PROVIDERS: ATTEND Internal Medicine Gastroenterology
DX: K62.0 Anal polyp (principal); K63.5 Polyp of colon; K57.32 Diverticulitis of large intestine without perforation or abscess without bleeding; K57.30 Diverticulosis of large intestine without perforation or abscess without bleeding; R93.3 Abnormal findings on diagnostic imaging of other parts of digestive tract; E11.9 Type 2 diabetes mellitus without complications; I10 Essential (primary) hypertension; K21.9 Gastro-esophageal reflux disease without esophagitis; Z79.82 Long term (current) use of aspirin; Z79.84 Long term (current) use of oral hypoglycemic drugs; Z79.899 Other long term (current) drug therapy; Z88.0 Allergy status to penicillin; Z88.4 Allergy status to anesthetic agent; Z88.8 Allergy status to other drugs, medicaments and biological substances; Z92.21 Personal history of antineoplastic chemotherapy; Z92.3 Personal history of irradiation

== ENCOUNTER → 2020-03-06 | Outpatient (CLI) | payer MEDICARE, OTHER ==
[~2020-03-06] MED LIST changes: -NS 1,000 ML IV ONE
--- NOTE | 2020-03-06 08:54 | REP ---
INDICATION: RUQ pain.. COMPARISON: Right upper quadrant abdominal ultrasound dated 03/30/2018. TECHNIQUE: Right upper quadrant abdominal ultrasound. FINDINGS: There is no cholelithiasis, gallbladder wall thickening or pericholecystic fluid. There is no intrahepatic or extrahepatic biliary duct dilatation. The common biliary duct measures 2.9 mm in diameter. The hepatic parenchyma is homogeneous and otherwise unremarkable. No hepatic solid or cystic masses are identified. The visualized areas of the pancreas head and body are unremarkable. The tail is obscured by bowel gas. The right kidney is normal size measuring 13.0 x 5.0 x 5.1 cm. There is no right renal calculus or hydronephrosis. There is no right renal solid or cystic mass. IMPRESSION: Essentially negative abdominal right upper quadrant ultrasound. <Electronically signed by Ton Washington > 03/06/20 0806
== END ==
LOC: M RAD 07:29
PROVIDERS: ATTEND Surgery
DX: R10.11 Right upper quadrant pain (principal); M50.10 Cervical disc disorder with radiculopathy, unspecified cervical region; K21.9 Gastro-esophageal reflux disease without esophagitis; R73.03 Prediabetes; Z95.0 Presence of cardiac pacemaker; Z87.891 Personal history of nicotine dependence; Z88.0 Allergy status to penicillin; Z88.3 Allergy status to other anti-infective agents; Z88.6 Allergy status to analgesic agent; Z88.8 Allergy status to other drugs, medicaments and biological substances; Z79.82 Long term (current) use of aspirin; Z79.84 Long term (current) use of oral hypoglycemic drugs; Z79.899 Other long term (current) drug therapy
CPT/HCPCS: 76705; G0463

== ENCOUNTER → 2020-04-03 | Outpatient (CLI) | payer MEDICARE, OTHER ==
[~2020-04-03] MED LIST changes: +ACET-1146 PO; +AZEL1SPR3 NARES; +BACL10TA2 PO; +CVS10CAP7 PO; +D31000TA2 PO; -EPIP0.3I2 IJ; +EPIP0.3I2 INJ; +FLON1SPR NARES; +HYDR-3715 PO; +LOSA50TA88 PO; -METF-838; +METF-838 PO; -QUET1TAB7; +QUET25TA3; +SUPRSOL2; +VENTAER INH
--- NOTE | 2020-04-03 12:03 | REP ---
INDICATION: PAIN IN RIGHT HAND COMPARISON: None. TECHNIQUE: AP, lateral, bilateral oblique views right hand. FINDINGS: Mild age-related osteoarthritic degenerative changes primarily involving the carpometacarpal and interphalangeal joints as well as the 1st metacarpophalangeal joint. Findings include subtle subchondral sclerosis with minimal joint space narrowing and cortical irregularity. No acute fracture or dislocation. IMPRESSION: Mild age-related osteoarthritic degenerative changes. No acute fracture or dislocation. <Electronically signed by Aj Kwan > 04/03/20 3703
== END ==
LOC: M RAD 11:27
PROVIDERS: ATTEND Family Medicine
DX: M19.041 Primary osteoarthritis, right hand (principal); M79.641 Pain in right hand
CPT/HCPCS: 73130; G0463

== ENCOUNTER → 2020-04-18 | Outpatient (CLI) | payer MEDICARE, OTHER ==
--- NOTE | 2020-04-18 08:21 | ECGEPIP ---
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 Somewhat low voltages with minuscule inferior Q waves; body habitus versus p pulmonary disease No change from 05/15/17 Electronically Signed on 04-18-2020 8:21:07 EST by Betito Hernandez
== END ==
LOC: M EKG 07:44
PROVIDERS: ATTEND Anesthesiology
DX: Z01.818 Encounter for other preprocedural examination (principal); I10 Essential (primary) hypertension; E11.9 Type 2 diabetes mellitus without complications; J44.9 Chronic obstructive pulmonary disease, unspecified; Z95.0 Presence of cardiac pacemaker

== ENCOUNTER → 2020-04-18 | Outpatient (CLI) | payer MEDICARE, OTHER ==
--- NOTE | 2020-04-18 11:03 | REP ---
INDICATION: RIGHT UPPER QUAD PAIN EKG FIRST. COMPARISON: None. TECHNIQUE/RADIOTRACER AND DOSE: 6.5 mCi of Technetium-99m mebrofenin was injected and sequential anterior images are acquired. 65 minutes after the mebrofenin injection, the patient consumed 8 ounces Ensure and an additional 60 minutes of imaging was acquired. Regions of interest are plotted around the gallbladder. FINDINGS: The initial hepatocellular parenchymal uptake phase is normal and homogeneous. Intra- and extra-hepatic bile ducts are labeled by the 10-minute image. The gallbladder is first labeled on the 10-minute image. There is normal washout from the liver parenchyma into the gallbladder and small intestine on subsequent images. The gallbladder ejection fraction is 80%. Values greater than 35% are considered normal with this technique. IMPRESSION: Normal hepatobiliary scan and normal gallbladder ejection fraction. <Electronically signed by Juan Alberto Galloway > 04/18/20 1100
== END ==
LOC: M RAD 07:35
PROVIDERS: ATTEND Surgery
DX: Z01.818 Encounter for other preprocedural examination (principal); R10.11 Right upper quadrant pain; I10 Essential (primary) hypertension; E11.9 Type 2 diabetes mellitus without complications; J44.9 Chronic obstructive pulmonary disease, unspecified; Z95.0 Presence of cardiac pacemaker
CPT/HCPCS: 78227; 93005; A9537

== ENCOUNTER → 2020-04-25 | Outpatient (CLI) | payer MEDICARE, OTHER ==
[~2020-04-25] MED LIST changes: -HYDR-3715 PO
== END ==
LOC: M LABSMTC 09:58
PROVIDERS: ATTEND Anesthesiology
DX: Z01.812 Encounter for preprocedural laboratory examination (principal); Z20.822 Contact with and (suspected) exposure to COVID-19

== ENCOUNTER 2020-04-30 05:59 | Inpatient (IN) | payer MEDICARE, OTHER ==
--- NOTE | 2020-04-15 17:48 | HPE ---
PREOPERATIVE HISTORY AND PHYSICAL DATE OF ANTICIPATED ADMISSION: 04/30/2020 CHIEF COMPLAINT: Diverticulitis. HISTORY OF PRESENT ILLNESS: The patient is a 60-year-old female who presents with multiple episodes of diverticulitis over the past year. She presented to discuss a possible elective colon resection. The first episode of diverticulitis was in 2008. She was hospitalized for six days then. This past June, she had another attack and has had four more attacks since then, all requiring antibiotics. She had a colonoscopy with Dr. Lawrence in February, where she was found to have narrowing in the sigmoid with extensive diverticulosis. Because of that, he recommended she come to be evaluated for possible elective sigmoid resection. Currently, she denies any symptoms. She has had concern for possible nausea, vomiting, right upper quadrant pains and wanted to be evaluated for cholecystitis. However, we did a workup with ultrasound and findings which were negative. Therefore, we will avoid doing a cholecystectomy at the same time as her sigmoid resection. PAST MEDICAL HISTORY: 1. Hypertension. 2. Diverticulosis. 3. Diabetes. 4. Gastroesophageal reflux disease (GERD). 5. Asthma. 6. Hypercholesterolemia. PAST SURGICAL HISTORY: 1. Appendectomy. 2. Total hysterectomy. ALLERGIES: IODINE, NSAIDS, PENICILLIN, BEE VENOM, LISINOPRIL, HIBICLENS. MEDICATIONS: Please see medical record. SOCIAL HISTORY: Denies drug, alcohol or tobacco abuse. FAMILY HISTORY: Noncontributory. REVIEW OF SYSTEMS: Per positives and negatives as per the history of present illness (HPI). PHYSICAL EXAMINATION: GENERAL: Alert and oriented times three. No acute distress. VITAL SIGNS: Stable. Afebrile. Blood pressure 146/88, body mass index (BMI) 34.1. HEENT: Pupils equally round reactive to light and accommodation. HEART: S1, S2. Regular rate and rhythm. LUNGS: Clear to auscultation bilaterally. ABDOMEN: Soft. Slight tenderness in the right upper quadrant only. No rebound or guarding. No ventral hernias. EXTREMITIES: No clubbing, cyanosis or edema. LABORATORY DATA: No recent laboratories were obtained. IMAGING: CT abdomen and pelvis from June of last year showed acute diverticulitis. No abscess, obstruction or free air. Ultrasound done for the right upper quadrant pain was a normal exam. No signs of any pelvic or wall thickening, pericholecystic fluid or stones. ASSESSMENT AND PLAN: The patient again is a 60-year-old female with history of recurrent diverticulitis in the past. It is at the point where it is affecting her daily activities and bothering her life. She would like to have an elective sigmoid resection. The risks and benefits of the procedure are not limited to, but including bleeding, infection, hernias, anastomotic leak, damages to surrounding structures, the need for further surgery was discussed in detail with the patient. Informed consent was obtained in the office and the procedure was planned for Thursday, April 30, 2020 at 7:30 a.m. Postoperatively, she will remain in the hospital for 3-5 days prior to being discharged home.
[~2020-04-30] VITALS: Ht 167.6 cm; Wt 97.5 kg
[2020-04-30] VITALS (8 sets, daily range): BP systolic 121–148; BP diastolic 73–90
[~2020-04-30 05:59] MED LIST changes: -ACET-1146 PO; -AZEL1SPR3 NARES; -BACL10TA2 PO; -CVS10CAP7 PO; -D31000TA2 PO; -FLON1SPR NARES; -LOSA50TA88 PO; -SUPRSOL2; -VENTAER INH
[2020-04-30] MEDS ORDERED: ERTAPENEM SODIUM 1 GM in NS MINI-BAG PLUS 50 ML IV ONE (06:45)
[2020-04-30] MEDS ORDERED: SUPRSOL2 (06:45)
[2020-04-30] MEDS ORDERED: AZEL1SPR3 NARES (06:45)
[2020-04-30] MEDS ORDERED: FLON1SPR NARES (06:45)
[2020-04-30] MEDS ORDERED: LR 1,000 ML IV ONE (07:00)
[2020-04-30] MEDS ORDERED: BUPIVACAINE/EPIN 0.25% 30 ML VIAL As Ordered ONE (07:12)
[2020-04-30] MEDS ORDERED: LIDOCAINE 2% 100MG/5ML SDV (FOR ANES.) As Ordered ONE (08:08)
[2020-04-30] MEDS ORDERED: dexameTHASONE 4 MG/ML 1ML VIAL (J1100 PER 1MG) As Ordered ONE (08:08)
[2020-04-30] MEDS ORDERED: SUGAMMADEX SODIUM 500 MG/5 ML VIAL (BRIDION) As Ordered ONE (08:08)
[2020-04-30] MEDS ORDERED: fentaNYL 250 MCG/5 ML INJECTION (J3010) As Ordered ONE (08:08)
[2020-04-30] MEDS ORDERED: ROCURONIUM BROMIDE 50 MG/5 ML VIAL As Ordered ONE ×2 (08:08→09:57)
[2020-04-30] MEDS ORDERED: MIDAZOLAM INJ 2MG/2ML VIAL (J2250 PER 1MG) As Ordered ONE (08:08)
[2020-04-30] MEDS ORDERED: ONDANSETRON 4MG/2ML VIAL As Ordered ONE ×2 (08:08→10:58)
[2020-04-30] MEDS ORDERED: propofoL 200 MG/20 ML VIAL As Ordered ONE (08:08)
[2020-04-30] MEDS ORDERED: METOCLOPRAMIDE INJ 10MG/2ML VIAL (J2765 PER 1) As Ordered ONE (08:08)
[2020-04-30] MEDS ORDERED: ACETAMINOPHEN 1000MG 100ML IV BTL (OFIRMEV) (J0131 PER 10MG) As Ordered ONE (08:10)
[2020-04-30] MEDS ORDERED: HYDROmorphone HCL 2 MG/ML 1ML VIAL (J1170) As Ordered ONE (08:13)
[2020-04-30] MEDS ORDERED: DESFLURANE 240 ML INHALANT As Ordered ONE (10:27)
[2020-04-30] MEDS ORDERED: ALBUTEROL 6.7GM INHALER **FOR ANES. CART/OMNICELL ONLY As Ordered ONE (10:43)
[2020-04-30] MEDS ORDERED: ONDANSETRON 4MG/2ML VIAL IV PRN ×2 (11:15→11:30)
[2020-04-30] MEDS ORDERED: METOCLOPRAMIDE INJ 10MG/2ML VIAL (J2765 PER 1) IV PRN (11:15)
[2020-04-30] MEDS ORDERED: PERCOCET 5MG/325MG TAB PO PRN (11:15)
[2020-04-30] MEDS ORDERED: fentaNYL 100 MCG/2 ML INJECTION (J3010) IV PRN (11:15)
[2020-04-30] MEDS ORDERED: LR 1,000 ML IV SCH (11:15)
--- NOTE | 2020-04-30 12:19 | RO ---
OPERATIVE NOTE DATE OF OPERATION: 04/30/2020 PREOPERATIVE DIAGNOSIS: Diverticulitis and umbilical hernia. POSTOPERATIVE DIAGNOSIS: Diverticulitis and umbilical hernia. PROCEDURE: Robotic sigmoidectomy with repair of umbilical hernia. SURGEON: Ton Figueroa DO ASSISTANTS: Raoul Cameron MD, assisted with reanastomosis and specimen retrieval; Krissy Hernandez assisted in the robotic portion of the case. ANESTHESIA: General. EBL: 15. COMPLICATIONS: None. INDICATIONS FOR PROCEDURE: The patient is a 60-year-old female who presented with history of diverticulitis. She has had multiple episodes over the last year. She also had colonoscopy showing some strictures. Therefore, recommendation was to proceed with sigmoid resection. She also mentioned an umbilical hernia and would like to have that fixed at the same time. Recommendation made to proceed with robotic repair. Risks and benefits of the procedure not limited to but including bleeding, infection, hernia formation, damage to surrounding structures, need for further surgery was discussed in detail with the patient and informed consent was obtained and procedure planned. DESCRIPTION OF PROCEDURE: The patient was brought back to operating room 7. After sufficient sedation, NG tube, Henson catheter were both placed. The abdomen and perineum were sterilely prepped and draped. Time out was done to confirm proper patient, proper procedure. Following that an 8 mm incision was made in left upper quadrant, Veress needle was inserted and abdomen insufflated to 15 mmHg. Veress needle was then removed and 8 mm Optiview port was used to gain access to the abdomen. Once the abdomen was examined there were adhesions around the umbilicus and I was able to take those down by placing another 8 mm port in the left upper quadrant using the Metzenbaum scissors. Once those were taken down I was able to place another 8 mm port just to the right of midline just inferior to the umbilicus and then in the right lower quadrant a 12 mm port. The robot was connected to the ports. The patient was placed in reverse Trendelenburg. The pelvis was then freed up from small bowel. There were multiple loops of small bowel that were adhered down there due to previous hysterectomy. I was able to take down all those adhesions and completely reduce all the small bowel outside of the pelvis. Once that was completed I was able to mobilize the sigmoid colon medially taking down all the adhesions along the lateral wall of the pelvis. Once that was completed I was able to elevate it up anteriorly, take down, get a window into the mesentery just outside of the pelvis. I was then able to trace that posteriorly all the way down around the rectum. Once that was completed I was able to transect the colon right at the rectosigmoid junction using robotic 60 mm stapler and green load. The dissection was carried proximally, the lateral peritoneal reflection was dissected free all the way up to the splenic flexure. The mesentery was dissected free sufficient enough to be able to mobilize the left colon down into the pelvis. Once that was completed the robot was undocked. 6 cm incision was made from the umbilicus inferiorly. The abdomen was entered and wound protector was placed. The colon was brought out through the abdominal wall. A small colotomy was then created, sizers were used to determine that a 25 mm stapler would be used for the EEA anastomosis. The EEA stapler was then taken, anvil was placed inside of the descending colon. Register stapler was then used with white load to transect the mesentery at this location followed by green load to transect the colon. The anvil was brought out through the staple line, #0 Vicryl pursestring suture was tied around the base of the anvil to make sure that the colon remained intact. Once this was completed the colon was placed back inside the pelvis. The umbilical hernia was then dissected free using cautery. The fascia was closed to repair the umbilical hernia using #1 PDS suture. The midline incision was then closed using two #1 PDS sutures. The abdomen was re-insufflated and robot was re-docked. The EEA stapler was brought into the rectum. Upon doing so it created a small serosal tear at the end of the rectum. Because of that I transected another couple inches of the proximal rectum using vessel sealer and then stapled across using another green load with the robotic stapler. Once that was removed the EEA stapler was placed inside again, the anastomosis was then able to be created sufficiently. The anastomosis was covered with layered Tisseel. The pelvis was then filled with saline and pressure tested. There were no signs of any air leak and the donuts on the EEA stapler were intact. Once that was completed the [place] drain was placed inside the pelvis and brought out through the right lower quadrant 12 mm port site after the specimen had been removed. The abdomen was desufflated. The skin incisions were closed with salinas. The drain was sutured in place with 2-0 silk suture. The abdomen was cleaned and dried. 4 x 4s and tape were applied. This ended the procedure.
[2020-04-30] MEDS: KCL 20MEQ IN D5/0.45NS 1000ML 1,000 ML IV SCH ×2 (13:08→19:14)
[2020-04-30] MEDS: NORCO, ANEXSIA 5/325MG TABLET (HYDROcodone/ACETAMINOPHEN) PO PRN (15:27)
[2020-04-30] MEDS ORDERED: MAALOX 30 ML SUSP *UDC PO PRN (19:45)
[2020-04-30] MEDS ORDERED: PANTOPRAZOLE 40MG TAB (PROTONIX) PO ONE (19:45)
[2020-04-30] MEDS: traZODone 25MG PER 1/2 TABLET PO SCH (21:41)
[2020-04-30] MEDS: SENOKOT S TAB PO SCH (21:41)
[2020-04-30] MEDS: KETOROLAC 30 MG/ML 1ML VIAL IV PRN (21:42)
[2020-05-01] VITALS (7 sets, daily range): BP systolic 108–159; BP diastolic 70–87; O2SAT 97
[2020-05-01] MEDS: KCL 20MEQ IN D5/0.45NS 1000ML 1,000 ML IV SCH ×3 (01:55→18:13)
[2020-05-01] MEDS: NORCO, ANEXSIA 5/325MG TABLET (HYDROcodone/ACETAMINOPHEN) PO PRN ×3 (01:56→17:13)
[2020-05-01 06:41] LABS: HEMATOCRIT 32.7 % (36.0-47.0); HEMOGLOBIN 10.6 g/dl (12.0-15.5); MEAN CORPUSCULAR HEMOGLOBIN 31.2 pg (27.0-33.0); MEAN CORPUSCULAR HGB CONC 32.4 g/dl (32.0-36.5); MEAN CORPUSCULAR VOLUME 96.2 fl (80.0-96.0); PLATELET COUNT, AUTOMATED 195 10^3/uL (150-450); WHITE BLOOD COUNT 7.4 10^3/uL (4.0-10.0)
[2020-05-01 07:01] LABS: BLOOD UREA NITROGEN 5 MG/DL (7-18); GLUCOSE, FASTING 128 MG/DL (70-100)
[2020-05-01 07:02] LABS: ALBUMIN 2.9 GM/DL (3.2-5.2); ALT/SGPT 32 U/L (12-78); BILIRUBIN,TOTAL 0.2 MG/DL (0.2-1.0); CALCIUM LEVEL 8.3 MG/DL (8.8-10.2); CARBON DIOXIDE LEVEL 28 MEQ/L (21-32); CHLORIDE LEVEL 108 MEQ/L (98-107); GLOMERULAR FILTRATION RATE > 60.0 (>45); POTASSIUM SERUM 3.8 MEQ/L (3.5-5.1); SODIUM LEVEL 140 MEQ/L (136-145); TOTAL PROTEIN 5.9 GM/DL (6.4-8.2)
[2020-05-01] MEDS ORDERED: ERTAPENEM SODIUM 1 GM in NS MINI-BAG PLUS 50 ML IV SCH (08:00)
[2020-05-01] MEDS: SENOKOT S TAB PO SCH ×2 (09:35→20:07)
[2020-05-01] MEDS: PANTOPRAZOLE 40MG TAB (PROTONIX) PO SCH (09:36)
--- NOTE | 2020-05-01 10:33 | IPNPDOC ---
Text Note Date of Service The patient was seen on 05/01/20. NOTE General Surgery Dr Figueroa. The patient is a 60-year-old female with history of recurrent diverticulitis status post elective sigmoid resection as per Dr. Figueroa 04/30/20. The patient is out of bed to the chair this morning. She is having clear liquids for breakfast. She reports her pain has been reasonably controlled, her last dose of pain medication was 2 AM, she is requesting to take some pain medication currently. States she didn't sleep well last night, she has chronic insomnia. Afebrile, VSS, 96% 2 L nasal cannula Appears comfortable sitting in the chair. S1-S2 regular rate rhythm Lungs clear to auscultation Abdomen soft, HUMERA drain in place draining serosanguineous drainage. Surgical dressings intact with no drainage noted on the dressings. BS present. Extremities. Well-perfused, no edema. I/O 3075/740 +2335 HUMERA drain 75 mL WBC 7.4, hemoglobin 10.6, platelet 195 Serum creatinine 0.50 with GFR greater than 60. Total protein 5.9, albumin 2.9 A/P. POD1 status post elective sigmoid resection as per Dr. Figueroa 04/30/20. Pain has been controlled. Tolerating clear liquids. IVF 125 ml/hr. Encourage ambulation. Continue to monitor. DVT px. SQ Lovenox. VS,Fishbone, I+O VS, Fishbone, I+O Laboratory Tests 05/01/20 06:20 Vital Signs Date Time Temp Pulse Resp B/P (MAP) Pulse Ox O2 Delivery O2 Flow Rate FiO2 05/01/20 09:36 17 Room Air 05/01/20 06:00 97.6 82 108/70 (83) 96 2.0 I&O- Last 24 Hours up to 6 AM 05/01/20 05:59 Intake Total 3075 ml Output Total 750 ml Balance 2325 ml Cristina Parish May 01, 2020 10:33
[2020-05-01] MEDS ORDERED: CVS10CAP7 PO (10:59)
[2020-05-01] MEDS ORDERED: D31000TA2 PO (10:59)
[2020-05-01] MEDS ORDERED: VENTAER INH (10:59)
[2020-05-01] MEDS ORDERED: BACL10TA2 PO (10:59)
[2020-05-01] MEDS ORDERED: ACET-1146 PO (10:59)
[2020-05-01] MEDS ORDERED: LOSA50TA88 PO (10:59)
[2020-05-01] MEDS: KETOROLAC 30 MG/ML 1ML VIAL IV PRN ×2 (13:36→22:18)
[2020-05-01] MEDS: ENOXAPARIN 40MG/0.4ML SYRINGE (J1650 PER 10MG) SC SCH (14:18)
[2020-05-01] MEDS: traZODone 25MG PER 1/2 TABLET PO SCH (20:07)
[2020-05-01] MEDS ORDERED: LOSARTAN 50MG TABLET PO ONE (20:45)
[2020-05-02] MEDS: NORCO, ANEXSIA 5/325MG TABLET (HYDROcodone/ACETAMINOPHEN) PO PRN ×4 (00:49→20:47)
[2020-05-02 06:00] VITALS: BP 146/87
[2020-05-02 06:35] LABS: HEMATOCRIT 34.5 % (36.0-47.0); HEMOGLOBIN 11.2 g/dl (12.0-15.5); MEAN CORPUSCULAR HEMOGLOBIN 31.5 pg (27.0-33.0); MEAN CORPUSCULAR HGB CONC 32.5 g/dl (32.0-36.5); MEAN CORPUSCULAR VOLUME 97.2 fl (80.0-96.0); PLATELET COUNT, AUTOMATED 190 10^3/uL (150-450); RED BLOOD COUNT 3.55 10^6/uL (4.00-5.40); WHITE BLOOD COUNT 6.1 10^3/uL (4.0-10.0)
[2020-05-02 07:02] LABS: ALBUMIN 2.8 GM/DL (3.2-5.2); ALT/SGPT 30 U/L (12-78); BILIRUBIN,TOTAL 0.3 MG/DL (0.2-1.0); BLOOD UREA NITROGEN 2 MG/DL (7-18); CALCIUM LEVEL 8.2 MG/DL (8.8-10.2); CARBON DIOXIDE LEVEL 30 MEQ/L (21-32); CHLORIDE LEVEL 107 MEQ/L (98-107); CREATININE FOR GFR 0.48 MG/DL (0.55-1.30); GLOMERULAR FILTRATION RATE > 60.0 (>45); GLUCOSE, FASTING 91 MG/DL (70-100); POTASSIUM SERUM 4.1 MEQ/L (3.5-5.1); SODIUM LEVEL 141 MEQ/L (136-145)
[2020-05-02] MEDS ORDERED: ALBUTEROL 90 MCG/ACT 8GM HFA INHALER INH PRN (08:00)
[2020-05-02 08:08] VITALS: O2SAT 98
[2020-05-02] MEDS: VITAMIN D 1,000 INTERNATIONAL UNITS TABLET PO SCH (08:16)
[2020-05-02] MEDS: LORATADINE 10 MG TAB PO SCH (08:16)
[2020-05-02] MEDS: LOSARTAN 50MG TABLET PO SCH (08:16)
[2020-05-02] MEDS: SENOKOT S TAB PO SCH ×2 (08:16→20:46)
[2020-05-02] MEDS: tiZANidine 4 MG TAB PO SCH ×2 (08:16→20:46)
[2020-05-02] MEDS: ASPIRIN 81 MG ENTERIC TAB PO SCH (08:16)
[2020-05-02] MEDS: PANTOPRAZOLE 40MG TAB (PROTONIX) PO SCH (08:16)
[2020-05-02] MEDS: ENOXAPARIN 40MG/0.4ML SYRINGE (J1650 PER 10MG) SC SCH (08:17)
--- NOTE | 2020-05-02 08:39 | IPNPDOC ---
Text Note Date of Service The patient was seen on 05/02/20. NOTE General Surgery Dr Figueroa. The patient is a 60-year-old female with history of recurrent diverticulitis status post elective sigmoid resection as per Dr. Figueroa 04/30/20. The patient is still in bed this AM, states she did not sleep well related to her chronic insomnia and feels very tired. Abdominal pain has been controlled. Has been OOB to bathroom and chair yesterday. Has had BM x 2. Tolerating liquids. Afebrile, VSS, 96% 2 L nasal cannula Appears comfortable resting in bed. S1-S2 regular rate rhythm Lungs clear to auscultation Abdomen soft, HUMERA drain in place draining serosanguineous drainage. Surgical dressings intact with no drainage noted on the dressings. BS present. Extremities. Well-perfused, no edema. I/O 6415/3225 po intake was 3740. HUMERA drain 115 mL WBC 6.1, hemoglobin 11.2 upward trend. A/P. POD2 status post elective sigmoid resection as per Dr. Figueroa 04/30/20. Pain has been controlled. taking po well, IVF D/C d 05/01. Plan to advance to regular diet. Encourage OOB/ambulation. Continue to monitor. chronic insomnia. trazadone 75 mg HS. Elavil 50 mg HS. Home medication list is reviewed, the patient also takes 2 Tylenol PM at bedtime and melatonin 10 mg at bedtime. We do not have these on formulary. I have written an order to allow the patient to use her own melatonin if she wishes 10 mg at bedtime. I have added Benadryl 50 mg as needed at bedtime. HTN. Cozaar/ASA BP controlled. HLD. statin. DVT px. SQ Lovenox. VS,Fishbone, I+O VS, Fishbone, I+O Laboratory Tests 05/02/20 05:52 Vital Signs Date Time Temp Pulse Resp B/P (MAP) Pulse Ox O2 Delivery O2 Flow Rate FiO2 05/02/20 08:17 18 05/02/20 08:16 157/89 05/02/20 06:00 97.8 94 96 Nasal Cannula 1.0 I&O- Last 24 Hours up to 6 AM 05/02/20 06:00 Intake Total 6965 ml Output Total 3175 ml Balance 3790 ml Cristina Parish May 02, 2020 08:39
[2020-05-02] MEDS ORDERED: diphenhydrAMINE 50MG CAP PO PRN (09:45)
[2020-05-02] MEDS: FLUTICASONE PROP 0.05% NASAL SPRAY 16 GM (FLONASE) NARES SCH (11:13)
[2020-05-02] MEDS: KETOROLAC 30 MG/ML 1ML VIAL IV PRN (13:17)
[2020-05-02 14:00] VITALS: BP 138/77
[2020-05-02] MEDS: traZODone 25MG PER 1/2 TABLET PO SCH (20:46)
[2020-05-02 21:00] VITALS: O2SAT 96
[2020-05-02] MEDS ORDERED: BACLOFEN 10 MG TAB PO SCH (21:00)
[2020-05-02] MEDS ORDERED: ATORVASTATIN 20 MG TAB PO SCH (21:00)
[2020-05-02] MEDS ORDERED: AMITRIPTYLINE 50 MG TAB PO SCH (21:00)
[2020-05-02 22:00] VITALS: BP 132/84
[2020-05-03 06:00] VITALS: BP 135/92
[2020-05-03 06:31] LABS: HEMATOCRIT 33.9 % (36.0-47.0); HEMOGLOBIN 11.2 g/dl (12.0-15.5); MEAN CORPUSCULAR HEMOGLOBIN 31.5 pg (27.0-33.0); MEAN CORPUSCULAR VOLUME 95.2 fl (80.0-96.0); PLATELET COUNT, AUTOMATED 209 10^3/uL (150-450); RED BLOOD COUNT 3.56 10^6/uL (4.00-5.40)
[2020-05-03 06:58] LABS: ALBUMIN 2.8 GM/DL (3.2-5.2); ALT/SGPT 30 U/L (12-78); BILIRUBIN,TOTAL 0.2 MG/DL (0.2-1.0); BLOOD UREA NITROGEN 8 MG/DL (7-18); CALCIUM LEVEL 8.5 MG/DL (8.8-10.2); CARBON DIOXIDE LEVEL 29 MEQ/L (21-32); CHLORIDE LEVEL 108 MEQ/L (98-107); CREATININE FOR GFR 0.51 MG/DL (0.55-1.30); GLOMERULAR FILTRATION RATE > 60.0 (>45); GLUCOSE, FASTING 94 MG/DL (70-100); POTASSIUM SERUM 3.9 MEQ/L (3.5-5.1); SODIUM LEVEL 144 MEQ/L (136-145)
[2020-05-03 08:09] VITALS: BP 134/90
[2020-05-03] MEDS: LORATADINE 10 MG TAB PO SCH (08:09)
[2020-05-03] MEDS: tiZANidine 4 MG TAB PO SCH (08:09)
[2020-05-03] MEDS: VITAMIN D 1,000 INTERNATIONAL UNITS TABLET PO SCH (08:09)
[2020-05-03] MEDS: SENOKOT S TAB PO SCH (08:09)
[2020-05-03] MEDS: PANTOPRAZOLE 40MG TAB (PROTONIX) PO SCH (08:09)
[2020-05-03] MEDS: LOSARTAN 50MG TABLET PO SCH (08:09)
[2020-05-03] MEDS: ASPIRIN 81 MG ENTERIC TAB PO SCH (08:09)
[2020-05-03] MEDS: NORCO, ANEXSIA 5/325MG TABLET (HYDROcodone/ACETAMINOPHEN) PO PRN (08:10)
[2020-05-03] MEDS: FLUTICASONE PROP 0.05% NASAL SPRAY 16 GM (FLONASE) NARES SCH (08:11)
[2020-05-03] MEDS: ENOXAPARIN 40MG/0.4ML SYRINGE (J1650 PER 10MG) SC SCH (08:11)
[2020-05-03 08:15] VITALS: O2SAT 97
[2020-05-03] MEDS ORDERED: ENTER DRUG NAME HERE (PATIENT'S OWN MED) PO SCH (09:00)
[2020-05-03] MEDS ORDERED: HYDR-3715 PO (09:00)
--- NOTE | 2020-05-03 09:49 | DSES ---
DISCHARGE SUMMARY DATE OF ADMISSION: 04/30/2020 DATE OF DISCHARGE: 05/03/2020 ADMITTING DIAGNOSES: 1. Diverticulitis. 2. Umbilical hernia. DISCHARGE DIAGNOSES: 1. Diverticulitis. 2. Umbilical hernia. HISTORY AND HOSPITAL COURSE: Patient is a 60-year-old female who presented on the for an elective robotic sigmoidectomy with repair of an umbilical hernia. Post-operatively she did well. She was having bowel movements within the first 24 hours. She was tolerating diet. She did have some nausea every morning, no emesis. Nausea was mainly due to not getting any sleep. She does take multiple medications every evening to sleep and those were not renewed the first night due to pharmacy not reconciling them on time. After her meds were restarted she was able to sleep better. She had been ambulating in the halls daily, she tolerated diet, pain has been well controlled, she has had multiple bowel movements, labs have been stable and plan is for discharge home today. She will be discharged home with pain pills. No need for any antibiotics. She can shower when she gets home. The drain will be removed prior to discharge. No lifting more than 20 pounds for 2 weeks and she has salinas in place. She can follow up with me in 2 weeks from today to get those salinas removed in the office. All of her questions are answered and she will be discharged home shortly.
[2020-05-03] MEDS ORDERED: metFORMIN XR 500MG TAB *GLUCOPHAGE XR PO SCH (17:30)
== END 2020-05-03 12:07 | disposition home or self-care (01) | DRG 331 ==
LOC: M OR 05:59 → M MSPAV 12:55
PROVIDERS: ADMIT Surgery; ATTEND Surgery
PROC: 8E0W4CZ Robotic Assisted Procedure of Trunk Region, Percutaneous Endoscopic Approach (ICD-10-PCS; 2020-04-30)
PROC: 0DBN4ZZ Excision of Sigmoid Colon, Percutaneous Endoscopic Approach (ICD-10-PCS; principal; 2020-04-30 07:30)
PROC: 0WQF4ZZ Repair Abdominal Wall, Percutaneous Endoscopic Approach (ICD-10-PCS; 2020-04-30 07:30)
DX: K57.32 Diverticulitis of large intestine without perforation or abscess without bleeding (principal); K42.9 Umbilical hernia without obstruction or gangrene; I10 Essential (primary) hypertension; K21.9 Gastro-esophageal reflux disease without esophagitis; E11.9 Type 2 diabetes mellitus without complications; J45.909 Unspecified asthma, uncomplicated; E78.00 Pure hypercholesterolemia, unspecified; Z91.030 Bee allergy status; Z88.0 Allergy status to penicillin; Z88.8 Allergy status to other drugs, medicaments and biological substances; Z88.6 Allergy status to analgesic agent

== ENCOUNTER → 2020-05-23 | Outpatient (CLI) | payer MEDICARE, OTHER ==
[~2020-05-23] MED LIST changes: +ACET-1146 PO; +AZEL1SPR3 NARES; +BACL10TA2 PO; +CVS10CAP7 PO; +D31000TA2 PO; +FLON1SPR NARES; +HYDR-3715 PO; +LOSA50TA88 PO; +SUPRSOL2; +VENTAER INH
== END ==
LOC: M LABSMTC 10:40
PROVIDERS: ATTEND Anesthesiology
DX: Z11.52 Encounter for screening for COVID-19 (principal)

== ENCOUNTER → 2020-05-28 | Outpatient (CLI) | payer MEDICARE, OTHER ==
[~2020-05-28] MED LIST changes: +ISOVUE-M 300 61% 15ML VIAL As Ordered ONE; +LIDOCAINE 1% SDV 30ML VIAL As Ordered ONE; +diazePAM 5MG TABLET As Ordered ONE; +diphenhydrAMINE 25MG CAP As Ordered ONE; +methylPREDNISolone SUSP 40MG/ML 1ML VIAL (DEPO MEDROL) As Ordered ONE; +oxyCODONE 5MG TAB As Ordered ONE
--- NOTE | 2020-05-28 12:15 | REP ---
INDICATION: NINA C7-T1. COMPARISON: None. TECHNIQUE: Intraoperative fluoroscopic imaging using portable C-arm technique. FINDINGS: Images demonstrate contrast overlying the cervical spine consistent with epidural injection. Total fluoroscopic time 6.2 seconds IMPRESSION: Findings consistent with lower cervical epidural injection. <Electronically signed by Aj Kwan > 05/28/20 3507
--- NOTE | 2020-05-31 04:47 | ECWPNPC ---
PATIENT NAME: LEWIS HUGHES : 1960 GENDER: FEMALE VISIT DATE: 05/28/2020 DISCHARGE DATE: 05/28/20 1302 VISIT LOCKED DATE TIME: PHYSICIAN: JAYME VALLES MD PHYSICIAN PAGER NO: ACTIVE RESOURCE: JAYME VALLES MD REASON FOR APPOINTMENT 1. CERVICAL EPIDRUAL STEROID INJECTION HISTORY OF PRESENT ILLNESS GENERAL: -. FALL RISK SCREENING: SCREENING : NO FALLS REPORTED IN THE LAST YEAR. PAIN SCREENING: PATIENT HAS A COMPLAINT OF ACUTE OR CHRONIC PAIN :YES LOCATION OF PAIN:NECK, LEFT SHOULDER INTENSITY OF PAIN (SCALE OF 1 TO 10):4 WHAT DOES YOUR PAIN FEEL LIKE:ACHING, OTHER NUMB DOWN LEFT ARM TO RING FINGER DURATION:CONTINOUS, MAINLY DURING THE NIGHT NURSING NOTE: -. PAIN CENTER INTAKE QUESTIONS: DO YOU HAVE A HISTORY OF MRSA? :NO DO YOU TAKE A BLOOD THINNERS? :NO DO YOU HAVE ANY BLEEDING DISORDERS? :NO ANY NEW NUMBNESS OR WEAKNESS IN YOUR LEGS OR ARMS? :YES LEFT ARM TO RING FINGER ANY PACEMAKER,DEFIBRILLATOR, OR DORSAL COLUMN STIMULATOR? :YES PACEMAKER DO YOU HAVE ANY RASHES OR OPEN SORES? :NO ARE YOU ALLERGIC TO IV DYE? :YES HIVES ARE YOU DIABETIC? :NO ANY NEW PROBLEMS WITH YOUR MEDICATIONS? :NO HAVE YOU RECEIVED A VACCINE IN THE PAST 30 DAYS? :NO DO YOU PLAN TO RECEIVE A VACCINE IN THE NEXT 21 DAYS? :YES IF SO WHAT VACCINE AND WHEN? WOULD LIKE THE COVID VACCINE WHEN POSSIBLE DO YOU TAKE ANY IMMUNOSUPPRESSIVE MEDICATIONS? :NO ANY HISTORY OF SEIZURES? :NO ANY HISTORY OF CARDIAC ISSUES OR EVENTS? :YES SICK SINUS SYNDROME...HAS A PACER DO YOU HAVE ANY KIDNEY OR LIVER DISEASE? :NO DO YOU HAVE SLEEP APNEA? :NO ANY RECENT HEAD INJURY? :NO DO YOU HAVE ANY NEW INFECTIONS? :NO IS THERE A CHANCE YOU COULD BE ? :NO ARE YOU BREAST FEEDING? :NO WHEN DID YOU LAST EAT? : -05/27/20 1800 WHEN DID YOU LAST DRINK? : -05/27/20 @ 1800 WHAT DID YOU LAST DRINK? : -WATER NAME OF PERSON DRIVING YOU HOME? : -BOYFRIEND COY DO YOU HAVE ANY OTHER QUESTIONS OR CONCERNS? : -DENIES ALLERGIES NO[ALLERGIES VERIFIED] SURGICAL HISTORY BACK 1989 BACK 1999 SINUS 2009 ENDOSCOPE & COLONOSCOPY FOR COLON POLYPS AND HIATAL HERNIA LOOP PLACED - CARDIO-REMOVED WHEN PACEMAKER INSERTED 01/2017 ROTATOR CUFF REPAIR RIGHT X 3 02/2017,07/27/2017/12/14/17 PACEMAKER 04/2017 TOTAL HYSTERCTOMY 1990 BILATERAL BREAST REDUCTIONS TONSILLECTOMY APPENDECTOMY CYSTECTOMIES FOR BREASTS MULTIPLE TIME BOWEL/ HERNIA SURGERY 04/30/20 HOSPITALIZATION/MAJOR DIAGNOSTIC PROCEDURE [facility] 2011 [facility] 12/2016 SURGERIES VITAL SIGNS WT 217.6 LBS, HT 66 IN, BMI 35.12 INDEX, BP 135/76 MM HG, HR 96 /MIN, RR 16 /MIN, TEMP 97.6 F, OXYGEN SAT % 95, SAFE IN ENV? (Y/N) Y, REVIEWED BY: VIOLETA. EXAMINATION GENERAL EXAMINATION: THE PATIENT IS ALERT, ORIENTED TIMES THREE AND COOPERATIVE. LUNGS ARE CLEAR TO AUSCULTATION. HEART SHOWS REGULAR RHYTHM, NO MURMURS AND NO GALLOPS. ASSESSMENTS CERVICAL DISC DISORDER WITH RADICULOPATHY, UNSPECIFIED CERVICAL REGION - M50.10 (PRIMARY) TREATMENT CERVICAL DISC DISORDER WITH RADICULOPATHY, UNSPECIFIED CERVICAL REGION [facility] FLUORO GUIDE SPINE INJECTION (PAIN)[id number] SALINE RAYMON HANDLEY 05/28/2020 11:10:57 AM > 22G IV ACCESS OBTAINED IN LEFT FOREARM WITH SECOND ATTEMPT. PATIENT TOLERATED WELL. MEDICATION: VALIUM TAB 10MG ORALLY (DIAZEPAM)BETH LINDO 05/28/2020 11:07:38 AM > VERIFIED RAYMON KWAN 05/28/2020 11:11:20 AM > ADMINISTERED MEDICATION: OXYCODONE HCL TAB 10MG ORALLYBETH LINDO 05/28/2020 11:07:07 AM > VERIFIED RAYMON KWAN 05/28/2020 11:11:43 AM > ADMINISTERED COMPLETION OF PROCEDURAL VISIT WHEN MEETS CRITERIARAYMON KWAN 05/28/2020 12:22:58 PM > CRITERIA MET AT 1215 MED: PAIN BENADRYL TAB 25MG ORALLY DIPHENHYDRAMINEBETH LINDO 05/28/2020 10:59:00 AM > VERIFIED RAYMON KWAN 05/28/2020 11:12:18 AM > ADMINISTERED OTHERS CLINICAL NOTES: 05/25/20 - PAT COMPLETE @1350. VIOLETA. PROCEDURES PAIN NURSING RECORD PROCEDURE IN ROOM 1138, PHYSICIAN IN ROOM 1153, START 1157, FINISH 1202, PHYSICIAN OUT OF ROOM 1204, OUT OF ROOM 1202, ECG NORMAL SINUS, PATIENT SHIELDED YES, SAFETY STRAP YES, PREP CHLOROPREP BY VIOLETA, DRESSING TEGADERM BY DR VALLES LOC: 1. ALERT, ORIENTED, RAYMON KWAN 05/28/2020 11:54:30 AM > RESP: 1. REGULAR, NO DYSPNEA, AQUILESRAYMON 05/28/2020 11:54:35 AM > COLOR: 1. PINKAQUILESRAYMON 05/28/2020 11:54:39 AM > SKIN: 1. WARM, DRY, AQUILESRAYMON 05/28/2020 11:54:46 AM > , AQUILESRAYMON 05/28/2020 11:54:48 AM > POSITION: 1. PRONEAQUILESRAYMON 05/28/2020 11:56:42 AM > VITALS: HR 83, 123/69, 93% R16, AQUILESRAYMON 05/28/2020 11:57:23 AM > HR 84, 133/88, 93%, R16 , AQUILESRAYMON 05/28/2020 12:05PM > EXIT VITALS HR 87, 137/86, 98%, R16 NOTES Kourtney KWAN RN COMPLETION OF PROCEDURE APPOINTMENT: POST PAIN 0, DRESSING SITE DRY AND INTACT POSTERIOR NECK, IV DISCONTINUED, SITE CLEAR, CATHETER INTACT, GAIT WHEELCHAIR, TEACHING COMPLETED, PATIENT ACKNOWLEDGES UNDERSTANDING YES, PROCEDURE APPOINTMENT COMPLETED AT 1215 PN CERVICAL EPIDURAL PRE PROCEDURE DIAGNOSIS CERVICAL DISC DISORDER WITH RADICULOPATHY POST PROCEDURE DIAGNOSIS CERVICAL DISC DISORDER WITH RADICULOPATHY PROCEDURE CERVICAL EPIDURAL STEROID INJECTION UNDER FLUOROSCOPIC GUIDANCE SURGEON DR. JAYME VALLES DOOR BUILDER NONE ANESTHESIA LOCAL PRE PROCEDURE NOTE THE PATIENT HAS A HISTORY OF CHRONIC CERVICAL PAIN. I EVALUATED THE PATIENT AND REVIEWED THE CHART. I WENT OVER THE RISKS, ALTERNATIVES, AND BENEFITS ASSOCIATED WITH THIS PROCEDURE. THE PATIENT WOULD LIKE TO PROCEED AND GIVE CONSENT TO PERFORMED THE PROCEDURE. THE PATIENT DENIES UNEXPLAINABLE WEIGHT LOSS, FEVER, CHILLS, OR NEW CHANGES IN URINARY OR BOWEL CONTROL. THE PATIENT IS COVID-19 NEGATIVE. BEFORE DOING THE PROCEDURE TODAY, THE PATIENT ASKED ME ABOUT SOME LUMPS ON THE RIGHT SIDE OF HER NECK. WHEN I TOUCH IT, THERE IS SOME TIGHTNESS WITH SOME BANDS OF TISSUE. FOR ME, THIS FEELS LIKE A TRIGGER POINT BUT I WANT HER TO DISCUSS THIS WITH HER PRIMARY CARE. DESCRIPTION OF PROCEDURE THE PATIENT WAS BROUGHT TO THE PROCEDURE ROOM AND PLACED IN THE PRONE POSITION. THE CERVICOTHORACIC AREA WAS CLEANED WITH CHLORAPREP SOLUTION AND DRAPED ASEPTICALLY. THE PATIENT HAS AN ALLERGY TO BETADINE. THE PROCEDURE WAS DONE UNDER STERILE CONDITIONS. A TIMEOUT WAS PERFORMED WHERE THE CONSENTED SITE WAS VERIFIED WITH EVERYONE IN THE ROOM. UNDER FLUOROSCOPIC GUIDANCE, THE TARGET WAS SELECTED AT THE INTERLAMINAR LEVEL OF C7-T1. I CONFIRMED AGAIN THE SITE OF TARGET. LIDOCAINE WAS USED TO NUMB THE SKIN AND THE SUBCUTANEOUS TISSUE BELOW IT. EPIDURAL TUOHY NEEDLE, 17-GAUGE, WAS ADVANCED UNDER FLUOROSCOPIC GUIDANCE AND FOLLOWING PATIENT FEEDBACK UNTIL THE EPIDURAL SPACE WAS REACHED 6 CM DEEP INTO THE SKIN BY THE LOSS OF RESISTANCE TECHNIQUE. ISOVUE-M DYE 30%, 0.25 ML, WAS INJECTED SHOWING ADEQUATE SPREAD OF THE DYE. THEN, A SOLUTION OF 3 ML OF NORMAL SALINE WITH DEPO-MEDROL 40MG WAS INJECTED SLOWLY FOLLOWING PATIENT FEEDBACK. THE MEDICATIONS WERE VERIFIED WITH THE NURSE. THERE WAS NO EVIDENCE OF BLOOD, PARESTHESIA OR CEREBROSPINAL FLUID DURING THE PROCEDURE. ESTIMATED BLOOD LOSS WAS LESS THAN 5 ML. THE PATIENT WAS SENT TO THE RECOVERY ROOM. THE PATIENT WAS MOVING THE EXTREMITIES AND DOING WELL. THERE WERE NO COMPLICATIONS DURING THE PROCEDURE. FLUOROSCOPY TIME WAS 6 SECONDS POST PROCEDURE NOTE THE PATIENT WILL BE SEEN IN A FOLLOW UP IN THE NEXT FEW WEEKS. I AM LOOKING FOR LONG LASTING RELIEF FOR THE PATIENT WITH THIS INTERVENTION. INSTRUCTIONS WERE GIVEN, QUESTIONS WERE ANSWERED, AND THE PATIENT EXPRESSED UNDERSTANDING AND AGREES WITH THE PLAN. I, LEON LOCKETT, DOCUMENTED THE ABOVE INFORMATION ACTING A SCRIBE FOR DR. VALLES. I HAVE REVIEWED THE ABOVE DOCUMENT, WRITTEN BY LEON LOCKETT, AGRICULTURAL SERVICES DIRECTOR, AND I VERIFY THAT IT IS ACCURATE PROCEDURE CODES 59935 CERVICAL/THORACIC W/ IMAGING DISPOSITION & COMMUNICATION FOLLOW UP FOLLOW UP WITH TOOL MACHINIST (REASON: POST CERVICAL EPIDURAL STEROID INJECTION) ELECTRONICALLY SIGNED BY JAYME VALLES MD, MD ON 05/30/2020 AT 12:19 PM EST DISCLAIMER : THIS IS A VISIT SUMMARY EXTRACTED FROM THE Rupture CHART. IT IS NOT A COPY OF THE [facility]ure PROGRESS NOTE. KIRAN
== END ==
LOC: M PAIN 10:20
PROVIDERS: ATTEND Anesthesiology
DX: M50.10 Cervical disc disorder with radiculopathy, unspecified cervical region (principal); Z95.0 Presence of cardiac pacemaker
CPT/HCPCS: 62321; J1030; Q9967

== ENCOUNTER → 2020-06-13 | Outpatient (CLI) | payer MEDICARE, OTHER ==
[~2020-06-13] MED LIST changes: -ISOVUE-M 300 61% 15ML VIAL As Ordered ONE; -LIDOCAINE 1% SDV 30ML VIAL As Ordered ONE; -diazePAM 5MG TABLET As Ordered ONE; -diphenhydrAMINE 25MG CAP As Ordered ONE; -methylPREDNISolone SUSP 40MG/ML 1ML VIAL (DEPO MEDROL) As Ordered ONE; -oxyCODONE 5MG TAB As Ordered ONE
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
== END ==
LOC: M PAIN 10:30
PROVIDERS: ATTEND Family Medicine
DX: M50.10 Cervical disc disorder with radiculopathy, unspecified cervical region (principal); G89.29 Other chronic pain; R73.03 Prediabetes; K21.9 Gastro-esophageal reflux disease without esophagitis; Z88.0 Allergy status to penicillin; Z88.3 Allergy status to other anti-infective agents; Z88.8 Allergy status to other drugs, medicaments and biological substances; Z91.09 Other allergy status, other than to drugs and biological substances; Z79.82 Long term (current) use of aspirin; Z79.84 Long term (current) use of oral hypoglycemic drugs; Z79.899 Other long term (current) drug therapy

== ENCOUNTER → 2020-06-28 | Outpatient (CLI) | payer MEDICARE, OTHER ==
--- NOTE | 2020-06-28 08:50 | REP ---
INDICATION: CERVICAL RADICULOPATHY. COMPARISON: None. TECHNIQUE: Axial CT images with multiplanar reformations. FINDINGS: There is straightening of the cervical spine and mild reversal of normal cervical lordosis. There is degenerative disc disease more progressed at the C5-6 disc level with loss of disc height, and osteophyte formation at the adjacent vertebral levels. Craniovertebral junction appears unremarkable. On the sagittal imaging, no definite limiting canal stenosis. No evidence of fracture or malalignment. On the review of axial images, At C2-3 and C3-4 no significant canal or foraminal narrowing At C4-5 there is a slight anterolisthesis of C4 over C5 without significant canal or foraminal narrowing. At C5-6 and C6-7 osteophytes contribute to foraminal narrowing, greater at C5-6 on the right, appears at least moderate. At C7-T1 no significant canal or foraminal narrowing. IMPRESSION: 1. Straightening of the cervical spine with mild reversal of normal cervical lordosis with degenerative disc disease focal at the C5-6 level and to lesser extent at the C6-7 level. 2. No evidence of high-grade or limiting canal stenosis. 3. Degenerative foraminal narrowing is noted at the C5-6 and C6-7 levels, greater at C5-6 on the right, appears at least moderate. <Electronically signed by Fernando Mcmillan > 06/28/20 0880
== END ==
LOC: M RAD 08:05
PROVIDERS: ATTEND Family Medicine
DX: G89.29 Other chronic pain (principal); M50.323 Other cervical disc degeneration at C6-C7 level; M50.322 Other cervical disc degeneration at C5-C6 level

== ENCOUNTER → 2020-07-12 | Outpatient (CLI) | payer MEDICARE, OTHER ==
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
== END ==
LOC: M PAIN 14:00
PROVIDERS: ATTEND Family Medicine
DX: M47.812 Spondylosis without myelopathy or radiculopathy, cervical region (principal); G89.29 Other chronic pain; R73.03 Prediabetes; Z87.891 Personal history of nicotine dependence; Z88.0 Allergy status to penicillin; Z88.3 Allergy status to other anti-infective agents; Z88.6 Allergy status to analgesic agent; Z88.8 Allergy status to other drugs, medicaments and biological substances; Z91.09 Other allergy status, other than to drugs and biological substances; Z79.82 Long term (current) use of aspirin; Z79.84 Long term (current) use of oral hypoglycemic drugs; Z79.899 Other long term (current) drug therapy
CPT/HCPCS: G0463 ×2

== ENCOUNTER → 2020-07-16 | Outpatient (CLI) | payer MEDICARE, OTHER ==
[2020-07-16 09:50] LABS: BLOOD UREA NITROGEN 11 MG/DL (7-18); CALCIUM LEVEL 8.7 MG/DL (8.8-10.2); CARBON DIOXIDE LEVEL 31 MEQ/L (21-32); CHLORIDE LEVEL 108 MEQ/L (98-107); CHOLESTEROL LEVEL 178 MG/DL (<200); CHOLESTEROL RISK RATIO 2.507 (<5); CREATININE FOR GFR 0.51 MG/DL (0.55-1.30); GLOMERULAR FILTRATION RATE > 60.0 (>45); GLUCOSE, FASTING 87 MG/DL (70-100); HDL CHOLESTEROL 71 MG/DL (>40); LDL CHOLESTEROL 82 MG/DL (<100); NON-HDL-C 107 MG/DL; SODIUM LEVEL 143 MEQ/L (136-145); TRIGLYCERIDES LEVEL 125 MG/DL (<150)
[2020-07-16 10:38] LABS: HEMOGLOBIN A1c 5.4 %
[2020-07-16 10:40] LABS: MALB URINE SIEMENS 23.8 MG/L; MAU/CREAT RATIO 9.8 MCG/MG (0.0-30.0)
== END ==
LOC: M LAB 08:35
PROVIDERS: ATTEND Family Medicine
DX: R73.01 Impaired fasting glucose (principal); E78.5 Hyperlipidemia, unspecified

== ENCOUNTER → 2020-07-20 | Outpatient (CLI) | payer MEDICARE, OTHER ==
--- NOTE | 2020-07-24 12:24 | REPMRS ---
Patient History Patient is postmenopausal. Family history of breast cancer at age 29 in daughter, breast cancer at age 30 in sister. Reductions of both breasts, 1999. Excisional biopsy of the right breast, 1986. MRI guided breast biopsy of the left breast. Digital Woman Screen Mammo: July 20, 2020 - Exam #: [id number] Bilateral CC and MLO view(s) were taken. Technologist: Shantell Velásquez, Technologist Prior study comparison: April 27, 2018, digital mammo diagnostic bilateral, performed at [facility]. FINDINGS: There are scattered fibroglandular densities. Screening. Digital screening (2D) mammography was performed bilaterally in the CC and MLO projections. Additionally, breast tomosynthesis (3D mammography) was performed bilaterally in the CC and MLO projections. Todays exam was compared to the prior exams(s). By history, the patient has no complaints of a palpable breast abnormality or other significant breast complaints. The breasts are unchanged in size and shape. There are no brenda-soft tissue densities or spiculated masses. There is no internal architectural distortion. Once again, stable benign appearing calcifications are seen.There are no suspicious brenda-calcific clusters. Skin thickening or nipple retraction is not present. IMPRESSION: BI-RADS Category 2- Benign Findings(s). There is no evidence of malignant alteration of the breasts. Followup examination recommended in one year. This mammogram was read with the assistance of [employer],an FDA approved computer aided detection system for mammography. The Volpara volumetric breast density category is B, there are scattered areas of fibroglandular density. Negative x-ray reports should not delay surgical consultation if a dominant or clinically suspicious mass is present. The lifetime Tyrer-Cuzick score is 17.0% Not all breast cancers can be identified by mammography. Therefore, we recommend that you continue to perform regular breast self-examination and physical examination and then promptly contact your physician of any concerns or changes. Adenosis and dense breasts may obscure an underlying neoplasm. Assessment: BI-RADS/ACR category 2 mammogram. Benign Findings. Recommendation Routine screening mammogram of both breasts in 1 year. Electronically Signed By: aPul Tolbert DO 07/24/20 6345
== END ==
LOC: M WHC 11:31
PROVIDERS: ATTEND Family Medicine
DX: Z12.31 Encounter for screening mammogram for malignant neoplasm of breast (principal); Z80.3 Family history of malignant neoplasm of breast; R92.1 Mammographic calcification found on diagnostic imaging of breast

== ENCOUNTER → 2020-07-25 | Outpatient (CLI) | payer MEDICARE, OTHER ==
--- NOTE | 2020-07-25 11:41 | REP ---
INDICATION: LOCALIZED SWELLING, MASS AND LUMP, UNSPECIFIED. COMPARISON: None. TECHNIQUE: Soft tissue neck sonography is performed in the right posterior neck as directed by the patient to the palpable area. FINDINGS: Soft tissue sonography in the area the palpable abnormality shows normal subcutaneous and skeletal muscle soft tissues. No cyst or mass is seen here. Adjacent to this there is a normal appearing lymph node measuring 1.0 x 0.3 x 0.9 cm. This lymph node apparently does not correspond with the palpable abnormality. It does not show suspicious features. IMPRESSION: No significant abnormality noted. Clinical follow-up is advised. <Electronically signed by Juan Alberto Galloway > 07/25/20 2777
== END ==
LOC: M RAD 10:04
PROVIDERS: ATTEND Family Medicine
DX: R22.9 Localized swelling, mass and lump, unspecified (principal)

== ENCOUNTER → 2020-08-15 | Outpatient (CLI) | payer MEDICARE, OTHER ==
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
== END ==
LOC: M PAIN 11:30
PROVIDERS: ATTEND Family Medicine
DX: M47.812 Spondylosis without myelopathy or radiculopathy, cervical region (principal); G89.29 Other chronic pain; R73.03 Prediabetes; K21.9 Gastro-esophageal reflux disease without esophagitis; Z95.0 Presence of cardiac pacemaker; Z87.891 Personal history of nicotine dependence; Z88.0 Allergy status to penicillin; Z88.1 Allergy status to other antibiotic agents; Z88.3 Allergy status to other anti-infective agents; Z88.6 Allergy status to analgesic agent; Z88.8 Allergy status to other drugs, medicaments and biological substances; Z91.09 Other allergy status, other than to drugs and biological substances; Z79.82 Long term (current) use of aspirin; Z79.84 Long term (current) use of oral hypoglycemic drugs; Z79.899 Other long term (current) drug therapy

== ENCOUNTER → 2020-09-27 | Outpatient (CLI) | payer MEDICARE, OTHER ==
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
== END ==
LOC: M PAIN 10:30
PROVIDERS: ATTEND Family Medicine
DX: M47.812 Spondylosis without myelopathy or radiculopathy, cervical region (principal); G89.29 Other chronic pain; R73.03 Prediabetes; K21.9 Gastro-esophageal reflux disease without esophagitis; Z95.0 Presence of cardiac pacemaker; Z87.891 Personal history of nicotine dependence; Z88.0 Allergy status to penicillin; Z88.3 Allergy status to other anti-infective agents; Z88.6 Allergy status to analgesic agent; Z88.8 Allergy status to other drugs, medicaments and biological substances; Z91.09 Other allergy status, other than to drugs and biological substances; Z79.82 Long term (current) use of aspirin; Z79.899 Other long term (current) drug therapy

== ENCOUNTER → 2020-10-19 | Outpatient (CLI) | payer MEDICARE, OTHER ==
[2020-10-19 13:06] LABS: HEMOGLOBIN A1c 5.6 %
[2020-10-19 13:13] LABS: BLOOD UREA NITROGEN 10 MG/DL (7-18); CALCIUM LEVEL 9.2 MG/DL (8.8-10.2); CARBON DIOXIDE LEVEL 30 MEQ/L (21-32); CHLORIDE LEVEL 107 MEQ/L (98-107); CREATININE FOR GFR 0.54 MG/DL (0.55-1.30); GLOMERULAR FILTRATION RATE > 60.0 (>45); GLUCOSE, FASTING 81 MG/DL (70-100); POTASSIUM SERUM 4.7 MEQ/L (3.5-5.1); SODIUM LEVEL 140 MEQ/L (136-145)
== END ==
LOC: M LAB 11:13
PROVIDERS: ATTEND Family Medicine
DX: R73.01 Impaired fasting glucose (principal)

== ENCOUNTER → 2021-02-06 | Outpatient (CLI) | payer MEDICARE, OTHER ==
[~2021-02-06] MED LIST changes: +QUET1TAB17; -QUET25TA3
== END ==
LOC: M PAIN 11:00
PROVIDERS: ATTEND Anesthesiology
DX: M47.812 Spondylosis without myelopathy or radiculopathy, cervical region (principal); K21.9 Gastro-esophageal reflux disease without esophagitis; Z95.0 Presence of cardiac pacemaker; Z87.891 Personal history of nicotine dependence; Z88.0 Allergy status to penicillin; Z88.3 Allergy status to other anti-infective agents; Z88.6 Allergy status to analgesic agent; Z88.8 Allergy status to other drugs, medicaments and biological substances; Z91.09 Other allergy status, other than to drugs and biological substances; Z79.82 Long term (current) use of aspirin; Z79.899 Other long term (current) drug therapy

== ENCOUNTER → 2021-03-06 | Outpatient (CLI) | payer MEDICARE, OTHER ==
[~2021-03-06] MED LIST changes: +E-Z-GAS II EFFERVESCENT PACKET (SODIUM BICARB./CITRIC ACID/SIMETHICONE) As Ordered ONE; +E-Z-HD 98% w/w 340GM SUSP BTL As Ordered ONE; +E-Z-PAQUE 96% w/w SUSP 176GM BTL As Ordered ONE; +K-TA1TAB PO; +LOSA100T45; +LOSA100T45 PO; -LOSA100T50; -LOSA100T50 PO; +LOSA50TA28 PO; -LOSA50TA88 PO
== END ==
LOC: M RAD 08:06
PROVIDERS: ATTEND Specialist
DX: K21.9 Gastro-esophageal reflux disease without esophagitis (principal); K44.9 Diaphragmatic hernia without obstruction or gangrene

== ENCOUNTER 2021-05-15 20:16 | Emergency (ER) | payer MEDICARE, OTHER ==
[~2021-05-15] VITALS: Ht 167.6 cm; Wt 105.4 kg
[~2021-05-15 20:16] MED LIST changes: -E-Z-GAS II EFFERVESCENT PACKET (SODIUM BICARB./CITRIC ACID/SIMETHICONE) As Ordered ONE; -E-Z-HD 98% w/w 340GM SUSP BTL As Ordered ONE; -E-Z-PAQUE 96% w/w SUSP 176GM BTL As Ordered ONE; -K-TA1TAB PO
[2021-05-15 21:44] LABS: BASO # 0.1 10^3/uL (0.0-0.2); BASO % 0.7 % (0.0-1.0); EOS # 0.1 10^3/uL (0.0-0.5); EOS % 1.2 % (0.0-3.0); HEMATOCRIT 37.6 % (36.0-47.0); HEMOGLOBIN 12.8 g/dl (12.0-15.5); LYMPH # 2.4 10^3/uL (1.5-5.0); LYMPH % 31.4 % (24.0-44.0); MEAN CORPUSCULAR HEMOGLOBIN 30.7 pg (27.0-33.0); MEAN CORPUSCULAR VOLUME 90.2 fl (80.0-96.0); MONO # 0.6 10^3/uL (0.0-0.8); MONO % 8.4 % (2.0-8.0); NEUTROPHILS # 4.4 10^3/uL (1.5-8.5); PLATELET COUNT, AUTOMATED 246 10^3/uL (150-450); RED BLOOD COUNT 4.17 10^6/uL (4.00-5.40); WHITE BLOOD COUNT 7.5 10^3/uL (4.0-10.0)
[2021-05-15 21:55] LABS: INR 0.86; PROTHROMBIN TIME 12.1 SECONDS (12.7-14.5)
[2021-05-15 22:08] LABS: ALBUMIN 3.5 GM/DL (3.2-5.2); ALT/SGPT 34 U/L (12-78); BILIRUBIN,DIRECT < 0.1 MG/DL (0.0-0.2); BILIRUBIN,TOTAL < 0.1 MG/DL (0.2-1.0); BLOOD UREA NITROGEN 12 MG/DL (7-18); CALCIUM LEVEL 9.1 MG/DL (8.8-10.2); CARBON DIOXIDE LEVEL 35 MEQ/L (21-32); CHLORIDE LEVEL 105 MEQ/L (98-107); CREATININE FOR GFR 0.83 MG/DL (0.55-1.30); GLOMERULAR FILTRATION RATE > 60.0 (>45); GLUCOSE, FASTING 110 MG/DL (70-100); LIPASE 235 U/L (73-393); POTASSIUM SERUM 3.3 MEQ/L (3.5-5.1); SODIUM LEVEL 146 MEQ/L (136-145); TOTAL PROTEIN 7.1 GM/DL (6.4-8.2)
[2021-05-15 22:11] LABS: CK-MB VALUE MASS < 1.0 NG/ML (<3.6); CPK CREATINE PHOSPHOKINASE 92 U/L (26-192); MB/CK RELATIVE INDEX 1.09 (< OR =4)
[2021-05-15 22:15] VITALS: BP 136/66
[2021-05-15] MEDS ORDERED: POTASSIUM CHLORIDE 10MEQ SR TABLET PO ONE (22:40)
[2021-05-15] MEDS ORDERED: K-TA1TAB PO (22:41)
== END 2021-05-15 22:50 | disposition home or self-care (01) ==
LOC: M ED 20:16
DX: E87.6 Hypokalemia (principal); E11.9 Type 2 diabetes mellitus without complications; I10 Essential (primary) hypertension; Z87.891 Personal history of nicotine dependence; Z79.82 Long term (current) use of aspirin; Z79.899 Other long term (current) drug therapy; Z88.0 Allergy status to penicillin; Z88.8 Allergy status to other drugs, medicaments and biological substances; Z91.89 Other specified personal risk factors, not elsewhere classified; Z91.030 Bee allergy status

== ENCOUNTER → 2021-05-28 | Outpatient (CLI) | payer MEDICARE, OTHER ==
[~2021-05-28] MED LIST changes: -D31000TA2 PO; +K-TA1TAB PO; +VITA100093 PO
[2021-05-28 13:28] LABS: BASO # 0.1 10^3/uL (0.0-0.2); BASO % 0.9 % (0.0-1.0); EOS # 0.5 10^3/uL (0.0-0.5); EOS % 5.6 % (0.0-3.0); HEMATOCRIT 40.4 % (36.0-47.0); HEMOGLOBIN 13.3 g/dl (12.0-15.5); LYMPH # 1.9 10^3/uL (1.5-5.0); LYMPH % 23.3 % (24.0-44.0); MEAN CORPUSCULAR HGB CONC 32.9 g/dl (32.0-36.5); MEAN CORPUSCULAR VOLUME 91.2 fl (80.0-96.0); MONO # 0.6 10^3/uL (0.0-0.8); MONO % 7.2 % (2.0-8.0); NEUTROPHILS # 5.1 10^3/uL (1.5-8.5); NEUTROPHILS % 62.6 % (36.0-66.0); PLATELET COUNT, AUTOMATED 312 10^3/uL (150-450); RED BLOOD COUNT 4.43 10^6/uL (4.00-5.40); WHITE BLOOD COUNT 8.1 10^3/uL (4.0-10.0)
[2021-05-28 14:03] LABS: ALBUMIN 3.7 GM/DL (3.2-5.2); ALT/SGPT 41 U/L (12-78); BILIRUBIN,TOTAL 0.2 MG/DL (0.2-1.0); BLOOD UREA NITROGEN 12 MG/DL (7-18); CALCIUM LEVEL 9.8 MG/DL (8.8-10.2); CARBON DIOXIDE LEVEL 36 MEQ/L (21-32); CHLORIDE LEVEL 99 MEQ/L (98-107); CREATININE FOR GFR 0.69 MG/DL (0.55-1.30); FERRITIN 79 NG/ML (8-252); GLOMERULAR FILTRATION RATE > 60.0 (>45); GLUCOSE, FASTING 94 MG/DL (70-100); IRON (FE) 62 UG/DL (50-170); PERCENT SATURATION 17.4 % (13.2-45.0); SODIUM LEVEL 140 MEQ/L (136-145); TOTAL IRON BINDING CAPACITY 356 UG/DL (250-450); TOTAL PROTEIN 7.3 GM/DL (6.4-8.2)
== END ==
LOC: M LAB 12:54
PROVIDERS: ATTEND Family Medicine
DX: L60.3 Nail dystrophy (principal); K44.9 Diaphragmatic hernia without obstruction or gangrene; E87.6 Hypokalemia; L43.9 Lichen planus, unspecified; Z98.890 Other specified postprocedural states

== ENCOUNTER → 2021-07-18 | Outpatient (CLI) | payer MEDICARE, OTHER | LOC: M PAIN 10:45 | PROVIDERS: ATTEND Nurse Practitioner Family | DX: M47.812 Spondylosis without myelopathy or radiculopathy, cervical region (principal); M50.10 Cervical disc disorder with radiculopathy, unspecified cervical region; G89.29 Other chronic pain; K21.9 Gastro-esophageal reflux disease without esophagitis; Z95.0 Presence of cardiac pacemaker; Z87.891 Personal history of nicotine dependence; Z88.0 Allergy status to penicillin; Z88.3 Allergy status to other anti-infective agents; Z88.6 Allergy status to analgesic agent; Z88.8 Allergy status to other drugs, medicaments and biological substances; Z91.09 Other allergy status, other than to drugs and biological substances; Z79.82 Long term (current) use of aspirin; Z79.899 Other long term (current) drug therapy ==

== ENCOUNTER → 2021-08-12 | Outpatient (CLI) | payer MEDICARE, OTHER | LOC: M RAD 12:57 | PROVIDERS: ATTEND Nurse Practitioner Family | DX: M47.812 Spondylosis without myelopathy or radiculopathy, cervical region (principal); M85.88 Other specified disorders of bone density and structure, other site; M50.322 Other cervical disc degeneration at C5-C6 level; M50.323 Other cervical disc degeneration at C6-C7 level ==

== ENCOUNTER → 2021-09-10 | Outpatient (CLI) | payer MEDICARE, OTHER | LOC: M PAIN 11:45 | PROVIDERS: ATTEND Nurse Practitioner Family | DX: M50.10 Cervical disc disorder with radiculopathy, unspecified cervical region (principal); G89.29 Other chronic pain; K21.9 Gastro-esophageal reflux disease without esophagitis; Z95.0 Presence of cardiac pacemaker; Z87.891 Personal history of nicotine dependence; Z88.0 Allergy status to penicillin; Z88.3 Allergy status to other anti-infective agents; Z88.6 Allergy status to analgesic agent; Z88.8 Allergy status to other drugs, medicaments and biological substances; Z91.09 Other allergy status, other than to drugs and biological substances; Z79.82 Long term (current) use of aspirin; Z79.899 Other long term (current) drug therapy ==

== ENCOUNTER → 2021-10-02 | Outpatient (CLI) | payer MEDICARE, OTHER ==
[2021-10-02 14:21] LABS: BLOOD UREA NITROGEN 15 MG/DL (7-18); CALCIUM LEVEL 9.6 MG/DL (8.8-10.2); CARBON DIOXIDE LEVEL 31 MEQ/L (21-32); CHLORIDE LEVEL 101 MEQ/L (98-107); CREATININE FOR GFR 0.71 MG/DL (0.55-1.30); GLOMERULAR FILTRATION RATE > 60.0 (>45); GLUCOSE, FASTING 88 MG/DL (70-100); POTASSIUM SERUM 4.1 MEQ/L (3.5-5.1); SODIUM LEVEL 136 MEQ/L (136-145)
[2021-10-02 14:33] LABS: HEMOGLOBIN A1c 5.8 %
== END ==
LOC: M LAB 10:11
PROVIDERS: ATTEND Family Medicine
DX: M20.12 Hallux valgus (acquired), left foot (principal); M25.572 Pain in left ankle and joints of left foot; E66.9 Obesity, unspecified; Z79.899 Other long term (current) drug therapy
CPT/HCPCS: 36415; 73600; 73620; 80048; 83036; G0463

== ENCOUNTER 2021-10-11 15:24 | Emergency (ER) | payer MEDICARE, OTHER ==
[2021-10-11] MEDS ORDERED: ONDANSETRON 4MG 2ML VIAL IV ONE (16:25)
[2021-10-11 16:55] LABS: BASO % 0.5 % (0.0-1.0); EOS % 0.2 % (0.0-3.0); HEMOGLOBIN 13.2 g/dl (12.0-15.5); LYMPH # 0.8 10^3/uL (1.5-5.0); LYMPH % 17.5 % (24.0-44.0); MEAN CORPUSCULAR HEMOGLOBIN 31.4 pg (27.0-33.0); MEAN CORPUSCULAR HGB CONC 33.8 g/dl (32.0-36.5); MEAN CORPUSCULAR VOLUME 92.6 fl (80.0-96.0); MONO # 0.4 10^3/uL (0.0-0.8); MONO % 8.2 % (2.0-8.0); NEUTROPHILS # 3.2 10^3/uL (1.5-8.5); NEUTROPHILS % 73.4 % (36.0-66.0); PLATELET COUNT, AUTOMATED 193 10^3/uL (150-450); RED BLOOD COUNT 4.21 10^6/uL (4.00-5.40); WHITE BLOOD COUNT 4.4 10^3/uL (4.0-10.0)
[2021-10-11 17:02] VITALS: BP 141/84
[2021-10-11 17:13] VITALS: O2SAT 98
[2021-10-11 17:31] LABS: ALBUMIN 3.3 GM/DL (3.2-5.2); ALT/SGPT 33 U/L (12-78); BILIRUBIN,DIRECT < 0.1 MG/DL (0.0-0.2); BILIRUBIN,TOTAL 0.4 MG/DL (0.2-1.0); BLOOD UREA NITROGEN 11 MG/DL (7-18); CALCIUM LEVEL 8.5 MG/DL (8.8-10.2); CARBON DIOXIDE LEVEL 29 MEQ/L (21-32); CHLORIDE LEVEL 100 MEQ/L (98-107); CREATININE FOR GFR 0.74 MG/DL (0.55-1.30); FREE T4 1.17 NG/DL (0.76-1.46); GLOMERULAR FILTRATION RATE > 60.0 (>45); GLUCOSE, FASTING 99 MG/DL (70-100); LIPASE 103 U/L (73-393); POTASSIUM SERUM 5.2 MEQ/L (3.5-5.1); RSV AMPLIFICATION NEGATIVE (NEGATIVE); SODIUM LEVEL 135 MEQ/L (136-145); THYROID STIMULATING HORMONE 0.686 uIU/ML (0.358-3.740); TOTAL PROTEIN 6.9 GM/DL (6.4-8.2)
[2021-10-11] MEDS ORDERED: SOD POLYSTYRENE SULFONATE SUSP 15GM 60ML UD PO ONE (18:10)
[2021-10-11] MEDS ORDERED: ONDA4TAB6 PO (18:44)
== END 2021-10-11 19:20 | disposition home or self-care (01) ==
LOC: EDBD 15:24 → M ED 15:24
DX: U07.1 COVID-19 (principal); I10 Essential (primary) hypertension; R73.09 Other abnormal glucose; Z95.0 Presence of cardiac pacemaker; Z79.82 Long term (current) use of aspirin; Z79.899 Other long term (current) drug therapy; Z88.0 Allergy status to penicillin; Z88.8 Allergy status to other drugs, medicaments and biological substances; Z91.89 Other specified personal risk factors, not elsewhere classified; Z91.030 Bee allergy status
CPT/HCPCS: 71045; 80048; 80076; 82550; 83690; 84439; 84443; 84484; 85025; 85379; 87631; 93005; 93041; 94760; 96374; 99285; J2405

== ENCOUNTER 2021-10-16 12:42 | Emergency (ER) | payer MEDICARE, OTHER ==
[~2021-10-16] VITALS: Ht 167.6 cm; Wt 101.4 kg
[2021-10-16] MEDS ORDERED: NS 1,000 ML IV ONE (14:20)
[2021-10-16 15:15] LABS: BASO % 0.3 % (0.0-1.0); EOS % 0.4 % (0.0-3.0); HEMATOCRIT 43.1 % (36.0-47.0); HEMOGLOBIN 14.5 g/dl (12.0-15.5); LYMPH # 1.5 10^3/uL (1.5-5.0); LYMPH % 16.5 % (24.0-44.0); MEAN CORPUSCULAR HEMOGLOBIN 30.4 pg (27.0-33.0); MEAN CORPUSCULAR HGB CONC 33.6 g/dl (32.0-36.5); MEAN CORPUSCULAR VOLUME 90.4 fl (80.0-96.0); MONO # 0.5 10^3/uL (0.0-0.8); MONO % 5.6 % (2.0-8.0); NEUTROPHILS # 7.1 10^3/uL (1.5-8.5); NEUTROPHILS % 76.9 % (36.0-66.0); PLATELET COUNT, AUTOMATED 228 10^3/uL (150-450); RED BLOOD COUNT 4.77 10^6/uL (4.00-5.40); WHITE BLOOD COUNT 9.3 10^3/uL (4.0-10.0)
[2021-10-16 16:59] LABS: ALBUMIN 3.7 GM/DL (3.2-5.2); ALT/SGPT 45 U/L (12-78); BILIRUBIN,DIRECT < 0.1 MG/DL (0.0-0.2); BILIRUBIN,TOTAL 0.3 MG/DL (0.2-1.0); BLOOD UREA NITROGEN 15 MG/DL (7-18); CALCIUM LEVEL 8.9 MG/DL (8.8-10.2); CARBON DIOXIDE LEVEL 22 MEQ/L (21-32); CHLORIDE LEVEL 104 MEQ/L (98-107); CREATININE FOR GFR 0.73 MG/DL (0.55-1.30); GLOMERULAR FILTRATION RATE > 60.0 (>45); GLUCOSE, FASTING 103 MG/DL (70-100); MAGNESIUM LEVEL 1.9 MG/DL (1.8-2.4); NT-PRO BNP 23 PG/ML (<125); POTASSIUM SERUM 3.1 MEQ/L (3.5-5.1); SODIUM LEVEL 138 MEQ/L (136-145); TOTAL PROTEIN 7.7 GM/DL (6.4-8.2)
[2021-10-16] MEDS ORDERED: ISOVUE-370 76% 100ML VIAL As Ordered ONE (17:00)
[2021-10-16] MEDS ORDERED: POTASSIUM CHLORIDE 10MEQ SR TABLET PO ONE (17:10)
[2021-10-16 17:46] VITALS: BP 142/84
== END 2021-10-16 19:27 | disposition home or self-care (01) ==
LOC: M ED 12:42
DX: U07.1 COVID-19 (principal); E87.6 Hypokalemia; E66.9 Obesity, unspecified; E11.9 Type 2 diabetes mellitus without complications; I10 Essential (primary) hypertension; E78.5 Hyperlipidemia, unspecified; J45.909 Unspecified asthma, uncomplicated; J44.9 Chronic obstructive pulmonary disease, unspecified; K21.9 Gastro-esophageal reflux disease without esophagitis; K57.92 Diverticulitis of intestine, part unspecified, without perforation or abscess without bleeding; Z85.3 Personal history of malignant neoplasm of breast; Z79.82 Long term (current) use of aspirin; Z79.899 Other long term (current) drug therapy; Z88.0 Allergy status to penicillin; Z88.8 Allergy status to other drugs, medicaments and biological substances; Z91.89 Other specified personal risk factors, not elsewhere classified; Z91.030 Bee allergy status
CPT/HCPCS: 71275; 80047; 80048; 80076; 83735; 83880; 84443; 85025; 96360; 96361; 99284; Q9967

== ENCOUNTER → 2021-10-21 | Outpatient (CLI) | payer MEDICARE, OTHER | LOC: M RAD 10:31 | PROVIDERS: ATTEND Family Medicine | DX: M25.572 Pain in left ankle and joints of left foot (principal) ==

== ENCOUNTER → 2021-11-19 | Outpatient (CLI) | payer MEDICARE, OTHER | LOC: M WHC 12:14 | PROVIDERS: ATTEND Family Medicine | DX: Z12.31 Encounter for screening mammogram for malignant neoplasm of breast (principal); Z80.3 Family history of malignant neoplasm of breast; Z98.890 Other specified postprocedural states ==

== ENCOUNTER → 2021-12-11 | Outpatient (CLI) | payer MEDICARE, OTHER | LOC: M PAIN 11:00 | PROVIDERS: ATTEND Anesthesiology | DX: M47.812 Spondylosis without myelopathy or radiculopathy, cervical region (principal); M54.2 Cervicalgia; M54.6 Pain in thoracic spine; G89.29 Other chronic pain; N88.8 Other specified noninflammatory disorders of cervix uteri; I10 Essential (primary) hypertension; Z95.0 Presence of cardiac pacemaker; Z88.0 Allergy status to penicillin; Z88.3 Allergy status to other anti-infective agents; Z88.6 Allergy status to analgesic agent; Z88.8 Allergy status to other drugs, medicaments and biological substances; Z91.09 Other allergy status, other than to drugs and biological substances; Z79.82 Long term (current) use of aspirin; Z79.899 Other long term (current) drug therapy ==

== ENCOUNTER → 2021-12-19 | Outpatient (CLI) | payer MEDICARE, OTHER | LOC: M WHC 11:42 | PROVIDERS: ATTEND Anesthesiology | DX: R22.1 Localized swelling, mass and lump, neck (principal) ==

== ENCOUNTER → 2022-02-12 | Outpatient (CLI) | payer MEDICARE, OTHER | LOC: M PAIN 10:00 | PROVIDERS: ATTEND Anesthesiology | DX: M79.18 Myalgia, other site (principal); M47.812 Spondylosis without myelopathy or radiculopathy, cervical region; I10 Essential (primary) hypertension; Z95.0 Presence of cardiac pacemaker; Z87.891 Personal history of nicotine dependence; Z88.0 Allergy status to penicillin; Z88.3 Allergy status to other anti-infective agents; Z88.6 Allergy status to analgesic agent; Z88.8 Allergy status to other drugs, medicaments and biological substances; Z91.09 Other allergy status, other than to drugs and biological substances; Z79.82 Long term (current) use of aspirin; Z79.899 Other long term (current) drug therapy ==

== ENCOUNTER → 2022-02-17 | Outpatient (CLI) | payer MEDICARE, OTHER ==
[2022-02-17 14:11] LABS: BLOOD UREA NITROGEN 12 MG/DL (9-23)
[2022-02-17 14:13] LABS: CREATININE FOR GFR 0.58 MG/DL (0.55-1.30); GLOMERULAR FILTRATION RATE > 60.0 (>45)
== END ==
LOC: M LAB 11:41
PROVIDERS: ATTEND Podiatrist
DX: R22.42 Localized swelling, mass and lump, left lower limb (principal); M21.611 Bunion of right foot; M21.612 Bunion of left foot

== ENCOUNTER → 2022-05-01 | Outpatient (CLI) | payer MEDICARE, OTHER ==
[2022-05-01 13:59] LABS: BASO # 0.1 10^3/uL (0.0-0.2); BASO % 0.9 % (0.0-1.0); EOS # 0.1 10^3/uL (0.0-0.5); HEMATOCRIT 42.1 % (36.0-47.0); HEMOGLOBIN 13.9 g/dl (12.0-15.5); LYMPH % 25.1 % (24.0-44.0); MEAN CORPUSCULAR HEMOGLOBIN 31.4 pg (27.0-33.0); MONO # 0.6 10^3/uL (0.0-0.8); MONO % 7.3 % (2.0-8.0); NEUTROPHILS # 5.2 10^3/uL (1.5-8.5); NEUTROPHILS % 65.6 % (36.0-66.0); PLATELET COUNT, AUTOMATED 282 10^3/uL (150-450); RED BLOOD COUNT 4.43 10^6/uL (4.00-5.40); WHITE BLOOD COUNT 7.9 10^3/uL (4.0-10.0)
[2022-05-01 14:26] LABS: ALBUMIN 3.8 G/DL (3.2-5.2); ALKALINE PHOSPHATASE 72 U/L (46-116); ALT/SGPT 29 U/L (7.0-40); AST/SGOT 22 U/L (<34); BILIRUBIN,TOTAL 0.5 MG/DL (0.3-1.2); BLOOD UREA NITROGEN 16 MG/DL (9-23); CALCIUM LEVEL 9.4 MG/DL (8.3-10.6); CARBON DIOXIDE LEVEL 33 MMOL/L (20-31); CHLORIDE LEVEL 98 MMOL/L (98-107); CHOLESTEROL LEVEL 210 MG/DL (<200); CHOLESTEROL RISK RATIO 3.35 (<5); CREATININE FOR GFR 0.65 MG/DL (0.55-1.30); GLOMERULAR FILTRATION RATE > 60.0 (>45); GLUCOSE, FASTING 87 MG/DL (74-106); HDL CHOLESTEROL 62.6 MG/DL (>40); LDL CHOLESTEROL 124.6 MG/DL (<100); NON-HDL-C 147 MG/DL; POTASSIUM SERUM 3.7 MMOL/L (3.5-5.1); SODIUM LEVEL 137 MMOL/L (136-145); TRIGLYCERIDES LEVEL 114 MG/DL (<150)
[2022-05-01 16:07] LABS: HEMOGLOBIN A1c 5.9 % (4.0-6.0)
== END ==
LOC: M LAB 13:20
PROVIDERS: ATTEND Family Medicine
DX: R73.03 Prediabetes (principal); E78.5 Hyperlipidemia, unspecified

== ENCOUNTER → 2022-07-01 | Outpatient (CLI) | payer MEDICARE, OTHER ==
[2022-07-01 11:12] LABS: BASO # 0.1 10^3/uL (0.0-0.2); BASO % 0.6 % (0.0-1.0); EOS # 0.1 10^3/uL (0.0-0.5); EOS % 1.4 % (0.0-3.0); HEMATOCRIT 39.4 % (36.0-47.0); HEMOGLOBIN 12.9 g/dl (12.0-15.5); LYMPH # 1.8 10^3/uL (1.5-5.0); MEAN CORPUSCULAR HEMOGLOBIN 30.9 pg (27.0-33.0); MEAN CORPUSCULAR HGB CONC 32.7 g/dl (32.0-36.5); MEAN CORPUSCULAR VOLUME 94.3 fl (80.0-96.0); MONO # 0.6 10^3/uL (0.0-0.8); MONO % 7.1 % (2.0-8.0); NEUTROPHILS # 5.9 10^3/uL (1.5-8.5); NEUTROPHILS % 69.5 % (36.0-66.0); PLATELET COUNT, AUTOMATED 346 10^3/uL (150-450); RED BLOOD COUNT 4.18 10^6/uL (4.00-5.40); WHITE BLOOD COUNT 8.4 10^3/uL (4.0-10.0)
[2022-07-01 11:38] LABS: BLOOD UREA NITROGEN 13 MG/DL (9-23); CALCIUM LEVEL 8.9 MG/DL (8.3-10.6); CARBON DIOXIDE LEVEL 34 MMOL/L (20-31); CHLORIDE LEVEL 99 MMOL/L (98-107); CREATININE FOR GFR 0.62 MG/DL (0.55-1.30); GLOMERULAR FILTRATION RATE > 60.0 (>45); GLUCOSE, FASTING 119 MG/DL (74-106); POTASSIUM SERUM 3.1 MMOL/L (3.5-5.1); SODIUM LEVEL 139 MMOL/L (136-145)
== END ==
LOC: M LAB 10:44
PROVIDERS: ATTEND Family Medicine
DX: Z01.818 Encounter for other preprocedural examination (principal)

== ENCOUNTER → 2022-12-26 | Outpatient (CLI) | payer MEDICARE, OTHER ==
[~2022-12-26] MED LIST changes: -LOSA100T45; -LOSA100T45 PO; +LOSA100T46; +LOSA100T46 PO
[2022-12-26 14:42] LABS: BLOOD UREA NITROGEN 12 MG/DL (9-23); GLOMERULAR FILTRATION RATE > 60.0 (>45)
== END ==
LOC: M LAB 13:22
PROVIDERS: ATTEND Physician Assistant Surgical
DX: M54.50 Low back pain, unspecified (principal); M54.6 Pain in thoracic spine

== ENCOUNTER → 2023-04-23 | Outpatient (CLI) | payer MEDICARE, OTHER | LOC: M RAD 14:24 | PROVIDERS: ATTEND Family Medicine | DX: M25.562 Pain in left knee (principal); M79.89 Other specified soft tissue disorders; M25.571 Pain in right ankle and joints of right foot; M17.12 Unilateral primary osteoarthritis, left knee; M11.262 Other chondrocalcinosis, left knee ==

== ENCOUNTER → 2023-05-05 | Outpatient (CLI) | payer MEDICARE, OTHER | LOC: M PAIN 13:00 | PROVIDERS: ATTEND Nurse Practitioner Family | DX: M46.1 Sacroiliitis, not elsewhere classified (principal); M54.50 Low back pain, unspecified; G44.229 Chronic tension-type headache, not intractable; M54.2 Cervicalgia; I10 Essential (primary) hypertension; R73.03 Prediabetes; Z87.891 Personal history of nicotine dependence; Z79.891 Long term (current) use of opiate analgesic; Z79.82 Long term (current) use of aspirin; Z79.899 Other long term (current) drug therapy; Z88.6 Allergy status to analgesic agent; Z88.0 Allergy status to penicillin; Z88.8 Allergy status to other drugs, medicaments and biological substances; Z91.048 Other nonmedicinal substance allergy status ==

== ENCOUNTER → 2023-05-13 | Outpatient (CLI) | payer MEDICARE, OTHER | LOC: M RAD 10:59 | PROVIDERS: ATTEND Nurse Practitioner Family | DX: M46.1 Sacroiliitis, not elsewhere classified (principal) ==

== ENCOUNTER → 2023-09-04 | Outpatient (CLI) | payer MEDICARE, MEDICAID ==
[~2023-09-04] MED LIST changes: +ONDA-282 PO; -ONDA4TAB6 PO
== END ==
LOC: M RAD 11:39
PROVIDERS: ATTEND Physician Assistant
DX: R22.42 Localized swelling, mass and lump, left lower limb (principal)

== ENCOUNTER → 2023-09-08 | Outpatient (REF) | payer MEDICARE, MEDICAID ==
[2023-09-08 18:46] LABS: BASO % 0.7 % (0.0-1.0); EOS # 0.1 10^3/uL (0.0-0.5); HEMATOCRIT 40.8 % (36.0-47.0); HEMOGLOBIN 13.8 g/dl (12.0-15.5); LYMPH # 1.7 10^3/uL (1.5-5.0); LYMPH % 30.9 % (24.0-44.0); MEAN CORPUSCULAR HEMOGLOBIN 32.2 pg (27.0-33.0); MEAN CORPUSCULAR HGB CONC 33.8 g/dl (32.0-36.5); MEAN CORPUSCULAR VOLUME 95.3 fl (80.0-96.0); MONO # 0.4 10^3/uL (0.0-0.8); MONO % 8.2 % (2.0-8.0); NEUTROPHILS # 3.1 10^3/uL (1.5-8.5); PLATELET COUNT, AUTOMATED 269 10^3/uL (150-450); RED BLOOD COUNT 4.28 10^6/uL (4.00-5.40); WHITE BLOOD COUNT 5.4 10^3/uL (4.0-10.0)
[2023-09-08 18:49] LABS: ALBUMIN 3.6 G/DL (3.2-5.2); ALKALINE PHOSPHATASE 67 U/L (46-116); ALT/SGPT 46 U/L (7.0-40); AST/SGOT 23 U/L (<34); BILIRUBIN,TOTAL 0.4 MG/DL (0.3-1.2); BLOOD UREA NITROGEN 12 MG/DL (9-23); CALCIUM LEVEL 9.8 MG/DL (8.3-10.6); CARBON DIOXIDE LEVEL 34 MMOL/L (20-31); CHLORIDE LEVEL 103 MMOL/L (98-107); CHOLESTEROL LEVEL 210 MG/DL (<200); CHOLESTEROL RISK RATIO 3.81 (<5); CREATININE FOR GFR 0.63 MG/DL (0.55-1.30); GLOMERULAR FILTRATION RATE > 60.0 (>45); GLUCOSE, FASTING 95 MG/DL (74-106); HDL CHOLESTEROL 55.1 MG/DL (>40); LDL CHOLESTEROL 130.5 MG/DL (<100); NON-HDL-C 154.9 MG/DL; POTASSIUM SERUM 3.8 MMOL/L (3.5-5.1); SODIUM LEVEL 140 MMOL/L (136-145); TOTAL PROTEIN 6.6 G/DL (5.7-8.2); TRIGLYCERIDES LEVEL 122 MG/DL (<150)
[2023-09-08 19:33] LABS: HEMOGLOBIN A1c 5.6 % (4.0-6.0)
== END ==
LOC: M SFHCLERA 08:00
PROVIDERS: ATTEND Family Medicine
DX: R73.03 Prediabetes (principal); E78.2 Mixed hyperlipidemia

== ENCOUNTER → 2023-10-02 | Outpatient (CLI) | payer MEDICARE, MEDICAID | LOC: M WHC 11:36 | PROVIDERS: ATTEND Family Medicine | DX: Z12.31 Encounter for screening mammogram for malignant neoplasm of breast (principal) ==

== ENCOUNTER → 2023-10-08 | Outpatient (CLI) | payer MEDICARE, MEDICAID | LOC: M SOG 07:53 | PROVIDERS: ATTEND Physician Assistant | DX: Z53.9 Procedure and treatment not carried out, unspecified reason (principal) ==

== ENCOUNTER → 2023-10-15 | Outpatient (CLI) | payer MEDICARE, OTHER | LOC: M RAD 10:41 | PROVIDERS: ATTEND Physician Assistant | DX: R60.0 Localized edema (principal) ==

== ENCOUNTER → 2023-10-15 | Outpatient (CLI) | payer MEDICARE, MEDICAID | LOC: M WHC 09:09 | PROVIDERS: ATTEND Family Medicine | DX: R92.8 Other abnormal and inconclusive findings on diagnostic imaging of breast (principal); R92.321 Mammographic fibroglandular density, right breast; N63.13 Unspecified lump in the right breast, lower outer quadrant | CPT/HCPCS: 77065; G0279 ==

== ENCOUNTER → 2024-01-19 | Outpatient (REF) | payer MEDICARE, MEDICAID | LOC: M SFHCLERA 17:21 | PROVIDERS: ATTEND Physician Assistant | DX: R35.0 Frequency of micturition (principal) ==

== ENCOUNTER 2024-06-02 07:17 | Day surgery (SDC) | payer MEDICARE, MEDICAID ==
[~2024-06-02] VITALS: Ht 167.6 cm; Wt 108.8 kg
[~2024-06-02 07:17] MED LIST changes: +ACET-1349 PO; +CHLO25TA PO; +CYAN500T14 PO; -LIDO4CRE4 EX; +LIDO5CRE7 EX
[2024-06-02] MEDS ORDERED: propofoL 500 MG/50 ML VIAL As Ordered ONE (08:59)
[2024-06-02 09:10] VITALS: TEMP 97.3
[2024-06-02 09:30] VITALS: BP 119/80; O2SAT 95
== END 2024-06-02 09:32 | disposition home or self-care (01) ==
LOC: M OPP 07:17
PROVIDERS: ATTEND Internal Medicine Gastroenterology
DX: K57.30 Diverticulosis of large intestine without perforation or abscess without bleeding (principal); K64.8 Other hemorrhoids; Z86.0100 Personal history of colon polyps, unspecified; I10 Essential (primary) hypertension; R73.03 Prediabetes; M19.90 Unspecified osteoarthritis, unspecified site; J45.909 Unspecified asthma, uncomplicated; J44.9 Chronic obstructive pulmonary disease, unspecified; E78.00 Pure hypercholesterolemia, unspecified; M54.30 Sciatica, unspecified side; Z95.0 Presence of cardiac pacemaker; Z85.3 Personal history of malignant neoplasm of breast; Z92.21 Personal history of antineoplastic chemotherapy; Z88.0 Allergy status to penicillin; Z88.3 Allergy status to other anti-infective agents; Z88.8 Allergy status to other drugs, medicaments and biological substances; Z91.030 Bee allergy status; Z91.048 Other nonmedicinal substance allergy status; Z79.82 Long term (current) use of aspirin; Z79.899 Other long term (current) drug therapy

== ENCOUNTER 2024-07-03 12:07 | Emergency (ER) | payer MEDICARE, MEDICAID ==
[~2024-07-03] VITALS: Ht 167.6 cm; Wt 112.0 kg
[2024-07-03] MEDS: HYDROMORPHONE HCL 0.5 MG/ 0.5 ML SYRINGE IV PRN (12:43)
[2024-07-03 14:28] LABS: RSV AMPLIFICATION NEGATIVE (NEGATIVE)
[2024-07-03] MEDS: PERCOCET 5MG/325MG TAB PO ONE (15:52)
[2024-07-03 16:37] VITALS: BP 121/71; TEMP 97.2; O2SAT 97
== END 2024-07-03 16:44 | disposition short-term general hospital (02) ==
LOC: M ED 12:07 → EDBD 12:07 → M ED 16:44
DX: G83.4 Cauda equina syndrome (principal); Z88.0 Allergy status to penicillin; Z88.8 Allergy status to other drugs, medicaments and biological substances; Z91.048 Other nonmedicinal substance allergy status; I10 Essential (primary) hypertension; E78.5 Hyperlipidemia, unspecified; J44.9 Chronic obstructive pulmonary disease, unspecified; Z90.49 Acquired absence of other specified parts of digestive tract; Z79.899 Other long term (current) drug therapy
CPT/HCPCS: 51702; 87631; 93041; 94760; 96374; 99285; J1171

== ENCOUNTER → 2024-07-14 | Outpatient (REF) | payer MEDICARE, MEDICAID | LOC: M SFHCLERA 14:28 | PROVIDERS: ATTEND Family Medicine | DX: R30.0 Dysuria (principal) ==

== ENCOUNTER → 2024-07-16 | Outpatient (CLI) | payer MEDICARE, MEDICAID ==
[2024-07-16 11:11] LABS: BASO % 0.6 % (0.0-1.0); EOS # 0.1 10^3/uL (0.0-0.5); EOS % 1.6 % (0.0-3.0); HEMATOCRIT 42.3 % (36.0-47.0); HEMOGLOBIN 14.4 g/dl (12.0-15.5); LYMPH # 1.9 10^3/uL (1.5-5.0); MEAN CORPUSCULAR HEMOGLOBIN 32.1 pg (27.0-33.0); MEAN CORPUSCULAR VOLUME 94.4 fl (80.0-96.0); MONO # 0.5 10^3/uL (0.0-0.8); MONO % 7.5 % (2.0-8.0); NEUTROPHILS # 3.9 10^3/uL (1.5-8.5); PLATELET COUNT, AUTOMATED 291 10^3/uL (150-450); RED BLOOD COUNT 4.48 10^6/uL (4.00-5.40); WHITE BLOOD COUNT 6.4 10^3/uL (4.0-10.0)
[2024-07-16 11:44] LABS: BLOOD UREA NITROGEN 13 MG/DL (9-23); CALCIUM LEVEL 9.2 MG/DL (8.3-10.6); CARBON DIOXIDE LEVEL 31 MMOL/L (20-31); CHLORIDE LEVEL 101 MMOL/L (98-107); CREATININE FOR GFR 0.66 MG/DL (0.55-1.30); GLOMERULAR FILTRATION RATE > 90.0 (>45); GLUCOSE, FASTING 91 MG/DL (74-106); POTASSIUM SERUM 4.2 MMOL/L (3.5-5.1); SODIUM LEVEL 140 MMOL/L (136-145)
== END ==
LOC: M LAB 10:51
PROVIDERS: ATTEND Family Medicine
DX: I10 Essential (primary) hypertension (principal); D64.9 Anemia, unspecified

== ENCOUNTER → 2024-08-01 | Outpatient (REF) | payer MEDICARE, MEDICAID | LOC: M SFHCLERA 16:59 | PROVIDERS: ATTEND Family Medicine | DX: R35.0 Frequency of micturition (principal) ==

== ENCOUNTER → 2024-10-18 | Outpatient (REF) | payer MEDICARE, MEDICAID | LOC: M SFHCLERA 17:06 | DX: R30.0 Dysuria (principal) ==

== ENCOUNTER → 2024-10-24 | Outpatient (REF) | payer MEDICARE, MEDICAID ==
[2024-10-24 18:08] LABS: CALCIUM LEVEL 9.8 MG/DL (8.3-10.6); CARBON DIOXIDE LEVEL 33 MMOL/L (20-31); CHLORIDE LEVEL 99 MMOL/L (98-107); CREATININE FOR GFR 0.67 MG/DL (0.55-1.30); GLOMERULAR FILTRATION RATE > 90.0 (>45); POTASSIUM SERUM 3.7 MMOL/L (3.5-5.1); SODIUM LEVEL 142 MMOL/L (136-145)
[2024-10-24 18:53] LABS: CREATININE, URINE 121.9 MG/DL; MALB URINE SIEMENS < 3.0 MG/L
== END ==
LOC: M SFHCLERA 08:50
DX: R80.1 Persistent proteinuria, unspecified (principal)